=== PATIENT | female | born 1945 | race Caucasian/White ===

== ENCOUNTER 2017-05-04 06:39 | Day surgery (SDC) | payer MEDICARE, SELFPAY ==
[2017-05-04] VITALS (8 sets, daily range): BP systolic 104–154; BP diastolic 38–58; PULSE 59–64; RESP 16; TEMP 36.8–36.9; O2SAT 93–98; BMI 33.6
--- NOTE | 2017-05-04 | IMM_PTH ---
PATIENT: CORETTA HODGES LOC: EN U#:[id number] AGE/SX: 72/F ROOM: RE05/04/[address]: Dr. Cj Stephens MD : 1945 BED: DIS: 05/04/2017 SPEC #: [id number] RECD: 05/07/17 11:40 STATUS: RON DANIEL #: [id number] ILIANA: 05/04/17 00:[address]: Cj Stephens DEPT: IMMUNOHISTOCHEMISTRY RECD BY: Elma Escobedo ENTERED: 05/07/17 11:41 SP TYPE: IMMUNO OTHR DR: Dr. Rikki Stephens III, MD Tissues: A - Stomach, NOS Procedures: H Pylori (initial) PHYSICIAN & INSTITUTION [place] [id number] SPECIMEN INFORMATION: Tissue Source: A ? Antral biopsy Clinical Info: GERD, history of food obstruction Specimen Number: [id number] CPT code: 85703 METHODOLOGY: Deparaffinized sections of prefer/formalin-fixed tissue or PAP/DQ stained slides are incubated with monoclonal/polyclonal antibodies/oligonucleotide probes. Localization is made via biotin free immunoperoxidase method. Appropriate controls are performed and reacted as expected. Results on target cell population are indicated in the following table: RESULTS: ANTIBODY / CLONE RESULT Block A H Pylori (polyclonal) negative These tests were developed and their performance characteristics determined by [facility]. They may not have been cleared or approved by the U.S. Food and Drug Administration. The FDA has determined that such clearance or approval is not necessary. INTERPRETATION: A. Antral biopsy: Negative for Helicobacter pylori organisms. AM:ruben 05/08/17
--- NOTE | 2017-05-04 07:35 | HP.PCM_ITS ---
Problem List (1) History of colon cancer Status: Acute (2) GERD (gastroesophageal reflux disease) Status: Acute History of Present Illness Date of Admission: 05/04/17 The patient is a 72 year old F patient presented my office. She has a personal history of colon cancer. She also has problems with increased gastroesophageal reflux disease with intermittent problems with meat foreign body food obstruction. February 23, 2017 she had a colonoscopy identifying a proximal transverse colon lesion. She underwent a resection. She presents now for surgical follow-up. She has been having increasing difficulties with swallowing with solid food meat causing intermittent obstruction. Past Medical History Past Medical History (Chronic Problems): Chronic Problems (Last Updated 03/29/17 @ 14:30 by Tri Phelps) DM2 (diabetes mellitus, type 2) (Chronic) S/P colectomy (Chronic) HTN (hypertension) (Chronic) Hyperlipidemia (Chronic) Allergies citalopram hydrobromide [From Celexa] Allergy (Verified 03/29/17 14:33) Unknown gabapentin [From Neurontin] Allergy (Verified 03/29/17 14:33) Unknown hydrocodone bitartrate [From Vicodin] Allergy (Verified 03/29/17 14:33) Unknown lisinopril Allergy (Verified 03/29/17 14:33) Unknown Home Medications: Ambulatory Orders Medication Instructions Recorded Amlodipine [Norvasc] 10 mg PO DAILY 04/19/14 Losartan Potassium [Cozaar] 100 mg PO DAILY 04/19/14 Pravastatin [Pravachol] 40 mg PO DAILY 04/19/14 Cinnamon Bark [Cinnamon] 500 mg PO BID 05/26/16 Ferrous Sulfate [Iron] 325 mg PO DAILY 05/26/16 Fluoxetine [Prozac] 20 mg PO DAILY 05/26/16 Insulin NPH Human Isophane 18 units SQ DAILY 05/26/16 [Humulin N Vial] Insulin NPH Human Isophane 20 units SQ QHS 05/26/16 [Humulin N] Lorazepam [Ativan] 0.5 - 1 mg PO BID PRN PRN 05/26/16 Pramipexole Di-HCl [Mirapex] 0.5 mg PO QHS 05/26/16 Pregabalin [Lyrica] 100 mg PO DAILY 05/26/16 Capecitabine [Xeloda] 1,000 mg PO BID 06/23/17 Docusate Sodium [Colace] 100 mg PO BID 09/15/16 Famotidine [Pepcid] 20 mg PO BID 09/15/16 Insulin Lispro [Humalog] 9 unit SQ TIDCM 09/15/16 Nystatin Powder [Mycostatin Powder] 1 applic TOPICAL 4X/DAY 09/15/16 Ondansetron HCl [Zofran] 4 mg PO Q6H PRN PRN 09/15/16 Prochlorperazine Maleate 10 mg PO Q8H PRN PRN 09/15/16 [Compazine] furosemide 20 mg tablet 20 mg PO ONCE 03/29/17 metoprolol succinate ER 100 mg 100 mg PO ONCE tab 03/29/17 tablet,extended release 24 hr topiramate 25 mg tablet 25 mg PO QDAY 03/29/17 Surgical History: total knee arthroplasty, - - Laparoscopic right colectomy February 2017 Smoking Status: Never smoker - *Family History Maternal History Items: Heart Disease - Heart failure in her mother Review of Systems Constitutional: Denies: Weight Change Eyes: Denies: Blurred vision, Vision Change HEENT: Denies: Ear Pain, Eye Pain Cardiovascular: Denies: Chest Pain, Claudication Respiratory: Denies: Cough, Shortness of Breath Gastrointestinal: Denies: Hematemesis, Hematochezia Genitourinary: Denies: Dysuria, Hematuria Musculoskeletal: Denies: Leg Pain Skin: Denies: Jaundice Neurological: Denies: Confusion Psychiatric: Denies: Depression Endocrine: Denies: Change in Body Habitus Hematologic/ Lymphatic: Denies: Easy Bleeding VTE Information - Inpt Only VTE Present on Admission: No Patient Problems: Active and Suspected Problems (Last Updated 03/29/17 @ 14:30 by Tri Phelps ) History of colon cancer (Acute) GERD with stricture (Acute) GERD (gastroesophageal reflux disease) (Acute) - Physical Exam General: Alert, Oriented x3 HEENT: PERRLA, EOMI Oral: Moist Mucosa Neck: Supple, No JVD Lungs: Clear to auscultation Cardiovascular: Regular rate Abdomen: Bowel Sounds Present Extremities: No clubbing Skin: No rashes Musculoskeletal: No Tenderness to Palpation of Joints or Extremities Lymphatic: No Cervical, Supraclavicular, or Inguinal Adenopathy Neurological: Cranial nerves II-XII grossly intact Vital Signs Temp Pulse Resp BP Pulse Ox 98.3 F 59 L 16 154/57 H 98 05/04/17 07:15 05/04/17 07:15 05/04/17 07:15 05/04/17 07:15 05/04/17 07:15 Oxygen Delivery Method Room Air Weight: 190 lb Body Mass Index (BMI) 33.6 Finger Stick Blood Glucose 231 Assessment/Plan Active and Suspected Problems (Last Updated 03/29/17 @ 14:30 by Tri Phelps ) History of colon cancer (Acute) GERD with stricture (Acute) GERD (gastroesophageal reflux disease) (Acute) Plan to proceed with a esophagogastroduodenoscopy with possible biopsy. If esophageal stricturing is identified in consideration for esophageal dilatation will be pursued. Plan for colonoscopy with possible biopsy or polypectomy is indicated. The patient has had a previous history of colon cancer and careful inspection will be performed. The patient is aware of technique, benefits, risks, alternatives. We will proceed as noted. Cj Stephens M.D., F.A.C.S.
[2017-05-04 07:36] LABS: Bedside Glucose 158 mg/dL (70-110)
--- NOTE | 2017-05-04 08:23 | GASB_PTH ---
PATIENT: CORETTA HODGES LOC: EN U#:[id number] AGE/SX: 72/F ROOM: RE05/04/[address]: Dr. Cj Stephens MD : 1945 BED: DIS: 05/04/2017 SPEC #: [id number] RECD: 05/04/17 11:11 STATUS: RON DANIEL #: [id number] ILIANA: 05/04/17 08:[address]: Cj Stephens DEPT: SURGICAL PATHOLOGY RECD BY: Rajiv Faulkner ENTERED: 05/04/17 12:14 SP TYPE: Gastric Bx OTHR DR: Dr. Rikki Stephens III, MD Tissues: A - Gastric mucous membrane B - Gastric mucous membrane Procedures: Surgery Specimen Level IV HEADER OPERATION: EGD with biopsy PRE-OP DIAGNOSIS: GERD and history of food obstruction TISSUE SUBMITTED: A ? Antral biopsy, B ? GE junction biopsy MICROSCOPIC DIAGNOSIS A. Gastric antrum, biopsy: Gastritis. B. GE junction, biopsy: Mild chronic inflammation. No evidence of intestinal metaplasia. Fragments of squamous mucosa with no significant pathologic change. AM:ruben 05/07/17 COMMENT A. The results of immunohistochemistry for Helicobacter pylori will be reported separately ([id number]). MICROSCOPIC DESCRIPTION Slides are reviewed. Sections show small collections and groups of plasma cells in the mucosa. Active inflammation is not present. These findings are consistent with mild chronic gastritis. GROSS DESCRIPTION A - Received in fixative is one container labeled with the patient's name and designated antral biopsy. The specimen consists of one irregular fragment of light diamond soft tissue that measures 0.5 x 0.3 x 0.1 cm. The specimen is totally submitted in one cassette. B - Received in fixative is one container labeled with the patient's name and designated GE junction biopsy. The specimen consists of multiple irregular fragments of light diamond soft tissue that in aggregate measure 1 x 0.3 x 0.1 cm. The specimen is totally submitted in one cassette. / AM:ruben 05/04/17 TC:3 CPT: 89354 x2
--- NOTE | 2017-05-04 08:50 | PCM.OPRPT ---
Problem List (1) History of colon cancer Status: Acute (2) GERD (gastroesophageal reflux disease) Status: Acute Report of Operation Date of Procedure: 05/04/17 Pre-Operative Diagnosis: Gastroesophageal reflux disease with intermittent food bolus obstruction. No history of colon cancer 1 year status post resection Post-Operative Diagnosis: Hiatal hernia with distal esophagitis and obstructing Schatzki ring. Mild antral gastritis. Widely patent ileocolonic anastomosis. No evidence for acute colonic pathology Surgery/Procedure Performed:: Gastroduodenoscopy with antral and GE junction biopsies with 20 mm Schatzki ring distal esophagus hydrostatic dilatation. Colonoscopy Description of Surgical Findings:: Timeout and informed consent was obtained. 72-year-old female was taken to the endoscopy suite. Her oropharynx anesthetized with Cetacaine. She was placed in a left lateral decubitus position. Throughout both the upper and lower scope she received total 100 mg of Demerol and 2 mg of Versed is intravenous sedation. Videogastroscope was inserted in the soft line at advanced without difficulty. The proximal and midesophagus not remarkable. The EG junction was at about 35 cm. A small hiatal hernia noted. Findings consistent with esophagitis with a obstructing Schatzki ring noted. Scope was advanced to the stomach where mild antral erythema was noted. Scope was advanced in the pylorus the first and second portion of the duodenum were inspected this was not remarkable. The scope was withdrawn back into the stomach retroflexed the EG junction and cardia inspected. The hiatal hernia noted. The greater and lesser curvatures were not remarkable. Antral biopsy was obtained. Excess fluid and air was aspirated free. The scope was withdrawn to the distal esophagus. At the friable Schatzki ring 2 different biopsies were obtained. Because of the patient's symptomatology I elected to do a hydrostatic localization. A 18 1920 mm hydrostatic balloon was inserted. This was insufflated to 3 gia and then slowly and gradually up to a total of 6 gia. The EG junction and ring was gently dilated. Inspection subsequently demonstrated improvement. After mucosa was intact. The patient tolerated it well. Excess fluid nurse aspirated free the scope was withdrawn without additional abnormality. The patient was kept in left lateral decubitus position. Digital rectal exam performed. Normal anal tone. Flexible colonoscope inserted the rectum advanced through a somewhat tortuous left colon. Transabdominal pressure was used to get the scope to go through the transverse colon. The ileocolonic anastomosis was nicely achieved. Bowel prep was quite good. The scope was carefully withdrawn through the transverse colon descending colon sigmoid colon. No abnormalities were noted. The scope was retroflexed within the rectum mild noted. No active bleeding. Excess fluid and air was aspirated free the procedure was completed with the patient tolerating it well. Impression Hiatal hernia with findings consistent with esophagitis and obstructing Schatzki ring. Mild antral gastritis. Distal esophageal dilatation successfully performed. Patent ileocolonic anastomosis. No evidence for recurrent colon cancer. Previous colonoscopy was 1 year ago. Next colonoscopy recommended in 3 years. The patient currently is on famotidine. We will await biopsies and consider possibly treatment with proton pump inhibitor. Cc: Dr. Rikki Stephens, III Occasions were given at 0815. Scope was inserted at 0821. The upper endoscopy completed at 0832. The colonoscopy was initiated at 0836. The ileocolonic anastomosis was reached at 0839.13. The procedure was completed at 0843.3. Cj Stephens M.D., F.A.C.S. Type of Anesthesia:: IV Sedation
== END 2017-05-04 10:15 | disposition home or self-care (01) ==
LOC: EN 06:40 → AC 06:43
PROVIDERS: Family Provider Family Medicine; PCP Family Medicine; Visit Provider Surgery
PROC: 0DJD8ZZ Inspection of Lower Intestinal Tract, Via Natural or Artificial Opening Endoscopic (ICD-10-PCS; CPT 45378; principal; 2017-05-04 07:55)
DX: K22.2 Esophageal obstruction (principal); K44.0 Diaphragmatic hernia with obstruction, without gangrene; K29.70 Gastritis, unspecified, without bleeding; K21.9 Gastro-esophageal reflux disease without esophagitis; K63.89 Other specified diseases of intestine; Z85.038 Personal history of other malignant neoplasm of large intestine; E11.9 Type 2 diabetes mellitus without complications; Z90.49 Acquired absence of other specified parts of digestive tract; I10 Essential (primary) hypertension; E78.5 Hyperlipidemia, unspecified; Z79.4 Long term (current) use of insulin; Z79.899 Other long term (current) drug therapy
CPT/HCPCS: 43239; 43249; 45378; 82962; 88305; 88342; J7120

== ENCOUNTER 2017-08-21 19:17 | Emergency (ER) | payer MEDICARE, SELFPAY ==
[2017-08-21 19:19] VITALS: BP 156/75; PULSE 88; RESP 18; TEMP 36.9; O2SAT 95; BMI 36.1
--- NOTE | 2017-08-21 19:52 | CT_ITS ---
STUDY: CT BRAIN WITHOUT CONTRAST REASON FOR EXAM: Female, 72 years old. Headache RADIATION DOSAGE (If Supplied By Facility): CTDIvol = ( 44.99 ) mGy, DLP = ( 796.11 ) mGycm TECHNIQUE: Transaxial CT imaging of the brain was performed without administration of intravenous contrast material. Individualized dose optimization techniques were used for this CT. COMPARISON: 09/15/2016. FINDINGS: Normal soft tissue structures. Normal calvarium. There is mild cerebral atrophy with widening of the extra-axial spaces and ventricular dilatation. There are areas of decreased attenuation within the white matter tracts of the supratentorial brain, consistent with microvascular disease changes. Stable area of encephalomalacia left frontal lobe. Normal basal ganglia and thalami. Normal brainstem. Normal cerebellum. There is no intracranial hemorrhage. There are no findings of an acute ischemic infarction. Normal visualized paranasal sinuses. CT/Brain/Head without Contrast IMPRESSION: Chronic involutional changes of the brain. 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 No acute intracranial process. Electronically Signed: Adan Car DO at 20:59 EDT , Service support ,
[2017-08-21 20:04] LABS: Absolute Lymphocyte Count 2.71 X10^3/ul (0.83-4.51); Absolute Neutrophil Count 3.9 X10^3/uL (2.0-7.7); Basophil# 0.03 X10^3/uL; Basophil% 0.4 % (0-1); Eosinophil# 0.29 X10^3/uL; Eosinophils% 3.9 % (0-5); Hematocrit 38.9 % (37-47); Hemoglobin 13.1 g/dl (12.0-15.0); Lymphocyte # 2.71 X10^3/ul (4.0); Lymphocyte % 36.2 % (19-41); Mean Corp Hgb Conc 33.7 g/gl (32-36); Mean Corpuscular Hgb 29.4 pg (27.0-32.0); Mean Corpuscular Volume 87.2 fL (81-99); Monocyte# 0.58 X10^3/uL; Monocyte% 7.8 % (0-10); Neutrophil # 3.87 X10^3/uL (2.7-7.7); Neutrophil % 51.7 % (47-70); Platelet Count 187 K/mm3 (150-450); RBC Distribution Width CV 13.4 % (11.6-14.6); RBC Distribution Width SD 42.7 fl (35.1-43.9); Red Blood Count 4.46 M/mm3 (4.2-5.4); White Blood Count 7.5 K/mm3 (4.4-11.0)
[2017-08-21 20:07] LABS: POSITIVE COUNT NO; POSITIVE DIFFERENTIAL NO; POSITIVE MORPHOLOGY NO
[2017-08-21 20:18] LABS: Anion Gap 9 (5-15); BUN 22 mg/dL (7-18); Calcium,Total 8.7 mg/dL (8.5-10.1); Chloride 109 mmol/L (98-107); EST Glomerular Filtration Rate 58 mL/min (>60); Est Glom Filt Rate - Afr Amer 70 mL/min (>60); Estimated Creatinine Clearance 42.07 ml/min; Glucose 273 mg/dL (74-106); Potassium 3.9 mmol/L (3.5-5.1); Sodium Level 141 mmol/L (136-145)
[2017-08-21] MEDS: Ondansetron 4 MG/2 ML Vial IV (20:24)
[2017-08-21] MEDS: Morphine 4 MG/ML Syringe IV (20:26)
--- NOTE | 2017-08-21 21:42 | ED.VISSUMM ---
- ER Visit Summary Date of Service: 08/21/17 Chief Complaint: Headache History of Present Illness: The patient is a [address] Rikki Stephens III. She reports that she has headache left side of her head began approximately 1 week ago. States this is an intermittent pain last approximately an hour at a time. She describes it as a dull, throbbing. It is an 8 out of 10 at worst and 5 out of 10 currently. Ports it is relieved by Tylenol. She denies any recent injury to her head. No fever, chills, numbness, weakness, or other complaints. Physical Examination: Vitals: Stable. Afebrile. Neck: Supple with no meningismus. Neuro: Cranial nerves II through XII are intact, 5 out of 5 strength throughout except left leg where she has 4+ out of 5 strength and decreased sensation to light touch. Patient reports that this is normal for her. Normal sensation otherwise. General: A&O x 3. NAD. Cardiovascular exam: Regular rate and rhythm, no murmur, rub or gallop. Respiratory exam: Clear to auscultation bilaterally. No wheezes or stridor. Abdominal exam: Soft, nontender, nondistended, normal bowel sounds. No peritoneal signs. Extremity: No clubbing, cyanosis, or edema. Test Results: CBC is normal. Chem-7 is remarkable for a chloride of 109, BUN 22, BUN/creatinine ratio 22, and glucose 273. CT brain shows chronic changes with a stable old left infarct. No acute disease. Emergency Department Course and Treatment: Patient was treated with morphine and Zofran IV. She is resting comfortably and feels much improved. Treatment Plan: Patient will be discharged instructions to follow-up Dr. Rikki Stephens III in 1-2 days if not improving. Return to the emergency department for any worsening symptoms. Disposition: To home in improved and stable condition. Impression: 1. Cephalgia. 2. Dehydration. This note was generated with [employer] dictation software. It may contain incorrect words, spelling, and punctuation that were not noted in review of the chart prior to signing ED Disposition - Plan for ED Patient: Disposition: Home or Assisted Living Chief Complaint: Headache Instructions: ED Cephalgia Unspecified Referrals: Rikki Stephens III, MD [Primary Care Provider] - 1-2 Days if not improving
[2017-08-21 22:12] VITALS: BP 140/60; PULSE 78
== END 2017-08-21 22:12 | disposition home or self-care (01) ==
PROVIDERS: Emergency Provider Emergency Medicine; Family Provider Family Medicine; PCP Family Medicine
DX: R51 Headache (principal); E86.0 Dehydration; E11.9 Type 2 diabetes mellitus without complications; I10 Essential (primary) hypertension; E78.00 Pure hypercholesterolemia, unspecified; Z86.73 Personal history of transient ischemic attack (TIA), and cerebral infarction without residual deficits; Z79.4 Long term (current) use of insulin; Z79.899 Other long term (current) drug therapy
CPT/HCPCS: 70450; 80048; 85025; 96361; 96374; 96375; 99285; J7030; J7040; A4216; J2405

== ENCOUNTER 2017-09-13 12:46 | Emergency (ER) | payer MEDICARE, SELFPAY ==
[2017-09-13 12:47] VITALS: BP 139/76; PULSE 71; RESP 18; TEMP 36.6; O2SAT 99; BMI 37.2
--- NOTE | 2017-09-13 13:21 | CT_ITS ---
STUDY: CT BRAIN WITHOUT CONTRAST REASON FOR EXAM: Female, 72 years old. Hypertension RADIATION DOSAGE (If Supplied By Facility): CTDIvol = ( 44.99 ) mGy, DLP = ( 745.49 ) mGycm TECHNIQUE: Transaxial CT imaging of the brain was performed without administration of intravenous contrast material. Individualized dose optimization techniques were used for this CT. COMPARISON: 08/21/2017 FINDINGS: Normal soft tissue structures. Normal calvarium. There is mild cerebral atrophy with widening of the extra-axial spaces and ventricular dilatation. There are areas of decreased attenuation within the white matter tracts of the supratentorial brain, consistent with microvascular disease changes. Old left frontal lobe infarct noted. Normal basal ganglia and thalami. Normal brainstem. Normal cerebellum. There is no intracranial hemorrhage. There are no findings of an acute ischemic infarction. Normal visualized paranasal sinuses. CT/Brain/Head without Contrast IMPRESSION: Chronic involutional changes of the brain. No acute hemorrhage Stable appearance of an old left frontal lobe infarct Electronically Signed: Angus Chiu MD at 14:17 EDT , Service support ,
[2017-09-13] MEDS: Acetaminophen 325 MG Tablet 650 MG PO (13:45)
[2017-09-13 13:46] LABS: Erythrocyte Sedimentation Rate 6 mm/hr (0-30)
[2017-09-13 13:57] LABS: White Blood Count 6.7 K/mm3 (4.4-11.0)
[2017-09-13 13:58] LABS: Basophil% 0.6 % (0-1); Eosinophils% 3.7 % (0-5); Hemoglobin 13.5 g/dl (12.0-15.0); Lymphocyte % 29.7 % (19-41); Mean Corp Hgb Conc 33.8 g/gl (32-36); Mean Corpuscular Hgb 29.5 pg (27.0-32.0); Mean Corpuscular Volume 87.5 fL (81-99); Mean Platelet Vol. 9.9 fl (6.2-12.0); Monocyte% 6.7 % (0-10); Neutrophil # 3.98 X10^3/uL (2.7-7.7); Neutrophil % 59.2 % (47-70); POSITIVE COUNT NO; POSITIVE DIFFERENTIAL NO; POSITIVE MORPHOLOGY NO; Platelet Count 175 K/mm3 (150-450); RBC Distribution Width CV 13.5 % (11.6-14.6); RBC Distribution Width SD 42.5 fl (35.1-43.9); Red Blood Count 4.57 M/mm3 (4.2-5.4)
[2017-09-13 13:59] LABS: Anion Gap 6 (5-15); BUN 13 mg/dL (7-18); BUN/Creat Ratio 17.3 RATIO (10-20); Basophil# 0.04 X10^3/uL; Calcium,Total 8.7 mg/dL (8.5-10.1); Chloride 110 mmol/L (98-107); Creatinine, Serum 0.75 mg/dL (0.55-1.02); EST Glomerular Filtration Rate 81 mL/min (>60); Eosinophil# 0.25 X10^3/uL; Est Glom Filt Rate - Afr Amer 98 mL/min (>60); Estimated Creatinine Clearance 42.07 ml/min; Glucose 92 mg/dL (74-106); Monocyte# 0.45 X10^3/uL; Potassium 3.8 mmol/L (3.5-5.1); Sodium Level 144 mmol/L (136-145)
--- NOTE | 2017-09-13 14:40 | ED.VISSUMM ---
- ER Visit Summary Date of Service: 09/13/17 Chief Complaint: [Headache] History of Present Illness: The patient is a 72 F [presents with a headache that she has had intermittently for about a year and a half. Patient states that she has intermittent episodes of dull achy and throbbing left-sided headache with sharp stabbing episodes. Patient states the headache and last several hours at a time and then completely resolved. Patient takes topiramate for this which is prescribed by her primary care physician. Patient describes intermittent occasional photophobia. He denies any nausea or vomiting with this. Patient's visiting nurse came by today and noted that patient's blood pressure was elevated in the 170s over 80s and was instructed to come to the emergency department to get evaluated. Patient denies any falls or head injuries. Patient denies recent illness otherwise. Patient does have a history of prior stroke without any deficits from prior stroke. Patient with history of diabetes, hypertension, high cholesterol, anemia, frequent falls.] Physical Examination: [HEENT-PERRLA, EOMI. Cranial nerves II through XII grossly intact. TMs clear. Mucous membranes moist. No adenopathy. Patient has no tenderness over the left temporal artery. Cardiovascular-regular rate and rhythm without murmur or ectopy Lungs-clear to auscultation, chest wall stable without crepitus or subcu emphysema Abdomen-normoactive bowel sounds, soft, nontender, no rebound or rigidity, no peritoneal signs. Neuro tjsk-ubqzhk-savq and heel porras testing within normal limits, negative Romberg, negative pronator drift, fundi benign Extremities-intact ?4, normal range of motion, normal pulses, atraumatic] Test Results: [CBC with differential obtained showed a white count 6.7, hemoglobin 13.5, hematocrit 40, platelets 175. Sed rate was normal at 6. Chemistries were normal. CT scan of the brain showed old left frontal lobe infarct otherwise nothing acute.] Emergency Department Course and Treatment: [Was given a dose of Tylenol in the emergency department and currently her headache is resolved.] Treatment Plan: [Patient will be referred to Dr. Luis Orellana for further follow-up. Patient tells me she had an MRI about a year ago of her brain and has never been diagnosed with aneurysms. Discharged home in stable condition] Disposition: [] Impression: [Acute on chronic headache-resolved] This note was generated with Dragon dictation software. It may contain incorrect words, spelling, and punctuation that were not noted in review of the chart prior to signing ED Disposition - Plan for ED Patient: Chief Complaint: Other, Pain/Inj Referrals: Rikki Stephens III, MD [Primary Care Provider] -
--- NOTE | 2017-09-13 14:43 | ED.DEP ---
ED Disposition - Plan for ED Patient: Chief Complaint: Other, Pain/Inj Instructions: ED Cephalgia Unspecified Prescriptions: traMADol [Ultram] 50 mg PO Q4H PRN PRN #20 tab PRN Reason: Pain Referrals: Rikki Stephens III, MD [Primary Care Provider] - Luis Orellana MD [STAFF PHYSICIAN] - 3-5 Days
[2017-09-13 15:17] VITALS: BP 152/68; PULSE 72; RESP 16; O2SAT 98
== END 2017-09-13 15:18 | disposition home or self-care (01) ==
LOC: ED 13:23
PROVIDERS: Emergency Provider Emergency Medicine; Family Provider Family Medicine; PCP Family Medicine
DX: R51 Headache (principal); K21.9 Gastro-esophageal reflux disease without esophagitis; E11.9 Type 2 diabetes mellitus without complications; I10 Essential (primary) hypertension; E78.00 Pure hypercholesterolemia, unspecified; Z91.81 History of falling; Z86.73 Personal history of transient ischemic attack (TIA), and cerebral infarction without residual deficits; Z85.038 Personal history of other malignant neoplasm of large intestine; Z79.4 Long term (current) use of insulin; Z79.82 Long term (current) use of aspirin; Z79.899 Other long term (current) drug therapy
CPT/HCPCS: 70450; 80048; 85025; 85652; 99283; A4216

== ENCOUNTER 2018-03-18 08:57 | Emergency (ER) | payer MEDICARE, SELFPAY ==
[2018-03-18 08:57] VITALS: BMI 33.6
[2018-03-18 08:58] VITALS: BP 111/85; PULSE 77; RESP 20; TEMP 36.6; O2SAT 98; BMI 33.6
--- NOTE | 2018-03-18 09:57 | ED.VISSUMM ---
- ER Visit Summary Date of Service: 03/18/18 Chief Complaint: Vomiting History of Present Illness: The patient is a 73 F who states that Sunday afternoon she was sitting down she suddenly developed dry heaves. She has had nausea vomiting since. Though her last emesis was yesterday morning. She states she has not been able to eat or drink due to the severe nausea. She has a history of colon cancer has had a partial colectomy. Also notes history of diabetes. She has not been taking her diabetes medications because she has not been eating. She notes a subjective fever. She notes chronic rhinorrhea but no change in that. Physical Examination: Afebrile vital signs are stable Gen: Well-nourished well-developed Head: Normocephalic atraumatic Eyes: Perrl EOMI ENT: TMs clear no rhinorrhea since lips are dry and her tongue appears dry Neck: Supple no lymphadenopathy no JVD nontender CVS: Regular rate rhythm no murmurs normal S1-S2 Respiratory: No distress clear to auscultation bilaterally chest nontender Abdomen: Soft nontender nondistended normal bowel sounds no masses Back: Nontender Extremity: Nontender no edema Skin: Normal color no rash Neuro: alert orientated ?3 CN II-XII intact normal strength sensation reflexes gait cerebellar Psych: Normal affect normal mood Test Results: BC CMP and lipase were normal. Emergency Department Course and Treatment: Patient received IV fluids and Zofran. She feels improved on repeat examination. Patient will be discharged home with a prescription for Zofran instructions for oral rehydration return if worsening or concerns Impression: 1. Acute gastritis 2. Dehydration This note was generated with [employer] dictation software. It may contain incorrect words, spelling, and punctuation that were not noted in review of the chart prior to signing ED Disposition - Plan for ED Patient: Disposition: Home or Assisted Living Chief Complaint: Nausea/Vomiting Instructions: ED Gastroenteritis Viral Prescriptions: Ondansetron [Zofran Odt] 4 mg PO Q6H PRN PRN #10 tab PRN Reason: Nausea Referrals: Rikki Stephens III, MD [Primary Care Provider] - 3-5 Days if not improving
[2018-03-18] MEDS: 0.9% Normal Saline 1,000 ML 1000 ML IV ×2 (10:01→11:55)
[2018-03-18] MEDS: Ondansetron 4 MG/2 ML Vial IV ×2 (10:01→13:15)
[2018-03-18 10:03] VITALS: BP 163/53; PULSE 73; RESP 16; O2SAT 98
[2018-03-18 10:07] LABS: Hematocrit 36.3 % (37-47); Hemoglobin 11.9 g/dl (12.0-15.0); Mean Corp Hgb Conc 32.8 g/gl (32-36); Mean Corpuscular Hgb 28.9 pg (27.0-32.0); Mean Corpuscular Volume 88.1 fL (81-99); Mean Platelet Vol. 9.8 fl (6.2-12.0); Platelet Count 188 K/mm3 (150-450); RBC Distribution Width CV 13.6 % (11.6-14.6); RBC Distribution Width SD 43.9 fl (35.1-43.9); Red Blood Count 4.12 M/mm3 (4.2-5.4); White Blood Count 7.3 K/mm3 (4.4-11.0)
[2018-03-18 10:08] LABS: Differential Indicated MANUAL DIFF; POSITIVE COUNT NO; POSITIVE DIFFERENTIAL NO; POSITIVE MORPHOLOGY YES
--- NOTE | 2018-03-18 10:17 | NURSING ---
CHEMISTRIES HEMOLIZED
[2018-03-18 11:32] LABS: AST(SGOT) 27 U/L (15-37); Alanine Aminotransfer ALT/SGPT 25 U/L (13-56); Albumin, Serum 3.5 g/dL (3.2-5.0); Alkaline Phosphatase 27 U/L (45-117); Anion Gap 10 (5-15); BUN 19 mg/dL (7-18); BUN/Creat Ratio 18.6 RATIO (10-20); Calcium,Total 8.6 mg/dL (8.5-10.1); Chloride 109 mmol/L (98-107); Creatinine, Serum 1.02 mg/dL (0.55-1.02); EST Glomerular Filtration Rate 56 mL/min (>60); Est Glom Filt Rate - Afr Amer 68 mL/min (>60); Estimated Creatinine Clearance 40.63 ml/min; Globulin 3.4 g/dL (2.2-4.2); Glucose 80 mg/dL (74-106); Lipase 39 U/L (73-393); Potassium 4.3 mmol/L (3.5-5.1); Protein, Total 6.9 g/dL (6.4-8.2); Sodium Level 144 mmol/L (136-145)
[2018-03-18 11:49] LABS: Basophil 1 % (0-1); Eosinophil 2 % (0-5); Lymphocyte 32 % (19-41); Monocyte 12 % (0-10); Neutrophil-Segmented 53 % (47-70); Platelet Estimate ADEQUATE (ADEQ); Red Cell Morphology NORM C+C NORMAL (NORM C&C); Total Cells Counted 100 (MANUAL DIFF)
[2018-03-18 11:50] LABS: Absolute Lymphocyte Count 2.34 X10^3/ul (0.83-4.51); Absolute Neutrophil Count 3.9 X10^3/uL (2.0-7.7); Lymphocyte # 2.34 X10^3/ul (4.0)
[2018-03-18 13:33] VITALS: BP 139/84; PULSE 86; RESP 18; O2SAT 97
== END 2018-03-18 13:36 | disposition home or self-care (01) ==
PROVIDERS: Emergency Provider Emergency Medicine; Family Provider Family Medicine; PCP Family Medicine
DX: K52.9 Noninfective gastroenteritis and colitis, unspecified (principal); E86.0 Dehydration; E11.9 Type 2 diabetes mellitus without complications; Z85.038 Personal history of other malignant neoplasm of large intestine; Z90.49 Acquired absence of other specified parts of digestive tract; Z86.73 Personal history of transient ischemic attack (TIA), and cerebral infarction without residual deficits
CPT/HCPCS: 36415; 80053; 83690; 85025; 96361; 96374; 96376; 99283; J7030; A4216; J2405

== ENCOUNTER 2018-03-21 14:47 | Emergency (ER) | payer MEDICARE, SELFPAY ==
[2018-03-21 14:48] VITALS: BP 160/63; PULSE 70; RESP 18; TEMP 36.9; O2SAT 100; BMI 32.8
--- NOTE | 2018-03-21 15:17 | EKG12_ITS ---
Test Reason : GENERAL ILLNESS Blood Pressure : / mmHG Vent. Rate : 068 BPM Atrial Rate : 068 BPM P-R Int : 156 ms QRS Dur : 080 ms QT Int : 408 ms P-R-T Axes : 026 -09 035 degrees QTc Int : 433 ms Normal sinus rhythm Normal ECG Confirmed by MYKE ERICKSON, ROSANNA ([id number]), brands editor ALFRED BAILEY ([id number]) on 03/25/2018 1:21:26 PM Referred By: WALDEMAR Confirmed By:ROSANNA STRINGER MD
[2018-03-21] MEDS: 0.9% Normal Saline 1,000 ML 1000 ML IV (15:49)
[2018-03-21 15:51] LABS: Absolute Lymphocyte Count 1.79 X10^3/ul (0.83-4.51); Absolute Neutrophil Count 4.2 X10^3/uL (2.0-7.7); Basophil# 0.03 X10^3/uL; Basophil% 0.4 % (0-1); Eosinophil# 0.17 X10^3/uL; Eosinophils% 2.5 % (0-5); Hematocrit 35.3 % (37-47); Hemoglobin 11.5 g/dl (12.0-15.0); Lymphocyte # 1.79 X10^3/ul (4.0); Lymphocyte % 26.5 % (19-41); Mean Corp Hgb Conc 32.6 g/gl (32-36); Mean Corpuscular Hgb 28.7 pg (27.0-32.0); Mean Platelet Vol. 9.6 fl (6.2-12.0); Monocyte# 0.55 X10^3/uL; Monocyte% 8.1 % (0-10); Neutrophil # 4.21 X10^3/uL (2.7-7.7); Neutrophil % 62.5 % (47-70); Platelet Count 193 K/mm3 (150-450); RBC Distribution Width CV 13.5 % (11.6-14.6); RBC Distribution Width SD 43.6 fl (35.1-43.9); Red Blood Count 4.01 M/mm3 (4.2-5.4); White Blood Count 6.8 K/mm3 (4.4-11.0)
[2018-03-21 15:53] LABS: POSITIVE COUNT NO; POSITIVE DIFFERENTIAL NO; POSITIVE MORPHOLOGY NO
[2018-03-21 15:58] VITALS: BP 118/58; BP 125/51; BP 127/47; PULSE 68; PULSE 74; PULSE 78
[2018-03-21 16:30] LABS: ALB/GLOB Ratio 1.2 RATIO (0.9-2.4); AST(SGOT) 20 U/L (15-37); Alanine Aminotransfer ALT/SGPT 22 U/L (13-56); Albumin, Serum 3.6 g/dL (3.2-5.0); Alkaline Phosphatase 26 U/L (45-117); BUN 18 mg/dL (7-18); BUN/Creat Ratio 14.6 RATIO (10-20); Calcium,Total 8.5 mg/dL (8.5-10.1); Creatinine, Serum 1.23 mg/dL (0.55-1.02); EST Glomerular Filtration Rate 46 mL/min (>60); Est Glom Filt Rate - Afr Amer 55 mL/min (>60); Globulin 3.1 g/dL (2.2-4.2); Glucose 101 mg/dL (74-106); Lipase 47 U/L (73-393); Potassium 4.1 mmol/L (3.5-5.1); Protein, Total 6.7 g/dL (6.4-8.2); Sodium Level 141 mmol/L (136-145)
[2018-03-21 16:31] LABS: Anion Gap 8 (5-15); Chloride 112 mmol/L (98-107)
[2018-03-21 16:48] VITALS: BP 153/80
[2018-03-21 17:10] LABS: Bacteria 0 SEEN /hpf (None Seen); Mucous, Urine 0 SEEN /hpf (<or=2+); Red Blood Cells-Urine 0 SEEN /hpf (0-5)
[2018-03-21 17:13] LABS: Color, Urine Yellow (Yellow); Glucose, Dipstick Normal (Normal); Ketone-Dipstick Negative (Negative); Leukocyte Esterase-Dipstick 100 /ul (Negative); Nitrite-Dipstick Negative (Negative); Occult Blood-Urine Negative /ul (Negative); Protein-Dipstick Negative (Negative); Urine Bilirubin Dipstick Negative (Negative); Urine Clarity Clear (Clear); Urine Urobilinogen Normal (Normal)
[2018-03-21 17:23] LABS: Transitional Epithelial - Ur 0-5 SEEN /hpf (0-5)
[2018-03-21 17:24] LABS: Fine Granular Cast- Urine 0-5 SEEN /lpf (0-5)
[2018-03-21 17:27] LABS: Hyaline Cast 10-25 SEEN /lpf (0-5); White Blood Cells 0-5 SEEN /hpf (0-5)
[2018-03-21 17:28] LABS: Squamous Epithelial Cells - UA 0-5 SEEN /hpf (5-10)
--- NOTE | 2018-03-21 17:38 | ED.VISSUMM ---
- ER Visit Summary Date of Service: 03/21/18 Chief Complaint: [Generalized weakness and concern for dehydration] History of Present Illness: The patient is a 73 F [presents to the emergency department complaint of feeling generally weak over the last 5 days. Patient was seen in the emergency department several days ago for similar complaint. Patient states that 5 days ago she started with vomiting and diarrhea which lasted about 3 days. Since that time she has had decreased p.o. intake and generally has no significant energy. Patient denies any fever. Denies chest pain. She denies shortness of breath. Patient was seen by visiting nurse today and advised to come back and get reevaluated. Patient states that at times she feels dizzy with standing. Past medical history significant for type 2 diabetes, hypertension, high cholesterol, anemia, colon cancer history, prior stroke. Past surgical history includes hysterectomy.] Physical Examination: [HEENT-PERRLA, EOMI. Cranial nerves II through XII grossly intact. TMs clear. Mucous membranes moist. No adenopathy. Cardiovascular-regular rate and rhythm without murmur or ectopy Lungs-clear to auscultation, chest wall stable without crepitus or subcu emphysema Abdomen-normoactive bowel sounds, soft, nontender, no rebound or rigidity, no peritoneal signs. Extremities-intact ?4, normal range of motion, normal pulses, atraumatic] Test Results: [EKG obtained arrival shows sinus rhythm with a ventricular rate of 68 bpm with no acute ST segment changes. CBC with differential 6.8, hemoglobin 11.5, hematocrit 35, platelets 193. Chemistries unremarkable. BUN was 18 and creatinine 1.23. LFTs were normal. Lipase was 47. Urinalysis was normal. Troponin is less than 0.015. Orthostatic vital signs were negative.] Emergency Department Course and Treatment: [She was given a liter normal same fluid bolus.] Treatment Plan: [At this point I recommended continued hydration at home.] Patient to follow-up with primary care physician within next 3-5 days. Disposition: [Discharged home in stable condition] Impression: [Generalized weakness [id number]] This note was generated with [employer] dictation software. It may contain incorrect words, spelling, and punctuation that were not noted in review of the chart prior to signing ED Disposition - Plan for ED Patient: Chief Complaint: General Illness Referrals: Rikki Stephens III, MD [Primary Care Provider] -
--- NOTE | 2018-03-21 17:41 | ED.DEP ---
ED Disposition - Plan for ED Patient: Chief Complaint: General Illness Instructions: ED Weakness UKO, ED Gastroenteritis Viral Referrals: Rikki Stephens III, MD [Primary Care Provider] - 3-5 Days
[2018-03-21 17:45] VITALS: BP 136/70; PULSE 81; RESP 16; O2SAT 99
[2018-03-21 18:02] VITALS: BP 108/67; PULSE 91; RESP 14; O2SAT 99
== END 2018-03-21 18:03 | disposition home or self-care (01) ==
PROVIDERS: Emergency Provider Emergency Medicine; Family Provider Family Medicine; PCP Family Medicine
DX: R53.1 Weakness (principal); A08.4 Viral intestinal infection, unspecified; Z86.73 Personal history of transient ischemic attack (TIA), and cerebral infarction without residual deficits
CPT/HCPCS: 80053; 81001; 83690; 84484; 85025; 93005; 96360; 96361; 99284; A4216

== ENCOUNTER 2018-04-03 10:12 | Emergency (ER) | payer MEDICARE, SELFPAY ==
[2018-04-03 10:13] VITALS: BP 121/64; PULSE 67; RESP 18; TEMP 36.1; O2SAT 98; BMI 32.2
--- NOTE | 2018-04-03 10:41 | ED.VISSUMM ---
- ER Visit Summary Date of Service: 04/03/18 Chief Complaint: Dehydration History of Present Illness: The patient is a 73 F who has had 2 ER visits and recent primary care and urgent care visits over the last several weeks. Patient initially had nausea, vomiting and diarrhea which she states is now resolved. She has had decreased oral intake and decreased urination. She denies fever. She has had a nonproductive cough. Denies any shortness of breath or abdominal pain. Today was seen at the [facility] [place]. They called center of the ER. They stated there is she seemed dehydrated and had positive orthostatic hypotension. Physical Examination: Vital signs are stable. Blood pressure is 121/64. Pulse ox 98 and her temperature is 96. She does not look septic or toxic. She is in no distress. HEENT exam pupils round reactive light. Normal speech. No facial droop. Mildly dry mucous membranes. No signs of trauma. Neck nontender no lymphadenopathy. Lungs clear to auscultation bilaterally. Dry cough. Heart regular rate and rhythm no murmur. Abdomen is soft and nontender. Normal bowel sounds no peritoneal signs. Patient is moving all 4 extremities. Neurovascular intact. Calves are nontender without edema or cords. 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 Dorsi plantar flexion intact. Back exam nontender. Skin unremarkable. Neurologically she is awake and alert with no focal motor deficits. Test Results: Chest x-ray shows no acute abnormalities. 2 views read by myself. No pneumonia. CBC shows a white count of 8. Hemoglobin 11.2 which is her baseline. Chemistries are unremarkable gap of 10. BUN is elevated 24 creatinine 1 consistent with mild dehydration. Emergency Department Course and Treatment: Patient treated with 2 L normal saline IV fluids. IV Zofran. P.o. challenge. Repeat exam patient is doing well after the first and second bags of IV fluids. She is comfortable and family is current with her being discharged home. She meets no criteria for admission. Treatment Plan: Zofran for nausea. Plenty of fluids and rest. Follow-up with her primary care physician Dr. Rikki Chandler. Disposition: Discharge Impression: Acute mild dehydration status post recent viral illness with decreased oral intake This note was generated with [employer] dictation software. It may contain incorrect words, spelling, and punctuation that were not noted in review of the chart prior to signing ED Disposition - Plan for ED Patient: Chief Complaint: Nausea/Vomiting Referrals: Rikki Stephens III, MD [Primary Care Provider] -
[2018-04-03] MEDS: 0.9% Normal Saline 1,000 ML 1000 ML IV ×2 (10:49→11:22)
[2018-04-03] MEDS: Ondansetron 4 MG/2 ML Vial IV (10:49)
--- NOTE | 2018-04-03 11:05 | RAD_ITS ---
STUDY: X-RAY CHEST REASON FOR EXAM: Female, 73 years old. Cough. TECHNIQUE: PA and lateral views of the chest. COMPARISON: Comparison is made with prior study dated May 26, 2016. FINDINGS: Stable elevation of the anterior aspect of the right hemidiaphragm. Scattered calcified granulomas. No acute abnormality is seen. The lungs are clear and expanded. There is no demonstrated pleural abnormality. Normal size heart. Normal mediastinum and marti. Normal visualized pulmonary arteries. Normal visualized aortic arch and descending thoracic aorta. There are degenerative changes of the visualized thoracic spine. Normal visualized ribs, clavicles, and shoulders. There is no demonstrated abnormality of the visualized soft tissue structures of the upper abdomen. RAD/Chest PA and Lateral IMPRESSION: No acute abnormality is seen. Electronically Signed: Mickey Funk MD at 11:26 EST Tel [phone], Service support ,
[2018-04-03 11:27] LABS: Hemoglobin 11.2 g/dl (12.0-15.0); Mean Corp Hgb Conc 32.9 g/gl (32-36); Mean Corpuscular Hgb 28.9 pg (27.0-32.0); Mean Corpuscular Volume 87.6 fL (81-99); Mean Platelet Vol. 10.2 fl (6.2-12.0); Platelet Count 176 K/mm3 (150-450); RBC Distribution Width CV 13.2 % (11.6-14.6); RBC Distribution Width SD 42.5 fl (35.1-43.9); Red Blood Count 3.88 M/mm3 (4.2-5.4)
[2018-04-03 11:31] LABS: Anion Gap 10 (5-15); BUN 24 mg/dL (7-18); BUN/Creat Ratio 22.2 RATIO (10-20); Calcium,Total 8.3 mg/dL (8.5-10.1); Chloride 107 mmol/L (98-107); Creatinine, Serum 1.08 mg/dL (0.55-1.02); Differential Indicated MANUAL DIFF; EST Glomerular Filtration Rate 53 mL/min (>60); Est Glom Filt Rate - Afr Amer 64 mL/min (>60); Estimated Creatinine Clearance 38.38 ml/min; Glucose 86 mg/dL (74-106); POSITIVE COUNT NO; POSITIVE DIFFERENTIAL NO; POSITIVE MORPHOLOGY YES; Potassium 3.9 mmol/L (3.5-5.1); Sodium Level 142 mmol/L (136-145)
[2018-04-03 11:50] LABS: Eosinophil 3 % (0-5); Lymphocyte 23 % (19-41); Monocyte 5 % (0-10); Neutrophil-Segmented 69 % (47-70); Total Cells Counted 100 (MANUAL DIFF)
[2018-04-03 11:51] LABS: Absolute Neutrophil Count 5.5 X10^3/uL (2.0-7.7); Platelet Estimate ADEQUATE (ADEQ); Red Cell Morphology NORM C+C NORMAL (NORM C&C)
--- NOTE | 2018-04-03 12:43 | ED.DEP ---
ED Disposition - Plan for ED Patient: Disposition: Home or Assisted Living Chief Complaint: Nausea/Vomiting Instructions: ED Dehydration Prescriptions: Ondansetron [Zofran Odt] 4 mg PO Q8H PRN PRN #10 tab PRN Reason: Nausea Referrals: Rikki Stephens III, MD [Primary Care Provider] - 3-5 Days if not improving Additional Instructions: Zofran as needed for nausea. Plenty of fluids and rest. Follow-up with your doctor in the next several days if not improving.
[2018-04-03 13:45] VITALS: BP 127/45; PULSE 71; RESP 14; O2SAT 95
== END 2018-04-03 13:47 | disposition home or self-care (01) ==
PROVIDERS: Emergency Provider Emergency Medicine; Family Provider Family Medicine; PCP Family Medicine
DX: E86.0 Dehydration (principal); I10 Essential (primary) hypertension; E11.9 Type 2 diabetes mellitus without complications; Z86.73 Personal history of transient ischemic attack (TIA), and cerebral infarction without residual deficits; Z85.038 Personal history of other malignant neoplasm of large intestine; Z79.82 Long term (current) use of aspirin; Z79.4 Long term (current) use of insulin; Z79.899 Other long term (current) drug therapy
CPT/HCPCS: 71046; 80048; 85025; 96361; 96374; 99283; J7030; A4216; J2405

== ENCOUNTER 2018-09-07 16:35 | Emergency (ER) | payer MEDICARE, SELFPAY ==
[2018-09-07 16:37] VITALS: BP 127/83; PULSE 85; RESP 16; TEMP 36.1; O2SAT 99; BMI 31.8
[2018-09-07] MEDS: Fluorescein 1 MG STRIP 1 STRIP LEFT EYE (17:40)
[2018-09-07] MEDS: Tetracaine 0.5% Ophthalmic Bottle 1 DRP LEFT EYE (17:40)
--- NOTE | 2018-09-07 17:44 | ED.VISSUMM ---
- ER Visit Summary Date of Service: 09/07/18 Chief Complaint: Left eye pain History of Present Illness: The patient is a 73 F presents to the emergency department with left eye pain. The patient thought she was putting eyedrops in her left eye but it was actually a tube of superglue. Her eyelashes, and eyelid are not stuck together which she is having foreign body sensation and discomfort in her left eye. She is having no visual change. She is having a little bit of drainage and swelling. She has no other complaints at this time. She does wear glasses for visual correction. Her tetanus is up-to-date. Physical Examination: Patient has mild erythema of the left upper and lower eyelid but no swelling. Patient has diffuse injection left conjunctivitis. No foreign bodies are seen. Extraocular movement shows normal range of motion with no pain palsy or nystagmus. PERRLA and normal accommodation are noted. Patient has an evidence of a corneal abrasion at 8:00 and over her central area of vision but there is no ulcer, no Ernie sign or foreign body. Test Results: Tetracaine instilled left eye. Pain was improved. Floor seen instilled. Slit-lamp performed. Patient has a large corneal abrasion over central area of her vision and approximately at 8:00. No foreign bodies are seen. No Ernie sign or ulcer. Emergency Department Course and Treatment: After slit-lamp exam the patient will be given a prescription for erythromycin ophthalmic and will follow-up with her marketing proposal coordinator in the next 2 to 3 days. Treatment Plan: Erythromycin ophthalmic, follow-up ophthalmology Disposition: Discharged home Impression: Corneal abrasion, left eye This note was generated with [employer] dictation software. It may contain incorrect words, spelling, and punctuation that were not noted in review of the chart prior to signing ED Disposition - Plan for ED Patient: Disposition: Home or Assisted Living Diagnosis: Corneal abrasion, left Instructions: ED Eye Injury Corneal Abrasion Prescriptions: Erythromycin Ophthalmic 1 applic LEFT EYE TID #1 tube Referrals: Rikki Stephens III, MD [Primary Care Provider] -
--- NOTE | 2018-09-07 17:48 | ED.DCSUM_ITS ---
- ER Visit Summary Date of Service: 09/07/18 Chief Complaint: Left eye pain History of Present Illness: The patient is a 73 F presents to the emergency department with left eye pain. The patient thought she was putting eyedrops in her left eye but it was actually a tube of superglue. Her eyelashes, and eyelid are not stuck together which she is having foreign body sensation and discomfort in her left eye. She is having no visual change. She is having a little bit of drainage and swelling. She has no other complaints at this time. She does wear glasses for visual correction. Her tetanus is up-to-date. Physical Examination: Patient has mild erythema of the left upper and lower eyelid but no swelling. Patient has diffuse injection left conjunctivitis. No foreign bodies are seen. Extraocular movement shows normal range of motion with no pain palsy or nystagmus. PERRLA and normal accommodation are noted. Patient has an evidence of a corneal abrasion at 8:00 and over her central area of vision but there is no ulcer, no Ernie sign or foreign body. Test Results: Tetracaine instilled left eye. Pain was improved. Floor seen instilled. Slit-lamp performed. Patient has a large corneal abrasion over central area of her vision and approximately at 8:00. No foreign bodies are seen. No Ernie sign or ulcer. Emergency Department Course and Treatment: After slit-lamp exam the patient will be given a prescription for erythromycin ophthalmic and will follow-up with her beaming machine operator in the next 2 to 3 days. Treatment Plan: Erythromycin ophthalmic, follow-up ophthalmology Disposition: Discharged home Impression: Corneal abrasion, left eye This note was generated with [employer] dictation software. It may contain incorrect words, spelling, and punctuation that were not noted in review of the chart prior to signing ED Disposition - Plan for ED Patient: Disposition: Home or Assisted Living Diagnosis: Corneal abrasion, left Instructions: ED Eye Injury Corneal Abrasion Prescriptions: Erythromycin Ophthalmic 1 applic LEFT EYE TID #1 tube Referrals: Rikki Stephens III, MD [Primary Care Provider] -
== END 2018-09-07 17:55 | disposition home or self-care (01) ==
PROVIDERS: Emergency Provider Physician Assistant Medical; Family Provider Family Medicine; PCP Family Medicine
DX: S05.02XA Injury of conjunctiva and corneal abrasion without foreign body, left eye, initial encounter (principal); E11.9 Type 2 diabetes mellitus without complications; I10 Essential (primary) hypertension; E78.00 Pure hypercholesterolemia, unspecified; Z79.4 Long term (current) use of insulin; Z79.82 Long term (current) use of aspirin; Z79.899 Other long term (current) drug therapy; X58.XXXA Exposure to other specified factors, initial encounter; Y93.89 Activity, other specified; Y92.009 Unspecified place in unspecified non-institutional (private) residence as the place of occurrence of the external cause; Y99.8 Other external cause status
CPT/HCPCS: 99283

== ENCOUNTER 2019-01-06 14:49 | Emergency (ER) | payer MEDICARE, SELFPAY ==
[2019-01-06 14:51] VITALS: BP 154/60; PULSE 78; PULSE 84; RESP 17; TEMP 36.3; O2SAT 100; BMI 32.8
--- NOTE | 2019-01-06 15:04 | RAD_ITS ---
STUDY: X-RAY - RIGHT SHOULDER REASON FOR EXAM: Female, 73 years old. Pain following a fall. TECHNIQUE: 4 view(s) of the shoulder. COMPARISON: None. FINDINGS: There is moderate degenerative arthrosis of the glenohumeral articulation. There is degenerative arthrosis of the acromioclavicular joint without inferior osseous spur formation. Normal acromion. Normal humeral head and visualized proximal humerus. The soft tissue structures are unremarkable. Normal visualized pulmonary apex. RAD/Shoulder min 2 Views IMPRESSION: Degenerative changes of the right glenohumeral joint as well as the right acromioclavicular joint. Electronically Signed: Mickey Funk, at 16:06 EDT , Service support ,
--- NOTE | 2019-01-06 15:05 | RAD_ITS ---
STUDY: X-RAY - UNILATERAL RIBS ( RIGHT ) WITH CHEST REASON FOR EXAM: Female, 73 years old. Pain following a fall. TECHNIQUE - RIBS: 4 view(s) of the ribs. TECHNIQUE - CHEST: Single frontal view of the chest. COMPARISON: Comparison is made with prior chest radiograph dated April 02, 2018. FINDINGS - RIBS: Normal visualized ribs without a demonstrated fracture. FINDINGS - CHEST: Mild degree of increased markings at the lung bases suggestive of developing atelectasis. Decrease inspiratory effort. There is no demonstrated pleural abnormality. Normal size heart. Normal mediastinum and marti. Normal visualized pulmonary arteries. Normal visualized aortic arch and descending thoracic aorta. There are diffuse degenerative changes of the visualized thoracic spine. Normal visualized ribs, clavicles, and shoulders. There is no demonstrated abnormality of the visualized soft tissue structures of the upper abdomen. RAD/Ribs Uni Min 3V w/PA Chest IMPRESSION: RIBS: Normal x-ray examination of the ribs. CHEST: Decreased respiratory effort with mild increased markings at the bases suggestive of atelectasis. Electronically Signed: Mickey Funk, at 16:06 EDT , Service support ,
--- NOTE | 2019-01-06 15:05 | CT_ITS ---
STUDY: CT BRAIN WITHOUT CONTRAST REASON FOR EXAM: Female, 73 years old. History of fall. RADIATION DOSAGE (If Supplied By Facility): CTDIvol = ( 44.99 ) mGy, DLP = ( 731.43 ) mGycm TECHNIQUE: Transaxial CT imaging of the brain was performed without administration of intravenous contrast material. Individualized dose optimization techniques were used for this CT. COMPARISON: Comparison is made with prior study dated September 13, 2017. FINDINGS: Normal soft tissue structures. Normal calvarium. There is mild cerebral atrophy with widening of the extra-axial spaces and ventricular dilatation. There are areas of decreased attenuation within the white matter tracts of the supratentorial brain, consistent with microvascular disease changes. Stable focal encephalomalacia in the left frontal lobe. Normal basal ganglia and thalami. Normal brainstem. Normal cerebellum. There is no intracranial hemorrhage. There are no findings of an acute ischemic infarction. Normal visualized paranasal sinuses. CT/Brain/Head without Contrast IMPRESSION: Chronic involutional changes of the brain. Stable appearance of the encephalomalacia in the left frontal lobe. Electronically Signed: Mickey Funk, at 15:53 EDT , Service support ,
--- NOTE | 2019-01-06 15:05 | CT_ITS ---
STUDY: CT CERVICAL SPINE WITHOUT CONTRAST REASON FOR EXAM: Female, 73 years old. History of fall. RADIATION DOSAGE (If Supplied By Facility): CTDIvol = ( 28.58 ) mGy, DLP = ( 586.98 ) mGycm TECHNIQUE: High resolution transaxial imaging was performed without contrast material. Sagittal and coronal images were reconstructed. Individualized dose optimization techniques were used for this CT. COMPARISON: Comparison is made with prior study dated September 15, 2016. FINDINGS: Normal craniovertebral junction. Normal anterior atlantoaxial articulation. Normal odontoid process. Normal cervical lordosis. Normal vertebral bodies and posterior osseous elements. C2-3: Facet joint osteoarthritis and hypertrophy on the right side. No significant stenosis is seen. C3-4: Mild degree of the left facet joint osteoarthritis and hypertrophy. No significant stenosis is seen. C4-5: Moderate degree of disc space narrowing. Anterior and posterior spondylosis. Uncovertebral arthrosis. Moderate degree of bilateral neural foraminal stenosis worse on the left side there C5-6: Moderate degree of disc space narrowing. Facet joint osteoarthritis. Uncovertebral arthrosis. Moderate degree of bilateral neural foraminal stenosis worse on the left side. C6-7: Disc space narrowing. No stenosis is seen. Atherosclerotic calcification of the carotid bifurcations. CT/Spine Cervical without Contras IMPRESSION: Multilevel degenerative changes, as described above. Electronically Signed: Mickey Funk, at 15:54 EDT , Service support ,
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
[2019-01-06 15:07] VITALS: O2SAT 99
--- NOTE | 2019-01-06 15:26 | RAD_ITS ---
STUDY: X-RAY - PELVIS AND RIGHT HIP REASON FOR EXAM: Female, 73 years old. Pain following a fall. TECHNIQUE: 3 views of the pelvis and hip. COMPARISON: None. FINDINGS: There is a non-specific bowel gas pattern. There are multiple calcified phleboliths. There are atherosclerotic vascular calcifications. Normal bilateral iliac wings, sacroiliac joints and visualized sacrum. Normal bilateral superior and inferior pubic rami. There are degenerative changes of the pubic symphysis with articular narrowing and sclerosis. Normal bilateral ischial tuberosities. Normal visualized femoral head. There is osteoarthritic spur formation of the acetabular rim. There is moderate articular joint space narrowing of the hip. RAD/HIP, UNI W/ Pelvis 2-3 Views IMPRESSION: Degenerative changes. No fracture or dislocation is seen. Electronically Signed: Mickey Funk, at 16:04 EDT , Service support ,
[2019-01-06 16:50] VITALS: BP 134/84; PULSE 85; RESP 16; O2SAT 99
[2019-01-06 17:14] VITALS: BP 134/84; PULSE 85; RESP 16; O2SAT 99
== END 2019-01-06 17:49 | disposition home or self-care (01) ==
PROVIDERS: Emergency Provider Emergency Medicine; Family Provider Family Medicine; PCP Family Medicine
DX: S16.1XXA Strain of muscle, fascia and tendon at neck level, initial encounter (principal); S40.011A Contusion of right shoulder, initial encounter; S70.01XA Contusion of right hip, initial encounter; S09.90XA Unspecified injury of head, initial encounter; S00.81XA Abrasion of other part of head, initial encounter; S50.311A Abrasion of right elbow, initial encounter; E66.9 Obesity, unspecified; I10 Essential (primary) hypertension; E78.00 Pure hypercholesterolemia, unspecified; F41.9 Anxiety disorder, unspecified; F29 Unspecified psychosis not due to a substance or known physiological condition; Z86.73 Personal history of transient ischemic attack (TIA), and cerebral infarction without residual deficits; Z85.038 Personal history of other malignant neoplasm of large intestine; Z79.82 Long term (current) use of aspirin; Z79.899 Other long term (current) drug therapy; W01.198A Fall on same level from slipping, tripping and stumbling with subsequent striking against other object, initial encounter; Y93.01 Activity, walking, marching and hiking; Y92.481 Parking lot as the place of occurrence of the external cause; Y99.8 Other external cause status
CPT/HCPCS: 70450; 71101; 72125; 73030; 73502; 99284

== ENCOUNTER 2019-03-26 09:04 | Emergency (ER) | payer MEDICARE, SELFPAY ==
[2019-03-26 09:05] VITALS: BP 155/96; PULSE 102; RESP 17; TEMP 37; O2SAT 99; BMI 32.8
--- NOTE | 2019-03-26 09:12 | RAD_ITS ---
STUDY: X-RAY CHEST REASON FOR EXAM: Female, 74 years old. Cough, dyspnea on exertion, pedal edema TECHNIQUE: PA and lateral views of the chest. COMPARISON: 04/03/2018. CT chest 12/28/2011. FINDINGS: There are superimposed monitor leads. Stable eventration right hemidiaphragm. Stable hyperinflation and calcified nodules in the right base. There is no demonstrated pleural abnormality. Normal size heart. Normal mediastinum and marti. Normal visualized pulmonary arteries. There is atherosclerotic calcification of the aortic arch with tortuosity. There are diffuse degenerative changes of the visualized thoracic spine. There is degenerative osteoarthritis of the bilateral shoulders. There is no demonstrated abnormality of the visualized soft tissue structures of the upper abdomen. RAD/Chest PA and Lateral IMPRESSION: Stable hyperinflation, calcified granulomata. No pulmonary edema, congestive heart failure or confluent pneumonia. Electronically Signed: Cara Hatch MD at 10:25 EST , Service support ,
--- NOTE | 2019-03-26 09:12 | EKG12_ITS ---
Test Reason : COUGH Blood Pressure : / mmHG Vent. Rate : 091 BPM Atrial Rate : 091 BPM P-R Int : 132 ms QRS Dur : 090 ms QT Int : 360 ms P-R-T Axes : 040 -16 069 degrees QTc Int : 442 ms Normal sinus rhythm Minimal voltage criteria for LVH, may be normal variant Borderline ECG Confirmed by MARINA ERICKSON, ALEKSANDAR ([id number]), commissioning editor JULIANNE LEON ([id number]) on 03/27/2019 10:32:21 AM Referred By: BERNIE Confirmed By:ALEKSANDAR GRAY MD
--- NOTE | 2019-03-26 09:13 | ED.DCSUM_ITS ---
History of Present Illness Chief Complaint: Cough Detail of Chief Complaint: I have been like this for 2 weeks Informant: Patient Onset: Weeks - Onset of illness 2 weeks ago. Patient reports nonproductive cough, change in voice, pain with coughing, dyspnea and dyspnea exertion. She was unaware that she had swelling of her feet and legs. She does report two- pillow orthopnea. Context: Sudden Onset Timing: Continuous Quality: Respiratory symptoms Current Severity: Mild Maximum Severity: Moderate Worsened by: Activity Relieved by: Nothing Associated Symptoms: Read HPI Narrative: Patient is an elderly woman who is not a good informant presents with illness that started 2 weeks ago. She has a nonproductive cough. She reports pain with breathing and coughing. She also reports congestion and change in voice. She denies exertional chest pain. She does report needing 2 pillows to sleep with at night. Uncertain whether this is for comfort or for dyspnea. She was unaware that she has swelling of her feet and ankles. She denies history of congestive heart failure. She does complain of bifrontal head pain. Denies double vision, blurred vision loss of vision or photophobia. She denies neck pain or neck stiffness. She denies ear pain, ringing or ears or decreased hearing. She does report mild congestion of her nose. She denies nausea, vomiting or diarrhea. She denies urologic symptoms. Prior similar symptoms: No Recent Illness/Hospitalization: No - Past Medical History (1) Adenocarcinoma of colon Status: Acute Comment: 04/2016 (2) Anxiety Status: Acute (3) Cerebral arteriosclerosis Status: Acute (4) Chronic calculous cholecystitis Status: Acute (5) Diverticulosis Status: Acute (6) Dysphagia Status: Acute (7) Hx of heart surgery Status: Acute Comment: heart cath 2002 (8) Intervertebral disc disorder with radiculopathy of lumbar region Status: Acute (9) Overactive bladder Status: Acute (10) S/P cholecystectomy Status: Acute Comment: 2015 (11) Status post corneal transplant Status: Acute (12) Status post total knee replacement, right Status: Acute Comment: 2006 (13) DM2 (diabetes mellitus, type 2) Status: Chronic (14) HTN (hypertension) Status: Chronic (15) Hyperlipidemia Status: Chronic (16) S/P colectomy Status: Chronic Past Medical History - Allergies and Home Meds Allergies/Adverse Reactions: Allergies citalopram hydrobromide [From [employer]] Allergy (Verified 03/26/19 09:05) Unknown gabapentin [From Neurontin] Allergy (Verified 03/26/19 09:05) Unknown hydrocodone bitartrate [From Vicodin] Allergy (Verified 03/26/19 09:05) Unknown lisinopril Allergy (Verified 03/26/19 09:05) Unknown oxycodone [From OxyContin] Adverse Reaction (Verified 03/26/19 09:05) Vomiting Primary Care Physician: Rikki Stephens III, MD [Primary Care Provider] - Prior records reviewed: Yes Surgical History: total knee arthroplasty, - - Laparoscopic right colectomy February 2017 Lives: Spouse/ Significant Other Smoking Status: Never smoker Alcohol: None Drugs: None - Family History Maternal Family History: Family History (Last Updated 03/29/17 @ 14:26 by Tri Phelps) Son Diabetes Family History: Reports: Heart Disease - Heart failure in her mother Review of Systems General: Reports: Fever, Malaise, Subjective. Denies: Chills, Sweats, Weight loss Eyes: Denies: Visual changes - bilaterally, Blurred Vision - bilaterally, Diplopia ENT: Reports: Rhinorrhea, Sore throat. Denies: Bilateral ear pain Cardiovascular: Reports: Chest pain. Denies: Palpitations, Heart racing Respiratory: Reports: Dyspnea, Cough, Dyspnea on exertion, Orthopnea. Denies: Sputum, Paroxysmal nocturnal dyspnea Gastrointestinal: Denies: Abdominal pain, Nausea, Vomiting, Diarrhea, Melena, Hematochezia Genitourinary: Denies: Dysuria, Hematuria, Frequency Musculoskeletal: Denies: Myalgias, Arthralgias, Neck pain, Back pain, Swelling, Extremity Pain, -, - Skin: Denies: Rash, Wounds Neurological: Reports: Headache, Weakness. Denies: Parasthesia, Numbness Endocrine: Denies: Polyuria, Polydipsia Hematologic: Denies: Easy bruising, Easy bleeding Allergy: Denies: Uticaria, Swelling of the mouth, Swelling of the tongue Physical Exam Vital Signs/Narrative: Vital Signs Temp Pulse Resp BP Pulse Ox 03/26/19 09:05 98.6 F 102 H 17 155/96 H 99 Inital Vital Signs reviewed: Yes General: Well nourished, Well developed, Obese, No Acute Distress Head: Normocephalic, Atraumatic Eyes: Perrl, EOMI. Negative for: Pale conjunctiva, Scleral icterus ENT: Moist mucous membranes, No rhinorrhea, TM's clear, Nasal congestion. Negative for: Sinus tenderness Neck: Supple, Nontender, No lymphadenopathy, No JVD Cardiovascular: Regular rhythm, No murmurs, Normal S1, Normal S2, Tachycardia Respiratory: No distress, CTA bilaterally, Chest nontender Abdomen: Soft, Nontender, Nondistended, Normal bowel sounds, No masses Back: Nontender, Normal Inspection Extremities: Nontender, Edema - 1+ pitting edema bilaterally. There is no asymmetry or discoloration of the lower extremities. There is no palpable cords, tenderness on the distribution deep venous system or distended like veins.. Negative for: No edema Skin: No rash, No Trauma, Pallor. Negative for: Cyanosis, Diaphoresis, Jaundice Neurological: Alert, Oriented x3, Cranial nerves II-XII grossly intact, Normal Strength, Normal Sensation, Normal Gait Psychological: Depressed Diagnostic/Tx/Re-eval Chest X-Ray - ED: 2 View, Normal, Heart, Lungs, Bony Structures, No Acute Disease, Chronic Changes, - - Increased interstitial markings right hilar region and granulomatous disease. This is unchanged from January 06, 2019. Patient's symptoms are consistent with a viral bronchitis laryngitis. Will treat symptomatically. 03/26/19 09:12 Chest PA and Lateral [RAD] Stat Laboratory Results 03/26/19 03/26/19 03/26/19 09:25 09:25 09:25 WBC 9.4 RBC 4.19 L Hgb 11.8 L Hct 36.5 L MCV 87.1 MCH 28.2 MCHC 32.3 RDW Std Deviation 41.2 RDW Coeff of Terry 13.2 Plt Count 198 MPV 9.8 Immature Gran % (Auto) 0.300 Neut % (Auto) 69.6 Lymph % (Auto) 18.6 L Steele % (Auto) 7.6 Eos % (Auto) 3.4 Baso % (Auto) 0.5 Absolute Neuts (auto) 6.5 Absolute Lymphs (auto) 1.75 Nucleated RBC % 0 Sodium 143 Potassium 3.6 Chloride 108 H Carbon Dioxide 27.0 Anion Gap 8 BUN 11 Creatinine 0.76 Estim Creat Clear Calc 40.83 Est GFR (MDRD) Af Amer 96 Est GFR (MDRD) Non-Af 79 BUN/Creatinine Ratio 14.5 Glucose 168 H Calcium 8.8 Troponin I < 0.015 B-Natriuretic Peptide 67.1 Troponin and BNP are unremarkable. Suspect patient's bilateral lymphedema secondary to decreased activity and is dependent lymphedema. Basic metabolic panels unremarkable. Blood sugar is elevated 168. There is evidence of mild anemia. White count is normal. Chest x-ray is unchanged from 01/06/2019. - EKG Initial EKG Interpretation: Sinus Rhythm - Minus rhythm with a ventricular rate of 91. ME interval is 132 ms. QRS duration 90 ms. QT duration 360 ms. Hamer is normal. The EKG is normal. - Medical Decision Making Since history is suggestive of upper respiratory infection. With her complaining of orthopnea and pedal edema will obtain chest x-ray to assess for pneumonia versus congestive heart failure. CBC was obtained to assess white c ount and H&H. There is a remote history of colon cancer. Symptoms are not consistent with PE or DVT. EKG and troponin were obtained to evaluate for cardiac ischemia since symptoms started approximately 2 weeks ago. ED Disposition - Plan for ED Patient: Disposition: Home or Assisted Living Diagnosis: Acute bronchitis, viral, Dependent lymphedema due to impaired mobility Instructions: BRONCHITIS, No Antibiotic (Adult), Lymphedema Referrals: Rikki Stephens III, MD [Primary Care Provider] - 1 Week if not improving Additional Instructions: May be ill for another 7 days. If there is a significant change return otherwise follow-up with your primary care provider Dr. Rikki Stephens.
[2019-03-26 09:18] VITALS: O2SAT 98
[2019-03-26 09:26] VITALS: PULSE 95; RESP 18; TEMP 37; O2SAT 97
[2019-03-26 09:33] LABS: Absolute Lymphocyte Count 1.75 X10^3/uL (0.83-4.51); Absolute Neutrophil Count 6.5 X10^3/uL (2.0-7.7); Basophil# 0.05 X10^3/uL; Basophil% 0.5 % (0-1); Eosinophil# 0.32 X10^3/uL; Eosinophils% 3.4 % (0-5); Hematocrit 36.5 % (37-47); Hemoglobin 11.8 g/dL (12.0-15.0); Lymphocyte # 1.75 X10^3/ul (4.0); Lymphocyte % 18.6 % (19-41); Mean Corp Hgb Conc 32.3 g/dL (32-36); Mean Corpuscular Hgb 28.2 pg (27.0-32.0); Mean Corpuscular Volume 87.1 fL (81-99); Mean Platelet Vol. 9.8 fl (6.2-12.0); Monocyte# 0.71 X10^3/uL; Monocyte% 7.6 % (0-10); NRBC Flagged by Analyzer 0 % (0-5); Neutrophil # 6.53 X10^3/uL (2.7-7.7); Neutrophil % 69.6 % (47-70); Platelet Count 198 K/mm3 (150-450); RBC Distribution Width CV 13.2 % (11.6-14.6); RBC Distribution Width SD 41.2 fl (35.1-43.9); Red Blood Count 4.19 M/mm3 (4.2-5.4); White Blood Count 9.4 K/mm3 (4.4-11.0)
[2019-03-26 09:50] LABS: Anion Gap 8 (5-15); BUN 11 mg/dL (7-18); BUN/Creat Ratio 14.5 RATIO (10-20); Calcium,Total 8.8 mg/dL (8.5-10.1); Chloride 108 mmol/L (98-107); Creatinine, Serum 0.76 mg/dL (0.55-1.02); EST Glomerular Filtration Rate 79 mL/min (>60); Est Glom Filt Rate - Afr Amer 96 mL/min (>60); Estimated Creatinine Clearance 40.83 ml/min; Glucose 168 mg/dL (74-106); Potassium 3.6 mmol/L (3.5-5.1); Sodium Level 143 mmol/L (136-145)
[2019-03-26 09:56] LABS: BNP,B-Type NATRIURETIC PEPTIDE 67.1 pg/mL (0-100)
== END 2019-03-26 10:18 | disposition home or self-care (01) ==
LOC: ED 10:07
PROVIDERS: Emergency Provider Emergency Medicine; Family Provider Family Medicine; PCP Family Medicine
DX: J20.9 Acute bronchitis, unspecified (principal); I89.0 Lymphedema, not elsewhere classified; R26.9 Unspecified abnormalities of gait and mobility; M79.89 Other specified soft tissue disorders; R06.01 Orthopnea; R51 Headache; M51.16 Intervertebral disc disorders with radiculopathy, lumbar region; N32.81 Overactive bladder; E11.9 Type 2 diabetes mellitus without complications; I10 Essential (primary) hypertension; E78.5 Hyperlipidemia, unspecified; Z88.8 Allergy status to other drugs, medicaments and biological substances; Z88.5 Allergy status to narcotic agent; F41.9 Anxiety disorder, unspecified; E66.9 Obesity, unspecified; Z79.82 Long term (current) use of aspirin; Z79.4 Long term (current) use of insulin; Z79.899 Other long term (current) drug therapy; Z85.038 Personal history of other malignant neoplasm of large intestine; Z96.651 Presence of right artificial knee joint; Z94.7 Corneal transplant status; Z90.49 Acquired absence of other specified parts of digestive tract
CPT/HCPCS: 71046; 80048; 83880; 84484; 85025; 93005; 99284

== ENCOUNTER 2019-03-31 16:45 | Observation (INO) | payer MEDICARE, OTHER, SELFPAY ==
[2019-03-31] VITALS (8 sets, daily range): BP systolic 115–176; BP diastolic 54–72; PULSE 71–86; RESP 16–18; TEMP 36.5–37.2; O2SAT 97–99; BMI 30.5; BMI 30.6
--- NOTE | 2019-03-31 17:37 | EKG12_ITS ---
Test Reason : WEAKNESS Blood Pressure : / mmHG Vent. Rate : 075 BPM Atrial Rate : 075 BPM P-R Int : 142 ms QRS Dur : 086 ms QT Int : 404 ms P-R-T Axes : 050 -14 037 degrees QTc Int : 451 ms Normal sinus rhythm Minimal voltage criteria for LVH, may be normal variant Borderline ECG Confirmed by MYKE ERICKSON, ROSANNA ([id number]), publishing editor ALFRED BAILEY ([id number] on 04/02/2019 10:58:21 AM Referred By: Confirmed By:ROSANNA STRINGER MD
--- NOTE | 2019-03-31 17:40 | ED.DCSUM_ITS ---
History of Present Illness Chief Complaint: Weakness Informant: Patient Onset: Weeks - 3 Context: Gradual Onset Timing: Continuous Narrative: Patient is a 74-year-old female presented with generalized weakness and malaise. She states she was seen 5 days ago for similar complaints and diagnosed with a viral illness and bronchitis. She notes that she has been feeling sick for the past 3 weeks. Because of the longevity of her symptoms she decided come to the emergency room. Patient states that she has no energy and feels weak all over. She continues to have a cough and states it keeps her up at night because of the persistence of it. She denies any fever but does report chills. She notes 2 days ago she had 2 episodes of dry heaves because she was coughing so persistently. She denies any abnormal bowel movements including diarrhea, melena or bright red blood per rectum. She denies any upper respiratory symptoms such as sore throat, ear pain or nasal congestion. She notes she has had some dysuria and itching with urination. She denies any hematuria. She is not been tested for the flu. She states she also feels lightheaded and a little dizzy. She has chest pain with coughing in the center of her chest. Patient states she feels very dehydrated. She denies any other complaints at this time. Past Medical History - Allergies and Home Meds Allergies/Adverse Reactions: Allergies citalopram hydrobromide [From Celexa] Allergy (Verified 03/31/19 16:46) Unknown gabapentin [From Neurontin] Allergy (Verified 03/31/19 16:46) Unknown hydrocodone bitartrate [From Vicodin] Allergy (Verified 03/31/19 16:46) Unknown lisinopril Allergy (Verified 03/31/19 16:46) Unknown oxycodone [From OxyContin] Adverse Reaction (Verified 03/31/19 16:46) Vomiting Past Medical History: - - History of colon cancer, GERD, coronary artery disease, anxiety, diabetes mellitus, hypertension, hyperlipidemia Surgical History: total knee arthroplasty, - - Laparoscopic right colectomy February 2017 Lives: Spouse/ Significant Other Smoking Status: Never smoker - Family History Maternal Family History: Family History (Last Updated 03/29/17 @ 14:26 by Tri Phelps) Son Diabetes Family History: Reports: Heart Disease - Heart failure in her mother Review of Systems General: Reports: Chills, Malaise. Denies: Fever, Sweats Eyes: Denies: Visual changes - bilaterally, Diplopia ENT: Denies: Rhinorrhea, Sore throat Cardiovascular: Reports: Chest pain - With coughing. Denies: Palpitations Respiratory: Reports: Cough. Denies: Dyspnea, Dyspnea on exertion Gastrointestinal: Reports: Nausea. Denies: Abdominal pain, Vomiting, Diarrhea, Melena, Hematochezia Genitourinary: Reports: Dysuria. Denies: Hematuria, Frequency Musculoskeletal: Denies: Back pain, Extremity Pain Skin: Denies: Rash, Wounds Neurological: Reports: Weakness - Generalized. Denies: Headache, Numbness Physical Exam Vital Signs/Narrative: Vital Signs Temp Pulse Resp BP Pulse Ox 03/31/19 16:48 97.9 F 82 17 115/54 L 97 03/31/19 16:46 97.9 F 82 17 115/54 L 97 Inital Vital Signs reviewed: Yes General: Well nourished, Well developed, No Acute Distress Head: Normocephalic, Atraumatic Eyes: Perrl, EOMI ENT: Moist mucous membranes, No rhinorrhea Neck: Supple, Nontender, No JVD Cardiovascular: Regular rate, Regular rhythm, No murmurs Respiratory: No distress, CTA bilaterally, Chest nontender. Negative for: Rales, Rhonchi, Wheezing Abdomen: Soft, Nontender, Nondistended, Normal bowel sounds Back: Nontender, Normal Inspection. Negative for: CVA tenderness Extremities: Nontender, No edema Skin: Normal color, No rash Neurological: Alert, Oriented x3, Cranial nerves II-XII grossly intact, Normal Strength, Normal Sensation Psychological: Normal affect, Normal Mood Diagnostic/Tx/Re-eval Chest X-Ray - ED: 1 View, Read by ED Physician, Read by Radiologist, No Acute Disease Clinical Impression(s) from Imaging Studies Chest X-Ray 03/31/19 18:22 IMPRESSION: Old granulomatous disease in right lower lobe. No acute disease Electronically Signed: Cecil Alvarenga MD at 18:55 EST , Service support , Laboratory Data 03/31/19 03/31/19 03/31/19 18:12 18:12 18:49 WBC 7.0 RBC 4.12 L Hgb 11.4 L Hct 35.5 L MCV 86.2 MCH 27.7 MCHC 32.1 RDW Std Deviation 41.1 RDW Coeff of Terry 13.1 Plt Count 229 MPV 10.3 Immature Gran % (Auto) 0.100 Neut % (Auto) 60.9 Lymph % (Auto) 27.5 Citrus % (Auto) 8.8 Eos % (Auto) 2.1 Baso % (Auto) 0.6 Absolute Neuts (auto) 4.3 Absolute Lymphs (auto) 1.93 Nucleated RBC % 0 Sodium 138 Potassium 3.2 L Chloride 105 Carbon Dioxide 27.0 Anion Gap 6 BUN 15 Creatinine 1.01 Estim Creat Clear Calc 40.42 Est GFR (MDRD) Af Amer 69 Est GFR (MDRD) Non-Af 57 L BUN/Creatinine Ratio 14.9 Glucose 76 Calcium 8.5 Troponin I < 0.015 Urine Color Zainab Urine Clarity Clear Urine pH 5.0 Ur Specific [place] 1.025 Urine Protein 30 H Urine Glucose (UA) Normal Urine Ketones 5 H Urine Occult Blood Negative Urine Nitrite Negative Urine Bilirubin 1 H Urine Urobilinogen Normal Ur Leukocyte Esterase 100 H Urine RBC 0 SEEN Urine WBC 5-10 SEEN Ur Squamous Epith Cells 0-5 SEEN Urine Bacteria 0 SEEN Hyaline Casts 25-50 SEEN Urine Mucus 0 SEEN - Rhythm Strip Rhythm Strip: Sinus Rhythm Rate: 75 Ectopy: None - EKG Initial EKG Interpretation: Sinus Rhythm, - - Normal sinus rhythm at a rate of 75 Normal intervals Left axis deviation Normal ST segments - Medical Decision Making Patient is evaluated for cough, generalized malaise and lightheadedness. She ap pears nontoxic in no acute distress. Her vital signs are normal. She is given IV fluids in the emergency room. Work-up was largely negative. Her potassium was mildly low and she is given oral potassium replacement in the emergency room. I did check orthostatic vital signs which were positive for blood pressure. Patient had a 20 point drop in her systolic blood pressure from sitting to standing. She was symptomatic during this time. Patient patient does have multiple casts in her urine as well as 5 ketones. Likely she is dehydrated. Patient is offered admission for observation and IV fluids. She states she feels comfortable with that plan and does not feel safe going home right now. This seems reasonable. Discussed with Dr. Saleem, on-call who is agreeable with this. Patient stable for the general medical floor at time of disposition. ED Disposition - Plan for ED Patient: Disposition: Acute Care [facility] Diagnosis: Dizziness, Dehydration, Hypokalemia
[2019-03-31] MEDS: 0.9% Normal Saline 1,000 ML 1000 ML IV (18:11)
--- NOTE | 2019-03-31 18:22 | RAD_ITS ---
STUDY: X-RAY CHEST REASON FOR EXAM: Female, 74 years old. COUGH, WEAKNESS, FATIGUE, LIGHTHEADED x 3 WEEKS TECHNIQUE: PA and lateral COMPARISON: March 26, 2019 FINDINGS: The lungs are clear and expanded. There is tiny calcified granuloma in the right lower lobe. There is no demonstrated pleural abnormality. Normal size heart. Normal mediastinum and marti. Normal visualized pulmonary arteries. Normal visualized aortic arch and descending thoracic aorta. Dorsal spine demonstrates degenerative changes.. Normal visualized ribs, clavicles, and shoulders. There is no demonstrated abnormality of the visualized soft tissue structures of the upper abdomen. RAD/Chest PA and Lateral IMPRESSION: Old granulomatous disease in right lower lobe. No acute disease Electronically Signed: Cecil Alvarenga MD at 18:55 EST , Service support ,
[2019-03-31 18:40] LABS: Anion Gap 6 (5-15); BUN 15 mg/dL (7-18); BUN/Creat Ratio 14.9 RATIO (10-20); Calcium,Total 8.5 mg/dL (8.5-10.1); Chloride 105 mmol/L (98-107); Creatinine, Serum 1.01 mg/dL (0.55-1.02); EST Glomerular Filtration Rate 57 mL/min (>60); Est Glom Filt Rate - Afr Amer 69 mL/min (>60); Estimated Creatinine Clearance 40.42 ml/min; Glucose 76 mg/dL (74-106); Potassium 3.2 mmol/L (3.5-5.1); Sodium Level 138 mmol/L (136-145)
[2019-03-31 18:43] LABS: Absolute Lymphocyte Count 1.93 X10^3/uL (0.83-4.51); Absolute Neutrophil Count 4.3 X10^3/uL (2.0-7.7); Basophil# 0.04 X10^3/uL; Basophil% 0.6 % (0-1); Eosinophil# 0.15 X10^3/uL; Eosinophils% 2.1 % (0-5); Hematocrit 35.5 % (37-47); Hemoglobin 11.4 g/dL (12.0-15.0); Lymphocyte # 1.93 X10^3/ul (4.0); Lymphocyte % 27.5 % (19-41); Mean Corp Hgb Conc 32.1 g/dL (32-36); Mean Corpuscular Hgb 27.7 pg (27.0-32.0); Mean Corpuscular Volume 86.2 fL (81-99); Mean Platelet Vol. 10.3 fl (6.2-12.0); Monocyte# 0.62 X10^3/uL; Monocyte% 8.8 % (0-10); NRBC Flagged by Analyzer 0 % (0-5); Neutrophil # 4.28 X10^3/uL (2.7-7.7); Neutrophil % 60.9 % (47-70); Platelet Count 229 K/mm3 (150-450); RBC Distribution Width CV 13.1 % (11.6-14.6); RBC Distribution Width SD 41.1 fl (35.1-43.9); Red Blood Count 4.12 M/mm3 (4.2-5.4)
[2019-03-31 18:54] LABS: Bacteria 0 SEEN /hpf (None Seen); Mucous, Urine 0 SEEN /hpf (<or=2+); Red Blood Cells-Urine 0 SEEN /hpf (0-5)
[2019-03-31 18:57] LABS: Color, Urine Amber (Yellow); Glucose, Dipstick Normal (Normal); Ketone-Dipstick 5 mg/dl (Negative); Leukocyte Esterase-Dipstick 100 /ul (Negative); Nitrite-Dipstick Negative (Negative); Occult Blood-Urine Negative /ul (Negative); Protein-Dipstick 30 mg/dl (Negative); Specific Gravity, Urine 1.025 (1.002-1.030); Urine Clarity Clear (Clear); Urine Urobilinogen Normal (Normal)
[2019-03-31 19:00] LABS: Urine Bilirubin Dipstick 1 mg/dL (Negative)
[2019-03-31 19:09] LABS: Squamous Epithelial Cells - UA 0-5 SEEN /hpf (5-10); White Blood Cells 5-10 SEEN /hpf (0-5)
[2019-03-31 19:11] LABS: Hyaline Cast 25-50 SEEN /lpf (0-5)
--- NOTE | 2019-03-31 22:09 | HP.PCM_ITS ---
Problem List (1) History of colon cancer Status: Chronic (2) GERD (gastroesophageal reflux disease) Status: Chronic (3) Status post total knee replacement, right Status: Chronic Comment: 2006 (4) Hx of heart surgery Status: Chronic Comment: heart cath 2002 (5) S/P hysterectomy Status: Chronic Comment: 1979 (6) Status post corneal transplant Status: Chronic (7) S/P cholecystectomy Status: Chronic Comment: 2015 (8) History of CVA (cerebrovascular accident) Status: Chronic (9) Risk for falls Status: Acute (10) Dizziness Status: Acute History of Present Illness Date of Admission: 03/31/19 Chief Complaint: dizziness, lightheaded The patient is a 74 year old male patient presents to the emergency room with dizziness and lightheadedness. The patient states approximately 3 weeks ago she started feeling unwell and that her state of lightheadedness and dizziness has progressed today to the point where she needed to be evaluated. She denies chest pain shortness of breath fevers or chills no nausea vomiting diarrhea. Laboratory findings are W BC count of 7, hemoglobin 11.4 hematocrit 35.9, platelets 229, sodium 138, potassium 3.2, chloride 105, bicarb 27, BUN 15, creatinine 1.01, blood sugar 76, troponin less than 0.15, chest x-ray negative for acute disease, orthostatic positive, UA negative for bacteria positive for ketones. Patient will be admitted for observation to medical surgical floor for IV hydration therapy and reassessed in the morning Past Medical History Past Medical History (Chronic Problems): Chronic Problems (Last Updated 03/29/17 @ 14:30 by Tri Phelps) History of colon cancer (Chronic) GERD (gastroesophageal reflux disease) (Chronic) Status post total knee replacement, right (Chronic) 2006 Hx of heart surgery (Chronic) heart cath 2002 S/P hysterectomy (Chronic) 1979 Status post corneal transplant (Chronic) S/P cholecystectomy (Chronic) 2015 History of CVA (cerebrovascular accident) (Chronic) DM2 (diabetes mellitus, type 2) (Chronic) S/P colectomy (Chronic) HTN (hypertension) (Chronic) Hyperlipidemia (Chronic) Medical History: Medical History (Last Updated 03/29/17 @ 14:30 by Tri Phelps) Cerebral arteriosclerosis (Acute) I67.2 History of CVA (cerebrovascular accident) (Acute) Z86.73 Risk for falls (Acute) Z91.81 Cancer of ascending colon metastatic to intra-abdominal lymph node (Acute) C18.2, C77.2 04/2016 Adenocarcinoma of colon (Acute) C18.9 04/2016 Anemia (Acute) D64.9 Dysphagia (Acute) R13.10 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 Diverticulosis (Acute) K57.90 Venous insufficiency, peripheral (Acute) I87.2 Overactive bladder (Acute) N32.81 Anxiety (Acute) F41.9 DM2 (diabetes mellitus, type 2) (Chronic) E11.9 HTN (hypertension) (Chronic) I10 Hyperlipidemia (Chronic) E78.5 Allergies citalopram hydrobromide [From Celexa] Allergy (Verified 03/31/19 16:46) Unknown gabapentin [From Neurontin] Allergy (Verified 03/31/19 16:46) Unknown hydrocodone bitartrate [From Vicodin] Allergy (Verified 03/31/19 16:46) Unknown lisinopril Allergy (Verified 03/31/19 16:46) Unknown oxycodone [From OxyContin] Adverse Reaction (Verified 03/31/19 16:46) Vomiting Home Medications: Ambulatory Orders Medication Instructions Recorded Pravastatin [Pravachol] 80 mg PO DAILY 04/19/14 Pregabalin [Lyrica] 100 mg PO DAILY 05/26/16 metoprolol succinate 100 mg 100 mg PO DAILY tab 03/29/17 tablet,extended release 24 hr Insulin Glargine [Lantus SoloStar 28 units SQ QHS 08/21/17 Pen] metFORMIN (XR) [Glucophage Xr] 1,000 mg PO BID 04/03/18 Duloxetine HCl 60 mg PO DAILY 01/06/19 Exenatide Microspheres [Bydureon 2 mg SQ TU 01/06/19 Pen] Pramipexole Di-HCl [Mirapex] 0.5 mg PO QHS 01/06/19 Amlodipine Besylate 5 mg PO DAILY 03/31/19 Aspirin [Aspirin EC] 81 mg PO DAILY 03/31/19 Esomeprazole Magnesium 40 mg PO DAILY 03/31/19 Losartan Potassium 50 mg PO DAILY 03/31/19 Surgical History: Surgical History (Last Updated 03/29/17 @ 14:30 by Tri Phelps) Status post total knee replacement, right (Acute) Z96.651 2007 Hx of heart surgery (Acute) Z98.890 heart cath 2003 S/P hysterectomy (Acute) Z90.710 1980 Status post corneal transplant (Acute) Z94.7 S/P cholecystectomy (Acute) Z90.49 2016 S/P colectomy (Chronic) Z90.49 Surgical History: total knee arthroplasty, - - Laparoscopic right colectomy February 2017 Lives: Spouse/ Significant Other Smoking Status: Never smoker - *Family History Maternal Family History: Family History (Last Updated 03/29/17 @ 14:26 by Tri Phelps) Son Diabetes History Items: Heart Disease - Heart failure in her mother Review of Systems Constitutional: Reports: Weakness, Fatigue. Denies: Chills, Fever, Weight Change HEENT: Denies: Head Aches, Sinus Congestion, Sinus Drainage Cardiovascular: Denies: Chest Pain, Palpitations Respiratory: Denies: Cough, Shortness of breath at rest, Sputum production Gastrointestinal: Denies: Abdominal Pain, Nausea, Vomiting Genitourinary: Denies: Dysuria Musculoskeletal: Denies: Joint Pain, Joint Tenderness Skin: Denies: Rash, Wounds Neurological: Denies: Numbness, Tingling, Focal weakness Psychiatric: Denies: Anxiety, Depression, Homicidal Ideations, Suicidal Ideations Hematologic/ Lymphatic: Denies: Easy Bruising, Easy Bleeding VTE Information - Inpt Only VTE Present on Admission: No VTE Mechan Device Prophylaxis: None VTE Pharm Prophylaxis ordered?: Yes Patient Problems: Active and Suspected Problems (Last Updated 03/29/17 @ 14:30 by Tri Phelps) Dizziness (Acute) - Physical Exam Vitals/I&O's: Vital Signs Temp Pulse Resp BP Pulse Ox 98.9 F 77 16 156/61 H 98 03/31/19 18:46 03/31/19 22:00 03/31/19 22:00 03/31/19 22:00 03/31/19 22:00 Oxygen Delivery Method Room Air Weight: 172 lb 9.951 oz Body Mass Index (BMI) 30.5 Finger Stick Blood Glucose 231 Intake and Output for Last 24 Hours 03/29/19 03/30/19 03/31/19 23:59 23:59 23:59 Intake Total 1000 / 1000 Balance 1000 / 999 General: Alert, Oriented x3, Cooperative HEENT: Atraumatic, PERRLA, EOMI, Normocephalic Neck: Supple Lungs: Clear to auscultation, Normal air movement Cardiovascular: Regular rate, Normal S1, Normal S2, No murmurs Abdomen: Bowel Sounds Present, Soft, Non Tender Extremities: No edema, Capillary Refill Less than 3 Seconds Skin: No rashes Musculoskeletal: No Tenderness to Palpation of Joints or Extremities Neurological: Neuro grossly intact Psych/Mental Status: Normal Affect, Appropriate Microbiology Past 72 Hours 03/31/19 18:25 Mucosa - Nose Influenza Types A,B Direct FA (JOSTIN) - Final Laboratory Results 03/31/19 18:12: WBC 7.0, RBC 4.12 L, Hgb 11.4 L, Hct 35.5 L, MCV 86.2, MCH 27.7, MCHC 32.1, RDW Std Deviation 41.1, RDW Coeff of Terry 13.1, Plt Count 229, MPV 10.3, Immature Gran % (Auto) 0.100, Neut % (Auto) 60.9, Lymph % (Auto) 27.5, [place] % (Auto) 8.8, Eos % (Auto) 2.1, Baso % (Auto) 0.6, Absolute Neuts (auto) 4.3, Absolute Lymphs (auto) 1.93, Nucleated RBC % 0 03/31/19 18:12: Sodium 138, Potassium 3.2 L, Chloride 105, Carbon Dioxide 27.0, Anion Gap 6, BUN 15, Creatinine 1.01, Estim Creat Clear Calc 40.42, Est GFR (MDRD) Af Amer 69, Est GFR (MDRD) Non-Af 57 L, BUN/Creatinine Ratio 14.9, Glucose 76, Calcium 8.5, Troponin I < 0.015 03/31/19 18:49: Urine Color Zainab, Urine Clarity Clear, Urine pH 5.0, Ur Specific [place] 1.025, Urine Protein 30 H, Urine Glucose (UA) Normal, Urine Ketones 5 H, Urine Occult Blood Negative, Urine Nitrite Negative, Urine Bilirubin 1 H, Urine Urobilinogen Normal, Ur Leukocyte Esterase 100 H, Urine RBC 0 SEEN, Urine WBC 5-10 SEEN, Ur Squamous Epith Cells 0-5 SEEN, Urine Bacteria 0 SEEN, Hyaline Casts 25-50 SEEN, Urine Mucus 0 SEEN Assessment/Plan All Active Problems (Last Updated 03/29/17 @ 14:30 by Tri Phelps) GERD with stricture (Acute) Dizziness (Acute) Cerebral arteriosclerosis (Acute) Risk for falls (Acute) Cancer of ascending colon metastatic to intra-abdominal lymph node (Acute) Adenocarcinoma of colon (Acute) Anemia (Acute) Dysphagia (Acute) Intervertebral disc disorder with radiculopathy of lumbar region (Acute) Chronic calculous cholecystitis (Acute) Diverticulosis (Acute) Venous insufficiency, peripheral (Acute) Overactive bladder (Acute) Anxiety (Acute) Chronic Problems (Last Updated 03/29/17 @ 14:30 by Tri Phelps) History of colon cancer (Chronic) GERD (gastroesophageal reflux disease) (Chronic) Status post total knee replacement, right (Chronic) 2006 Hx of heart surgery (Chronic) heart cath 2003 S/P hysterectomy (Chronic) 1979 Status post corneal transplant (Chronic) S/P cholecystectomy (Chronic) 2015 History of CVA (cerebrovascular accident) (Chronic) DM2 (diabetes mellitus, type 2) (Chronic) S/P colectomy (Chronic) HTN (hypertension) (Chronic) Hyperlipidemia (Chronic) Plan 1. Dizziness with lightheadedness/orthostatic changes?admit patient to medical surgical floor IV hydration with normal saline with 20meq KCL at 125 cc/h repeat BMP in the morning, if steady on her feet may discharge home in the morning 2. Diabetes continue home medication 3. Hypertension?holding medications overnight 4. GERD?continue PPI 5. Hyperlipidemia?continue statin 6. Prophylaxis?SCDs Code Visit OBSV E&M: 87515 Initial observation care L2
[2019-03-31 23:06] LABS: Bedside Glucose 82 mg/dL (70-110)
[2019-03-31] MEDS: Pravastatin 80 MG Tablet PO (23:13)
[2019-03-31] MEDS: 0.9% Saline Lock 10 ML Syringe IV (23:39)
[2019-03-31] MEDS: Pramipexole Di-HCl 0.5 MG Tablet PO (23:40)
[2019-04-01] MEDS: Pregabalin 50 MG Capsule 100 MG PO ×2 (00:16→21:02)
[2019-04-01 04:46] VITALS: BP 139/57; PULSE 80; RESP 16; TEMP 37; O2SAT 97
[2019-04-01 06:32] LABS: Anion Gap 3 (5-15); BUN 11 mg/dL (7-18); BUN/Creat Ratio 20.3 RATIO (10-20); Calcium,Total 7.8 mg/dL (8.5-10.1); Chloride 113 mmol/L (98-107); Creatinine, Serum 0.54 mg/dL (0.55-1.02); EST Glomerular Filtration Rate 117 mL/min (>60); Est Glom Filt Rate - Afr Amer 142 mL/min (>60); Estimated Creatinine Clearance 40.83 ml/min; Glucose 86 mg/dL (74-106); Potassium 3.7 mmol/L (3.5-5.1); Sodium Level 141 mmol/L (136-145)
[2019-04-01 06:50] LABS: Bedside Glucose 77 mg/dL (70-110)
[2019-04-01 08:15] VITALS: BP 151/62; PULSE 76; RESP 18; TEMP 36.6; O2SAT 98
[2019-04-01] MEDS: Metoprolol(XL)Succ 100 MG Tablet PO (08:15)
[2019-04-01] MEDS: Pantoprazole Sodium 40 MG Tablet PO (08:15)
[2019-04-01] MEDS: metFORMIN (XR) 500 MG Tablet 1000 MG PO ×2 (08:15→17:28)
[2019-04-01] MEDS: DULoxetine Hcl 60 MG Capsule PO (08:15)
[2019-04-01] MEDS: Aspirin E.C. 81 MG Tablet PO (08:15)
[2019-04-01] MEDS: Glucerna Shake 120 ML LIQUID PO (08:18)
--- NOTE | 2019-04-01 12:14 | PCM.PN.HOSP ---
Patient Problems: Active and Suspected Problems (Last Updated 03/29/17 @ 14:30 by Tri Phelps) Dizziness (Acute) Dehydration (Acute) Hypokalemia (Acute) Objective: Patient seen and examined. She was admitted with complaint of dizziness and lightheadedness and found to be orthostatic positive. She was also found to be mildly hypokalemic with a potassium of 3.2. She is being managed for dehydration due to orthostatic hypotension. She has been resuscitated with IV fluids. Patient seen and examined. She still complained of feeling weak and tired. Dizziness had improved. Review of stems otherwise negative. She does not feel ready to go home today. Labs and vitals reviewed. Vitals/I&O's: Vital Signs Temp Pulse Resp BP Pulse Ox 97.8 F 76 18 151/62 H 98 04/01/19 08:15 04/01/19 08:15 04/01/19 08:15 04/01/19 08:15 04/01/19 08:15 Oxygen Delivery Method Room Air Weight: 172 lb 9.951 oz Body Mass Index (BMI) 30.5 Finger Stick Blood Glucose 231 Intake and Output for Last 24 Hours 03/30/19 03/31/19 04/01/19 23:59 23:59 23:59 Intake Total 1000 / 1200 1466.67 / 1466.67 Output Total 500 / 500 Balance 1000 / 1200 966.67 / 966.67 General: Alert, Oriented x3, Cooperative, No apparent distress, Lethargic HEENT: Atraumatic, PERRLA, EOMI, Normocephalic Oral: Moist Mucosa Neck: Supple, No JVD, Negative Carotid Bruits Lungs: Clear to auscultation, Normal air movement, No rhonchi, No wheeze Cardiovascular: Regular rate, Regular Rhythm, Normal S1, Normal S2, No murmurs Abdomen: Bowel Sounds Present, Soft, Non Tender, Non-Distended, No Hepato-splenomegaly Extremities: No clubbing, No cyanosis, No edema, Capillary Refill Less than 3 Seconds Skin: No rashes, No breakdown Musculoskeletal: No Tenderness to Palpation of Joints or Extremities Lymphatic: No Cervical, Supraclavicular, or Inguinal Adenopathy Neurological: Cranial nerves II-XII grossly intact, Neuro grossly intact, Motor Exam 5/5 strength throughout Psych/Mental Status: Normal Affect, Appropriate, Alert and oriented to time, place, person, mood and affect Microbiology Past 72 Hours 03/31/19 18:25 Mucosa - Nose Influenza Types A,B Direct FA (JOSTIN) - Final Laboratory Results 03/31/19 18:12: WBC 7.0, RBC 4.12 L, Hgb 11.4 L, Hct 35.5 L, MCV 86.2, MCH 27.7, MCHC 32.1, RDW Std Deviation 41.1, RDW Coeff of Terry 13.1, Plt Count 229, MPV 10.3, Immature Gran % (Auto) 0.100, Neut % (Auto) 60.9, Lymph % (Auto) 27.5, [place] % (Auto) 8.8, Eos % (Auto) 2.1, Baso % (Auto) 0.6, Absolute Neuts (auto) 4.3, Absolute Lymphs (auto) 1.93, Nucleated RBC % 0 03/31/19 18:12: Sodium 138, Potassium 3.2 L, Chloride 105, Carbon Dioxide 27.0, Anion Gap 6, BUN 15, Creatinine 1.01, Estim Creat Clear Calc 40.42, Est GFR (MDRD) Af Amer 69, Est GFR (MDRD) Non-Af 57 L, BUN/Creatinine Ratio 14.9, Glucose 76, Calcium 8.5, Troponin I < 0.015 03/31/19 18:49: Urine Color Zainab, Urine Clarity Clear, Urine pH 5.0, Ur Specific [place] 1.025, Urine Protein 30 H, Urine Glucose (UA) Normal, Urine Ketones 5 H, Urine Occult Blood Negative, Urine Nitrite Negative, Urine Bilirubin 1 H, Urine Urobilinogen Normal, Ur Leukocyte Esterase 100 H, Urine RBC 0 SEEN, Urine WBC 5-10 SEEN, Ur Squamous Epith Cells 0-5 SEEN, Urine Bacteria 0 SEEN, Hyaline Casts 25-50 SEEN, Urine Mucus 0 SEEN 03/31/19 23:01: POC Glucose 82 04/01/19 05:42: Sodium 141, Potassium 3.7, Chloride 113 H, Carbon Dioxide 25.0, Anion Gap 3 L, BUN 11, Creatinine 0.54 L, Estim Creat Clear Calc 40.83, Est GFR (MDRD) Af Amer 142, Est GFR (MDRD) Non-Af 117, BUN/Creatinine Ratio 20.3 H, Glucose 86, Calcium 7.8 L 04/01/19 06:46: POC Glucose 77 Diagnostic Data Chest X-Ray 03/31/19 18:22 IMPRESSION: Old granulomatous disease in right lower lobe. No acute disease Electronically Signed: Cecil Alvarenga MD at 18:55 EST , Service support , Current Medications Aspirin (Ecotrin) 81 mg PO DAILY [facility] Last Admin: 04/01/19 08:15 Dose: 81 mg Documented by: Duloxetine HCl (Cymbalta) 60 mg PO DAILY [facility] Last Admin: 04/01/19 08:15 Dose: 60 mg Documented by: Glucagon () 1 mg IM .X1 PRN PRN Reason: Hypoglycemia Potassium Chloride/Sodium Chloride () 1,000 mls @ 125 mls/hr IV .Q8H [facility] Last Admin: 04/01/19 07:23 Dose: 125 mls/hr Documented by: Dextrose (Dextrose 10%-Water) 250 mls @ 999 mls/hr IV .Q16M PRN; Protocol PRN Reason: HYPOGLYCEMIA Insulin Glargine (Lantus (Bkc)) 28 units SC QHS [facility] Metformin HCl (Glucophage Xr) 1,000 mg PO BIDCM [facility] Last Admin: 04/01/19 08:15 Dose: 1,000 mg Documented by: Metoprolol Succinate (Toprol Xl (Beta Raza)) 100 mg PO DAILY [facility] Last Admin: 04/01/19 08:15 Dose: 100 mg Documented by: Nutritional Formula (Lactose Free) (Glucerna Shake) 120 ml PO 4X/DAY [facility] Last Admin: 04/01/19 08:18 Dose: 120 ml Documented by: Pantoprazole Sodium (Protonix) 40 mg PO DAILY [facility] Last Admin: 04/01/19 08:15 Dose: 40 mg Documented by: Pramipexole Dihydrochloride (Mirapex) 0.5 mg PO QHS [facility] Last Admin: 03/31/19 23:40 Dose: 0.5 mg Documented by: Pravastatin Sodium (Pravachol) 80 mg PO QHS [facility] Last Admin: 03/31/19 23:13 Dose: 80 mg Documented by: Pregabalin (Lyrica) 100 mg PO QHS LINDA Sodium Chloride () 10 - 40 ml IV UD PRN PRN Reason: SALINE FLUSH Last Admin: 03/31/19 23:39 Dose: 10 ml Documented by: STROKE Vital Signs/Narrative: Vital Signs Temp Pulse Resp BP Pulse Ox 04/01/19 08:15 97.8 F 76 18 151/62 H 98 Medical Necessity - Tobacco Use Smoking Status: Never smoker Assessment/Plan All Active Problems (Last Updated 03/29/17 @ 14:30 by Tri Phelps) GERD with stricture (Acute) Dizziness (Acute) Dehydration (Acute) Hypokalemia (Acute) Cerebral arteriosclerosis (Acute) Risk for falls (Acute) Cancer of ascending colon metastatic to intra-abdominal lymph node (Acute) Adenocarcinoma of colon (Acute) Anemia (Acute) Dysphagia (Acute) Intervertebral disc disorder with radiculopathy of lumbar region (Acute) Chronic calculous cholecystitis (Acute) Diverticulosis (Acute) Venous insufficiency, peripheral (Acute) Overactive bladder (Acute) Anxiety (Acute) 1. Orthostatic hypotension dizziness and lightheadedness is better, though she still feels weak continue gentle hydration with IVF NS fall precautions PT/OT on board 2. Type 2 diabetes mellitus On Lantus 28 units nightly and metformin thousand milligram twice daily. Insulin sliding scale. Accu-Cheks AC at bedtime. 3. GERD: On pantoprazole. 4. Hyperlipidemia: On statin. 5. Hypertension: BP meds on hold on account of orthostatic hypotension. 6.Depression: On Cymbalta VT prophylaxis: SCDs. Code Visit OBSV E&M: [id number] Subsequent observation care L2
[2019-04-01 12:21] LABS: Bedside Glucose 75 mg/dL (70-110)
--- NOTE | 2019-04-01 13:47 | CASEMGMT ---
Social Work Note SW received call from Michael at [facility] who states she is pt's CM for waiver program. Rossy Fermin [employer] ATTENDANT, [employer]TER
--- NOTE | 2019-04-01 14:12 | CASEMGMT ---
Case Management Progress Note: This procedure writer presented to patient bedside, introduced self and role. Explained and reviewed ESTEVEZ form with patient in regards to current treatment during this hospitalization. Informed Outpatient billing is determined by her insurance policy and continual review is conducted to determine any changes in condition that may warrant Inpatient status. Denies any questions or concerns regarding Estevez form. Patient stated understanding and signed ESTEVEZ form which was placed in her hard chart and provided a copy. Katt Galvez RNCM
[2019-04-01 15:30] VITALS: BP 154/75; PULSE 81; RESP 16; TEMP 36.7; O2SAT 99
[2019-04-01 16:46] LABS: Bedside Glucose 137 mg/dL (70-110)
[2019-04-01 20:38] VITALS: BP 156/64; PULSE 85; RESP 16; TEMP 36.8; O2SAT 96
[2019-04-01] MEDS: Pravastatin 80 MG Tablet PO (20:54)
[2019-04-01] MEDS: Pramipexole Di-HCl 0.5 MG Tablet PO (21:02)
[2019-04-01 21:15] LABS: Bedside Glucose 169 mg/dL (70-110)
[2019-04-01] MEDS: MELATONIN 3 MG TABLET PO (23:10)
[2019-04-02 03:00] VITALS: BP 151/63; PULSE 76; RESP 16; TEMP 36.5; O2SAT 97
[2019-04-02 06:45] LABS: Bedside Glucose 110 mg/dL (70-110)
[2019-04-02 08:47] VITALS: BP 153/67; PULSE 72; RESP 18; TEMP 36.7; O2SAT 97
[2019-04-02 08:49] VITALS: PULSE 72
[2019-04-02] MEDS: metFORMIN (XR) 500 MG Tablet 1000 MG PO (08:49)
[2019-04-02] MEDS: Metoprolol(XL)Succ 100 MG Tablet PO (08:49)
[2019-04-02] MEDS: DULoxetine Hcl 60 MG Capsule PO (08:50)
[2019-04-02] MEDS: Aspirin E.C. 81 MG Tablet PO (08:50)
[2019-04-02] MEDS: Pantoprazole Sodium 40 MG Tablet PO (08:50)
--- NOTE | 2019-04-02 11:06 | DCINST_ITS ---
- Discharge Diagnoses Current Active Problems: Current Active and Chronic Problems (Last Updated 03/29/17 @ 14:30 by Tri Phelps) Dizziness (Acute) Dehydration (Acute) Hypokalemia (Acute) You will use the following diet at home:: Cardiac Your food should be the consistency of: Regular Your liquids should be the consistency of: Regular/Thin Discharge Activity: Return to Normal Activity Weight Bearing Status: Weight bearing as tolerated Call your doctor if you observe: Shortness of breath, Dizziness, Fainting spells Instructions: Low Blood Pressure (Hypotension), Understanding Dizziness, Balance Problems, and Fainting Additional Instructions: keep well hydrated at home. Allergies/Adverse Reactions: Allergies citalopram hydrobromide [From Celexa] Allergy (Verified 03/31/19 16:46) Unknown gabapentin [From Neurontin] Allergy (Verified 03/31/19 16:46) Unknown hydrocodone bitartrate [From Vicodin] Allergy (Verified 03/31/19 16:46) Unknown lisinopril Allergy (Verified 03/31/19 16:46) Unknown oxycodone [From OxyContin] Adverse Reaction (Verified 03/31/19 16:46) Vomiting Medications to take at Discharge Pravastatin [Pravachol] 80 mg PO DAILY 04/19/14 Pregabalin [Lyrica] 100 mg PO DAILY 05/26/16 metoprolol succinate 100 mg tablet,extended release 24 hr 100 mg PO DAILY tab 03/29/17 Insulin Glargine [Lantus SoloStar Pen] 28 units SQ QHS 08/21/17 metFORMIN (XR) [Glucophage Xr] 1,000 mg PO BID 04/03/18 Duloxetine HCl 60 mg PO DAILY 01/06/19 Exenatide Microspheres [Bydureon Pen] 2 mg SQ TU 01/06/19 Pramipexole Di-HCl [Mirapex] 0.5 mg PO QHS 01/06/19 Amlodipine Besylate 5 mg PO DAILY 03/31/19 Aspirin [Aspirin EC] 81 mg PO DAILY 03/31/19 Esomeprazole Magnesium 40 mg PO DAILY 03/31/19 Losartan Potassium 50 mg PO DAILY 03/31/19 Primary Care Physician: Rikki Stephens III, MD [Primary Care Provider] - Please follow up with your Primary Care Physician in: one week Test Results: Test results from this visit will be discussed in further detail at your follow- up appointment, if applicable. Proposed Discharge Date: 04/02/19
--- NOTE | 2019-04-02 11:08 | DS.PCM_ITS ---
Discharge Date and Diagnosis Date of Admission: 03/31/19 Date of Discharge: 04/02/19 - Primary Discharge Diagnosis Active and Suspected Problems (Last Updated 03/29/17 @ 14:30 by Tri Phelps) Dizziness (Acute) Dehydration (Acute) Hypokalemia (Acute) orthostatic hypotension - Secondary Discharge Diagnosis Chronic Problems (Last Updated 03/29/17 @ 14:30 by Tri Phelps) History of colon cancer (Chronic) GERD (gastroesophageal reflux disease) (Chronic) Status post total knee replacement, right (Chronic) 2006 Hx of heart surgery (Chronic) heart cath 2003 S/P hysterectomy (Chronic) 1979 Status post corneal transplant (Chronic) S/P cholecystectomy (Chronic) 2015 History of CVA (cerebrovascular accident) (Chronic) DM2 (diabetes mellitus, type 2) (Chronic) S/P colectomy (Chronic) HTN (hypertension) (Chronic) Hyperlipidemia (Chronic) Hospital Course and Treatment Imaging Results: Diagnostic Data Chest X-Ray 03/31/19 18:22 IMPRESSION: Old granulomatous disease in right lower lobe. No acute disease Electronically Signed: Cecil Alvarenga MD at 18:55 EST , Service support , Operations: colectomy - Laparoscopic extended right hemicolectomy Procedures: None Summary of Care Provided: The patient is a 74 year old F with an extensive past medical history as listed. She was admitted through the ED on 03/31/1909/13/2019 with a complaint of dizziness and lightheadedness. Symptoms started about 3 weeks prior to admission and gradually worsened. She denied any nausea vomiting or diarrhea. Labs were essentially unremarkable and on admission orthostatics were positive. She was admitted to be managed for orthostatic hypotension. Patient was hydrated with IV fluids and felt well. She had mild hypokalemia during the admission which resolved with replacement. Patient gradually improved. She was discharged home on 04/02/2019 and counseled to remain well-hydrated. She is to follow-up with her primary care doctor within 1 week. Patient seen and examined prior to discharge. She felt much better relative to since she was admitted. Review of systems otherwise negative. Labs and vitals reviewed. Home medication reviewed and reconciled. o/e: Vital Signs Height 5 ft 3 in Weight: 172 lb 9.951 oz Weight in Pounds 172.6 lbs Pulse Ox 97 Temperature 98.1 F Pulse Rate [Standing] 84 Pulse Rate [Sitting] 86 Pulse Rate [Lying] 83 Pulse Rate 72 Respiratory Rate 18 Blood Pressure [Standing] 140/54 Blood Pressure [Sitting] 165/72 Blood Pressure [Lying] 176/70 Blood Pressure 153/67 Blood Pressure Position Semi-Fowlers [] General: Alert, Oriented x3, Cooperative, No apparent distress HEENT: Atraumatic, PERRLA, EOMI, Normocephalic Oral: Moist Mucosa Neck: Supple, No JVD, Negative Carotid Bruits Lungs: Clear to auscultation, Normal air movement, No rhonchi, No wheeze Cardiovascular: Regular rate, Regular Rhythm, Normal S1, Normal S2, No murmurs Abdomen: Bowel Sounds Present, Soft, Non Tender, Non-Distended, No Hepato- splenomegaly Extremities: No clubbing, No cyanosis, No edema, Capillary Refill Less than 3 Seconds Skin: No rashes, No breakdown Musculoskeletal: No Tenderness to Palpation of Joints or Extremities Lymphatic: No Cervical, Supraclavicular, or Inguinal Adenopathy Neurological: Cranial nerves II-XII grossly intact, Neuro grossly intact, Motor Exam 5/5 strength throughout Psych/Mental Status: Normal Affect, Appropriate, Alert and oriented to time, place, person, mood and affect Plan is as above. - Physical Exam Vitals/I&O's: Vital Signs Temp Pulse Resp BP Pulse Ox 98.1 F 72 18 153/67 H 97 04/02/19 08:47 04/02/19 08:49 04/02/19 08:47 04/02/19 08:47 04/02/19 08:47 Oxygen Delivery Method Room Air Weight: 172 lb 9.951 oz Body Mass Index (BMI) 30.5 Finger Stick Blood Glucose 231 Intake and Output for Last 24 Hours 03/31/19 04/01/19 04/02/19 23:59 23:59 23:59 Intake Total 1000 / 1200 3927.09 / 4327.09 1500 / 1500 Output Total 1200 / 2950 1999 / 1999 Balance 1000 / 1200 2727.09 / 1377.09 -500 / -500 Microbiology Past 72 Hours 04/01/19 15:55 Stool C. difficile DNA Amplification - Final 03/31/19 18:25 Mucosa - Nose Influenza Types A,B Direct FA (JOSTIN) - Final Laboratory Results 04/01/19 11:31: POC Glucose 75 04/01/19 16:16: POC Glucose 137 H 04/01/19 20:52: POC Glucose 169 H 04/02/19 06:36: POC Glucose 110 Current Medications Aspirin (Ecotrin) 81 mg PO DAILY [facility] Last Admin: 04/02/19 08:50 Dose: 81 mg Documented by: Duloxetine HCl (Cymbalta) 60 mg PO DAILY [facility] Last Admin: 04/02/19 08:50 Dose: 60 mg Documented by: Glucagon () 1 mg IM .X1 PRN PRN Reason: Hypoglycemia Potassium Chloride/Sodium Chloride () 1,000 mls @ 125 mls/hr IV .Q8H [facility] Last Admin: 04/02/19 07:26 Dose: 125 mls/hr Documented by: Dextrose (Dextrose 10%-Water) 250 mls @ 999 mls/hr IV .Q16M PRN; Protocol PRN Reason: HYPOGLYCEMIA Insulin Glargine (Lantus (Bkc)) 28 units SC QHS [facility] Last Admin: 04/01/19 20:53 Dose: 28 u Documented by: Melatonin (Melatonin) 3 mg PO QHS PRN PRN Reason: INSOMNIA Last Admin: 04/01/19 23:10 Dose: 3 mg Documented by: Metformin HCl (Glucophage Xr) 1,000 mg PO BIDCM [facility] Last Admin: 04/02/19 08:49 Dose: 1,000 mg Documented by: Metoprolol Succinate (Toprol Xl (Beta Raza)) 100 mg PO DAILY [facility] Last Admin: 04/02/19 08:49 Dose: 100 mg Documented by: Nutritional Formula (Lactose Free) (Glucerna Shake) 120 ml PO 4X/DAY [facility] Last Admin: 04/02/19 08:48 Dose: Not Given Documented by: Pantoprazole Sodium (Protonix) 40 mg PO DAILY [facility] Last Admin: 04/02/19 08:50 Dose: 40 mg Documented by: Pramipexole Dihydrochloride (Mirapex) 0.5 mg PO QHS [facility] Last Admin: 04/01/19 21:02 Dose: 0.5 mg Documented by: Pravastatin Sodium (Pravachol) 80 mg PO QHS [facility] Last Admin: 01/07/20 20:54 Dose: 80 mg Documented by: Pregabalin (Lyrica) 100 mg PO QHS [facility] Last Admin: 04/01/19 21:02 Dose: 100 mg Documented by: Sodium Chloride () 10 - 40 ml IV UD PRN PRN Reason: SALINE FLUSH Last Admin: 03/31/19 23:39 Dose: 10 ml Documented by: Discharge Diet: Low fat/ Low Cholesterol Discharge Activity: Return to Normal Activity Weight Bearing Status: Weight bearing as tolerated Call your doctor if you observe: Shortness of breath, Dizziness, Fainting spells Home Medications: Medications to take at Discharge Pravastatin [Pravachol] 80 mg PO DAILY 04/19/14 Pregabalin [Lyrica] 100 mg PO DAILY 05/26/16 metoprolol succinate 100 mg tablet,extended release 24 hr 100 mg PO DAILY tab 03/29/17 Insulin Glargine [Lantus SoloStar Pen] 28 units SQ QHS 08/21/17 metFORMIN (XR) [Glucophage Xr] 1,000 mg PO BID 04/03/18 Duloxetine HCl 60 mg PO DAILY 01/06/19 Exenatide Microspheres [Bydureon Pen] 2 mg SQ TU 01/06/19 Pramipexole Di-HCl [Mirapex] 0.5 mg PO QHS 01/06/19 Amlodipine Besylate 5 mg PO DAILY 03/31/19 Aspirin [Aspirin EC] 81 mg PO DAILY 03/31/19 Esomeprazole Magnesium 40 mg PO DAILY 03/31/19 Losartan Potassium 50 mg PO DAILY 03/31/19 Primary Care Physician: Rikki Stephens III, MD [Primary Care Provider] - Please follow up with your Primary Care Physician in: one week Patient Instructions: Understanding Dizziness, Balance Problems, and Fainting, Low Blood Pressure (Hypotension) Disposition: Home Minutes spent on discharge:: 35 Patient Condition:: Stable Medical Necessity - Tobacco Use Smoking Status: Never smoker Meaningful Use Info Meaningful Use Diagnoses (Choose all that apply): None applicable Code Visit OBSV E&M: 53204 Observation care discharge
[2019-04-02 12:11] LABS: Bedside Glucose 168 mg/dL (70-110)
--- NOTE | 2019-04-02 12:22 | CASEMGMT ---
Social Work Note Pt is discharging home today. ULYSSES placed a call to pt's DIMITRIOS Rodriguez and left her a message that pt will be discharged home today. ULYSSES faxed discharge paperwork to Michael. 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
== END 2019-04-02 12:48 | disposition home or self-care (01) ==
LOC: ED 17:48 → MS3 22:40
PROVIDERS: Admitting Provider Family Medicine; Emergency Provider Emergency Medicine; Family Provider Family Medicine; PCP Family Medicine; Visit Provider Student in an Organized Health Care Education/Training Program
DX: I95.1 Orthostatic hypotension (principal); E86.0 Dehydration; E87.6 Hypokalemia; E78.5 Hyperlipidemia, unspecified; I10 Essential (primary) hypertension; E11.9 Type 2 diabetes mellitus without complications; F41.9 Anxiety disorder, unspecified; K21.9 Gastro-esophageal reflux disease without esophagitis; N32.81 Overactive bladder; I87.2 Venous insufficiency (chronic) (peripheral); F32.9 Major depressive disorder, single episode, unspecified; I25.10 Atherosclerotic heart disease of native coronary artery without angina pectoris; Z85.038 Personal history of other malignant neoplasm of large intestine; Z94.7 Corneal transplant status; Z86.73 Personal history of transient ischemic attack (TIA), and cerebral infarction without residual deficits; Z79.899 Other long term (current) drug therapy; Z79.4 Long term (current) use of insulin; Z79.82 Long term (current) use of aspirin
CPT/HCPCS: 36415; 71046; 80048; 81001; 82962; 84484; 85025; 87493; 87804; 93005; 96360; 96361; 97161; 97802; 99218; 99285; J7030; A4216; G0378

== ENCOUNTER 2019-08-13 19:20 | Emergency (ER) | payer MEDICARE, MEDICAID, SELFPAY ==
[2019-03-31 22:49] VITALS: BMI 30.5
[2019-08-13 19:21] VITALS: BP 154/66; PULSE 83; RESP 18; TEMP 36.8; O2SAT 97; BMI 26.6
[2019-08-13 19:31] LABS: Bedside Glucose 67 mg/dL (70-110)
--- NOTE | 2019-08-13 20:43 | EKG12_ITS ---
Test Reason : HYPOGLYCEMIA Blood Pressure : / mmHG Vent. Rate : 074 BPM Atrial Rate : 074 BPM P-R Int : 148 ms QRS Dur : 092 ms QT Int : 416 ms P-R-T Axes : 043 -14 069 degrees QTc Int : 461 ms Normal sinus rhythm Septal infarct , age undetermined Abnormal ECG Confirmed by MARINA ERICKSON, ALEKSANDAR ([id number]), commercial production editor ALFRED BAILEY ([id number]) on 08/19/2019 2:55:48 PM Referred By: DARWIN Confirmed By:ALEKSANDAR GRAY MD
[2019-08-13 21:12] LABS: Anion Gap 6 (5-15); BUN 12 mg/dL (7-18); BUN/Creat Ratio 17.2 RATIO (10-20); Calcium,Total 9.5 mg/dL (8.5-10.1); Chloride 103 mmol/L (98-107); EST Glomerular Filtration Rate 87 mL/min (>60); Est Glom Filt Rate - Afr Amer 105 mL/min (>60); Estimated Creatinine Clearance 42.62 ml/min; Glucose 104 mg/dL (74-106); Potassium 3.8 mmol/L (3.5-5.1); Sodium Level 138 mmol/L (136-145)
[2019-08-13 21:14] LABS: Absolute Lymphocyte Count 2.08 X10^3/uL (0.83-4.51); Absolute Neutrophil Count 4.2 X10^3/uL (2.0-7.7); Basophil# 0.05 X10^3/uL; Basophil% 0.7 % (0-1); Eosinophil# 0.21 X10^3/uL; Hematocrit 36.3 % (37-47); Hemoglobin 11.9 g/dL (12.0-15.0); Lymphocyte # 2.08 X10^3/ul (4.0); Lymphocyte % 29.5 % (19-41); Mean Corp Hgb Conc 32.8 g/dL (32-36); Mean Corpuscular Hgb 28.4 pg (27.0-32.0); Mean Corpuscular Volume 86.6 fL (81-99); Mean Platelet Vol. 10.7 fl (6.2-12.0); Monocyte# 0.49 X10^3/uL; Monocyte% 6.9 % (0-10); NRBC Flagged by Analyzer 0 % (0-5); Neutrophil # 4.21 X10^3/uL (2.7-7.7); Neutrophil % 59.6 % (47-70); Platelet Count 222 K/mm3 (150-450); RBC Distribution Width CV 13.7 % (11.6-14.6); RBC Distribution Width SD 42.3 fl (35.1-43.9); Red Blood Count 4.19 M/mm3 (4.2-5.4); White Blood Count 7.1 K/mm3 (4.4-11.0)
[2019-08-13] MEDS: Ondansetron 4 MG/2 ML Vial IV (21:24)
[2019-08-13 21:28] VITALS: BP 162/59; PULSE 76; RESP 18; O2SAT 100
[2019-08-13 21:35] LABS: Bedside Glucose 91 mg/dL (70-110)
--- NOTE | 2019-08-13 21:41 | RAD_ITS ---
HISTORY: LOW BLOOD SUGAR EXAM: XR Chest 2 Views: COMPARISON: March 31, 2019. The oldest comparison chest x-ray is from May 26, 2016 FINDINGS: # of images incl. paperwork: 2 Calcific plaque within the aortic arch persists. Right midlung calcified granuloma between the anterior right third and fourth ribs was present on the May 26, 2016 study. Absence of changes consistent with benignity Lungs are clear. Heart is not enlarged. No acute osseous pathology perceived. Pulmonary vascularity is distinct. No effusions. RAD/Chest PA and Lateral IMPRESSION: No acute cardiopulmonary disease perceived. at 2239 Reported and signed by: Damian Moise MD Electronically Signed: Damian Moise MD at 22:38 EDT Tel , Service support ,
[2019-08-13 22:04] LABS: Bacteria 0 SEEN /hpf (None Seen); Mucous, Urine 0 SEEN /hpf (<or=2+); Red Blood Cells-Urine 0 SEEN /hpf (0-5); Squamous Epithelial Cells - UA 0 SEEN /hpf (5-10); White Blood Cells 0 SEEN /hpf (0-5)
[2019-08-13 22:11] LABS: Color, Urine Straw (Yellow); Glucose, Dipstick Normal (Normal); Ketone-Dipstick Negative (Negative); Leukocyte Esterase-Dipstick Negative /ul (Negative); Nitrite-Dipstick Negative (Negative); Occult Blood-Urine 10 /ul (Negative); Protein-Dipstick Negative (Negative); Urine Bilirubin Dipstick Negative (Negative); Urine Clarity Clear (Clear); Urine Urobilinogen Normal (Normal)
--- NOTE | 2019-08-13 22:27 | ED.DCSUM_ITS ---
History of Present Illness Chief Complaint: Hypoglycemia Informant: Patient Onset: Today Narrative: Presents for evaluation of low glucose, states in the 60s throughout the day, she is on metformin 500 mg twice a day, she takes Lantus 20 units at night, also on weekly injections with injection yesterday. Denies any lightheaded symptoms currently nauseated no vomiting. No urinary symptoms. States mild cough. No dyspnea. No fevers. Status post lemonade. Prior similar symptoms: Yes Past Medical History - Allergies and Home Meds Allergies/Adverse Reactions: Allergies citalopram hydrobromide [From Celexa] Allergy (Verified 08/13/19 19:25) Unknown gabapentin [From Neurontin] Allergy (Verified 08/13/19 19:25) Unknown hydrocodone bitartrate [From Vicodin] Allergy (Verified 08/13/19 19:25) Unknown lisinopril Allergy (Verified 08/13/19 19:25) Unknown oxycodone [From OxyContin] Adverse Reaction (Verified 08/13/19 19:25) Vomiting Primary Care Physician: Rikki Stephens III, MD [Primary Care Provider] - Past Medical History: - - GERD, colon cancer, type 2 diabetes, hypertension, hyperlipidemia Surgical History: total knee arthroplasty, - - Laparoscopic right colectomy February 2017 Smoking Status: Never smoker - Family History Maternal Family History: Family History (Last Updated 03/29/17 @ 14:26 by Tri Phelps) Son Diabetes Family History: Reports: Heart Disease - Heart failure in her mother Review of Systems General: Denies: Chills, Fever, Sweats Eyes: Denies: Visual changes - bilaterally, Diplopia ENT: Denies: Rhinorrhea, Sore throat Cardiovascular: Denies: Chest pain, Palpitations Respiratory: Denies: Dyspnea, Cough, Dyspnea on exertion Gastrointestinal: Reports: Nausea. Denies: Abdominal pain, Vomiting, Diarrhea, Melena, Hematochezia Genitourinary: Denies: Dysuria, Hematuria, Frequency Musculoskeletal: Denies: Back pain, Extremity Pain Skin: Denies: Rash, Wounds Neurological: Denies: Headache, Weakness, Numbness Physical Exam Vital Signs/Narrative: Vital Signs Temp Pulse Resp BP Pulse Ox 08/13/19 21:28 76 18 162/59 H 100 08/13/19 19:21 98.3 F 83 18 154/66 H 97 Inital Vital Signs reviewed: Yes General: Well nourished, Well developed, No Acute Distress Head: Normocephalic, Atraumatic Eyes: Perrl, EOMI ENT: Moist mucous membranes, No rhinorrhea Neck: Supple, Nontender Cardiovascular: Regular rate, Regular rhythm, No murmurs Respiratory: No distress, CTA bilaterally, Chest nontender Abdomen: Soft, Nontender, Nondistended, Normal bowel sounds Back: Nontender, Normal Inspection Extremities: Nontender, No edema Skin: Normal color, No rash Neurological: Alert, Oriented x3, Cranial nerves II-XII grossly intact, Normal Strength, Normal Sensation Psychological: Normal affect, Normal Mood Diagnostic/Tx/Re-eval Chest X-Ray - ED: 2 View, Read by ED Physician, No Acute Disease Abnormal Lab Results 08/13/19 08/13/19 08/13/19 19:28 19:50 19:50 WBC 7.1 RBC 4.19 L Hgb 11.9 L Hct 36.3 L MCV 86.6 MCH 28.4 MCHC 32.8 RDW Std Deviation 42.3 RDW Coeff of Terry 13.7 Plt Count 222 MPV 10.7 Immature Gran % (Auto) 0.300 Neut % (Auto) 59.6 Lymph % (Auto) 29.5 Charles % (Auto) 6.9 Eos % (Auto) 3.0 Baso % (Auto) 0.7 Absolute Neuts (auto) 4.2 Absolute Lymphs (auto) 2.08 Nucleated RBC % 0 Sodium 138 Potassium 3.8 Chloride 103 Carbon Dioxide 29.0 Anion Gap 6 BUN 12 Creatinine 0.70 Estim Creat Clear Calc 42.62 Est GFR (MDRD) Af Amer 105 Est GFR (MDRD) Non-Af 87 BUN/Creatinine Ratio 17.2 Glucose 104 Calcium 9.5 Urine Color Urine Clarity Urine pH Ur Specific [place] Urine Protein Urine Glucose (UA) Urine Ketones Urine Occult Blood Urine Nitrite Urine Bilirubin Urine Urobilinogen Ur Leukocyte Esterase Urine RBC Urine WBC Ur Squamous Epith Cells Urine Bacteria Urine Mucus POC Glucose 67 L 08/13/19 08/13/19 21:23 21:56 WBC RBC Hgb Hct MCV MCH MCHC RDW Std Deviation RDW Coeff of Teryr Plt Count MPV Immature Gran % (Auto) Neut % (Auto) Lymph % (Auto) Charles % (Auto) Eos % (Auto) Baso % (Auto) Absolute Neuts (auto) Absolute Lymphs (auto) Nucleated RBC % Sodium Potassium Chloride Carbon Dioxide Anion Gap BUN Creatinine Estim Creat Clear Calc Est GFR (MDRD) Af Amer Est GFR (MDRD) Non-Af BUN/Creatinine Ratio Glucose Calcium Urine Color Straw Urine Clarity Clear Urine pH 7.0 Ur Specific [place] 1.010 Urine Protein Negative Urine Glucose (UA) Normal Urine Ketones Negative Urine Occult Blood 10 H Urine Nitrite Negative Urine Bilirubin Negative Urine Urobilinogen Normal Ur Leukocyte Esterase Negative Urine RBC 0 SEEN Urine WBC 0 SEEN Ur Squamous Epith Cells 0 SEEN Urine Bacteria 0 SEEN Urine Mucus 0 SEEN POC Glucose 91 - EKG Initial EKG Interpretation: Sinus Rhythm - Sinus rate of 74, no ST or T wave changes. - Medical Decision Making Vital signs stable, glucose checks was 67 she was given a Sprite by nursing. With her age work-up initiated EKG was normal labs were normal with creatinine and hemoglobin. Recheck glucose was 97. Urine was negative. She is tolerating p.o. intake. With her decreased appetite, discussed holding her Lantus this evening, prescription for Zofran for home use as needed. Follow-up as an outpatient. Signs and symptom discussed return. All questions were answered. ED Disposition - Plan for ED Patient: Disposition: Home or Assisted Living Diagnosis: Hypoglycemic event due to diabetes Instructions: ED Hypoglycemia Oral Diabetic Medicine Prescriptions: Ondansetron [Zofran Odt] 4 mg PO Q8H PRN PRN #10 tab PRN Reason: Nausea Transmission Status: Pending to [address] Referrals: Rikki Stephens III, MD [Primary Care Provider] - 3-5 Days if not improving
[2019-08-13 22:41] VITALS: PULSE 79; RESP 16; O2SAT 100
== END 2019-08-13 22:45 | disposition home or self-care (01) ==
PROVIDERS: Emergency Provider Emergency Medicine; PCP Family Medicine
DX: E11.649 Type 2 diabetes mellitus with hypoglycemia without coma (principal); Z79.4 Long term (current) use of insulin; Z79.899 Other long term (current) drug therapy; Z79.82 Long term (current) use of aspirin; K21.9 Gastro-esophageal reflux disease without esophagitis; I10 Essential (primary) hypertension; E78.5 Hyperlipidemia, unspecified; Z85.038 Personal history of other malignant neoplasm of large intestine
CPT/HCPCS: 71046; 80048; 81001; 82962; 85025; 93005; 96361; 96374; 99282; J7040; A4216; J2405

== ENCOUNTER 2019-09-04 19:23 | Inpatient (IN) | payer MEDICARE, OTHER, SELFPAY ==
[2019-09-04 19:23] VITALS: BP 155/49; PULSE 85; RESP 20; TEMP 37.7; O2SAT 95; BMI 29.3
--- NOTE | 2019-09-04 20:16 | CT_ITS ---
STUDY: CTA CHEST REASON FOR EXAM: Female, 74 years old. L SHOULDER PAIN ACROSS CHEST INTO ABD. DYSPNEA -- HX:HTN,GERD,DIABETES,COLON CANCER -- SURGERY:CHOLECYSTECTOMY,HYSTERECTOMY,COLECTOMY RADIATION DOSAGE (If Supplied By Facility): CTDIvol = ( 24.88 ) mGy, DLP = ( 716.00 ) mGycm TECHNIQUE: The examination was performed with the intravenous administration of IV 100mL Isovue-370. Post-processing of the angiographic images was performed, with multiplanar reformation and 3D reconstruction. Individualized dose optimization techniques were used for this CT. COMPARISON: Prior chest CT exam of December 28, 2011 FINDINGS: Normal enhancement of the main pulmonary artery and right and left pulmonary arteries. Normal enhancement of the bilateral peripheral pulmonary arteries. There is no demonstrated pulmonary embolism. Mild plaque and elongation of the thoracic aorta without aneurysm or dissection. Normal heart and pericardium. Normal mediastinum. Small calcified lymph lymph nodes right hilum and calcified granuloma of the right lung. Negative for new consolidation, focal atelectasis or pleural effusion. There is a component of very low level groundglass change or inhomogeneous perfusion similar to the prior exam and likely chronic in nature. Negative for pleural effusion. Normal chest wall structures. There are degenerative changes of thoracic spine with demineralized osseous structures. Moderately large hiatal hernia. CT/CTA Chest W/WO Contrast IMPRESSION: Mild plaque and elongation of the thoracic aorta without aneurysm. Negative for pulmonary embolus. Normal heart size without pericardial effusion. Moderately large hiatal hernia. Negative for new consolidation, focal atelectasis or pleural effusion. Stable chronic lung changes. Stigmata of old granulomatous disease. Negative for acute bone findings. Electronically Signed: Katrin Domínguez MD at 23:32 EDT , Service support ,
--- NOTE | 2019-09-04 20:17 | CT_ITS ---
STUDY: CTA OF THE ABDOMINAL AORTA AND BILATERAL LOWER EXTREMITIES REASON FOR EXAM: Female, 74 years old. L SHOULDER PAIN ACROSS CHEST INTO ABD. DYSPNEA -- HX:HTN,DIABETES,GERD,COLON CANCER -- SURGERY:CHOLECYSTECTOMY,HYSTERECTOMY,COLECTOMY RADIATION DOSAGE (If Supplied By Facility): CTDIvol = ( 24.88 ) mGy, DLP = ( 716.00 ) mGycm TECHNIQUE: Axial CT angiography multi-detector data acquisition was obtained from the diaphragm to the aortic bifurcation. following intravenous administration of ISOVUE 370 100ML. Axial images and MIP images were reconstructed from the axial data set. Post-processing of the angiographic images was performed, with multiplanar reformation and 3D reconstruction. Individualized dose optimization techniques were used for this CT. TECHNICAL QUALITY: Good COMPARISON: None. Descriptors of Narrowing: None (0%) Mild (< 50%) Moderate (50-70%) Severe (70-90%) Subtotal/Total Occlusion (90-100%) Non-Evaluable (technically non-diagnostic FINDINGS: Abdominal aorta: Mild to moderate plaque of the abdominal aorta without aneurysm or dissection. Celiac and superior mesenteric arteries: No substantial narrowing. Inferior mesenteric artery: Patent Right renal artery(arteries): 2 right renal arteries without narrowing. Left renal artery(arteries): 1 left renal artery with mild narrowing. Right common iliac artery: No demonstrated narrowing. Left common iliac artery: No demonstrated narrowing. Normal liver. Calcified granuloma of the spleen. Absent gallbladder. Compensatory mild dilatation of the common bile duct without visualized filling defect. Atrophy of the pancreas. Normal adrenal glands. Negative for hydronephrosis. Unremarkable ileocolic anastomosis. Diverticulosis is noted to be present in the left colon. There is a large diverticulum at the splenic flexure with evidence of mild surrounding fat stranding suggesting diverticulosis. Moderately large hiatal hernia. CT/CTA Abdomen W/WO Contrast IMPRESSION: Mild to moderate plaque of the abdominal aorta without aneurysm or dissection. No substantial narrowing of the major abdominal branch vessels. Status post cholecystectomy with moderate compensatory dilatation of the common bile duct without visualized filling defect. Atrophy of the pancreas. Calcified granuloma of the spleen. Normal liver. Diverticulosis present with a prominent diverticulum in the splenic flexure with surrounding fat stranding suggesting diverticulitis that is somewhat unusual in this location. Negative for bowel perforation or obstruction. Unremarkable ileocolic anastomosis. Duodenal diverticulum. Moderately large hilar hernia. No acute renal findings. Negative for hydronephrosis. Electronically Signed: Katrin Domínguez MD at 23:19 EDT , Service support ,
--- NOTE | 2019-09-04 20:18 | ED.DCSUM_ITS ---
History of Present Illness Chief Complaint: Abd Pain Informant: Patient, Postpartum Rn Onset: Weeks - 1.5 Context: Sudden Onset Timing: Intermittent, Lasts - unk Quality: pain Location: left neck, LUQ Current Severity: Severe Maximum Severity: Severe Worsened by: breathing Relieved by: nothing but goes away on its own Associated Symptoms: nausea, chills Narrative: Patient is in a lot of discomfort and is fairly poor historian even with answering direct questions. She has had intermittent pain in her left neck and left upper quadrant for over a week. She denies any injury. She denies any near-syncope or syncope. Pain does not go into her back. It does not go into her legs. She denies pain elsewhere in her chest, but just points to her left upper quadrant and inframammary area on the left only. It hurts to breathe but she denies any dyspnea. She has had periods without discomfort in the last week and a half. No swelling/edema. No vomiting or diarrhea. Not triggered with eating. - Past Medical History (1) Adenocarcinoma of colon Status: Chronic Comment: 04/2016 (2) Anemia Status: Chronic (3) Anxiety Status: Chronic (4) Cerebral arteriosclerosis Status: Chronic (5) Diverticulosis Status: Chronic (6) GERD with stricture Status: Chronic (7) Overactive bladder Status: Chronic (8) Venous insufficiency, peripheral Status: Chronic (9) DM2 (diabetes mellitus, type 2) Status: Chronic (10) GERD (gastroesophageal reflux disease) Status: Chronic (11) HTN (hypertension) Status: Chronic (12) History of CVA (cerebrovascular accident) Status: Chronic (13) Hyperlipidemia Status: Chronic Past Medical History - Allergies and Home Meds Allergies/Adverse Reactions: Allergies citalopram hydrobromide [From Celexa] Allergy (Verified 09/04/19 19:27) Unknown gabapentin [From Neurontin] Allergy (Verified 09/04/19 19:27) Unknown hydrocodone bitartrate [From Vicodin] Allergy (Verified 09/04/19 19:27) Unknown lisinopril Allergy (Verified 09/04/19 19:27) Unknown oxycodone [From OxyContin] Adverse Reaction (Verified 09/04/19 19:27) Vomiting Primary Care Physician: Rikki Stephens III, MD [Primary Care Provider] - Surgical History: total knee arthroplasty, - - Laparoscopic right colectomy February 2017 Lives: Spouse/ Significant Other Smoking Status: Never smoker - Family History Maternal Family History: Family History (Last Updated 03/29/17 @ 14:26 by Tri Phelps) Son Diabetes Family History: Reports: Heart Disease - Heart failure in her mother Review of Systems General: Reports: Chills, Malaise. Denies: Sweats Eyes: Denies: Visual changes - bilaterally, Diplopia ENT: Denies: Rhinorrhea, Sore throat Cardiovascular: Reports: Chest pain. Denies: Palpitations Respiratory: Denies: Dyspnea, Cough, Sputum, Dyspnea on exertion Gastrointestinal: Reports: Abdominal pain, Nausea. Denies: Vomiting, Diarrhea, Melena, Hematochezia Genitourinary: Denies: Dysuria, Hematuria, Frequency Musculoskeletal: Reports: Neck pain. Denies: Back pain, Swelling, Extremity Pain Skin: Denies: Rash, Wounds Neurological: Denies: Headache, Weakness, Numbness Physical Exam Vital Signs/Narrative: Vital Signs Temp Pulse Resp BP Pulse Ox 09/04/19 19:23 99.9 F H 85 20 H 155/49 H 95 Inital Vital Signs reviewed: Yes General: Well nourished, Well developed, Acute Distress - Painful Head: Normocephalic, Atraumatic Eyes: Perrl, EOMI ENT: Moist mucous membranes, No rhinorrhea Neck: Supple, - - Tender in left sternocleidomastoid and submandibular area just caudal to the left ear. It this area is normal-appearing. No carotid bruits. No mastoid tenderness. Cardiovascular: Regular rate, Regular rhythm, No murmurs, Irregular - occasional. Negative for: Tachycardia Respiratory: No distress, CTA bilaterally, Chest nontender Abdomen: Soft, Nondistended, Normal bowel sounds, Tender - LUQ > epigast, Guarding. Negative for: Rebound tenderness, Pulsatile mass - not palpated Back: Nontender, Normal Inspection. Negative for: CVA tenderness Extremities: Nontender, No edema. Negative for: Calf Tenderness Skin: Normal color, No rash, No Trauma Neurological: Alert, Oriented x3, Cranial nerves II-XII grossly intact, Normal Strength, Normal Sensation Psychological: Normal Mood, - - anxious Diagnostic/Tx/Re-eval Impressions Chest CTA 09/04/19 20:16 IMPRESSION: Mild plaque and elongation of the thoracic aorta without aneurysm. Negative for pulmonary embolus. Normal heart size without pericardial effusion. Moderately large hiatal hernia. Negative for new consolidation, focal atelectasis or pleural effusion. Stable chronic lung changes. Stigmata of old granulomatous disease. Negative for acute bone findings. Electronically Signed: Katrin Domínguez MD at 23:32 EDT , Service support , Abdomen CTA 09/04/19 20:17 IMPRESSION: Mild to moderate plaque of the abdominal aorta without aneurysm or dissection. No substantial narrowing of the major abdominal branch vessels. Status post cholecystectomy with moderate compensatory dilatation of the common bile duct without visualized filling defect. Atrophy of the pancreas. Calcified granuloma of the spleen. Normal liver. Diverticulosis present with a prominent diverticulum in the splenic flexure with surrounding fat stranding suggesting diverticulitis that is somewhat unusual in this location. Negative for bowel perforation or obstruction. Unremarkable ileocolic anastomosis. Duodenal diverticulum. Moderately large hilar hernia. No acute renal findings. Negative for hydronephrosis. Electronically Signed: Katrin Domínguez MD at 23:19 EDT , Service support , 09/04/19 20:16 CTA Chest W/WO Contrast [CT] Stat 09/04/19 20:17 CTA Abdomen W/WO Contrast [CT] Stat Laboratory Results 09/04/19 09/04/19 09/04/19 20:34 20:34 21:08 WBC 9.6 RBC 3.99 L Hgb 11.3 L Hct 34.6 L MCV 86.7 MCH 28.3 MCHC 32.7 RDW Std Deviation 43.5 RDW Coeff of Terry 13.9 Plt Count 202 MPV 10.5 Immature Gran % (Auto) 0.200 Neut % (Auto) 66.4 Lymph % (Auto) 23.1 [place] % (Auto) 8.6 Eos % (Auto) 1.4 Baso % (Auto) 0.3 Absolute Neuts (auto) 6.4 Absolute Lymphs (auto) 2.22 Nucleated RBC % 0 Sodium 140 Potassium 3.4 L Chloride 104 Carbon Dioxide 31.0 Anion Gap 5 BUN 14 Creatinine 0.97 Estim Creat Clear Calc 42.09 Est GFR (MDRD) Af Amer 72 Est GFR (MDRD) Non-Af 59 L BUN/Creatinine Ratio 14.4 Glucose 245 H Calcium 9.3 Total Bilirubin 0.60 AST 12 L ALT 18 Alkaline Phosphatase 28 L Troponin I < 0.015 Total Protein 6.6 Albumin 3.3 Globulin 3.3 Albumin/Globulin Ratio 1.0 Lipase 52 L Urine Color Yellow Urine Clarity Sl. Cloudy Urine pH 5.0 Ur Specific [place] 1.015 Urine Protein 15 H Urine Glucose (UA) 1000 H Urine Ketones Negative Urine Occult Blood 25 H Urine Nitrite Negative Urine Bilirubin Negative Urine Urobilinogen Normal Ur Leukocyte Esterase Negative Urine RBC 0-5 SEEN Urine WBC 0 SEEN Ur Squamous Epith Cells 0-5 SEEN Urine Bacteria 0 SEEN Hyaline Casts 0-5 SEEN Urine Mucus 0 SEEN - Rhythm Strip Rhythm Strip: Sinus Rhythm Rate: 85 Ectopy: None - EKG Initial EKG Interpretation: Sinus Rhythm, No Acute Injury Pattern, - - leftward axis. anterior Q's. Prior: Unchanged - Medical Decision Making Patient was initially given morphine, CT angiography of the chest and abdomen/pelvis was performed to rule out aortic catastrophes. It showed plaque but was essentially negative for that, but it did show diverticulitis in the sigmoid area, this correlates with where she is having pain and significant tenderness in the left upper quadrant. Also in the differential was splenic capsular hematoma/pathology, however she is not presenting with classic care sign. Furthermore, the pain in her neck, which is of unknown significance here, is reproducible when she turns her head to the left and with palpation in the affected area. Grossly, this part of the exam is benign. Her pain was still significant after the initial doses of analgesics. Cipro and Flagyl were ordered IV, and given the amount of pain she was in and the fact that now she is a little lethargic from the morphine but feeling better, plan is for admission and continued medical treatment. ED Disposition - Plan for ED Patient: Disposition: Acute Care [facility] Diagnosis: Diverticulitis of colon Referrals: Rikki Stephens III, MD [Primary Care Provider] -
[2019-09-04 20:52] LABS: Absolute Lymphocyte Count 2.22 X10^3/uL (0.83-4.51); Absolute Neutrophil Count 6.4 X10^3/uL (2.0-7.7); Basophil# 0.03 X10^3/uL; Basophil% 0.3 % (0-1); Eosinophil# 0.13 X10^3/uL; Eosinophils% 1.4 % (0-5); Hematocrit 34.6 % (37-47); Hemoglobin 11.3 g/dL (12.0-15.0); Lymphocyte # 2.22 X10^3/ul (4.0); Lymphocyte % 23.1 % (19-41); Mean Corp Hgb Conc 32.7 g/dL (32-36); Mean Corpuscular Hgb 28.3 pg (27.0-32.0); Mean Corpuscular Volume 86.7 fL (81-99); Mean Platelet Vol. 10.5 fl (6.2-12.0); Monocyte# 0.82 X10^3/uL; Monocyte% 8.6 % (0-10); NRBC Flagged by Analyzer 0 % (0-5); Neutrophil # 6.37 X10^3/uL (2.7-7.7); Neutrophil % 66.4 % (47-70); Platelet Count 202 K/mm3 (150-450); RBC Distribution Width CV 13.9 % (11.6-14.6); RBC Distribution Width SD 43.5 fl (35.1-43.9); Red Blood Count 3.99 M/mm3 (4.2-5.4); White Blood Count 9.6 K/mm3 (4.4-11.0)
[2019-09-04] MEDS: Morphine 4 MG/ML Syringe IV ×2 (20:55→23:38)
[2019-09-04] MEDS: Ondansetron 4 MG/2 ML Vial IV (20:55)
[2019-09-04] MEDS: 0.9% Normal Saline 1,000 ML 1000 ML IV (20:55)
[2019-09-04 21:08] LABS: AST(SGOT) 12 U/L (15-37); Alanine Aminotransfer ALT/SGPT 18 U/L (13-56); Albumin, Serum 3.3 g/dL (3.2-5.0); Alkaline Phosphatase 28 U/L (45-117); Anion Gap 5 (5-15); BUN 14 mg/dL (7-18); BUN/Creat Ratio 14.4 RATIO (10-20); Calcium,Total 9.3 mg/dL (8.5-10.1); Chloride 104 mmol/L (98-107); Creatinine, Serum 0.97 mg/dL (0.55-1.02); EST Glomerular Filtration Rate 59 mL/min (>60); Est Glom Filt Rate - Afr Amer 72 mL/min (>60); Estimated Creatinine Clearance 42.09 ml/min; Globulin 3.3 g/dL (2.2-4.2); Glucose 245 mg/dL (74-106); Lipase 52 U/L (73-393); Potassium 3.4 mmol/L (3.5-5.1); Protein, Total 6.6 g/dL (6.4-8.2); Sodium Level 140 mmol/L (136-145)
[2019-09-04 21:15] LABS: Bacteria 0 SEEN /hpf (None Seen); Mucous, Urine 0 SEEN /hpf (<or=2+); White Blood Cells 0 SEEN /hpf (0-5)
[2019-09-04 21:21] LABS: Color, Urine Yellow (Yellow); Glucose, Dipstick 1000 mg/dl (Normal); Ketone-Dipstick Negative (Negative); Leukocyte Esterase-Dipstick Negative /ul (Negative); Nitrite-Dipstick Negative (Negative); Occult Blood-Urine 25 /ul (Negative); Protein-Dipstick 15 mg/dl (Negative); Specific Gravity, Urine 1.015 (1.002-1.030); Urine Bilirubin Dipstick Negative (Negative); Urine Clarity Sl. Cloudy (Clear); Urine Urobilinogen Normal (Normal)
[2019-09-04 21:29] LABS: Hyaline Cast 0-5 SEEN /lpf (0-5); Squamous Epithelial Cells - UA 0-5 SEEN /hpf (5-10)
[2019-09-04 21:30] LABS: Red Blood Cells-Urine 0-5 SEEN /hpf (0-5)
[2019-09-04 21:44] VITALS: BP 150/53; PULSE 86; RESP 20; O2SAT 94
[2019-09-04 22:51] VITALS: BP 138/50
[2019-09-04 23:39] VITALS: BP 145/55; PULSE 88; RESP 16; O2SAT 96
[2019-09-05] VITALS (9 sets, daily range): BP systolic 119–151; BP diastolic 41–104; PULSE 65–82; RESP 16–20; TEMP 36.3–37; O2SAT 93–98; BMI 28.3; BMI 28.4
--- NOTE | 2019-09-05 00:58 | HP.PCM_ITS ---
Problem List (1) History of colon cancer Status: Chronic (2) GERD with stricture Status: Chronic (3) GERD (gastroesophageal reflux disease) Status: Chronic (4) Dehydration Status: Inactive (5) Hypokalemia Status: Inactive (6) Diverticulitis of colon Status: Acute (7) Status post total knee replacement, right Status: Chronic Comment: 2006 (8) Hx of heart surgery Status: Chronic Comment: heart cath 2002 (9) S/P hysterectomy Status: Chronic Comment: 1979 (10) Status post corneal transplant Status: Chronic (11) S/P cholecystectomy Status: Chronic Comment: 2015 (12) Cerebral arteriosclerosis Status: Chronic (13) History of CVA (cerebrovascular accident) Status: Chronic (14) Risk for falls Status: Chronic (15) Cancer of ascending colon metastatic to intra-abdominal lymph node Status: Chronic Comment: 04/2016 (16) Adenocarcinoma of colon Status: Chronic Comment: 04/2016 (17) Anemia Status: Chronic (18) 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 (19) Chronic calculous cholecystitis Status: Chronic (20) Diverticulosis Status: Chronic (21) Venous insufficiency, peripheral Status: Chronic (22) Overactive bladder Status: Chronic (23) Anxiety Status: Chronic (24) DM2 (diabetes mellitus, type 2) Status: Chronic (25) S/P colectomy Status: Chronic (26) HTN (hypertension) Status: Chronic (27) Hyperlipidemia Status: Chronic History of Present Illness Date of Admission: 09/05/19 Chief Complaint: Abdominal pain The patient is a 74 year old F with a significant history of colon cancer status post colectomy and chemotherapy; and diabetes mellitus who presents to the emergency department with abdominal pain. Her abdominal pain is predominantly located at her left upper quadrant. Her pain actually started from her left neck and goes down in a straight line fashion to her left chest onto her left abdomen and radiates to her right abdomen. The pain started about a week ago. The pain is episodic. On the day of presentation because the pain worsened she came to emergency department. She described her pain as sharp. Her neck pain worsens with neck position and her abdominal pain worsens with movements. Associated with her symptoms is nausea without vomiting. Past Medical History Past Medical History (Chronic Problems): Chronic Problems (Last Reviewed 09/05/19 @ 03:[address] Ottoniel Carias MD) History of colon cancer (Chronic) GERD with stricture (Chronic) GERD (gastroesophageal reflux disease) (Chronic) Status post total knee replacement, right (Chronic) 2006 Hx of heart surgery (Chronic) heart cath 2002 S/P hysterectomy (Chronic) 1979 Status post corneal transplant (Chronic) S/P cholecystectomy (Chronic) 2015 Cerebral arteriosclerosis (Chronic) History of CVA (cerebrovascular accident) (Chronic) Risk for falls (Chronic) Cancer of ascending colon metastatic to intra-abdominal lymph node (Chronic) 04/2016 Adenocarcinoma of colon (Chronic) 04/2016 Anemia (Chronic) 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) Diverticulosis (Chronic) Venous insufficiency, peripheral (Chronic) Overactive bladder (Chronic) Anxiety (Chronic) DM2 (diabetes mellitus, type 2) (Chronic) S/P colectomy (Chronic) HTN (hypertension) (Chronic) Hyperlipidemia (Chronic) Medical History: Medical History (Last Reviewed 09/05/19 @ 03:[address] Ottoniel Carias MD) Cerebral arteriosclerosis (Chronic) I67.2 History of CVA (cerebrovascular accident) (Chronic) Z86.73 Risk for falls (Chronic) Z91.81 Cancer of ascending colon metastatic to intra-abdominal lymph node (Chronic) C18.2, C77.2 04/2016 Adenocarcinoma of colon (Chronic) C18.9 04/2016 Anemia (Chronic) D64.9 Dysphagia (Inactive) R13.10 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) M51.16 Chronic calculous cholecystitis (Chronic) K80.10 Diverticulosis (Chronic) K57.90 Venous insufficiency, peripheral (Chronic) I87.2 Overactive bladder (Chronic) N32.81 Anxiety (Chronic) F41.9 DM2 (diabetes mellitus, type 2) (Chronic) E11.9 HTN (hypertension) (Chronic) I10 Hyperlipidemia (Chronic) E78.5 Allergies citalopram hydrobromide [From Celexa] Allergy (Verified 09/04/19 19:27) Unknown gabapentin [From Neurontin] Allergy (Verified 09/04/19 19:27) Unknown hydrocodone bitartrate [From Vicodin] Allergy (Verified 09/04/19 19:27) Unknown lisinopril Allergy (Verified 06/11/20 19:27) Unknown oxycodone [From OxyContin] Adverse Reaction (Verified 09/04/19 19:27) Vomiting Home Medications: Ambulatory Orders Medication Instructions Recorded Pravastatin [Pravachol] 80 mg PO DAILY 04/19/14 Pregabalin [Lyrica] 100 mg PO DAILY 05/26/16 metoprolol succinate 100 mg 100 mg PO DAILY tab 03/29/17 tablet,extended release 24 hr Insulin Glargine [Lantus SoloStar 15 units SQ QHS 08/21/17 Pen] metFORMIN (XR) [Glucophage Xr] 500 mg PO BID 04/03/18 Duloxetine HCl 60 mg PO DAILY 01/06/19 Pramipexole Di-HCl [Mirapex] 0.5 mg PO QHS 01/06/19 Amlodipine Besylate 5 mg PO DAILY 03/31/19 Aspirin [Aspirin EC] 81 mg PO DAILY 03/31/19 Esomeprazole Magnesium 40 mg PO DAILY 03/31/19 Losartan Potassium 50 mg PO DAILY 03/31/19 Ondansetron [Zofran Odt] 4 mg PO Q8H PRN PRN #10 tab 08/13/19 Surgical History: Surgical History (Last Reviewed 09/05/19 @ 03:[address] Ottoniel Carias MD) Status post total knee replacement, right (Chronic) Z96.651 2007 Hx of heart surgery (Chronic) Z98.890 heart cath 2003 S/P hysterectomy (Chronic) Z90.710 1980 Status post corneal transplant (Chronic) Z94.7 S/P cholecystectomy (Chronic) Z90.49 2016 S/P colectomy (Chronic) Z90.49 Surgical History: total knee arthroplasty, - - Laparoscopic right colectomy February 2017 Lives: Spouse/ Significant Other Smoking Status: Never smoker - *Family History Maternal Family History: Family History (Last Reviewed 09/05/19 @ 03:[address] Ottoniel Carias MD) Son Diabetes History Items: Heart Disease - Heart failure in her mother Review of Systems Constitutional: Denies: Chills, Fever, Weight Change HEENT: Denies: Head Aches, Sinus Congestion, Sinus Drainage Cardiovascular: Reports: Chest Pain. Denies: Palpitations Respiratory: Denies: Cough, Shortness of breath at rest, Sputum production Gastrointestinal: Reports: Abdominal Pain, Nausea. Denies: Vomiting Genitourinary: Denies: Dysuria Musculoskeletal: Denies: Joint Pain, Joint Tenderness Skin: Denies: Rash, Wounds Neurological: Denies: Numbness, Tingling, Focal weakness Psychiatric: Denies: Anxiety, Depression, Homicidal Ideations, Suicidal Ideati ons Hematologic/ Lymphatic: Denies: Easy Bruising, Easy Bleeding VTE Information - Inpt Only VTE Present on Admission: No VTE Mechan Device Prophylaxis: None VTE Pharm Prophylaxis ordered?: Yes Patient Problems: Active and Suspected Problems (Last Reviewed 09/05/19 @ 03:[address] Ottoniel Carias MD) Diverticulitis of colon (Acute) - Physical Exam Vitals/I&O's: Vital Signs Temp Pulse Resp BP Pulse Ox 99.9 F H 88 16 145/55 H 96 09/04/19 19:23 09/04/19 23:39 09/04/19 23:39 09/04/19 23:39 09/04/19 23:39 Oxygen Delivery Method Room Air Weight: 75.2 kg Body Mass Index (BMI) 29.3 Finger Stick Blood Glucose 91 Intake and Output for Last 24 Hours 09/03/19 09/04/19 09/05/19 23:59 23:59 23:59 Intake Total 1000 / 1000 Balance 1000 / 1000 General: Alert, Oriented x3, Cooperative HEENT: Atraumatic, PERRLA, EOMI, Normocephalic Neck: Supple, Trachea Midline Lungs: Clear to auscultation, Normal air movement, No rhonchi Cardiovascular: Regular rate, Normal S1, Normal S2 Abdomen: Bowel Sounds Present, Soft, Tender Extremities: No edema, Capillary Refill Less than 3 Seconds Skin: No rashes, No breakdown Musculoskeletal: No Tenderness to Palpation of Joints or Extremities Neurological: Cranial nerves II-XII grossly intact Psych/Mental Status: Normal Affect, Appropriate Laboratory Results 09/04/19 20:34: WBC 9.6, RBC 3.99 L, Hgb 11.3 L, Hct 34.6 L, MCV 86.7, MCH 28.3, MCHC 32.7, RDW Std Deviation 43.5, RDW Coeff of [place] 13.9, Plt Count 202, MPV 10.5, Immature Gran % (Auto) 0.200, Neut % (Auto) 66.4, Lymph % (Auto) 23.1, [place] % (Auto) 8.6, Eos % (Auto) 1.4, Baso % (Auto) 0.3, Absolute Neuts (auto) 6.4, Absolute Lymphs (auto) 2.22, Nucleated RBC % 0 09/04/19 20:34: Sodium 140, Potassium 3.4 L, Chloride 104, Carbon Dioxide 31.0, Anion Gap 5, BUN 14, Creatinine 0.97, Estim Creat Clear Calc 42.09, Est GFR (MDRD) Af Amer 72, Est GFR (MDRD) Non-Af 59 L, BUN/Creatinine Ratio 14.4, Glucose 245 H, Calcium 9.3, Total Bilirubin 0.60, AST 12 L, ALT 18, Alkaline Phosphatase 28 L, Troponin I < 0.015, Total Protein 6.6, Albumin 3.3, Globulin 3.3, Albumin/Globulin Ratio 1.0, Lipase 52 L 09/04/19 21:08: Urine Color Yellow, Urine Clarity Sl. Cloudy, Urine pH 5.0, Ur Specific [place] 1.015, Urine Protein 15 H, Urine Glucose (UA) 1000 H, Urine Ketones Negative, Urine Occult Blood 25 H, Urine Nitrite Negative, Urine Bilirubin Negative, Urine Urobilinogen Normal, Ur Leukocyte Esterase Negative, Urine RBC 0-5 SEEN, Urine WBC 0 SEEN, Ur Squamous Epith Cells 0-5 SEEN, Urine Bacteria 0 SEEN, Hyaline Casts 0-5 SEEN, Urine Mucus 0 SEEN Current Medications Ciprofloxacin (Cipro) 400 mg in 200 mls @ 200 mls/hr IV X1 ONE Stop: 09/05/19 01:32 Metronidazole (Flagyl) 500 mg in 100 mls @ 100 mls/hr IV X1 ONE Stop: 09/05/19 01:32 Assessment/Plan All Active Problems (Last Reviewed 09/05/19 @ 03:[address] Ottoniel Carias MD) Diverticulitis of colon (Acute) The patient is a 74 year old F with a significant history of colon cancer status post colectomy and chemotherapy; and diabetes mellitus who presents emergency department with abdominal pain and found to have radiographic dense evidence of diverticulosis with acute diverticulitis. Acute diverticulitis Patient with fever of 99.[address] of abdomen and pelvis is remarkable for acute diverticulitis. Received morphine sulfate, ciprofloxacin IV and Flagyl IV at emergency department. On exams patient was noted to be scratching her left dorsal hand and left distal forearm. Morphine IV PRN ordered. Ciprofloxacin IV ordered. Metronidazole IV ordered. Benadryl as needed for itching. Antiemetics with Zofran PRN ordered. Clear liquid diets. With patient history of colon cancer and placed on of care and reasonable to consider colonoscopy after 2 weeks time if her acute diverticulitis resolve and if consistent with her goals of care. Of note patient is a DNR CCA with no intubation. She reports early stage of dementia. Actual abdomen and pelvis CTA imaging independently reviewed confirms colonic diverticulitis splenic flexure. Chest CT did not show any acute aortic disease. Left neck pain. Unclear whether it is from diaphragmatic irritation from her diverticulitis at the splenic flexure. Morphine as above. PT to work with patient. Hypokalemia Potassium presentation was 3.4. Replace. Trend BMP. Neuropathy Pregabalin continued Diabetes mellitus Patient with hyperglycemia on presentation Hold metformin in the hospital setting. Accu-Chek QACHS with correction scale insulin. Home basal insulin continued. Hypertension On presentation her blood pressure was not within goal. Amlodipine and losartan continued. Trend blood pressure and adjust blood pressure medications. DVT prophylaxis Subcutaneous Lovenox. Inpatient E&M: 46473 Init Hosp L3
[2019-09-05] MEDS: Ciprofloxacin 400 MG/200 ML BAG 200 MG IV ×3 (01:16→23:32)
[2019-09-05] MEDS: metroNIDAZOLE 500 MG/100 ML BAG 100 MG IV ×3 (02:32→21:59)
[2019-09-05 04:06] LABS: Bedside Glucose 136 mg/dL (70-110)
[2019-09-05 06:50] LABS: Absolute Lymphocyte Count 1.87 X10^3/uL (0.83-4.51); Absolute Neutrophil Count 5.6 X10^3/uL (2.0-7.7); Basophil# 0.04 X10^3/uL; Basophil% 0.5 % (0-1); Eosinophil# 0.18 X10^3/uL; Eosinophils% 2.2 % (0-5); Hematocrit 33.4 % (37-47); Hemoglobin 10.8 g/dL (12.0-15.0); Lymphocyte # 1.87 X10^3/ul (4.0); Lymphocyte % 22.3 % (19-41); Mean Corp Hgb Conc 32.3 g/dL (32-36); Mean Corpuscular Hgb 28.6 pg (27.0-32.0); Mean Corpuscular Volume 88.6 fL (81-99); Mean Platelet Vol. 10.3 fl (6.2-12.0); Monocyte% 8.4 % (0-10); NRBC Flagged by Analyzer 0 % (0-5); Neutrophil # 5.55 X10^3/uL (2.7-7.7); Neutrophil % 66.2 % (47-70); Platelet Count 172 K/mm3 (150-450); RBC Distribution Width CV 13.9 % (11.6-14.6); RBC Distribution Width SD 44.9 fl (35.1-43.9); Red Blood Count 3.77 M/mm3 (4.2-5.4); White Blood Count 8.4 K/mm3 (4.4-11.0)
[2019-09-05] MEDS: Morphine 2 MG/ML Syringe 1 MG IV ×3 (06:53→21:59)
[2019-09-05 07:04] LABS: Anion Gap 7 (5-15); BUN 11 mg/dL (7-18); BUN/Creat Ratio 17.4 RATIO (10-20); Calcium,Total 8.6 mg/dL (8.5-10.1); Chloride 105 mmol/L (98-107); Creatinine, Serum 0.63 mg/dL (0.55-1.02); EST Glomerular Filtration Rate 98 mL/min (>60); Est Glom Filt Rate - Afr Amer 118 mL/min (>60); Estimated Creatinine Clearance 40.83 ml/min; Glucose 148 mg/dL (74-106); Potassium 4.2 mmol/L (3.5-5.1); Sodium Level 139 mmol/L (136-145)
[2019-09-05 07:16] LABS: Bedside Glucose 149 mg/dL (70-110)
[2019-09-05] MEDS: Aspirin E.C. 81 MG Tablet PO (08:46)
[2019-09-05] MEDS: 0.9% Normal Saline 1,000 ML 75 ML IV (10:23)
[2019-09-05] MEDS: amLODIPine 5 MG Tablet PO (10:24)
[2019-09-05] MEDS: Losartan Potassium 50 MG Tablet PO (10:24)
[2019-09-05] MEDS: Pantoprazole Sodium 40 MG Tablet PO (10:24)
[2019-09-05] MEDS: DULoxetine Hcl 60 MG Capsule PO (10:24)
[2019-09-05] MEDS: Metoprolol(XL)Succ 100 MG Tablet PO (10:24)
[2019-09-05] MEDS: Glucerna Shake 120 ML LIQUID PO ×4 (10:27→23:32)
--- NOTE | 2019-09-05 10:59 | PN_ITS ---
Patient Problems: Active and Suspected Problems (Last Reviewed 09/05/19 @ 03:[address] Ottoniel Carias MD) Diverticulitis of colon (Acute) Subjective: Patient seen and examined. She was admitted with a complaint of abdominal pain, and is being managed for acute diverticulitis. Patient was very tearful this morning due to some personal circumstances involving her family which is placing a lot of stress on her. She still complains of abdominal pain mainly in the suprapubic and periumbilical area. She denies any fever or chills, nausea vomiting or diarrhea. She had tolerated clear liquid diet very well. Vitals have remained stable. Vitals have remained stable. Hemoglobin is 10.8. Vitals/I&O's: Vital Signs Temp Pulse Resp BP Pulse Ox 97.3 F L 82 18 151/70 H 97 09/05/19 09:40 09/05/19 10:24 09/05/19 09:40 09/05/19 09:40 09/05/19 09:40 Oxygen Delivery Method Room Air Weight: 160 lb 0.889 oz Body Mass Index (BMI) 28.3 Finger Stick Blood Glucose 91 Intake and Output for Last 24 Hours 09/03/19 09/04/19 09/05/19 23:59 23:59 23:59 Intake Total 1000 / 1000 600 / 600 Balance 1000 / 1000 600 / 600 General: Alert, Oriented x3, Cooperative, - - tearful HEENT: Atraumatic, PERRLA, EOMI, Normocephalic Oral: Dry Mucosa Neck: Supple, No JVD, Negative Carotid Bruits Lungs: Clear to auscultation, Normal air movement, No rhonchi, No wheeze, No rales Cardiovascular: Regular rate, Regular Rhythm, Normal S1, Normal S2, No murmurs Abdomen: Bowel Sounds Present, Soft, - - mild to moderate generalised tenderness, no guarding or rebound tenderness. Extremities: No clubbing, No cyanosis, No edema, Capillary Refill Less than 3 Seconds Skin: No rashes, No breakdown Musculoskeletal: No Tenderness to Palpation of Joints or Extremities Lymphatic: No Cervical, Supraclavicular, or Inguinal Adenopathy Neurological: Cranial nerves II-XII grossly intact, Neuro grossly intact, Motor Exam 5/5 strength throughout Psych/Mental Status: Anxious, Alert and oriented to time, place, person, mood and affect Laboratory Results 09/04/19 20:34: WBC 9.6, RBC 3.99 L, Hgb 11.3 L, Hct 34.6 L, MCV 86.7, MCH 28.3, MCHC 32.7, RDW Std Deviation 43.5, RDW Coeff of Terry 13.9, Plt Count 202, MPV 10.5, Immature Gran % (Auto) 0.200, Neut % (Auto) 66.4, Lymph % (Auto) 23.1, Ellsworth % (Auto) 8.6, Eos % (Auto) 1.4, Baso % (Auto) 0.3, Absolute Neuts (auto) 6.4, Absolute Lymphs (auto) 2.22, Nucleated RBC % 0 09/04/19 20:34: Sodium 140, Potassium 3.4 L, Chloride 104, Carbon Dioxide 31.0, Anion Gap 5, BUN 14, Creatinine 0.97, Estim Creat Clear Calc 42.09, Est GFR (MDRD) Af Amer 72, Est GFR (MDRD) Non-Af 59 L, BUN/Creatinine Ratio 14.4, Glucose 245 H, Calcium 9.3, Total Bilirubin 0.60, AST 12 L, ALT 18, Alkaline Phosphatase 28 L, Troponin I < 0.015, Total Protein 6.6, Albumin 3.3, Globulin 3.3, Albumin/Globulin Ratio 1.0, Lipase 52 L 09/04/19 21:08: Urine Color Yellow, Urine Clarity Sl. Cloudy, Urine pH 5.0, Ur Specific [place] 1.015, Urine Protein 15 H, Urine Glucose (UA) 1000 H, Urine Ketones Negative, Urine Occult Blood 25 H, Urine Nitrite Negative, Urine Bilirubin Negative, Urine Urobilinogen Normal, Ur Leukocyte Esterase Negative, Urine RBC 0-5 SEEN, Urine WBC 0 SEEN, Ur Squamous Epith Cells 0-5 SEEN, Urine Bacteria 0 SEEN, Hyaline Casts 0-5 SEEN, Urine Mucus 0 SEEN 09/05/19 04:01: POC Glucose 136 H 09/05/19 06:38: WBC 8.4, RBC 3.77 L, Hgb 10.8 L, Hct 33.4 L, MCV 88.6, MCH 28.6, MCHC 32.3, RDW Std Deviation 44.9 H, RDW Coeff of Terry 13.9, Plt Count 172, MPV 10.3, Immature Gran % (Auto) 0.400, Neut % (Auto) 66.2, Lymph % (Auto) 22.3, Ellsworth % (Auto) 8.4, Eos % (Auto) 2.2, Baso % (Auto) 0.5, Absolute Neuts (auto) 5.6, Absolute Lymphs (auto) 1.87, Nucleated RBC % 0 09/05/19 06:38: Sodium 139, Potassium 4.2, Chloride 105, Carbon Dioxide 27.0, Anion Gap 7, BUN 11, Creatinine 0.63, Estim Creat Clear Calc 40.83, Est GFR (MDRD) Af Amer 118, Est GFR (MDRD) Non-Af 98, BUN/Creatinine Ratio 17.4, Glucose 148 H, Calcium 8.6 09/05/19 06:58: POC Glucose 149 H Diagnostic Data Chest CTA 09/04/19 20:16 IMPRESSION: Mild plaque and elongation of the thoracic aorta without aneurysm. Negative for pulmonary embolus. Normal heart size without pericardial effusion. Moderately large hiatal hernia. Negative for new consolidation, focal atelectasis or pleural effusion. Stable chronic lung changes. Stigmata of old granulomatous disease. Negative for acute bone findings. Electronically Signed: Katrin Domínguez MD at 23:32 EDT , Service support , Abdomen CTA 09/04/19 20:17 IMPRESSION: Mild to moderate plaque of the abdominal aorta without aneurysm or dissection. No substantial narrowing of the major abdominal branch vessels. Status post cholecystectomy with moderate compensatory dilatation of the common bile duct without visualized filling defect. Atrophy of the pancreas. Calcified granuloma of the spleen. Normal liver. Diverticulosis present with a prominent diverticulum in the splenic flexure with surrounding fat stranding suggesting diverticulitis that is somewhat unusual in this location. Negative for bowel perforation or obstruction. Unremarkable ileocolic anastomosis. Duodenal diverticulum. Moderately large hilar hernia. No acute renal findings. Negative for hydronephrosis. Electronically Signed: Katrin Domínguez MD at 23:19 EDT , Service support , Current Medications Acetaminophen (Tylenol) 650 mg PO Q6H PRN PRN PRN Reason: Pain Score 1-10/Temp > 100.7 F Amlodipine Besylate (Norvasc) 5 mg PO DAILY [facility] Last Admin: 09/05/19 10:24 Dose: 5 mg Documented by: Aspirin (Ecotrin) 81 mg PO DAILYCM [facility] Last Admin: 09/05/19 08:46 Dose: 81 mg Documented by: Dextrose (D50w Syringe) 0 gm IV X1 PRN; Protocol PRN Reason: Hypoglycemia Diphenhydramine HCl (Benadryl) 25 mg PO Q8H PRN PRN PRN Reason: ITCHING Duloxetine HCl (Cymbalta) 60 mg PO DAILY [facility] Last Admin: 09/05/19 10:24 Dose: 60 mg Documented by: Enoxaparin Sodium (Lovenox) 40 mg SC DAILY [facility] Glucagon () 1 mg IM .X1 PRN PRN Reason: Hypoglycemia Ciprofloxacin (Cipro) 400 mg in 200 mls @ 200 mls/hr IV Q12 [facility] Last Admin: 09/05/19 10:28 Dose: 200 mls/hr Documented by: Metronidazole (Flagyl) 500 mg in 100 mls @ 100 mls/hr IV Q8 [facility] Sodium Chloride () 1,000 mls @ 75 mls/hr IV .[id number] [facility] Last Admin: 09/05/19 10:23 Dose: 75 mls/hr Documented by: Insulin Glargine (Lantus (Bkc)) 15 units SC QHS [facility] Insulin Human Lispro (Humalog Kwikpen (Bkc)) 0 unit SC ACHS [facility]; Protocol Last Admin: 09/05/19 06:59 Dose: Not Given Documented by: Losartan Potassium (Cozaar) 50 mg PO DAILY [facility] Last Admin: 09/05/19 10:24 Dose: 50 mg Documented by: Metoprolol Succinate (Toprol Xl (Beta Raza)) 100 mg PO DAILY [facility] Last Admin: 09/05/19 10:24 Dose: 100 mg Documented by: Morphine Sulfate () 1 mg IV Q4H PRN PRN PRN Reason: Pain Score 6-10/10 Last Admin: 09/05/19 06:53 Dose: 1 mg Documented by: Nutritional Formula (Lactose Free) (Glucerna Shake) 120 ml PO 4X/DAY [facility] Last Admin: 09/05/19 10:27 Dose: 120 ml Documented by: Ondansetron HCl (Zofran) 4 mg IV Q8H PRN PRN PRN Reason: NAUSEA/VOMITING Pantoprazole Sodium (Protonix) 40 mg PO DAILY [facility] Last Admin: 09/05/19 10:24 Dose: 40 mg Documented by: Pramipexole Dihydrochloride (Mirapex) 0.5 mg PO QHS [facility] Pravastatin Sodium (Pravachol) 80 mg PO DAILY@2200 [facility] Pregabalin (Lyrica) 100 mg PO DAILY [facility] Sodium Chloride () 10 - 40 ml IV UD PRN PRN Reason: SALINE FLUSH STROKE Vital Signs/Narrative: Vital Signs Temp Pulse Resp BP Pulse Ox 09/05/19 10:24 82 09/05/19 09:40 97.3 F L 82 18 151/70 H 97 09/05/19 09:00 70 Medical Necessity - Tobacco Use Smoking Status: Never smoker Assessment/Plan All Active Problems (Last Reviewed 09/05/19 @ 03:[address] Ottoniel Carias MD) Diverticulitis of colon (Acute) 1. Acute diverticulitis * still has abdominal pain; was able to tolerate a clear liquid diet * CT of the abdomen adn pelvis remarkable for acute diverticulitis and unremarkable ileocolic anastomosis with diverticulosis in the left colon and large diverticulum of the splenic flexure with Multivite's stranding suggesting diverticulosis as well as moderately large hiatal hernia. * on IV ciprofloxacin and flagyl * has a history of colon cancer s/p colectomy. * continue IV antibiotics for now and keep on clear liquids since she is still having abdominal pain * 2. Hypokalemia: resolved 3. 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 ISS. * Accuchecks ACHS . * On lantus 15IU qhs 4. Hypertension * On amlodipine and losartan. IV hydralazine PRN. BP fairly controlled. * 5. Dementia: says she has been told she has early onset Alzheimer's dementia. Stable. Will monitor DVT prophylaxis: Lovenox Code status: DNRCCA no intubation Inpatient E&M: 47459 [facility] L[facility]
[2019-09-05] MEDS: Pregabalin 50 MG Capsule 100 MG PO (11:10)
[2019-09-05] MEDS: Enoxaparin 40 MG/0.4 ML Syringe SC (11:10)
[2019-09-05 11:50] LABS: Bedside Glucose 184 mg/dL (70-110)
[2019-09-05] MEDS: Insulin Lispro 100 UNIT/ML INSULN.PEN SC ×3 (11:54→23:35)
--- NOTE | 2019-09-05 13:40 | CASEMGMT ---
RN [employer] SERVICE AIDE CM to room to meet with patient for initial transition planning/care coordination assessment. BROOKS PLUNKETT introduced self and role at [facility]. Pt voices understanding and consents to assessment at this time. Pt resting in bed in no distress at this time. Pt is A/O at this time and answers all questions appropriately. Care providers, pharmacy, and demographics verified/updated at this time. PCP: Dr Ricardo Stephens Specialists: Pt states she sees a Dr Dodge (does not remember her last name) @ [facility] for DM Preferred Pharmacy: [facility] [place] Insurance: [employer] [facility] Prescription Benefit: Yes Living Will/HPOA: Has both LW and Healthcare POA, who is her step-dtr, Lorena. Copy of POA on file @ [facility], but LW is not. Lorena made aware LW is not on file. She states she will try to bring in. LNOK: , Charles. Carrillo, step-dtr, POA. Living Arrangements: Lives with her in one-story home. Pt is independent w/ADL's. She states does most of the dishes and laundry. They get 14 meals every 2 weeks through [employer]. Transportation: . DME: States has the following DME: shower chair, comfort ht commode, lift recliner, rails/grab bars, hand held showe, rollator, medical alert button, stair lift entry into home. Pt states no need for further DME at this time. HHC/SNF: No history of either per pt. Pt wishes to return home and states has no concerns with going home at time of discharge. Pt states that she has early dementia and has difficulty remembering some things, such as taking her medications @ home. She states she gets her medications [facility] throug the mail. Discussed CCN with pt and explained the program. Pt states she would like BROOKS PLUNKETT to call Lorena/her POA, to discuss this with her. BROOKS PLUNKETT called Lorena at this time while in room with pt and discussed CCN with her. Lorena is interested in CCN for pt and would like referral made. Lorena also provided contact information for CCN and Rac card left in room with pt. Call placed to Bg @ [facility] and referral made. CM to follow for and further discharge planning/needs. Pt and Lorena both voice no further concerns/needs at this time. Advised them to ask for CM if any further questions/concerns/needs arise. Voices understanding. PLAN: Home. CCN referral made. Albian FRANKLINN RN CM
[2019-09-05 16:31] LABS: Bedside Glucose 157 mg/dL (70-110)
[2019-09-05] MEDS: Acetaminophen 325 MG Tablet 650 MG PO (21:27)
[2019-09-05] MEDS: Ondansetron 4 MG/2 ML Vial IV (21:59)
[2019-09-05] MEDS: 0.9% Saline Lock 10 ML Syringe IV ×2 (21:59→23:35)
[2019-09-05] MEDS: Haloperidol 1 MG Tablet PO (23:26)
[2019-09-05] MEDS: Pravastatin 80 MG Tablet PO (23:28)
[2019-09-05] MEDS: Pramipexole Di-HCl 0.5 MG Tablet PO (23:28)
[2019-09-06 00:01] LABS: Bedside Glucose 158 mg/dL (70-110)
[2019-09-06 03:32] VITALS: BP 121/53; PULSE 67; RESP 16; TEMP 36.8; O2SAT 92
[2019-09-06] MEDS: metroNIDAZOLE 500 MG/100 ML BAG 100 MG IV ×2 (05:25→14:04)
[2019-09-06] MEDS: 0.9% Normal Saline 1,000 ML 75 ML IV ×2 (05:31→20:59)
[2019-09-06 07:00] LABS: Bedside Glucose 120 mg/dL (70-110)
[2019-09-06 08:05] VITALS: BP 157/67; PULSE 70; RESP 18; TEMP 36.7; O2SAT 94
[2019-09-06] MEDS: Pantoprazole Sodium 40 MG Tablet PO (08:11)
[2019-09-06] MEDS: Aspirin E.C. 81 MG Tablet PO (08:11)
[2019-09-06] MEDS: Losartan Potassium 50 MG Tablet PO (08:12)
[2019-09-06] MEDS: amLODIPine 5 MG Tablet PO (08:12)
[2019-09-06 08:52] LABS: Absolute Lymphocyte Count 1.47 X10^3/uL (0.83-4.51); Absolute Neutrophil Count 4.7 X10^3/uL (2.0-7.7); Basophil# 0.04 X10^3/uL; Basophil% 0.6 % (0-1); Eosinophil# 0.24 X10^3/uL; Eosinophils% 3.4 % (0-5); Hematocrit 34.8 % (37-47); Hemoglobin 11.4 g/dL (12.0-15.0); Lymphocyte # 1.47 X10^3/ul (4.0); Mean Corp Hgb Conc 32.8 g/dL (32-36); Mean Corpuscular Hgb 28.7 pg (27.0-32.0); Mean Corpuscular Volume 87.7 fL (81-99); Mean Platelet Vol. 10.1 fl (6.2-12.0); Monocyte% 7.2 % (0-10); NRBC Flagged by Analyzer 0 % (0-5); Neutrophil # 4.72 X10^3/uL (2.7-7.7); Neutrophil % 67.5 % (47-70); Platelet Count 170 K/mm3 (150-450); RBC Distribution Width CV 13.7 % (11.6-14.6); RBC Distribution Width SD 43.4 fl (35.1-43.9); Red Blood Count 3.97 M/mm3 (4.2-5.4)
[2019-09-06 09:06] LABS: Anion Gap 7 (5-15); BUN 6 mg/dL (7-18); BUN/Creat Ratio 10.8 RATIO (10-20); Calcium,Total 8.6 mg/dL (8.5-10.1); Chloride 108 mmol/L (98-107); Creatinine, Serum 0.55 mg/dL (0.55-1.02); EST Glomerular Filtration Rate 114 mL/min (>60); Est Glom Filt Rate - Afr Amer 138 mL/min (>60); Estimated Creatinine Clearance 40.83 ml/min; Glucose 157 mg/dL (74-106); Potassium 3.8 mmol/L (3.5-5.1); Sodium Level 140 mmol/L (136-145)
--- NOTE | 2019-09-06 10:07 | PN_ITS ---
Patient Problems: Active and Suspected Problems (Last Reviewed 09/05/19 @ 03:[address] Ottoniel Carias MD) Diverticulitis of colon (Acute) Subjective: Patient seen and examined. She complained of feeling confused and so she thought her dementia was getting worse. Still complains of abdominal pain. She states when she was asked earlier about where she was in her birthdate, she mixed it up and she was getting worried about this. She still worrying about her son and other family issues and this is making her tearful. Review of systems otherwise negative. She was able to tolerate a liquid diet yesterday. She has remained hemodynamically stable CBC and BMP reviewed. Vitals/I&O's: Vital Signs Temp Pulse Resp BP Pulse Ox 98.1 F 70 18 157/67 H 94 09/06/19 08:05 09/06/19 08:05 09/06/19 08:05 09/06/19 08:05 09/06/19 08:05 Oxygen Delivery Method Room Air Weight: 160 lb 0.889 oz Body Mass Index (BMI) 28.3 Finger Stick Blood Glucose 91 Intake and Output for Last 24 Hours 09/04/19 09/05/19 09/06/19 23:59 23:59 23:59 Intake Total 1000 / 1000 3343.75 / 4143.75 1106.25 / 1106.25 Balance 1000 / 1000 3343.75 / 4143.75 1106.25 / 1106.25 General: Alert, mildly confused, Cooperative, - -anxious HEENT: Atraumatic, PERRLA, EOMI, Normocephalic Oral: Dry Mucosa Neck: Supple, No JVD, Negative Carotid Bruits Lungs: Clear to auscultation, Normal air movement, No rhonchi, No wheeze, No rales Cardiovascular: Regular rate, Regular Rhythm, Normal S1, Normal S2, No murmurs Abdomen: Bowel Sounds Present, Soft, - - mild generalised tenderness, no guarding or rebound tenderness. Extremities: No clubbing, No cyanosis, No edema, Capillary Refill Less than 3 Seconds Skin: No rashes, No breakdown Musculoskeletal: No Tenderness to Palpation of Joints or Extremities Lymphatic: No Cervical, Supraclavicular, or Inguinal Adenopathy Neurological: Cranial nerves II-XII grossly intact, Neuro grossly intact, Motor Exam 5/5 strength throughout Psych/Mental Status: Anxious, Alert and oriented to time, place, person, mood and affect Laboratory Results 09/05/19 11:48: POC Glucose 184 H 09/05/19 16:27: POC Glucose 157 H 09/05/19 23:33: POC Glucose 158 H 09/06/19 06:47: POC Glucose 120 H 09/06/19 08:45: WBC 7.0, RBC 3.97 L, Hgb 11.4 L, Hct 34.8 L, MCV 87.7, MCH 28.7, MCHC 32.8, RDW Std Deviation 43.4, RDW Coeff of Terry 13.7, Plt Count 170, MPV 10.1, Immature Gran % (Auto) 0.300, Neut % (Auto) 67.5, Lymph % (Auto) 21.0, Webb % (Auto) 7.2, Eos % (Auto) 3.4, Baso % (Auto) 0.6, Absolute Neuts (auto) 4.7, Absolute Lymphs (auto) 1.47, Nucleated RBC % 0 09/06/19 08:45: Sodium 140, Potassium 3.8, Chloride 108 H, Carbon Dioxide 25.0, Anion Gap 7, BUN 6 L, Creatinine 0.55, Estim Creat Clear Calc 40.83, Est GFR (MDRD) Af Amer 138, Est GFR (MDRD) Non-Af 114, BUN/Creatinine Ratio 10.8, Glucose 157 H, Calcium 8.6 Diagnostic Data Chest CTA 09/04/19 20:16 IMPRESSION: Mild plaque and elongation of the thoracic aorta without aneurysm. Negative for pulmonary embolus. Normal heart size without pericardial effusion. Moderately large hiatal hernia. Negative for new consolidation, focal atelectasis or pleural effusion. Stable chronic lung changes. Stigmata of old granulomatous disease. Negative for acute bone findings. Electronically Signed: Katrin Domínguez MD at 23:32 EDT , Service support , Abdomen CTA 09/04/19 20:17 IMPRESSION: Mild to moderate plaque of the abdominal aorta without aneurysm or dissection. No substantial narrowing of the major abdominal branch vessels. Status post cholecystectomy with moderate compensatory dilatation of the common bile duct without visualized filling defect. Atrophy of the pancreas. Calcified granuloma of the spleen. Normal liver. Diverticulosis present with a prominent diverticulum in the splenic flexure with surrounding fat stranding suggesting diverticulitis that is somewhat unusual in this location. Negative for bowel perforation or obstruction. Unremarkable ileocolic anastomosis. Duodenal diverticulum. Moderately large hilar hernia. No acute renal findings. Negative for hydronephrosis. Electronically Signed: Katrin Domínguez MD at 23:19 EDT , Service support , Current Medications Acetaminophen (Tylenol) 650 mg PO Q6H PRN PRN PRN Reason: Pain Score 1-10/Temp > 100.7 F Last Admin: 09/05/19 21:27 Dose: 650 mg Documented by: Amlodipine Besylate (Norvasc) 5 mg PO DAILY [facility] Last Admin: 09/06/19 08:12 Dose: 5 mg Documented by: Aspirin (Ecotrin) 81 mg PO DAILYCM [facility] Last Admin: 09/06/19 08:11 Dose: 81 mg Documented by: Dextrose (D50w Syringe) 0 gm IV X1 PRN; Protocol PRN Reason: Hypoglycemia Diphenhydramine HCl (Benadryl) 25 mg PO Q8H PRN PRN PRN Reason: ITCHING Duloxetine HCl (Cymbalta) 60 mg PO DAILY [facility] Last Admin: 09/05/19 10:24 Dose: 60 mg Documented by: Enoxaparin Sodium (Lovenox) 40 mg SC DAILY [facility] Last Admin: 09/05/19 11:10 Dose: 40 mg Documented by: Glucagon () 1 mg IM .X1 PRN PRN Reason: Hypoglycemia Ciprofloxacin (Cipro) 400 mg in 200 mls @ 200 mls/hr IV Q12 [facility] Last Infusion: 09/06/19 01:24 Dose: Infused Documented by: Metronidazole (Flagyl) 500 mg in 100 mls @ 100 mls/hr IV Q8 [facility] Last Infusion: 09/06/19 06:50 Dose: Infused Documented by: Sodium Chloride () 1,000 mls @ 75 mls/hr IV .[id number] [facility] Last Admin: 09/06/19 05:31 Dose: 75 mls/hr Documented by: Insulin Glargine (Lantus ([facility])) 15 units SC QHS [facility] Last Admin: 09/05/19 23:36 Dose: 15 u Documented by: Insulin Human Lispro (Humalog Kwikpen ([facility])) 0 unit SC [facility]; Protocol Last Admin: 09/06/19 06:48 Dose: Not Given Documented by: Losartan Potassium (Cozaar) 50 mg PO DAILY [facility] Last Admin: 09/06/19 08:12 Dose: 50 mg Documented by: Metoprolol Succinate (Toprol Xl (Beta Raza)) 100 mg PO DAILY [facility] Last Admin: 09/05/19 10:24 Dose: 100 mg Documented by: Morphine Sulfate () 1 mg IV Q4H PRN PRN PRN Reason: Pain Score 6-10/10 Last Admin: 09/05/19 21:59 Dose: 1 mg Documented by: Nutritional Formula (Lactose Free) (Glucerna Shake) 120 ml PO 4X/DAY [facility] Last Admin: 09/05/19 23:32 Dose: 120 ml Documented by: Ondansetron HCl (Zofran) 4 mg IV Q8H PRN PRN PRN Reason: NAUSEA/VOMITING Last Admin: 09/05/19 21:59 Dose: 4 mg Documented by: Pantoprazole Sodium (Protonix) 40 mg PO DAILY [facility] Last Admin: 09/06/19 08:11 Dose: 40 mg Documented by: Pramipexole Dihydrochloride (Mirapex) 0.5 mg PO QHS [facility] Last Admin: 09/05/19 23:28 Dose: 0.5 mg Documented by: Pravastatin Sodium (Pravachol) 80 mg PO DAILY@2200 [facility] Last Admin: 09/05/19 23:28 Dose: 80 mg Documented by: Pregabalin (Lyrica) 100 mg PO DAILY [facility] Last Admin: 09/05/19 11:10 Dose: 100 mg Documented by: Sodium Chloride () 10 - 40 ml IV UD PRN PRN Reason: SALINE FLUSH Last Admin: 09/05/19 23:35 Dose: 10 ml Documented by: STROKE Vital Signs/Narrative: Vital Signs Temp Pulse Resp BP Pulse Ox 09/06/19 08:05 98.1 F 70 18 157/67 H 94 Medical Necessity - Tobacco Use Smoking Status: Never smoker Assessment/Plan All Active Problems (Last Reviewed 09/05/19 @ 03:[address] Ottoniel Carias MD) Diverticulitis of colon (Acute) 1. Acute diverticulitis * still has mild abdominal pain; no guarding or rebound tenderness * CT of the abdomen adn pelvis remarkable for acute diverticulitis and unremarkable ileocolic anastomosis with diverticulosis in the left colon and large diverticulum of the splenic flexure with multiple fat stranding suggesting diverticulosis as well as moderately large hiatal hernia. * on IV ciprofloxacin and flagyl * tolerate clear liquid diet, so will advance diet as tolerated. * to follow up with general surgery after discharge for colonoscopy as needed * 2. Hypokalemia: resolved 3. 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 ISS. * Accuchecks ACHS . * On lantus 15IU qhs 4. Hypertension * On amlodipine and losartan. IV hydralazine PRN. BP fairly controlled. * 5. Alzheimer's Dementia: patient concerned her dementia is progresively worsening. Will monitor DVT prophylaxis: Lovenox Code status: DNRCCA no intubation Inpatient E&M: 46188 Subs Hosp L2
--- NOTE | 2019-09-06 10:20 | CASEMGMT ---
BROOKS PLUNKETT Face to Face with patient for initial transition planning/care coordination assessment. BROOKS PLUNKETT introduced self and role at [facility]. Patient lying in bed, alert and oriented. Patient willing to participate in assessment and is able to answer all questions appropriately. Care providers, pharmacy, and demographics verified. Patient wishes to discharge home, states daughter is working with PCP to setup home care. Patient states she has no further needs or concerns at this time. CM to follow for discharge planning needs that may arise. PCP: Kat Specialists: [facility] [place] [facility] [place] [facility] Prescription Benefit: yes Living Will/HPOA: yes, daughter Lorena [place] LNOK: , daughter Living Arrangements: Patient lives with in 1 story home with lift to enter the home. Patient states she is independent at home. Transportation: , daughter DME/HHC: Patient has shower chair, raised toilet seat, glucometer, and walker at home. Patient denies previous HHC. BROOKS PLUNKETT inquired if patient would like CM to assist with home care, patient states she prefers daughter to set it up. Disposition Plan: Patient to discharge home with family support and follow-up plans in place. Rossy PISANO, RN, CM
[2019-09-06] MEDS: Glucerna Shake 120 ML LIQUID PO (10:48)
[2019-09-06] MEDS: Ciprofloxacin 400 MG/200 ML BAG 200 MG IV ×2 (10:49→22:01)
[2019-09-06] MEDS: Acetaminophen 325 MG Tablet 650 MG PO (10:49)
[2019-09-06] MEDS: Pregabalin 50 MG Capsule 100 MG PO (10:50)
[2019-09-06] MEDS: Enoxaparin 40 MG/0.4 ML Syringe SC (10:52)
[2019-09-06 10:53] VITALS: BP 157/67; PULSE 70
[2019-09-06] MEDS: DULoxetine Hcl 60 MG Capsule PO (10:53)
[2019-09-06] MEDS: Metoprolol(XL)Succ 100 MG Tablet PO (10:53)
--- NOTE | 2019-09-06 11:22 | NURSING ---
Addendum entered by Anuradha Roberson 09/06/19 12:25: talked with step daughter not daughter in law Original Note: pt talked with her daughter in law-
[2019-09-06 11:50] LABS: Bedside Glucose 191 mg/dL (70-110)
[2019-09-06] MEDS: Insulin Lispro 100 UNIT/ML INSULN.PEN SC ×3 (12:16→21:04)
[2019-09-06 13:54] VITALS: BP 138/49; PULSE 67; RESP 16; TEMP 36.8; O2SAT 97
[2019-09-06 20:08] VITALS: BP 165/69; PULSE 74; RESP 16; TEMP 36.5; O2SAT 94
[2019-09-06] MEDS: metroNIDAZOLE 500 MG/100 ML BAG 1000 MG IV (20:59)
[2019-09-06] MEDS: Pravastatin 80 MG Tablet PO (21:00)
[2019-09-06] MEDS: Pramipexole Di-HCl 0.5 MG Tablet PO (21:00)
[2019-09-06 21:16] LABS: Bedside Glucose 219 mg/dL (70-110)
[2019-09-07 00:11] LABS: Bedside Glucose 173 mg/dL (70-110)
[2019-09-07 04:20] VITALS: BP 167/65; PULSE 72; RESP 16; TEMP 36.6; O2SAT 98
[2019-09-07] MEDS: Acetaminophen 325 MG Tablet 650 MG PO (04:31)
--- NOTE | 2019-09-07 04:33 | EKG12_ITS ---
Test Reason : Blood Pressure : / mmHG Vent. Rate : 085 BPM Atrial Rate : 085 BPM P-R Int : 134 ms QRS Dur : 094 ms QT Int : 388 ms P-R-T Axes : 003 -22 054 degrees QTc Int : 461 ms Normal sinus rhythm Minimal voltage criteria for LVH, may be normal variant Borderline ECG Confirmed by OSVALDO ERICKSON, MICHELE ([id number]), rewrite editor YEUHDA CRAIG ([id number]) on 09/08/2019 2:06:51 PM Referred By: ROBYN Confirmed By:SHYLA RILEY MD
--- NOTE | 2019-09-07 04:46 | EKG12_ITS ---
Test Reason : CP Blood Pressure : / mmHG Vent. Rate : 071 BPM Atrial Rate : 071 BPM P-R Int : 146 ms QRS Dur : 086 ms QT Int : 408 ms P-R-T Axes : 054 -04 028 degrees QTc Int : 443 ms Normal sinus rhythm Normal ECG Confirmed by MYKE ERICKSON, ROSANNA ([id number]), science editor ALFRED BAILEY ([id number]) on 09/11/2019 10:35:26 AM Referred By: VERA Confirmed By:ROSANNA STRINGER MD
[2019-09-07] MEDS: Morphine 2 MG/ML Syringe 1 MG IV (05:04)
[2019-09-07 05:12] LABS: Absolute Neutrophil Count 3.9 X10^3/uL (2.0-7.7); Basophil# 0.04 X10^3/uL; Basophil% 0.6 % (0-1); Eosinophil# 0.27 X10^3/uL; Eosinophils% 4.2 % (0-5); Hematocrit 33.6 % (37-47); Hemoglobin 10.9 g/dL (12.0-15.0); Lymphocyte % 26.4 % (19-41); Mean Corp Hgb Conc 32.4 g/dL (32-36); Mean Corpuscular Hgb 28.5 pg (27.0-32.0); Mean Platelet Vol. 10.3 fl (6.2-12.0); Monocyte# 0.53 X10^3/uL; Monocyte% 8.2 % (0-10); NRBC Flagged by Analyzer 0 % (0-5); Neutrophil # 3.88 X10^3/uL (2.7-7.7); Neutrophil % 60.3 % (47-70); Platelet Count 165 K/mm3 (150-450); RBC Distribution Width CV 13.4 % (11.6-14.6); Red Blood Count 3.82 M/mm3 (4.2-5.4); White Blood Count 6.4 K/mm3 (4.4-11.0)
[2019-09-07 05:31] LABS: Anion Gap 7 (5-15); BUN 6 mg/dL (7-18); BUN/Creat Ratio 12.6 RATIO (10-20); Calcium,Total 8.5 mg/dL (8.5-10.1); Chloride 109 mmol/L (98-107); Creatinine, Serum 0.48 mg/dL (0.55-1.02); EST Glomerular Filtration Rate 135 mL/min (>60); Est Glom Filt Rate - Afr Amer 164 mL/min (>60); Estimated Creatinine Clearance 40.83 ml/min; Glucose 171 mg/dL (74-106); Potassium 3.2 mmol/L (3.5-5.1); Sodium Level 141 mmol/L (136-145)
[2019-09-07] MEDS: metroNIDAZOLE 500 MG/100 ML BAG 100 MG IV (06:26)
[2019-09-07] MEDS: Insulin Lispro 100 UNIT/ML INSULN.PEN SC ×2 (06:30→11:08)
[2019-09-07 06:41] LABS: Bedside Glucose 153 mg/dL (70-110)
[2019-09-07] MEDS: DULoxetine Hcl 60 MG Capsule PO (07:29)
[2019-09-07] MEDS: Aspirin E.C. 81 MG Tablet PO (07:29)
[2019-09-07 07:30] VITALS: PULSE 70
[2019-09-07] MEDS: Pantoprazole Sodium 40 MG Tablet PO (07:30)
[2019-09-07] MEDS: Metoprolol(XL)Succ 100 MG Tablet PO (07:30)
[2019-09-07] MEDS: amLODIPine 5 MG Tablet PO (07:30)
[2019-09-07] MEDS: Losartan Potassium 50 MG Tablet PO (07:31)
[2019-09-07] MEDS: Glucerna Shake 120 ML LIQUID PO (07:36)
[2019-09-07] MEDS: Pregabalin 50 MG Capsule 100 MG PO (07:36)
[2019-09-07 07:41] VITALS: BP 167/65; PULSE 70; RESP 16; TEMP 36.6; O2SAT 96
[2019-09-07] MEDS: Enoxaparin 40 MG/0.4 ML Syringe SC (09:56)
[2019-09-07] MEDS: Ciprofloxacin 400 MG/200 ML BAG 200 MG IV (09:56)
--- NOTE | 2019-09-07 10:24 | DCINST_ITS ---
- Discharge Diagnoses Current Active Problems: Current Active and Chronic Problems (Last Reviewed 09/05/19 @ 03:[address] Ottoniel Carias MD) Diverticulitis of colon (Acute) You will use the following diet at home:: Calorie/Carbohydrate Controlled (specify 1200, 1400, etc) - 1800 calories Your food should be the consistency of: Regular Your liquids should be the consistency of: Regular/Thin Discharge Activity: Return to Normal Activity Weight Bearing Status: Weight bearing as tolerated Call your doctor if you observe: Fever of 101 or Higher, Inability to have a bowel movement, Uncontrolled pain Instructions: Understanding Diverticulosis and Diverticulitis, Diverticulitis Allergies/Adverse Reactions: Allergies citalopram hydrobromide [From Celexa] Allergy (Verified 09/05/19 02:50) Upset Stomach gabapentin [From Neurontin] Allergy (Verified 09/05/19 02:50) Unknown pt thinks she just felt funny hydrocodone bitartrate [From Vicodin] Allergy (Verified 09/05/19 02:50) drove her crazy lisinopril Allergy (Verified 09/04/19 19:27) Unknown oxycodone [From OxyContin] Adverse Reaction (Verified 09/04/19 19:27) Vomiting Medications to take at Discharge Pravastatin [Pravachol] 80 mg PO DAILY 04/19/14 Pregabalin [Lyrica] 100 mg PO DAILY 05/26/16 metoprolol succinate 100 mg tablet,extended release 24 hr 100 mg PO DAILY tab 03/29/17 Insulin Glargine [Lantus SoloStar Pen] 15 units SQ QHS 08/21/17 metFORMIN (XR) [Glucophage Xr] 500 mg PO BID 04/03/18 Duloxetine HCl 60 mg PO DAILY 01/06/19 Pramipexole Di-HCl [Mirapex] 0.5 mg PO QHS 01/06/19 Amlodipine Besylate 5 mg PO DAILY 03/31/19 Aspirin [Aspirin EC] 81 mg PO DAILY 03/31/19 Esomeprazole Magnesium 40 mg PO DAILY 03/31/19 Losartan Potassium 50 mg PO DAILY 03/31/19 Ondansetron [Zofran Odt] 4 mg PO Q8H PRN PRN #10 tab 08/13/19 Ciprofloxacin [Cipro] 500 mg PO BID #10 tab 09/07/19 Metronidazole 500 mg PO TID #15 tab 09/07/19 The following prescriptions were given: Ciprofloxacin [Cipro] 500 mg PO BID #10 tab Transmission Status: Pending to [facility] #30 Metronidazole 500 mg PO TID #15 tab Transmission Status: Pending to [facility] #[facility] Primary Care Physician: Rikki Stephens III, MD [Primary Care Provider] - Please follow up with your Primary Care Physician in: 1-2 weeks Test Results: Test results from this visit will be discussed in further detail at your follow- up appointment, if applicable. Please Follow Up With: Cj Stephens MD When: 1-2 weeks Proposed Discharge Date: 09/07/19
--- NOTE | 2019-09-07 10:36 | PCM.DC.SUM ---
Discharge Date and Diagnosis - Problem List Patient Problems: Active and Suspected Problems (Last Reviewed 09/05/19 @ 03:[address] Ottoniel Carias MD) Diverticulitis of colon (Acute) Date of Admission: 09/05/19 Date of Discharge: 09/07/19 - Primary Discharge Diagnosis Acute Problems: Active Problems (Last Reviewed 09/05/19 @ 03:[address] Ottoniel Carias MD) Diverticulitis of colon (Acute) - Secondary Discharge Diagnosis Chronic Problems: Chronic Problems (Last Reviewed 09/05/19 @ 03:[address] Ottoniel Carias MD) History of colon cancer (Chronic) GERD with stricture (Chronic) GERD (gastroesophageal reflux disease) (Chronic) Status post total knee replacement, right (Chronic) 2006 Hx of heart surgery (Chronic) heart cath 2002 S/P hysterectomy (Chronic) 1979 Status post corneal transplant (Chronic) S/P cholecystectomy (Chronic) 2015 Cerebral arteriosclerosis (Chronic) History of CVA (cerebrovascular accident) (Chronic) Risk for falls (Chronic) Cancer of ascending colon metastatic to intra-abdominal lymph node (Chronic) 04/2016 Adenocarcinoma of colon (Chronic) 04/2016 Anemia (Chronic) 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 Negative for pulmonary embolus. Normal heart size without pericardial effusion. Moderately large hiatal hernia. Negative for new consolidation, focal atelectasis or pleural effusion. Stable chronic lung changes. Stigmata of old granulomatous disease. Negative for acute bone findings. Electronically Signed: Katrin Domínguez MD at 23:32 EDT , Service support , Abdomen CTA 09/04/19 20:17 IMPRESSION: Mild to moderate plaque of the abdominal aorta without aneurysm or dissection. No substantial narrowing of the major abdominal branch vessels. Status post cholecystectomy with moderate compensatory dilatation of the common bile duct without visualized filling defect. Atrophy of the pancreas. Calcified granuloma of the spleen. Normal liver. Diverticulosis present with a prominent diverticulum in the splenic flexure with surrounding fat stranding suggesting diverticulitis that is somewhat unusual in this location. Negative for bowel perforation or obstruction. Unremarkable ileocolic anastomosis. Duodenal diverticulum. Moderately large hilar hernia. No acute renal findings. Negative for hydronephrosis. Electronically Signed: Katrin Domínguez MD at 23:19 EDT , Service support , Operations: colectomy - Laparoscopic extended right hemicolectomy Procedures: None Summary of Care Provided: The patient is a 74 y/o female with a PMH of colon cancer s/p colectomy, and chemotherapy, as well as diabetes mellitus. She was admitted through the ED on 09/05/2019 with a complaint of abdominal pain., which was mainly in the right upper quadrant, and radiates to her right abdomen. Pain had been going on for 1 week prior to admission, with associated nausea but no vomiting. CT abdomen showed mild to moderate plaque of the abdominal aorta without aneurysm or dissection and diverticulosis with diverticulum in the splenic flexure with surrounding fat stranding no bowel obstruction or perforation, and unremarkable ileocolic anastomosis, with moderately large hilar hernia. She was admitted and managed for acute diverticulitis. She was kept NPO and started on IV metronidazole and flagyl. She was also hydrated with IV fluids. Pain gradually improved and subsequently resolved. She did not have any leukocytosis during admission. Diet was advanced as tolerated and patient was able to tolerate a regular diet. She remained stable and was discharged on 09/07/2019 with a prescription for p.o. Flagyl and p.o. ciprofloxacin for 5 days. She is to follow-up with her primary care doctor within 1 to 2 weeks. She is to follow up with general surgery as well for follow-up colonoscopy as needed. Of note, her day of discharge potassium was 3.2 and this was successfully replaced per protocol. Patient seen and examined prior to discharge. She had no complaints and felt well. Review of symptoms otherwise negative. Labs and vitals reviewed. Home medication reviewed and reconciled. O/e: Vital Signs Temp Pulse Resp BP Pulse Ox 98 F 71 16 147/61 H 99 09/07/19 11:11 09/07/19 11:11 09/07/19 11:11 09/07/19 11:11 09/07/19 11:11 General: Alert, oriented, Cooperative, HEENT: Atraumatic, PERRLA, EOMI, Normocephalic Oral: Dry Mucosa Neck: Supple, No JVD, Negative Carotid Bruits Lungs: Clear to auscultation, Normal air movement, No rhonchi, No wheeze, No rales Cardiovascular: Regular rate, Regular Rhythm, Normal S1, Normal S2, No murmurs Abdomen: Bowel Sounds Present, Soft, - - no tenderness, no guarding or rebound tenderness. Extremities: No clubbing, No cyanosis, No edema, Capillary Refill Less than 3 Seconds Skin: No rashes, No breakdown Musculoskeletal: No Tenderness to Palpation of Joints or Extremities Lymphatic: No Cervical, Supraclavicular, or Inguinal Adenopathy Neurological: Cranial nerves II-XII grossly intact, Neuro grossly intact, Motor Exam 5/5 strength throughout Psych/Mental Status: Anxious, Alert and oriented to time, place, person, mood and affect Plan is for discharge home today. To follow up with PCP in 1 week, and will need follow up BMP to check potassium level. Patient Problems: Active and Suspected Problems (Last Reviewed 09/05/19 @ 03:[address] Ottoniel Carias MD) Diverticulitis of colon (Acute) - Physical Exam Vitals/I&O's: Vital Signs Temp Pulse Resp BP Pulse Ox 97.8 F 70 16 167/65 H 96 09/07/19 07:41 09/07/19 07:41 09/07/19 07:41 09/07/19 07:41 09/07/19 07:41 Oxygen Delivery Method Room Air Weight: 160 lb 0.889 oz Body Mass Index (BMI) 28.3 Finger Stick Blood Glucose 91 Intake and Output for Last 24 Hours 09/05/19 09/06/19 09/07/19 23:59 23:59 23:59 Intake Total 3343.75 / 4143.75 3406.25 / 3406.25 932.5 / 932.5 Output Total 300 / 300 1600 / 1600 Balance 3343.75 / 4143.75 3106.25 / 3106.25 -667.5 / -667.5 Laboratory Results 09/06/19 11:15: POC Glucose 191 H 09/06/19 16:51: POC Glucose 173 H 09/06/19 21:03: POC Glucose 219 H 09/07/19 05:05: WBC 6.4, RBC 3.82 L, Hgb 10.9 L, Hct 33.6 L, MCV 88.0, MCH 28.5, MCHC 32.4, RDW Std Deviation 43.0, RDW Coeff of Terry 13.4, Plt Count 165, MPV 10.3, Immature Gran % (Auto) 0.300, Neut % (Auto) 60.3, Lymph % (Auto) 26.4, [place] % (Auto) 8.2, Eos % (Auto) 4.2, Baso % (Auto) 0.6, Absolute Neuts (auto) 3.9, Absolute Lymphs (auto) 1.70, Nucleated RBC % 0 09/07/19 05:05: Sodium 141, Potassium 3.2 L, Chloride 109 H, Carbon Dioxide 25.0, Anion Gap 7, BUN 6 L, Creatinine 0.48 L, Estim Creat Clear Calc 40.83, Est GFR (MDRD) Af Amer 164, Est GFR (MDRD) Non-Af 135, BUN/Creatinine Ratio 12.6, Glucose 171 H, Calcium 8.5 09/07/19 05:05: Troponin I < 0.015 09/07/19 06:29: POC Glucose 153 H Current Medications Acetaminophen (Tylenol) 650 mg PO Q6H PRN PRN PRN Reason: Pain Score 1-10/Temp > 100.7 F Last Admin: 09/07/19 04:31 Dose: 650 mg Documented by: Amlodipine Besylate (Norvasc) 5 mg PO DAILY COUNTS INCLUDE 234 BEDS AT [facility] Last Admin: 09/07/19 07:30 Dose: 5 mg Documented by: [facility]) [facility] Last Admin: 09/07/19 07:29 Dose: 81 mg Documented by: Dextrose (D50w Syringe) 0 gm IV X1 PRN; Protocol PRN Reason: Hypoglycemia Diphenhydramine HCl (Benadryl) 25 mg PO Q8H PRN PRN PRN Reason: ITCHING Duloxetine HCl (Cymbalta) 60 mg PO DAILY COUNTS INCLUDE 234 BEDS AT THE [facility] Last Admin: 09/07/19 07:29 Dose: 60 mg Documented by: Enoxaparin Sodium (Lovenox) 40 mg SC DAILY COUNTS INCLUDE 234 BEDS AT THE [facility] Last Admin: 09/07/19 09:56 Dose: 40 mg Documented by: Glucagon () 1 mg IM .X1 PRN PRN Reason: Hypoglycemia Ciprofloxacin (Cipro) 400 mg in 200 mls @ 200 mls/hr IV Q12 COUNTS INCLUDE 234 BEDS AT THE [facility] Last Admin: 09/07/19 09:56 Dose: 200 mls/hr Documented by: Metronidazole (Flagyl) 500 mg in 100 mls @ 100 mls/hr IV Q8 COUNTS INCLUDE 234 BEDS AT THE [facility] Last Infusion: 09/07/19 07:27 Dose: Infused Documented by: Sodium Chloride () 1,000 mls @ 75 mls/hr IV .[id number] COUNTS INCLUDE 234 BEDS AT THE [facility] Last Infusion: 09/07/19 10:07 Dose: 0 mls/hr Documented by: Insulin Glargine (Lantus ([facility])) 15 units SC QHS COUNTS INCLUDE 234 BEDS AT THE [facility] Last Admin: 09/06/19 21:04 Dose: 15 u Documented by: Insulin Human Lispro (Humalog Kwikpen ([facility])) 0 unit SC ACHS COUNTS INCLUDE 234 BEDS AT THE [facility]; Protocol Last Admin: 09/07/19 06:30 Dose: 1 u Documented by: Losartan Potassium (Cozaar) 50 mg PO DAILY COUNTS INCLUDE 234 BEDS AT THE [facility] Last Admin: 09/07/19 07:31 Dose: 50 mg Documented by: Metoprolol Succinate (Toprol Xl ([facility])) 100 mg PO DAILY COUNTS INCLUDE 234 BEDS AT THE [facility] Last Admin: 09/07/19 07:30 Dose: 100 mg Documented by: Morphine Sulfate () 1 mg IV Q4H PRN PRN PRN Reason: Pain Score 6-10/10 Last Admin: 09/05/19 21:59 Dose: 1 mg Documented by: Nutritional Formula (Lactose Free) (Glucerna Shake) 120 ml PO 4X/DAY COUNTS INCLUDE 234 BEDS AT THE [facility] Last Admin: 09/07/19 07:36 Dose: 120 ml Documented by: Ondansetron HCl (Zofran) 4 mg IV Q8H PRN PRN PRN Reason: NAUSEA/VOMITING Last Admin: 09/05/19 21:59 Dose: 4 mg Documented by: Pantoprazole Sodium (Protonix) 40 mg PO DAILY COUNTS INCLUDE 234 BEDS AT THE [facility] Last Admin: 09/07/19 07:30 Dose: 40 mg Documented by: Pramipexole Dihydrochloride (Mirapex) 0.5 mg PO QHS COUNTS INCLUDE 234 BEDS AT THE [facility] Last Admin: 09/06/19 21:00 Dose: 0.5 mg Documented by: Pravastatin Sodium (Pravachol) 80 mg PO DAILY@2200 COUNTS INCLUDE 234 BEDS AT THE [facility] Last Admin: 09/06/19 21:00 Dose: 80 mg Documented by: Pregabalin (Lyrica) 100 mg PO DAILY COUNTS INCLUDE 234 BEDS AT THE [facility] Last Admin: 09/07/19 07:36 Dose: 100 mg Documented by: Sodium Chloride () 10 - 40 ml IV UD PRN PRN Reason: SALINE FLUSH Last Admin: 09/05/19 23:35 Dose: 10 ml Documented by: Discharge Diet: Low fat/ Low Cholesterol Discharge Activity: Return to Normal Activity Weight Bearing Status: Weight bearing as tolerated Call your doctor if you observe: Fever of 101 or Higher, Inability to have a bowel movement, Uncontrolled pain Home Medications: Medications to take at Discharge Pravastatin [Pravachol] 80 mg PO DAILY 04/19/14 Pregabalin [Lyrica] 100 mg PO DAILY 05/26/16 metoprolol succinate 100 mg tablet,extended release 24 hr 100 mg PO DAILY tab 03/29/17 Insulin Glargine [Lantus SoloStar Pen] 15 units SQ QHS 08/21/17 metFORMIN (XR) [Glucophage Xr] 500 mg PO BID 04/03/18 Duloxetine HCl 60 mg PO DAILY 01/06/19 Pramipexole Di-HCl [Mirapex] 0.5 mg PO QHS 01/06/19 Amlodipine Besylate 5 mg PO DAILY 03/31/19 Aspirin [Aspirin EC] 81 mg PO DAILY 03/31/19 Esomeprazole Magnesium 40 mg PO DAILY 03/31/19 Losartan Potassium 50 mg PO DAILY 03/31/19 Ondansetron [Zofran Odt] 4 mg PO Q8H PRN PRN #10 tab 08/13/19 Ciprofloxacin [Cipro] 500 mg PO BID #10 tab 09/07/19 Metronidazole 500 mg PO TID #15 tab 09/07/19 Following Prescrptions Were Given to Patient: Ciprofloxacin [Cipro] 500 mg PO BID #10 tab Transmission Status: Received by [facility] #30 Metronidazole 500 mg PO TID #15 tab Transmission Status: Received by [facility] #30 Primary Care Physician: Rikki Stephens III, MD [Primary Care Provider] - Please follow up with your Primary Care Physician in: 1-2 weeks Please Follow Up With: Cj Stephens MD When: 1-2 weeks Patient Instructions: Understanding Diverticulosis and Diverticulitis, Diverticulitis Disposition: Home Minutes spent on discharge:: 35 Patient Condition:: Stable Medical Necessity - Tobacco Use Smoking Status: Never smoker Meaningful Use Info Meaningful Use Diagnoses (Choose all that apply): None applicable Inpatient E&M: [id number] [facility]
[2019-09-07 11:11] VITALS: BP 147/61; PULSE 71; RESP 16; TEMP 36.6; O2SAT 99
[2019-09-07 11:16] LABS: Bedside Glucose 207 mg/dL (70-110)
--- NOTE | 2019-09-07 11:47 | NURSING ---
called with discharge inst.
--- NOTE | 2019-09-08 16:02 | CASEMGMT ---
BROOKS CM Discharge Follow-up Phone Call: KELVIN: Jenn Strata: 3 Call Date: 09/08/19 Discharge Date: 09/07/19 Time of Call: 1602 Duration: 1 min Admitting Diagnosis: acute diverticulitis BROOKS PLUNKETT attempted to completed follow-up phone call after recent hospitalization. No answer, voice message left with return contact information.
== END 2019-09-07 12:20 | disposition home or self-care (01) | DRG 392 ==
LOC: ED 09-05 00:54 → MS3 09-05 01:58
PROVIDERS: Admitting Provider Hospitalist; Emergency Provider Emergency Medicine; PCP Family Medicine; Visit Provider Student in an Organized Health Care Education/Training Program
DX: K57.32 Diverticulitis of large intestine without perforation or abscess without bleeding (principal); M54.2 Cervicalgia; E87.6 Hypokalemia; E11.65 Type 2 diabetes mellitus with hyperglycemia; E11.40 Type 2 diabetes mellitus with diabetic neuropathy, unspecified; G30.0 Alzheimer's disease with early onset; F02.80 Dementia in other diseases classified elsewhere, unspecified severity, without behavioral disturbance, psychotic disturbance, mood disturbance, and anxiety; I10 Essential (primary) hypertension; E78.5 Hyperlipidemia, unspecified; K21.9 Gastro-esophageal reflux disease without esophagitis; F41.9 Anxiety disorder, unspecified; Z66 Do not resuscitate; Z79.82 Long term (current) use of aspirin; Z79.4 Long term (current) use of insulin; Z79.899 Other long term (current) drug therapy; Z94.7 Corneal transplant status; Z91.81 History of falling; Z85.038 Personal history of other malignant neoplasm of large intestine; Z92.21 Personal history of antineoplastic chemotherapy; Z86.73 Personal history of transient ischemic attack (TIA), and cerebral infarction without residual deficits; Z90.49 Acquired absence of other specified parts of digestive tract; Z96.651 Presence of right artificial knee joint
CPT/HCPCS: 36415; 71275; 74175; 80048; 80053; 81001; 82962; 83690; 84484; 85025; 93005; 97162; 97802; 99285; J7030; Q9967; A4216; J0744; J2405

== ENCOUNTER → 2019-09-18 10:23 | Outpatient (CLI) | payer MEDICARE, SELFPAY ==
[2019-09-18 09:23] VITALS: BMI 28.3
--- NOTE | 2019-09-18 10:27 | CT_ITS ---
STUDY: CT ABDOMEN AND PELVIS WITH CONTRAST REASON FOR EXAM: Female, 74 years old. LOW ABD PAIN. RECENT DIVERTICULITIS. Hx of colon cancer with resection-on chemo pills. HTN and diabetes controlled. RADIATION DOSAGE (If Supplied By Facility): CTDIvol = ( 14.16 ) mGy, DLP = ( 687.74 ) mGycm TECHNIQUE: Transaxial images were obtained from the dome of the diaphragm to the symphysis pubis without oral contrast. IV 100ML ISOVUE 300 was administered. Sagittal and coronal images were reconstructed. Individualized dose optimization techniques were used for this CT. COMPARISON: 09/04/2019 FINDINGS: The visualized lung bases are unremarkable. The visualized portions of the heart are within normal limits. Normal liver. There are surgical clips in the gallbladder fossa consistent with a prior cholecystectomy. There are multiple benign calcified granulomata of the spleen. There is a 1 cm splenic cyst. Normal pancreas. Normal bilateral adrenal glands. Normal right kidney. Normal left kidney. Normal visualized stomach. There is a paralytic ileus of the small intestine with mild gaseous distention. There are a few scattered colonic diverticula but no CT evidence of acute diverticulitis. There is non-visualization of the appendix. There is diffuse atherosclerotic calcification of the abdominal aorta, without a demonstrated aneurysm. Normal inferior vena cava. Normal retroperitoneum. Normal urinary bladder. There is absence of the uterus consistent with a prior hysterectomy. Normal abdominal wall. There are diffuse degenerative changes of the visualized lumbar spine, and pelvis. CT/Abdomen/Pelvis WITH Contrast IMPRESSION: No suspicious solid organ abnormality, 1 cm splenic cyst, no specific follow-up is needed. Colonic diverticulosis without CT evidence of acute diverticulitis Small bowel ileus No free intraperitoneal fluid, air, or suspicious adenopathy Degenerative bony changes Electronically Signed: Angus Chiu MD at 14:08 EDT , Service support ,
[2019-09-18 10:53] LABS: Absolute Lymphocyte Count 2.16 X10^3/uL (0.83-4.51); Absolute Neutrophil Count 6.6 X10^3/uL (2.0-7.7); Basophil# 0.06 X10^3/uL; Basophil% 0.6 % (0-1); Eosinophil# 0.28 X10^3/uL; Eosinophils% 2.9 % (0-5); Hematocrit 35.4 % (37-47); Hemoglobin 11.9 g/dL (12.0-15.0); Lymphocyte # 2.16 X10^3/ul (4.0); Mean Corp Hgb Conc 33.6 g/dL (32-36); Mean Corpuscular Volume 86.3 fL (81-99); Monocyte# 0.66 X10^3/uL; Monocyte% 6.7 % (0-10); NRBC Flagged by Analyzer 0 % (0-5); Neutrophil # 6.61 X10^3/uL (2.7-7.7); Neutrophil % 67.5 % (47-70); Platelet Count 295 K/mm3 (150-450); RBC Distribution Width SD 43.3 fl (35.1-43.9); White Blood Count 9.8 K/mm3 (4.4-11.0)
[2019-09-18 11:29] LABS: ALB/GLOB Ratio 1.1 RATIO (0.9-2.4); AST(SGOT) 22 U/L (15-37); Alanine Aminotransfer ALT/SGPT 26 U/L (13-56); Albumin, Serum 3.5 g/dL (3.2-5.0); Alkaline Phosphatase 24 U/L (45-117); Anion Gap 9 (5-15); BUN 14 mg/dL (7-18); BUN/Creat Ratio 16.1 RATIO (10-20); Calcium,Total 8.8 mg/dL (8.5-10.1); Chloride 104 mmol/L (98-107); Creatinine, Serum 0.87 mg/dL (0.55-1.02); EST Glomerular Filtration Rate 67 mL/min (>60); Est Glom Filt Rate - Afr Amer 82 mL/min (>60); Globulin 3.3 g/dL (2.2-4.2); Glucose 159 mg/dL (74-106); Potassium 2.5 mmol/L (3.5-5.1); Protein, Total 6.8 g/dL (6.4-8.2); Sodium Level 141 mmol/L (136-145)
[2019-09-19 06:10] LABS: Carcinoembryonic Antigen 4.7 ng/mL (0.0-4.7)
== END ==
PROVIDERS: PCP Family Medicine; Visit Provider Surgery
DX: R10.9 Unspecified abdominal pain (principal); R11.2 Nausea with vomiting, unspecified; R19.7 Diarrhea, unspecified; R63.4 Abnormal weight loss; Z85.038 Personal history of other malignant neoplasm of large intestine
CPT/HCPCS: 36415; 74177; 80053; 82274; 82378; 83630; 85025; 87493; 87506; Q9967

== ENCOUNTER 2019-09-25 09:20 | Day surgery (SDC) | payer MEDICARE, MEDICAID, SELFPAY ==
[2019-09-18 09:23] VITALS: BMI 28.3
[2019-09-22 10:07] LABS: Potassium 4.3 mmol/L (3.5-5.1)
[2019-09-25 09:44] VITALS: BP 150/58; PULSE 84; RESP 14; TEMP 36.3; O2SAT 95; BMI 26.6
[2019-09-25] MEDS: Lactated Ringers 1,000 ML 75 ML IV (10:09)
[2019-09-25 10:16] LABS: Bedside Glucose 124 mg/dL (70-110)
--- NOTE | 2019-09-25 10:28 | PCM.HP.BLA ---
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 Is patient in pain?: Yes (lower abdomen) Pain scale (1-10): 2 Allergies citalopram hydrobromide [From Celexa] Allergy (Verified 09/18/19 09:23) Upset Stomach gabapentin [From Neurontin] Allergy (Verified 09/18/19 09:23) Unknown hydrocodone bitartrate [From Vicodin] Allergy (Verified 09/18/19 09:23) drove her crazy lisinopril Allergy (Verified 09/18/19 09:23) Unknown oxycodone [From OxyContin] Adverse Reaction (Verified 09/18/19 09:23) Vomiting Medications Pravastatin [Pravachol] 80 mg PO DAILY 04/19/14 [History Confirmed 09/18/19] Pregabalin [Lyrica] 100 mg PO DAILY 05/26/16 [History Confirmed 09/18/19] metoprolol succinate 100 mg tablet,extended release 24 hr 100 mg PO DAILY tab 03/29/17 [History Confirmed 09/18/19] Insulin Glargine [Lantus SoloStar Pen] 15 units SQ QHS 08/21/17 [History Confirmed 09/18/19] metFORMIN (XR) [Glucophage Xr] 500 mg PO BID 04/03/18 [History Confirmed 09/18/19] Duloxetine HCl 60 mg PO DAILY 01/06/19 [History Confirmed 09/18/19] Pramipexole Di-HCl [Mirapex] 0.5 mg PO QHS 01/06/19 [History Confirmed 09/18/19] Amlodipine Besylate 5 mg PO DAILY 03/31/19 [History Confirmed 09/18/19] Aspirin [Aspirin EC] 81 mg PO DAILY 03/31/19 [History Confirmed 09/18/19] Esomeprazole Magnesium 40 mg PO DAILY 03/31/19 [History Confirmed 09/18/19] Losartan Potassium 50 mg PO DAILY 03/31/19 [History Confirmed 09/18/19] Ondansetron [Zofran Odt] 4 mg PO Q8H PRN PRN #10 tab 05/20/20 [Rx Confirmed 09/18/19] potassium chloride 20 mEq tablet,extended release 20 meq PO BID #72 tab 09/18/19 [Rx Confirmed 09/18/19] tizanidine 4 mg capsule 4 mg PO Q8H PRN 09/18/19 [History Confirmed 09/18/19] PFSH Medical History (Updated 09/18/19 @ 13:[address] 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) Adenocarcinoma of colon (Chronic) Anemia (Chronic) Dysphagia (Inactive) 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) Diverticulosis (Chronic) Venous insufficiency, peripheral (Chronic) Overactive bladder (Chronic) Anxiety (Chronic) DM2 (diabetes mellitus, type 2) (Chronic) HTN (hypertension) (Chronic) Hyperlipidemia (Chronic) Surgical History (Updated 09/18/19 @ 09:22 by Tri Phelps) History of esophagogastroduodenoscopy (EGD) (Acute) Hx of colonoscopy (Acute) Status post total knee replacement, right (Chronic) Hx of heart surgery (Chronic) S/P hysterectomy (Chronic) Status post corneal transplant (Chronic) S/P cholecystectomy (Chronic) S/P colectomy (Chronic) Family History (Updated 09/18/19 @ 09:23 by Tri Phelps) Son Diabetes Cancer of kidney Lung cancer Bone cancer Social History (Updated 09/18/19 @ 13:[address] Cj Stephens MD) Smoking Status: Never smoker second hand exposure: No alcohol intake: never substance use type: does not use caffeine: Yes what type of physical activity do you participate in: none frequency: does not exercise seatbelt use: always HPI HPI HPI: CORETTA HODGES, is a 74 F who presents to the office today for surgical consultation regarding abdominal pain and left shoulder pain. The patient is referred by Echo Mcclellan CNP and a written copy of my surgical consult recommendations will return to her. This is actually quite a complex 74-year-old female. She developed severe generalized abdominal pain and left shoulder pain. She was hospitalized at the [facility] September 04 through September 07, 2019. She claims that ever since then she continues to have chills. The severe abdominal and shoulder and hip pain have improved but have not resolved. She complains of diffuse abdominal soreness. She states that she has not been eating well now for months. She states that over the past 3 months she has had a 30 pound weight loss. She will occasionally have diarrhea. She will occasionally have nausea and vomiting which is continued at home. When the patient was hospitalized for some reason she got a chest CTA. Showed mild plaque and elongation thoracic aorta no aneurysm. No pulmonary embolus. Moderately large hiatal hernia. No atelectasis. Chronic lung changes. She also had a CTA of the abdomen. No vessel branches identified. There is evidence of previous cholecystectomy evidence of previous right colon surgery. There was diverticulosis present with a prominent diverticulum in the splenic flexure and some surrounding fat stranding suggesting diverticulitis but somewhat unusual in this location. So the CAT scan was interpreted very nonspecifically and certainly not definitively for diverticulitis. The patient however was treated with such she was discharged on ciprofloxacin and metronidazole. She has been home she states for 2 weeks she states that she still is on well. She denies bright red blood per rectum or melena. It is of note as noted below that I have assisted her with a laparoscopic right colectomy for adenocarcinoma of the colon with 1 of 18 lymph nodes positive. That was performed February 2017. Her most recent endoscopic evaluation was February 24, 2019. She was referred to Dr. Polo Castañeda. Colonoscopy was said to be unremarkable. There was no discussion in that note of any postoperative changes. On February 24, 2019 the patient had an upper endoscopy. Esophagus was normal. A large hiatal hernia noted. Stomach and duodenum both normal. The patient states that she is not being followed currently by anyone for her colon cancer. She states that she is not been told the etiology to her 30 pound weight loss. Her previous history that I assisted with is summarized as follows. February 23, 2017 she had a colonoscopy identifying a proximal transverse colon lesion. Final pathology on laparoscopic resection demonstrates a 4 x 2.5 x 0.5 cm invasive adenocarcinoma. Well to moderately differentiated. Margins were clear. 1 of 18 lymph nodes were involved. pT3 p1a Mx Patient is followed by Dr. Rodas from hematology oncology. Her definitive surgery was May 29, 2016. As recently as March 16, 2017 a CEA level was 2.2. Abdomen CTA 09/04/2019 [facility] Imaging Services [address] [place] [address] CTA Abdomen W/WO Contrast MR#: [id number] Name: CORETTA HODGES #:[id number] : [id number] From: Katrin Domínguez MD PCP:Dr. Rikki Stephens III, MD Status:REG ER Study:CTA Abdomen W/WO Contrast Date of Exam:09/04/19 Exam#[id number] Ordering Dr: Bryan Renae MD STUDY: CTA OF THE ABDOMINAL AORTA AND BILATERAL LOWER EXTREMITIES REASON FOR EXAM: Female, 74 years old. L SHOULDER PAIN ACROSS CHEST INTO ABD. DYSPNEA -- HX:HTN,DIABETES,GERD,COLON CANCER -- SURGERY:CHOLECYSTECTOMY,HYSTERECTOMY,COLECTOMY RADIATION DOSAGE (If Supplied By Facility): CTDIvol = ( 24.88 ) mGy, DLP = ( 716.00 ) mGycm TECHNIQUE: Axial CT angiography multi-detector data acquisition was obtained from the diaphragm to the aortic bifurcation. following intravenous administration of ISOVUE 370 100ML. Axial images and MIP images were reconstructed from the axial data set. Post-processing of the angiographic images was performed, with multiplanar reformation and 3D reconstruction. Individualized dose optimization techniques were used for this CT. TECHNICAL QUALITY: Good COMPARISON: None. Descriptors of Narrowing: None (0%) Mild (< 50%) Moderate (50-70%) Severe (70-90%) Subtotal/Total Occlusion (90-100%) Non-Evaluable (technically non-diagnostic FINDINGS: Abdominal aorta: Mild to moderate plaque of the abdominal aorta without aneurysm or dissection. Celiac and superior mesenteric arteries: No substantial narrowing. Inferior mesenteric artery: Patent Right renal artery(arteries): 2 right renal arteries without narrowing. Left renal artery(arteries): 1 left renal artery with mild narrowing. Right common iliac artery: No demonstrated narrowing. Left common iliac artery: No demonstrated narrowing. Normal liver. Calcified granuloma of the spleen. Absent gallbladder. Compensatory mild dilatation of the common bile duct without visualized filling defect. Atrophy of the pancreas. Normal adrenal glands. Negative for hydronephrosis. Unremarkable ileocolic anastomosis. Diverticulosis is noted to be present in the left colon. There is a large diverticulum at the splenic flexure with evidence of mild surrounding fat stranding suggesting diverticulosis. Moderately large hiatal hernia. CT/CTA Abdomen W/WO Contrast IMPRESSION: Mild to moderate plaque of the abdominal aorta without aneurysm or dissection. No substantial narrowing of the major abdominal branch vessels. Status post cholecystectomy with moderate compensatory dilatation of the common bile duct without visualized filling defect. Atrophy of the pancreas. Calcified granuloma of the spleen. Normal liver. Diverticulosis present with a prominent diverticulum in the splenic flexure with surrounding fat stranding suggesting diverticulitis that is somewhat unusual in this location. Negative for bowel perforation or obstruction. Unremarkable ileocolic anastomosis. Duodenal diverticulum. Moderately large hilar hernia. No acute renal findings. Negative for hydronephrosis. Electronically Signed: Katrin Domínguez MD at 23:19 EDT , Service support , [facility] Medical Records Department [address] [place] [id number] Operative Report 05/04/17 0850 MR#: [id number] Name:CORETTA HODGES #:[id number] : [id number]: Cj Stephens MD PCP:Rikki Stephens III, MD Status:[facility] Location: [place] [address] Problem List (1) History of colon cancer Status: Acute (2) GERD (gastroesophageal reflux disease) Status: Acute Report of Operation Date of Procedure: 05/04/17 Pre-Operative Diagnosis: Gastroesophageal reflux disease with intermittent food bolus obstruction. No history of colon cancer 1 year status post resection Post-Operative Diagnosis: Hiatal hernia with distal esophagitis and obstructing Schatzki ring. Mild antral gastritis. Widely patent ileocolonic anastomosis. No evidence for acute colonic pathology Surgery/Procedure Performed:: Gastroduodenoscopy with antral and GE junction biopsies with 20 mm Schatzki ring distal esophagus hydrostatic dilatation. Colonoscopy Description of Surgical Findings:: Timeout and informed consent was obtained. 72-year-old female was taken to the endoscopy suite. Her oropharynx anesthetized with Cetacaine. She was placed in a left lateral decubitus position. Throughout both the upper and lower scope she received total 100 mg of Demerol and 2 mg of Versed is intravenous sedation. Videogastroscope was inserted in the soft line at advanced without difficulty. The proximal and midesophagus not remarkable. The EG junction was at about 35 cm. A small hiatal hernia noted. Findings consistent with esophagitis with a obstructing Schatzki ring noted. Scope was advanced to the stomach where mild antral erythema was noted. Scope was advanced in the pylorus the first and second portion of the duodenum were inspected this was not remarkable. The scope was withdrawn back into the stomach retroflexed the EG junction and cardia inspected. The hiatal hernia noted. The greater and lesser curvatures were not remarkable. Antral biopsy was obtained. Excess fluid and air was aspirated free. The scope was withdrawn to the distal esophagus. At the friable Schatzki ring 2 different biopsies were obtained. Because of the patient's symptomatology I elected to do a hydrostatic localization. A 18 1920 mm hydrostatic balloon was inserted. This was insufflated to 3 gia and then slowly and gradually up to a total of 6 gia. The EG junction and ring was gently dilated. Inspection subsequently demonstrated improvement. After mucosa was intact. The patient tolerated it well. Excess fluid nurse aspirated free the scope was withdrawn without additional abnormality. The patient was kept in left lateral decubitus position. Digital rectal exam performed. Normal anal tone. Flexible colonoscope inserted the rectum advanced through a somewhat tortuous left colon. Transabdominal pressure was used to get the scope to go through the transverse colon. The ileocolonic anastomosis was nicely achieved. Bowel prep was quite good. The scope was carefully withdrawn through the transverse colon descending colon sigmoid colon. No abnormalities were noted. The scope was retroflexed within the rectum mild noted. No active bleeding. Excess fluid and air was aspirated free the procedure was completed with the patient tolerating it well. Impression Hiatal hernia with findings consistent with esophagitis and obstructing Schatzki ring. Mild antral gastritis. Distal esophageal dilatation successfully performed. Patent ileocolonic anastomosis. No evidence for recurrent colon cancer. Previous colonoscopy was 1 year ago. Next colonoscopy recommended in 3 years. The patient currently is on famotidine. We will await biopsies and consider possibly treatment with proton pump inhibitor. Cc: Dr. Rikki Stephens, III Occasions were given at 0815. Scope was inserted at 0821. The upper endoscopy completed at 0832. The colonoscopy was initiated at 0836. The ileocolonic anastomosis was reached at 0839.13. The procedure was completed at 0843.3. Cj Stephens M.D., F.A.C.S. Type of Anesthesia:: IV Sedation 05/04/17 0858<Electronically signed by Cj Stephens MD> Date Cj Stephens MD CC: Rikki Stephens III, MD; Cj Stephens MD ~ HPI HPI HPI: CORETTA HODGES, is a 74 F who presents to the office today for ROS General General: Yes colon cancer; no weight change, appetite, fatigue, breast cancer or weakness HEENT HEENT: Yes difficulty swallowing and eye surgery; no eye injury, swollen glands or hoarseness Endo Endocrine: Yes diabetes mellitus; no thyroid disease, thyroid cancer, Hair loss, heat intolerance or cold intolerance Skin Skin: No rash or changing moles Musc Musculoskeletal: Yes back problems and arthritis; no rheumatoid arthritis, gout or joint pain Cardio Cardiovascular: Yes high blood pressure; no murmur, pacemaker, heart disease, atrial fibrillation, heart attack, heart stent, palpitations, shortness of breat with exertion or chest pain Psych Psychiatric: Yes depression and anxiety; no hearing voices Resp Respiratory: Yes shortness of breath, Yes sleep apnea, Yes cough, No COPD, No asthma, No emphysema, No wheezing Gastro Gastrointestinal: Yes abdominal pain, Yes nausea or vomiting, Yes diarrhea, No constipation, No blood in stool, Yes acid reflux, Yes hemorrhoids, No ulcers, No gallbladder problem, Yes black,tarry stools Chuy Hematologic: Yes blood thinners, No blood disorders, No bleeding, No anemia, No blood clots Neuro Neurologic: No weakness Exam Const General: cooperative, frail appearing Nutritional Appearance: average body habitus Orientation: alert, awake Limitations: altered mental status Other: Evidence of weight loss. The patient becomes dizzy with movement. Eyes General: appearance normal, both eyes and all related structures Resp Effort & Inspection: normal respiratory effort Auscultation: clear to auscultation bilaterally Cardio Rate: regular rate Rhythm: regular rhythm Heart Sounds: no murmurs GI Palpation: soft Other: Somewhat scaphoid evidence of weight loss, minimal tenderness palpation left upper quadrant without mass or rebound or guarding. Diffuse mild generalized abdominal soreness but again no rebound or guarding. Normal bowel sounds. No evidence of hernial defect. Not pulsatile or expansile Musc Cervical Spine: normal cervical lordosis Neuro General: alert, awake Extrem General: no calf tenderness Psych Affect: normal affect Assessment & Plan Problems 1. Generalized abdominal pain R10.84 Plan Generalized abdominal soreness of undetermined etiology. Slightly more tender left upper quadrant. Patient's concerns about somewhat generalized abdominal pain perhaps slightly worse in the left lower quadrant. Intermittent episodes of severe left shoulder tip pain. She has a personal history of resected colon cancer. Although the CT scan did demonstrate a sizable diverticulum in the left upper quadrant the findings to suggest definitive diverticulitis are much more vague on review of the CT. This also does not explain the patient's generalized abdominal soreness throughout. I do not believe it well correlates with her left shoulder pain which has not had a diagnosis either. Apparently the shoulder pain can be so severe that the patient comes to tears. On top of all of this there is the patient's 330 pound weight loss over the past 3 months. I recommend repeat laboratory a CMP CBC with differential stool for Hemoccult as well as HOSPITAL STAFF PHARMACIST. I recommend Covid-19 testing. Would like to obtain a CEA level. The previous CT scan was specially done with CTA contrast and protocol. I recommend that we obtain a standard CT of the abdomen pelvis. Subsequent to that I then recommend proceeding with a combined esophagogastroduodenoscopy and colonoscopy with possible biopsy or polypectomy as indicated. She has had an opportunity to ask and have questions answered. She is aware that we are in the Covid-19 pandemic. She is aware that the [facility] is reporting a low local incidence. I appreciate the opportunity of assisting with her surgical care. Cc: Echo Mcclellan, DEMARCUS and Dr. Rikki Stephens, KELSIE Stephens M.D., F.A.C.S. Orders Orders: Colonoscopy Today R10.9, R11.2, R19.7, R63.4, Z85.038 EGD Today R10.9, R11.2, R19.7, R63.4 Comprehensive Metabolic Profil Today R10.9 Abdomen/Pelvis WITH Contrast Today R10.9, R11.2, R19.7, R63.4, Z85.038 CBC W/Diff, Automated Today R10.9, R11.2, R19.7, Z85.038 CDIFF (Molecular) Today R19.7, R63.4 ENTERIC PATHOGEN PANEL STOOL Today R10.9, R11.2, R19.7, R63.4 Stool Occult Blood iFOB Today R10.9, R11.2, R19.7 Stool Lactoferrin/WBC Today R10.9, R11.2, R19.7, R63.4 Carcinoembryonic Antigen Today R63.4, Z85.038 Potassium 09/19/19 E87.6 Medications New: potassium chloride ER 20 mEq PO BID 72 tabs 0RF Coding Level of Care Code 95746 Diagnoses Generalized abdominal pain R10.84 ??Abdominal location: generalized 09/18/19 1348 <Electronically signed by Cj Stephens MD> Date Cj Stephens MD Laboratory review and stool analysis review and CEA and CT scan all not revealing as a source of abdominal pain. Will proceed with planned upper and lower endoscopy and attempt to diagnose. CT scan suggest small bowel ileus. That is very nonspecific. [facility] Imaging Services [address] [address] Abdomen/Pelvis WITH Contrast MR#: [id number] Acct: [id number] Name: CORETTA HODGES Rep #: [id number] : 1945 F 74 From: Jose Chiu MD PCP: Dr. Rikki Stephens III, MD Status: REG CLI Study: Abdomen/Pelvis WITH Contrast Date of Exam: 09/18/19 Exam# [id number] Ordering Dr: Cj Stephens MD STUDY: CT ABDOMEN AND PELVIS WITH CONTRAST REASON FOR EXAM: Female, 74 years old. LOW ABD PAIN. RECENT DIVERTICULITIS. Hx of colon cancer with resection-on chemo pills. HTN and diabetes controlled. RADIATION DOSAGE (If Supplied By Facility): CTDIvol = ( 14.16 ) mGy, DLP = ( 687.74 ) mGycm TECHNIQUE: Transaxial images were obtained from the dome of the diaphragm to the symphysis pubis without oral contrast. IV 100ML ISOVUE 300 was administered. Sagittal and coronal images were reconstructed. Individualized dose optimization techniques were used for this CT. COMPARISON: 09/04/2019 FINDINGS: The visualized lung bases are unremarkable. The visualized portions of the heart are within normal limits. Normal liver. There are surgical clips in the gallbladder fossa consistent with a prior cholecystectomy. There are multiple benign calcified granulomata of the spleen. There is a 1 cm splenic cyst. Normal pancreas. Normal bilateral adrenal glands. Normal right kidney. Normal left kidney. Normal visualized stomach. There is a paralytic ileus of the small intestine with mild gaseous distention. There are a few scattered colonic diverticula but no CT evidence of acute diverticulitis. There is non-visualization of the appendix. There is diffuse atherosclerotic calcification of the abdominal aorta, without a demonstrated aneurysm. Normal inferior vena cava. Normal retroperitoneum. Normal urinary bladder. There is absence of the uterus consistent with a prior hysterectomy. Normal abdominal wall. There are diffuse degenerative changes of the visualized lumbar spine, and pelvis. CT/Abdomen/Pelvis WITH Contrast IMPRESSION: No suspicious solid organ abnormality, 1 cm splenic cyst, no specific follow-up is needed. Colonic diverticulosis without CT evidence of acute diverticulitis Small bowel ileus No free intraperitoneal fluid, air, or suspicious adenopathy Degenerative bony changes Electronically Signed: Angus Chiu MD at 14:08 EDT , Service support , Procedure Criteria Procedure Type: Elective COVID Risk Discussion: The surgeon/proceduralist and patient have discussed in detail the risk of exposure to and/or potential harm posed by the COVID-19 virus with having a surgery/procedure at this time versus the risk of delaying the surgery/procedure. It is not possible to know either the risk of delaying the surgery or procedure or chance of getting an infection with perfect accuracy, but a joint decision was made between the patient and the surgeon/proceduralist to proceed at this time with the scheduled surgery/procedure as indicated on the consent form.
--- NOTE | 2019-09-25 10:30 | EGD_PTH ---
PATIENT: CORETTA HODGES LOC: EN U#:[id number] AGE/SX: 74/F ROOM: RE09/25/[address]: Dr. Cj Stephens MD : 1945 BED: DIS: 09/25/2019 SPEC #: [id number] RECD: 09/25/19 13:18 STATUS: RNO DANIEL #: [id number] ILIANA: 09/25/19 10:[address]: Cj Stephens DEPT: SURGICAL PATHOLOGY RECD BY: Meghan Sepulveda ENTERED: 09/29/19 09:40 SP TYPE: EGD BIOPSY [facility] DR: Dr. Rikki Stephens III, MD Tissues: A - Gastric mucous membrane B - Esophagus, NOS C - COLON BIOPSY Procedures: Surgery Specimen Level IV HEADER OPERATION: Colonoscopy, EGD ([facility] [place]) PRE-OP DIAGNOSIS: Generalized abdomen pain TISSUE SUBMITTED: A - Antrum biopsy for histo and H. pylori, B - Distal esophagus biopsy, C - Random colonic biopsy MICROSCOPIC DIAGNOSIS A. Gastric antrum, biopsy: Chronic gastritis. See comment. B. Distal esophagus, biopsy: Fragments of benign squamous mucosa. No evidence of inflammation. C. Colon, random biopsy: No pathologic change. AM:ruben 09/30/19 COMMENT A. The results of immunohistochemistry for Helicobacter pylori will be reported separately ([id number]). MICROSCOPIC DESCRIPTION Slides are reviewed. GROSS DESCRIPTION A - Received in fixative is one container labeled with the patient's name and designated antrum biopsy. The specimen consists of one irregular fragment of light diamond soft tissue that measures 0.2 x 0.2 x 0.1 cm. The specimen is totally submitted in one cassette. B - Received in fixative is one container labeled with the patient's name and designated distal esophagus biopsy. The specimen consists of one irregular fragment of light diamond soft tissue that measures 0.4 x 0.2 x 0.1 cm. The specimen is totally submitted in one cassette. C - Received in fixative is one container labeled with the patient's name and designated random colonic biopsy. The specimen consists of multiple irregular fragments of light diamond soft tissue that in aggregate measure 2 x 0.3 x 0.1 cm. The specimen is totally submitted in one cassette. / EMILIANO:ruben 09/29/19 TC:3 CPT: 33905 x3
--- NOTE | 2019-09-25 10:30 | IMM_PTH ---
PATIENT: CORETTA HODGES LOC: EN U#:[id number] AGE/SX: 74/F ROOM: RE09/25/[address]: Dr. Cj Stephens MD : 1945 BED: DIS: 09/25/2019 SPEC #: [id number] RECD: 09/29/19 11:57 STATUS: RON REQ #: [id number] ILIANA: 09/25/19 10:[address]: Cj Stephens DEPT: IMMUNOHISTOCHEMISTRY RECD BY: Elma Escobedo ENTERED: 09/29/19 11:57 SP TYPE: IMMUNO OTHR DR: Dr. Rikki Stephens III, MD Tissues: A - Stomach, NOS Procedures: H Pylori (initial) PHYSICIAN & INSTITUTION [place] [address] SPECIMEN INFORMATION: Tissue Source: A - Antrum biopsy Clinical Info: Abdomen pain Specimen Number: [id number] CPT code: 26441 METHODOLOGY: Deparaffinized sections of prefer/formalin-fixed tissue or PAP/DQ stained slides are incubated with monoclonal/polyclonal antibodies/oligonucleotide probes. Localization is made via biotin free immunoperoxidase method. Appropriate controls are performed and reacted as expected. Results on target cell population are indicated in the following table: RESULTS: ANTIBODY / CLONE RESULT Block A H Pylori (polyclonal) negative These tests were developed and their performance characteristics determined by [facility]. They may not have been cleared or approved by the U.S. Food and Drug Administration. The FDA has determined that such clearance or approval is not necessary. INTERPRETATION: A. Antrum, biopsy: Negative for Helicobacter pylori organisms. AM:ruben 09/30/19
[2019-09-25 11:16] VITALS: BP 116/51; BP 150/58; PULSE 84; RESP 16; TEMP 36.6; O2SAT 98
--- NOTE | 2019-09-25 11:16 | OP.CCLET_ITS ---
09/25/2019 Rikki Stephens [address] [place] [address] Re : Upper GI endoscopy procedure for Antonieta Avalos Dear Dr. Stephens This procedure was performed on September. My impressions and recommendations are as follows: Impressions : - Medium-sized hiatal hernia. - Z-line variable, 36 cm from the incisors. Biopsied. - Erythematous mucosa in the antrum. Biopsied. - Normal examined duodenum. Recommendations : - Discharge patient to home. - Resume previous diet. - Continue present medications. - Telephone my office for pathology results in 1 week. No findings to correlate with severe abdominal pain or weight loss Pt will be instruction to take nexium routinely (daily) rather than prn My findings are described in the full procedure note, which is enclosed. If I can be of further assistance, please feel free to contact me at Doctor phone number(s): Work: . Sincerely, Cj Stephens MD 09/25/2019 11:15:53 AM This report has been signed electronically.
--- NOTE | 2019-09-25 11:16 | OP.EGD_ITS ---
Patient Name: Antonieta Avalos Procedure Date: 09/25/2019 10:39 AM Date of : 1945 Age: 74 Procedure: Upper GI endoscopy Indications: Generalized abdominal pain Providers: Cj Stephens MD Referring MD: Cj Stephens MD Medicines: See the Anesthesia note for documentation of the administered medications Complications: No immediate complications. Procedure: Pre-Anesthesia Assessment: - Prior to the procedure, a History and Physical was performed, and patient medications and allergies were reviewed. The patient's tolerance of previous anesthesia was also reviewed. The risks and benefits of the procedure and the sedation options and risks were discussed with the patient. All questions were answered, and informed consent was obtained. Prior Anticoagulants: The patient has taken no previous anticoagulant or antiplatelet agents. ASA Grade Assessment: III - A patient with severe systemic disease. After reviewing the risks and benefits, the patient was deemed in satisfactory condition to undergo the procedure. After obtaining informed consent, the endoscope was passed under direct vision. Throughout the procedure, the patient's blood pressure, pulse, and oxygen saturations were monitored continuously. The gastroscope was introduced through the mouth, and advanced to the second part of duodenum. The upper GI endoscopy was accomplished without difficulty. The patient tolerated the procedure well. Scope In: 10:50:27 AM Scope Out: 10:54:25 AM Total Procedure Duration Time 0 hours 3 minutes 58 seconds Findings: A medium-sized hiatal hernia was present. The Z-line was variable and was found 36 cm from the incisors. Biopsies were taken with a cold forceps for histology. Diffuse mildly erythematous mucosa without bleeding was found in the gastric antrum. Biopsies were taken with a cold forceps for histology. The examined duodenum was normal. Impression: - Medium-sized hiatal hernia. - Z-line variable, 36 cm from the incisors. Biopsied. - Erythematous mucosa in the antrum. Biopsied. - Normal examined duodenum. Recommendation: - Discharge patient to home. - Resume previous diet. - Continue present medications. - Telephone my office for pathology results in 1 week. No findings to correlate with severe abdominal pain or weight loss Pt will be instruction to take nexium routinely (daily) rather than prn Procedure Code(s): --- Professional --- 88533, Esophagogastroduodenoscopy, flexible, transoral; with biopsy, single or multiple Diagnosis Code(s): --- Professional --- K44.9, Diaphragmatic hernia without obstruction or gangrene K22.8, Other specified diseases of esophagus K31.89, Other diseases of stomach and duodenum R10.84, Generalized abdominal pain CPT copyright 2017 [employer]. All rights reserved. The codes documented in this report are preliminary and upon director [place] sales review may be revised to meet current compliance requirements. Cj Stephens MD 09/25/2019 11:15:53 AM This report has been signed electronically. Number of Addenda: 0 Note Initiated On: 09/25/2019 10:39 AM
[2019-09-25 11:20] VITALS: BP 124/54; BP 150/58; PULSE 83; RESP 16; O2SAT 99
--- NOTE | 2019-09-25 11:20 | OP.COLON_ITS ---
Patient Name: Antonieta Avalos Procedure Date: 09/25/2019 10:55 AM Date of : 1945 Age: 74 Procedure: Colonoscopy Indications: Generalized abdominal pain Providers: Cj Stephens MD Referring MD: Cj Stephens MD Medicines: See the Anesthesia note for documentation of the administered medications Patient Profile: Last Colonoscopy: June 2018. Complications: No immediate complications. Procedure: Pre-Anesthesia Assessment: - Prior to the procedure, a History and Physical was performed, and patient medications and allergies were reviewed. The patient's tolerance of previous anesthesia was also reviewed. The risks and benefits of the procedure and the sedation options and risks were discussed with the patient. All questions were answered, and informed consent was obtained. Prior Anticoagulants: The patient has taken no previous anticoagulant or antiplatelet agents. ASA Grade Assessment: III - A patient with severe systemic disease. After reviewing the risks and benefits, the patient was deemed in satisfactory condition to undergo the procedure. After I obtained informed consent, the scope was passed under direct vision. Throughout the procedure, the patient's blood pressure, pulse, and oxygen saturations were monitored continuously. The pediatric colonoscope was introduced through the anus and advanced to the ileocolonic anastomosis. The colonoscopy was performed without difficulty. The patient tolerated the procedure well. The quality of the bowel preparation was good. Ileocolonic anastomosis were photographed. Scope In: 10:57:07 AM Scope Withdrawal Time 0 hours 6 minutes 21 seconds Scope Out: 11:08:56 AM Total Procedure Duration Time 0 hours 11 minutes 49 seconds Findings: Hemorrhoids were found on perianal exam. The digital rectal exam findings include anal stricture. There was evidence of a prior functional end-to-end ileo-colonic anastomosis in the proximal transverse colon. This was patent and was characterized by healthy appearing mucosa. Biopsies for histology were taken with a cold forceps from the entire colon for evaluation of microscopic colitis. Scattered diverticula were found in the sigmoid colon. Impression: - Hemorrhoids found on perianal exam. - Anal stricture found on digital rectal exam. - Patent functional end-to-end ileo-colonic anastomosis, characterized by healthy appearing mucosa. Biopsied. - Diverticulosis in the sigmoid colon. Recommendation: - Discharge patient to home. - Resume previous diet. - Continue present medications. - Telephone my office for pathology results in 1 week. Findings do not correlate with abdominal pain or weight loss. Random biopsies pending. - Repeat colonoscopy is not recommended due to current age (66 years or older) for screening purposes. Procedure Code(s): --- Professional --- 43941, Colonoscopy, flexible; with biopsy, single or multiple Diagnosis Code(s): --- Professional --- K64.9, Unspecified hemorrhoids K62.4, Stenosis of anus and rectum Z98.0, Intestinal bypass and anastomosis status R10.84, Generalized abdominal pain K57.30, Diverticulosis of large intestine without perforation or abscess without bleeding CPT copyright 2017 [employer]. All rights reserved. The codes documented in this report are preliminary and upon food service order clerk review may be revised to meet current compliance requirements. Cj Stephens MD 09/25/2019 11:20:05 AM This report has been signed electronically. Number of Addenda: 0 Note Initiated On: 09/25/2019 10:55 AM
--- NOTE | 2019-09-25 11:20 | OP.CCLET_ITS ---
09/25/2019 Rikki Stephens [address] [place] [address] Re : Colonoscopy procedure for Antonieta Avalos Dear Dr. Stephens This procedure was performed on September. My impressions and recommendations are as follows: Impressions : - Hemorrhoids found on perianal exam. - Anal stricture found on digital rectal exam. - Patent functional end-to-end ileo-colonic anastomosis, characterized by healthy appearing mucosa. Biopsied. - Diverticulosis in the sigmoid colon. Recommendations : - Discharge patient to home. - Resume previous diet. - Continue present medications. - Telephone my office for pathology results in 1 week. Findings do not correlate with abdominal pain or weight loss. Random biopsies pending. - Repeat colonoscopy is not recommended due to current age (66 years or older) for screening purposes. My findings are described in the full procedure note, which is enclosed. If I can be of further assistance, please feel free to contact me at Doctor phone number(s): Work: . Sincerely, Cj Stephens MD 09/25/2019 11:20:05 AM This report has been signed electronically.
[2019-09-25 11:25] VITALS: BP 146/60; BP 150/58; PULSE 88; RESP 16; O2SAT 100
[2019-09-25 11:45] VITALS: BP 150/58; BP 168/83; PULSE 83; RESP 16; TEMP 36.3; O2SAT 98
== END 2019-09-25 12:27 | disposition home health service (06) ==
LOC: EN 09:21 → AC 09:22
PROVIDERS: Anesthesiology; PCP Family Medicine; Referring Provider Surgery; Visit Provider Surgery
PROC: 0DJD8ZZ Inspection of Lower Intestinal Tract, Via Natural or Artificial Opening Endoscopic (ICD-10-PCS; CPT 45378; principal; 2019-09-25 10:25)
DX: K31.89 Other diseases of stomach and duodenum (principal); K44.9 Diaphragmatic hernia without obstruction or gangrene; K29.50 Unspecified chronic gastritis without bleeding; Z11.59 Encounter for screening for other viral diseases; K22.8 Other specified diseases of esophagus; E11.9 Type 2 diabetes mellitus without complications; E78.5 Hyperlipidemia, unspecified; I10 Essential (primary) hypertension; N32.81 Overactive bladder; M25.512 Pain in left shoulder; R63.4 Abnormal weight loss; K64.9 Unspecified hemorrhoids; K62.4 Stenosis of anus and rectum; K57.50 Diverticulosis of both small and large intestine without perforation or abscess without bleeding; Z98.0 Intestinal bypass and anastomosis status; Z79.899 Other long term (current) drug therapy; Z79.4 Long term (current) use of insulin; Z79.82 Long term (current) use of aspirin; K21.9 Gastro-esophageal reflux disease without esophagitis; Z85.038 Personal history of other malignant neoplasm of large intestine; Z85.89 Personal history of malignant neoplasm of other organs and systems; Z86.73 Personal history of transient ischemic attack (TIA), and cerebral infarction without residual deficits
CPT/HCPCS: 43239; 45380; 36415; 82962; 84132; 87635; 88305; 88342; G2023; J7120; U0003

== ENCOUNTER 2019-12-13 15:25 | Emergency (ER) | payer MEDICARE, MEDICAID, SELFPAY ==
[2019-12-13 15:25] VITALS: BP 212/71; PULSE 75; RESP 18; TEMP 36.6; O2SAT 94; BMI 30.9
--- NOTE | 2019-12-13 15:45 | ED.VIS.GEN ---
History of Present Illness Chief Complaint: Fall Informant: Patient Narrative: Patient is a 74-year-old female who presents to the emergency department for left arm injury after a fall today. She states she was walking outside when she lost her balance. She tried to catch herself but landed on her left shoulder. She denies striking her head or losing consciousness. She denies any other injury besides the shoulder. No headache or neck pain. No back pain. No injury to other extremities. She denies any chest pain, shortness of breath or palpitations. No abdominal pain or nausea/vomiting. She does not believe that she is on any anticoagulation medications. Range of motion is limited in the left upper extremity due to pain. Majority the pain is just distal to the shoulder. The arm has been in a sling by EMS. She denies any loss of sensation in the extremity. Past Medical History - Allergies and Home Meds Allergies/Adverse Reactions: Allergies citalopram hydrobromide [From Celexa] Allergy (Verified 09/25/19 09:43) Upset Stomach gabapentin [From Neurontin] Allergy (Verified 09/25/19 09:43) Unknown pt thinks she just felt funny hydrocodone bitartrate [From Vicodin] Allergy (Verified 09/25/19 09:43) drove her crazy lisinopril Allergy (Verified 09/25/19 09:43) Unknown oxycodone [From OxyContin] Adverse Reaction (Verified 09/25/19 09:43) Vomiting Primary Care Physician: Isabel Valdovinos DO [STAFF PHYSICIAN] - 2 Days Rikki Stephens III, MD [Primary Care Provider] - Prior records reviewed: Yes Past Medical History: - - Diabetes, CVA, hypertension, hyperlipidemia Surgical History: total knee arthroplasty, - - Laparoscopic right colectomy February 2017 Smoking Status: Never smoker - Family History Maternal Family History: Family History (Last Updated 09/18/19 @ 09:23 by Tri Phelps) Son Diabetes Cancer of kidney Lung cancer Bone cancer Family History: Reports: Heart Disease - Heart failure in her mother Review of Systems All systems negative except as indicated General: Denies: Chills, Fever, Sweats Eyes: Denies: Visual changes - bilaterally, Diplopia ENT: Denies: Rhinorrhea Cardiovascular: Denies: Chest pain, Palpitations Respiratory: Denies: Dyspnea, Cough, Dyspnea on exertion Gastrointestinal: Denies: Abdominal pain, Nausea, Vomiting, Diarrhea Musculoskeletal: Reports: Extremity Pain. Denies: Neck pain, Back pain Skin: Denies: Rash, Wounds Neurological: Denies: Headache, Weakness, Numbness Hematologic: Denies: Easy bruising, Easy bleeding Physical Exam Vital Signs/Narrative: Vital Signs Temp Pulse Resp BP Pulse Ox 12/13/19 15:25 97.8 F 75 18 212/71 H 94 Inital Vital Signs reviewed: Yes General: Well nourished, Well developed, No Acute Distress Head: Normocephalic, Atraumatic Eyes: Perrl, EOMI ENT: Moist mucous membranes, No rhinorrhea Neck: Supple, Nontender Cardiovascular: Regular rate, Regular rhythm, No murmurs Respiratory: No distress, CTA bilaterally, Chest nontender Abdomen: Soft, Nontender, Nondistended Back: Nontender, Normal Inspection Extremities: No edema, - - Patient has pain just distal to left shoulder. She has 2+ radial pulse. Good green ware caster strength. No loss of sensation. Arm is in a sling and limited range of motion due to pain. Skin: Normal color, No rash Neurological: Alert, Oriented x3, Cranial nerves II-XII grossly intact, Normal Strength, Normal Sensation Psychological: Normal affect, Normal Mood Diagnostic/Tx/Re-eval - Medical Decision Making Patient presents to the emergency department for left shoulder injury after a fall. Upon arrival to the emergency department she is hypertensive but otherwise normal vital signs. Will treat symptomatically with morphine. Will obtain x-rays of the left upper extremity. She denies any head injury. X-ray unfortunately did show a proximal right humerus fracture. She is neurovascularly intact. She did get good pain relief with the IM morphine injection. She has some intolerances of Lovelady and oxycodone listed. She states that this was many years ago and she is willing to trial this as an outpatient. We did place her in a sling and give her orthopedic surgery follow-up. Warning signs and symptoms which to return to the ED are reviewed with her. She understands and is agreeable this plan. Patient discharged home in stable condition. ED Disposition - Plan for ED Patient: Disposition: Home or Assisted Living Diagnosis: Proximal humerus fracture Instructions: ED Fracture Upper Extremity Prescriptions: Hydrocodone/Acetaminophen [Lovelady 5-325 Tablet] 1 ea PO Q8H PRN PRN 4 Days #12 tab PRN Reason: Pain Score 6-10/10 Transmission Status: Received by [id number] Referrals: Rikki Stephens III, MD [Primary Care Provider] - Isabel Valdovinos DO [STAFF PHYSICIAN] - 2 Days
[2019-12-13] MEDS: Morphine 4 MG/ML Syringe IM (15:48)
--- NOTE | 2019-12-13 16:02 | RAD_ITS ---
STUDY: X-RAY - LEFT SHOULDER REASON FOR EXAM: Female, 74 years old. Fall, pain in proximal humerus. TECHNIQUE: 2 view(s) of the shoulder. COMPARISON: None. FINDINGS: There is mild degenerative arthrosis of the glenohumeral articulation. Normal acromioclavicular joint. Normal acromion. Comminuted fracture of the humeral neck is not well visualized due to positioning. There appears to be involvement of the greater tuberosity. The soft tissue structures are unremarkable. Normal visualized pulmonary apex. RAD/Shoulder min 2 Views IMPRESSION: Left humeral neck fracture. Electronically Signed: Dawson Hassan MD (Brooks) at 16:35 EDT , Service support ,
--- NOTE | 2019-12-13 16:02 | RAD_ITS ---
STUDY: X-RAY - LEFT HUMERUS REASON FOR EXAM: Female, 74 years old. FALL, PAIN TECHNIQUE: 2 view(s) of the humerus. COMPARISON: None. FINDINGS: Comminuted left humeral neck fracture with extension into the greater tuberosity. No additional humeral fracture. There is no demonstrated soft tissue abnormality. RAD/Humerus min 2 Views IMPRESSION: Left humeral neck fracture. Electronically Signed: Dawson Hassan MD ([place]) at 16:36 EDT , Service support ,
[2019-12-13 17:25] VITALS: BP 212/47; RESP 18
== END 2019-12-13 17:26 | disposition home or self-care (01) ==
PROVIDERS: Emergency Provider Emergency Medicine; PCP Family Medicine
DX: S42.202A Unspecified fracture of upper end of left humerus, initial encounter for closed fracture (principal); E11.9 Type 2 diabetes mellitus without complications; E78.5 Hyperlipidemia, unspecified; W19.XXXA Unspecified fall, initial encounter; Z86.73 Personal history of transient ischemic attack (TIA), and cerebral infarction without residual deficits; Z79.4 Long term (current) use of insulin; Z79.84 Long term (current) use of oral hypoglycemic drugs
CPT/HCPCS: 73030; 73060; 96372; 99285

== ENCOUNTER 2019-12-19 12:44 | Observation (INO) | payer MEDICARE, OTHER, MEDICAID, SELFPAY ==
[2019-12-17 14:12] VITALS: BMI 30.9
[2019-12-19] VITALS (10 sets, daily range): BP systolic 125–205; BP diastolic 45–84; PULSE 53–66; RESP 12–18; TEMP 36.2–36.7; O2SAT 99–100; BMI 29.2; BMI 29.7; BMI 29.8
--- NOTE | 2019-12-19 12:55 | EKG12_ITS ---
Test Reason : CP Blood Pressure : / mmHG Vent. Rate : 062 BPM Atrial Rate : 062 BPM P-R Int : 134 ms QRS Dur : 088 ms QT Int : 444 ms P-R-T Axes : 048 -15 010 degrees QTc Int : 450 ms Normal sinus rhythm Minimal voltage criteria for LVH, may be normal variant Borderline ECG Confirmed by MARINA ERICKSON, ALEKSANDAR ([id number]), editor at large YEHUDA CRAIG ([id number]) on 12/24/2019 8:43:39 AM Referred By: CAITLYN Confirmed By:ALEKSANDAR GRAY MD
--- NOTE | 2019-12-19 13:03 | ED.VIS.GEN ---
History of Present Illness Chief Complaint: Chest Pain Informant: Patient Narrative: Patient is a 74-year-old female who presents to the emergency department for chest pain which has been present intermittently over the past week. She describes as an aching sensation that is substernal.. She does not know aggravating or relieving factors. Denies ever having this before in the past. No history of heart attacks or DVT/PE. No associated shortness of breath with this. Does have a mild pain in her left shoulder although she did recently fracture her proximal humerus and believes that that is related to her injury. She denies any significant cough, cold, congestion. No fevers or chills. She has occasionally been diaphoretic. Denies nausea/vomiting. She denies any leg swelling or calf pain. No abdominal pain. She states it has been many years since her last stress test. She denies a smoking history. Past Medical History - Allergies and Home Meds Allergies/Adverse Reactions: Allergies citalopram hydrobromide [From Celexa] Allergy (Verified 12/19/19 12:45) Upset Stomach gabapentin [From Neurontin] Allergy (Verified 12/19/19 12:45) Unknown pt thinks she just felt funny hydrocodone bitartrate [From Vicodin] Allergy (Verified 12/19/19 12:45) drove her crazy lisinopril Allergy (Verified 12/19/19 12:45) Unknown oxycodone [From OxyContin] Adverse Reaction (Verified 12/19/19 12:45) Vomiting Prior records reviewed: Yes Past Medical History: - - CAD, diabetes, hypertension, hyperlipidemia Surgical History: total knee arthroplasty, - - Laparoscopic right colectomy February 2017 Smoking Status: Never smoker - Family History Maternal Family History: Family History (Last Updated 09/18/19 @ 09:23 by Tri Phelps) Son Diabetes Cancer of kidney Lung cancer Bone cancer Family History: Reports: Heart Disease - Heart failure in her mother Review of Systems All systems negative except as indicated General: Reports: Sweats. Denies: Chills, Fever Eyes: Denies: Visual changes - bilaterally, Diplopia ENT: Denies: Rhinorrhea, Sore throat Cardiovascular: Reports: Chest pain. Denies: Palpitations Respiratory: Denies: Dyspnea, Cough, Dyspnea on exertion Gastrointestinal: Denies: Abdominal pain, Nausea, Vomiting, Diarrhea Genitourinary: Denies: Dysuria, Hematuria, Frequency Musculoskeletal: Reports: Extremity Pain. Denies: Back pain Skin: Denies: Rash, Wounds Neurological: Denies: Headache, Weakness, Numbness Physical Exam Vital Signs/Narrative: Vital Signs Temp Pulse Resp BP Pulse Ox 12/19/19 12:45 97.2 F L 53 L 17 205/73 H 100 Inital Vital Signs reviewed: Yes General: Well nourished, Well developed, No Acute Distress Head: Normocephalic, Atraumatic Eyes: Perrl, EOMI ENT: Moist mucous membranes, No rhinorrhea Neck: Supple, Nontender Cardiovascular: Regular rate, Regular rhythm, No murmurs Respiratory: No distress, CTA bilaterally, Chest nontender Abdomen: Soft, Nontender, Nondistended, Normal bowel sounds Back: Nontender, Normal Inspection Extremities: Tenderness - Left upper extremity has swelling, bruising from previous proximal humerus fracture. She is neurovascular intact. Skin: Normal color, No rash Neurological: Alert, Oriented x3, Cranial nerves II-XII grossly intact, Normal Strength, Normal Sensation Psychological: Normal affect, Normal Mood Diagnostic/Tx/Re-eval - EKG Initial EKG Interpretation: - - Rate is 62 bpm normal sinus rhythm. Normal intervals. Left axis deviation. No significant ST elevations or depressions appreciated. No T wave abnormalities. - Medical Decision Making Patient presents to the emergency department for chest pain. Upon arrival to the ED she is hypertensive, mildly bradycardic but otherwise satting well on room air. She does not appear in any acute distress. Chest pain is not reproducible. EKG, chest x-ray basic lab work being obtained. She was given aspirin prior to arrival by EMS. Patient has a heart score of 5 given age, risk factors, nonspecific EKG changes. She otherwise has been stable throughout ED stay. She is currently asymptomatic and will hold off on giving nitro. She is agreeable to staying in the hospital this time given the elevated heart score. Low concern for PE given the fact her vitals are within normal limits no significant shortness of breath. Her left arm with the previous fracture is significantly swollen so we will obtain a Doppler to evaluate for DVT. ED Disposition - Plan for ED Patient: Disposition: [facility] Diagnosis: Chest pain
--- NOTE | 2019-12-19 13:35 | RAD_ITS ---
STUDY: X-RAY CHEST REASON FOR EXAM: Female, 74 years old. STERNAL CHEST PAIN X1 WEEK TECHNIQUE: Single AP portable view of the chest. COMPARISON: Comparison is made with prior study of 08/13/2019. FINDINGS: EKG electrodes are seen. The lungs are clear and expanded. There is no demonstrated pleural abnormality. There is borderline cardiomegaly. Normal mediastinum and marti. Normal visualized pulmonary arteries. Normal visualized aortic arch and descending thoracic aorta. There are degenerative changes of the visualized thoracic spine. Fracture of the proximal surgical neck of the left humerus with extension of the greater tuberosity. There is no demonstrated abnormality of the visualized soft tissue structures of the upper abdomen. RAD/Chest 1 View (Portable) IMPRESSION: Borderline cardiomegaly. The lungs are clear. Electronically Signed: Mickey Funk, at 14:20 EDT , Service support ,
[2019-12-19 13:45] LABS: Absolute Lymphocyte Count 1.64 X10^3/uL (0.83-4.51); Absolute Neutrophil Count 4.1 X10^3/uL (2.0-7.7); Basophil# 0.04 X10^3/uL; Basophil% 0.6 % (0-1); Eosinophil# 0.19 X10^3/uL; Hematocrit 31.6 % (37-47); Hemoglobin 9.9 g/dL (12.0-15.0); Lymphocyte # 1.64 X10^3/ul (4.0); Lymphocyte % 25.5 % (19-41); Mean Corp Hgb Conc 31.3 g/dL (32-36); Mean Corpuscular Hgb 27.5 pg (27.0-32.0); Mean Corpuscular Volume 87.8 fL (81-99); Mean Platelet Vol. 10.4 fl (6.2-12.0); Monocyte# 0.44 X10^3/uL; Monocyte% 6.8 % (0-10); NRBC Flagged by Analyzer 0 % (0-5); Neutrophil # 4.11 X10^3/uL (2.7-7.7); Neutrophil % 63.8 % (47-70); Platelet Count 206 K/mm3 (150-450); RBC Distribution Width CV 13.2 % (11.6-14.6); RBC Distribution Width SD 42.5 fl (35.1-43.9); White Blood Count 6.4 K/mm3 (4.4-11.0)
[2019-12-19 13:53] LABS: Anion Gap 5 (5-15); BUN 12 mg/dL (7-18); Calcium,Total 9.1 mg/dL (8.5-10.1); Chloride 108 mmol/L (98-107); Creatinine, Serum 0.57 mg/dL (0.55-1.02); EST Glomerular Filtration Rate 110 mL/min (>60); Est Glom Filt Rate - Afr Amer 133 mL/min (>60); Estimated Creatinine Clearance 40.83 ml/min; Glucose 97 mg/dL (74-106); Magnesium 1.4 mg/dL (1.6-2.6); Potassium 3.7 mmol/L (3.5-5.1); Sodium Level 141 mmol/L (136-145)
--- NOTE | 2019-12-19 14:47 | HP.PCM_ITS ---
History of Present Illness Date of Admission: 12/19/19 Chief Complaint: CHEST PAIN The patient is a 74 year old F with an extensive past medical history as outlined who was admitted through the ED on 12/19/2019 with a complaint of chest pain. Chest pain has been going on intermittently for about a week prior to admission and described the pain as achy and substernal. There were no aggravating or relieving factors before. She has not had any history of heart attack or history of DVT or PE. She denied any lightheadedness or dizziness, palpitations, nausea or vomiting. She does complain of severe LUE pain due to a left humeral fracture she sustained after a mechanical fall. She saw an orthopedic surgeon (Dr Mercer) and says conservative management was advocated, Review of systems otherwise negative. The ED, vitals were temperature of 97.2 Fahrenheit with blood pressure of 205/73, pulse rate of 53 and respiratory of 16. She was saturating at 99% on room air. Chemistry was significant for magnesium of 1.4 was otherwise unremarkable. Initial troponin was negative. CBC showed hemoglobin of 9.9 WBC of 6.4 as well as platelets of 206. Chest x- ray showed borderline cardiomegaly but no other acute cardiopulmonary process. EKG showed no acute ST changes. She has been admitted to be managed for chest pain rule out ACS. [] Past Medical History Past Medical History (Chronic Problems): Chronic Problems (Last Updated 09/18/19 @ 09:20 by Tri Phelps) History of colon cancer (Chronic) GERD with stricture (Chronic) GERD (gastroesophageal reflux disease) (Chronic) Status post total knee replacement, right (Chronic) 2006 Hx of heart surgery (Chronic) heart cath 2002 S/P hysterectomy (Chronic) 1979 Status post corneal transplant (Chronic) S/P cholecystectomy (Chronic) 2015 Cerebral arteriosclerosis (Chronic) History of CVA (cerebrovascular accident) (Chronic) Risk for falls (Chronic) Cancer of ascending colon metastatic to intra-abdominal lymph node (Chronic) 04/2016 Adenocarcinoma of colon (Chronic) 04/2016 Anemia (Chronic) 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) Diverticulosis (Chronic) Venous insufficiency, peripheral (Chronic) Overactive bladder (Chronic) Anxiety (Chronic) DM2 (diabetes mellitus, type 2) (Chronic) S/P colectomy (Chronic) 2018 HTN (hypertension) (Chronic) Hyperlipidemia (Chronic) Medical History: Medical History (Last Updated 09/18/19 @ 09:20 by Tri Phelps) Hemorrhoids (Acute) K64.9 Diarrhea (Acute) R19.7 Nausea & vomiting (Acute) R11.2 Abdominal pain (Acute) R10.9 Suspected sleep apnea (Acute) R29.818 History of colon cancer (Chronic) Z85.038 GERD with stricture (Chronic) K21.9, K22.2 GERD (gastroesophageal reflux disease) (Chronic) K21.9 Dizziness (Inactive) R42 Dehydration (Inactive) E86.0 Hypokalemia (Inactive) E87.6 Diverticulitis of colon (Acute) K57.32 Cerebral arteriosclerosis (Chronic) I67.2 History of CVA (cerebrovascular accident) (Chronic) Z86.73 Risk for falls (Chronic) Z91.81 Cancer of ascending colon metastatic to intra-abdominal lymph node (Chronic) C18.2, C77.2 04/2016 Adenocarcinoma of colon (Chronic) C18.9 04/2016 Anemia (Chronic) D64.9 Dysphagia (Inactive) R13.10 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) M51.16 Chronic calculous cholecystitis (Chronic) K80.10 Diverticulosis (Chronic) K57.90 Venous insufficiency, peripheral (Chronic) I87.2 Overactive bladder (Chronic) N32.81 Anxiety (Chronic) F41.9 DM2 (diabetes mellitus, type 2) (Chronic) E11.9 HTN (hypertension) (Chronic) I10 Hyperlipidemia (Chronic) E78.5 Allergies citalopram hydrobromide [From Celexa] Allergy (Verified 12/19/19 12:45) Upset Stomach gabapentin [From Neurontin] Allergy (Verified 12/19/19 12:45) Unknown pt thinks she just felt funny hydrocodone bitartrate [From Vicodin] Allergy (Verified 12/19/19 12:45) drove her crazy lisinopril Allergy (Verified 12/19/19 12:45) Unknown oxycodone [From OxyContin] Adverse Reaction (Verified 12/19/19 12:45) Vomiting Home Medications: Ambulatory Orders Medication Instructions Recorded Pravastatin [Pravachol] 80 mg PO DAILY 04/19/14 Pregabalin [Lyrica] 100 mg PO DAILY 05/26/16 metoprolol succinate 100 mg 100 mg PO DAILY tab 03/29/17 tablet,extended release 24 hr Insulin Glargine [Lantus SoloStar 17 units SQ QHS 08/21/17 Pen] metFORMIN (XR) [Glucophage Xr] 500 mg PO BID 04/03/18 Duloxetine HCl 60 mg PO DAILY 01/06/19 Pramipexole Di-HCl [Mirapex] 1 mg PO QHS 01/06/19 Amlodipine Besylate 5 mg PO DAILY 03/31/19 Aspirin [Aspirin EC] 81 mg PO DAILY 03/31/19 Esomeprazole Magnesium 40 mg PO DAILY PRN 03/31/19 Losartan Potassium 50 mg PO DAILY 03/31/19 Ondansetron [Zofran Odt] 4 mg PO Q8H PRN PRN #10 tab 08/13/19 tizanidine 4 mg capsule 4 mg PO Q8H PRN 09/18/19 acetaminophen 500 mg tablet 1,000 mg PO Q6H PRN #100 tab 12/17/19 tramadol 50 mg tablet 50 - 100 mg PO TID PRN #42 tab 12/17/19 Surgical History: Surgical History (Last Updated 09/18/19 @ 09:22 by Tri Phelps) History of esophagogastroduodenoscopy (EGD) (Acute) Z98.890 02/24/19 Hx of colonoscopy (Acute) Z98.890 02/24/19 Status post total knee replacement, right (Chronic) Z96.651 2006 Hx of heart surgery (Chronic) Z98.890 heart cath 2003 S/P hysterectomy (Chronic) Z90.710 1980 Status post corneal transplant (Chronic) Z94.7 S/P cholecystectomy (Chronic) Z90.49 2015 S/P colectomy (Chronic) Z90.49 2017 Surgical History: total knee arthroplasty, - - Laparoscopic right colectomy February 2017 Smoking Status: Never smoker - *Family History Maternal Family History: Family History (Last Updated 09/18/19 @ 09:23 by Tri Phelps) Son Diabetes Cancer of kidney Lung cancer Bone cancer History Items: Heart Disease - Heart failure in her mother Review of Systems Constitutional: Denies: Chills, Fever, Malaise, Weakness, Weight Change Eyes: Denies: Blurred vision HEENT: Denies: Head Aches, Sinus Congestion, Sinus Drainage Cardiovascular: Reports: Chest Pain, Chest Pressure, Chest Tightness. Denies: Heaviness, Light Headedness, Orthopnea, Palpitations, Syncope Respiratory: Denies: Cough, Shortness of Breath, Shortness of breath at rest, Shortness of breath upon exertion, Sputum production Gastrointestinal: Denies: Abdominal Pain, Nausea, Vomiting Genitourinary: Denies: Dysuria Musculoskeletal: Denies: Joint Pain, Joint Tenderness Skin: Denies: Rash, Wounds Neurological: Denies: Numbness, Tingling, Focal weakness Psychiatric: Denies: Anxiety, Depression, Homicidal Ideations, Suicidal Ideations Hematologic/ Lymphatic: Denies: Easy Bruising, Easy Bleeding VTE Information - Inpt Only VTE Present on Admission: No VTE Pharm Prophylaxis ordered?: Yes Patient Problems: Active and Suspected Problems (Last Updated 09/18/19 @ 09:20 by Tri Phelps) Chest pain (Acute) - Physical Exam Vitals/I&O's: Vital Signs Temp Pulse Resp BP Pulse Ox 97.2 F L 53 L 16 205/73 H 99 12/19/19 12:45 12/19/19 12:45 12/19/19 14:15 12/19/19 12:45 12/19/19 14:25 Oxygen Delivery Method Room Air Weight: 165 lb Body Mass Index (BMI) 29.2 Finger Stick Blood Glucose 91 General: Alert, Oriented x3, Cooperative, No apparent distress HEENT: Atraumatic, PERRLA, EOMI, Normocephalic Oral: Moist Mucosa Neck: Supple, No JVD, Negative Carotid Bruits Lungs: Clear to auscultation, Normal air movement, No rhonchi, No wheeze, No rales Cardiovascular: Regular rate, Regular Rhythm, Normal S1, Normal S2, No murmurs Abdomen: Bowel Sounds Present, Soft, Non Tender, Non-Distended, No Hepato- splenomegaly Extremities: No clubbing, No cyanosis, No edema, Capillary Refill Less than 3 Seconds Skin: No rashes, No breakdown Musculoskeletal: - - LUE tenderness and swelling, as well as bruising from humeral fracture Neurological: Cranial nerves II-XII grossly intact, Neuro grossly intact, Motor Exam 5/5 strength throughout Psych/Mental Status: Normal Affect, Appropriate, Alert and oriented to time, place, person, mood and affect Laboratory Results 12/19/19 13:24: WBC 6.4, RBC 3.60 L, Hgb 9.9 L, Hct 31.6 L, MCV 87.8, MCH 27.5, MCHC 31.3 L, RDW Std Deviation 42.5, RDW Coeff of Terry 13.2, Plt Count 206, MPV 10.4, Immature Gran % (Auto) 0.300, Neut % (Auto) 63.8, Lymph % (Auto) 25.5, [place] % (Auto) 6.8, Eos % (Auto) 3.0, Baso % (Auto) 0.6, Absolute Neuts (auto) 4.1, Absolute Lymphs (auto) 1.64, Nucleated RBC % 0 12/19/19 13:24: Sodium 141, Potassium 3.7, Chloride 108 H, Carbon Dioxide 28.0, Anion Gap 5, BUN 12, Creatinine 0.57, Estim Creat Clear Calc 40.83, Est GFR (MDRD) Af Amer 133, Est GFR (MDRD) Non-Af 110, BUN/Creatinine Ratio 21.0 H, Glucose 97, Calcium 9.1, Magnesium 1.4 L, Troponin I < 0.015 Diagnostic Data Chest X-Ray 12/19/19 13:35 IMPRESSION: Borderline cardiomegaly. The lungs are clear. Electronically Signed: Mickey Funk, at 14:20 EDT , Service support , Current Medications Magnesium Sulfate 2 gm/ Sodium (Chloride) 104 mls @ 52 mls/hr IV X1 ONE Stop: 12/19/19 16:11 Assessment/Plan All Active Problems (Last Updated 09/18/19 @ 09:20 by Tri Phelps) Chest pain (Acute) History of esophagogastroduodenoscopy (EGD) (Acute) Hx of colonoscopy (Acute) Hemorrhoids (Acute) Diarrhea (Acute) Nausea & vomiting (Acute) Abdominal pain (Acute) Suspected sleep apnea (Acute) Diverticulitis of colon (Acute) 74-year-old admitted with a complaint of chest pain. # Chest pain to r/o ACS * Admit to PCU with telemetry. Initial troponin negative. * Cycle troponins x3. * P.o. aspirin 81 mg daily. Sublingual nitroglycerin PRN. * For stress test tomorrow if troponins are negative. * #Recent humeral fracture: * PT OT consult. * saw orthopedic surgery, and conservative management was advocated. * Fall precautions. * on tramadol and morphine for pain control. * Duplex of LUE to ensure there is no blood clot * #Hypertensive urgency: * Blood pressure over 200 systolic. * Chest pain had resolved at time of review. * BP was down to 160s systolic at time of review. * resume her losartan, amlodipine and metoprolol. Iv hydralazine * #Hypomagnesemia: Magnesium is 1.4. Will replace and monitor. #Hyperlipidemia: On pravastatin #Type 2 diabetes mellitus: On Lantus 70 units nightly. Insulin sliding scale. Accuchecks AC at bedtime. #History of metastatic ascending colon cancer: Currently stable. #History of CVA: On aspirin and statin. #Anemia: This is chronic. Hemoglobin is 9.9. baseline is ~ 10-11. Will give oral iron supplements and monitor. DVT prophylaxis: Lovenox CODE STATUS:full code * Patient counseled extensively about different types of CODE STATUS including full code, DNR CCA and DNR CCA. * Patient elects to be full code. * Total slfr-pc-szxh time 16 minutes. OBSV E&M: 11918 Initial observation care L2 Procedures: 39183 Advncd Care Plan 30 Min
--- NOTE | 2019-12-19 15:04 | VDUE_ITS ---
Reason For Study: Pain Left Proximal Left jugular vein is spontaneous, widely patent, phasic, with no intraluminal echogenicity noted. Left subclavian vein is spontaneous, widely patent, phasic, with no intraluminal echogenicity noted. Left Arm Left axillary vein is spontaneous, patent, phasic, competent, compressible and demonstrates augmentation. Left brachial vein is compressible. Left cephalic vein is compressible. Left basilic vein is compressible. Left Lower Arm Left radial vein is compressible. Left ulnar vein is compressible. Patient Safety Prelim to Gladys. Technically difficult, pt unable to move shoulder. Interpretation Summary No evidence for acute deep venous thrombosis[left] upper extremity with patent and compressible cephalic and basilic veins. Technically difficult exam noted. Ordering Physician: Chidi Graham Referring Physician: KELSIE Stephens M.D. Performed By: Rossy Toledo RVT ?
--- NOTE | 2019-12-19 16:03 | EKG12_ITS ---
Test Reason : CP Blood Pressure : / mmHG Vent. Rate : 060 BPM Atrial Rate : 060 BPM P-R Int : 142 ms QRS Dur : 094 ms QT Int : 466 ms P-R-T Axes : 008 -16 003 degrees QTc Int : 466 ms Normal sinus rhythm Normal ECG When compared with ECG of 07-SEP-2019 04:46, No significant change was found Confirmed by MARINA ERICKSON, ALEKSANDAR ([id number]), editor greeting card YEHUDA CRAIG ([id number]) on 12/23/2019 12:55:44 PM Referred By: VERA Confirmed By:ALEKSANDAR GRAY MD
[2019-12-19 17:35] LABS: Bedside Glucose 62 mg/dL (70-110)
[2019-12-19 17:35] LABS: Bedside Glucose 90 mg/dL (70-110)
[2019-12-19] MEDS: Acetaminophen 500 MG Tablet 1000 MG PO (20:54)
[2019-12-19] MEDS: traMADol 50 MG Tablet PO (20:55)
[2019-12-19] MEDS: Pravastatin 40 MG Tablet 80 MG PO (21:01)
[2019-12-19] MEDS: Pramipexole Di-HCl 0.5 MG Tablet 1 MG PO (21:02)
[2019-12-19] MEDS: Donepezil HCl 5 MG Tablet PO (21:02)
[2019-12-19] MEDS: 0.9% Saline Lock 10 ML Syringe IV (21:03)
[2019-12-19] MEDS: Insulin Lispro 100 UNIT/ML INSULN.PEN SC (21:34)
[2019-12-19 23:16] LABS: Bedside Glucose 199 mg/dL (70-110)
[2019-12-20] MEDS: tiZANidine HCl 2 MG Tablet 4 MG PO (01:06)
[2019-12-20 02:47] VITALS: BP 146/42; PULSE 48; RESP 18; TEMP 36.6; O2SAT 98
[2019-12-20] MEDS: Acetaminophen 500 MG Tablet 1000 MG PO (02:55)
[2019-12-20 02:59] VITALS: PULSE 48; RESP 18; O2SAT 98
[2019-12-20 03:00] VITALS: PULSE 47
[2019-12-20] MEDS: traMADol 50 MG Tablet PO (05:05)
--- NOTE | 2019-12-20 05:55 | EKG12_ITS ---
Test Reason : AM EKG Blood Pressure : / mmHG Vent. Rate : 049 BPM Atrial Rate : 049 BPM P-R Int : 148 ms QRS Dur : 094 ms QT Int : 506 ms P-R-T Axes : 011 -13 009 degrees QTc Int : 457 ms Sinus bradycardia Otherwise normal ECG When compared with ECG of 19-DEC-2019 16:39, MANUAL COMPARISON REQUIRED, DATA IS UNCONFIRMED Confirmed by MARINA ERICKSON, ALEKSANDAR ([id number]), editorial cartoonist YEHUDA CRAIG ([id number]) on 12/23/2019 12:40:37 PM Referred By: DR GAMEZ Confirmed By:ALEKSANDAR GRAY MD
--- NOTE | 2019-12-20 05:55 | NM_ITS ---
CLINICAL: 74-year-old diabetic, hypercholesterolemic female with history of chest discomfort. REST-REGADENOSON 99m Tc SESTAMIBI MYOCARDIAL PERFUSION SPECT COMPARISON: None available FINDINGS: Following the intravenous administration of 12.0 mCi of 99m Tc sestamibi, the resting myocardial perfusion acquisitions demonstrate uniform radiopharmaceutical concentration throughout all left ventricular segments. Prominent subdiaphragmatic tracer distribution is defined. The patient was administered intravenous regadenoson (0.4 mgm). Following the intravenous administration of 36.0 mCi of 99m Tc sestamibi, the post regadenoson images reveal likewise normal perfusion throughout all left ventricular myocardial segments. Relatively unchanged subdiaphragmatic radiopharmaceutical distribution remains evident. The post stress resting left ventricular ejection fraction is calculated to be 68.0 % by gated SPECT technique. Wall motion and end systolic thickening are considered normal. NM/Nuclear Stress Test - Chemical IMPRESSION: 1. NORMAL REST-REGADENOSON STRESS 99m Tc SESTAMIBI MYOCARDIAL PERFUSION SPECT. A. No evidence of significant pharmacologically induced left ventricular ischemia. B. Preservation of resting left ventricular systolic function. (Alexandra et al, J Nucl Med 37: 105P, 1996). Electronically Signed: Rajiv Puga DO at 11:36 EDT Tel , Service support ,
[2019-12-20] MEDS: Aspirin E.C. 81 MG Tablet PO (06:36)
[2019-12-20] MEDS: Losartan Potassium 50 MG Tablet PO (06:37)
[2019-12-20 07:00] LABS: Bedside Glucose 87 mg/dL (70-110)
[2019-12-20 07:12] VITALS: PULSE 52
[2019-12-20 07:33] VITALS: BP 152/57; PULSE 53; RESP 16; TEMP 36.6; O2SAT 98
[2019-12-20 08:30] LABS: Magnesium 2.3 mg/dL (1.6-2.6)
[2019-12-20] MEDS: Morphine 2 MG/ML Syringe IV (09:35)
[2019-12-20] MEDS: 0.9% Saline Lock 10 ML Syringe IV (10:39)
[2019-12-20 10:45] VITALS: BP 159/140; PULSE 60; RESP 18; TEMP 36.6; O2SAT 99
--- NOTE | 2019-12-20 11:16 | DCINST_ITS ---
- Discharge Diagnoses Current Active Problems: Current Active and Chronic Problems (Last Updated 09/18/19 @ 09:20 by Tri Phelps) 1. Chest pain, suspected non-cardiac, suspected musculoskeletal secondary to #2 and continued usage of the extremity secondary to limitations with home care/assistance 2. Recently mechanical fall w/ L humeral fracture 3. Hypertensive urgency, resolved, suspected also component of pain with #2 4. Hypomagnesium, resolved 5. Dementia, Unclear type without behavioral disturbance 6. Diabetes mellitus type II with Peripheral neuropathy 7. Chronic anemia, iron deficiency 8. Hx CVA 9. Hyperlipidemia 10. Hx Metastatic Ascending Colon CA s/p resection, remission 11. GERD You will use the following diet at home:: Calorie/Carbohydrate Controlled (specify 1200, 1400, etc) - Recommend continuation 1800 ADA/cardiac diet. Your food should be the consistency of: Regular Your liquids should be the consistency of: Regular/Thin Discharge Activity: May not drive while taking narcotic pain medications., - - C ontinue parameters per your orthopedic surgeon. Please appropriately maintain your LUE in the sling and when laying or seated keep your hand/arm elevated above your heart to assist with the swelling. Please strictly following the use parameters per your Orthopedic surgeon. Weight Bearing Status: - - Nonweight bearing to the left upper extremity unclear appropriately cleared per your Orthopedic surgeon. Keep extremity elevated above heart level: Left Arm Call your doctor if you observe: Fever of 101 or Higher, Inability to urinate, Inability to have a bowel movement, Shortness of breath, Dizziness, Fainting spells, Chest pain, Uncontrolled pain Instructions: ED Chest Pain Noncardiac Ch, ED Chest Pain Wall Costochond Ch, ED Fracture Upper Extremity, ED Sling Additional Instructions: Case management and social work are attempting to arrange home help which may come from also friends, family, roman catholic. Any support network available to you should be utilized to assist in your healthy recovery at home and allow you the ability to appropriate heal your left upper extremity. If you continue to have difficulty at home please also DO NOT hesitate to work with your primary care physician to also create these opportunities. Allergies/Adverse Reactions: Allergies citalopram hydrobromide [From Celexa] Allergy (Verified 12/19/19 12:45) Upset Stomach gabapentin [From Neurontin] Allergy (Verified 12/19/19 12:45) Unknown pt thinks she just felt funny hydrocodone bitartrate [From Vicodin] Allergy (Verified 12/19/19 12:45) drove her crazy lisinopril Allergy (Verified 12/19/19 12:45) Unknown oxycodone [From OxyContin] Adverse Reaction (Verified 12/19/19 12:45) Vomiting Medications to take at Discharge Pravastatin [Pravachol] 80 mg PO DAILY 04/19/14 Pregabalin [Lyrica] 50 mg PO DAILY 05/26/16 metoprolol succinate 100 mg tablet,extended release 24 hr 100 mg PO DAILY tab 03/29/17 Insulin Glargine [Lantus SoloStar Pen] 30 units SQ QHS 08/21/17 metFORMIN (XR) [Glucophage Xr] 1,000 mg PO BID 04/03/18 Duloxetine HCl 60 mg PO DAILY 01/06/19 Pramipexole Di-HCl [Mirapex] 1 mg PO QHS 01/06/19 Amlodipine Besylate 5 mg PO DAILY 03/31/19 Aspirin [Aspirin EC] 81 mg PO DAILY 03/31/19 Esomeprazole Magnesium 40 mg PO DAILY PRN 03/31/19 Losartan Potassium 50 mg PO DAILY 03/31/19 Ondansetron [Zofran Odt] 4 mg PO Q8H PRN PRN #10 tab 08/13/19 tizanidine 4 mg capsule 4 mg PO Q8H PRN 09/18/19 acetaminophen 500 mg tablet 1,000 mg PO Q6H PRN #100 tab 12/17/19 tramadol 50 mg tablet 50 - 100 mg PO TID PRN #42 tab 12/17/19 Donepezil HCl [Aricept] 5 mg PO QHS 12/19/19 Hydrocodone Bitart/Apap 5-325 [[place] 5/325] 1 tab PO Q6H PRN PRN 12/19/19 Isosorbide Mononitrate [Isosorbide Mononitrate ER] 30 mg PO DAILY 12/19/19 Primary Care Physician: Rikki Stephens III, MD [Primary Care Provider] - Please follow up with your Primary Care Physician in: Follow-up with your primary care physician within 3-5 days to review admit. Test Results: Test results from this visit will be discussed in further detail at your follow- up appointment, if applicable. Please Follow Up With: Ottoniel Fried, DO When: Please follow-up as previously arranged or call sooner if concerns. Proposed Discharge Date: 12/20/19
--- NOTE | 2019-12-20 12:00 | CASEMGMT ---
SOCIAL WORK Informant: RN DIMITRIOS Reason for Consult: Resources Met with patient and patient's in room. Introduced role and reason for referral. Patient states daughter Lorena [place] is HPOA and assists with setting up resources for patient. states they have Meals on Wheels already in place and patient goes to [facility] Patient states case reviewer is Amalia. Patient reports case reviewer is having a hard time finding aides for patient to come out in the morning to assist patient with dressing before transportation picks patient up for [facility]. Provided patient with list for Private Duty services. Patient states daughter is currently not working and should be able to help until she finds another job. Patient denies any questions or concerns. Plan: Home with resources provided. Mick Her MSW, [employer]INE [employer] INSTALLER AND SERVICER
--- NOTE | 2019-12-20 12:00 | PCM.DC.SUM ---
Discharge Date and Diagnosis - Problem List Patient Problems: Active and Suspected Problems (Last Updated 09/18/19 @ 09:20 by Tri Phelps) Chest pain (Acute) Date of Admission: 12/19/19 Date of Discharge: 12/20/19 - Primary Discharge Diagnosis Acute Problems: Active Problems (Last Updated 09/18/19 @ 09:20 by Tri Phelps) 1. Chest pain, suspected non-cardiac, suspected musculoskeletal secondary to #2 and continued usage of the extremity secondary to limitations with home care/assistance 2. Recently mechanical fall w/ L humeral fracture 3. Hypertensive urgency, resolved, suspected also component of pain with #2 4. Hypomagnesium, resolved 5. Dementia, Unclear type without behavioral disturbance 6. Diabetes mellitus type II with Peripheral neuropathy 7. Chronic anemia, iron deficiency 8. Hx CVA 9. Hyperlipidemia 10. Hx Metastatic Ascending Colon CA s/p resection, remission 11. GERD - Secondary Discharge Diagnosis Chronic Problems: Chronic Problems (Last Updated 09/18/19 @ 09:20 by Tri Phelps) History of colon cancer (Chronic) GERD with stricture (Chronic) GERD (gastroesophageal reflux disease) (Chronic) Status post total knee replacement, right (Chronic) 2006 Hx of heart surgery (Chronic) heart cath 2003 S/P hysterectomy (Chronic) 1979 Status post corneal transplant (Chronic) S/P cholecystectomy (Chronic) 2015 Cerebral arteriosclerosis (Chronic) History of CVA (cerebrovascular accident) (Chronic) Risk for falls (Chronic) Cancer of ascending colon metastatic to intra-abdominal lymph node (Chronic) 04/2016 Adenocarcinoma of colon (Chronic) 04/2016 Anemia (Chronic) 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) Diverticulosis (Chronic) Venous insufficiency, peripheral (Chronic) Overactive bladder (Chronic) Anxiety (Chronic) DM2 (diabetes mellitus, type 2) (Chronic) S/P colectomy (Chronic) 2017 HTN (hypertension) (Chronic) Hyperlipidemia (Chronic) Hospital Course and Treatment Imaging Results: 12/20/19 05:55 Nuclear Stress Test - Chemical [NM] AM (NON MEDS) Operations: None Procedures: EKG, Stress test Summary of Care Provided: The patient is a 74 y/o F w/ PMHx: Recent mechanical fall w/ L humeral fracture, HTN, Dementia, Unclear type without behavioral disturbance, Diabetes mellitus type II with Peripheral neuropathy, Chronic anemia/iron deficiency, Hx CVA, Hyperlipidemia, Hx Metastatic Ascending Colon CA s/p resection in remission, GERD who presents to the [facility] ED on 12/19/19 with history of ongoing complaint of chest pain intermittently for approximately 1 week, achy and substernal as well as left-sided, worse with certain activities and patient does admit that she is inappropriately been using her left upper extremity secondary to difficulties at home with her also healthcare issues and inability to have help with recent left upper extremity fracture, supposed to be nonweightbearing and nonusage in a sling. In the ED work-up included EKG sinus rhythm without evidence of acute ischemia, CXR without acute process, unremarkable CBC except chronic appearing hemoglobin level 9.9, stable and unremarkable chemistry, cardiac enzyme set x 1 normal. Magnesium level 1.4 with supplementation given with repeat 2.3. The patient was admitted to the PCU, maintained on cardiac telemetry, serial cardiac enzymes were obtained as well as serial EKGs which remained unremarkable. Patient underwent AM cardiac stress testing which was noted to be negative for inducible ischemia. Patient was discharged to home in stable condition with recommendation for follow-up with primary care physician within 3-5 days. Discussed frankly with patient high suspicion of chest discomfort secondary to musculoskeletal etiology secondary to inappropriate usage of her left upper extremity. She did admit that she has been using her arm and hand without appropriate elevation as she also helps care for her . Discussed at length with her and case management/social work with attempts being made to help set up home help, meal help if able even if potentially through neighbors or her scientology. DAY OF DISCHARGE PROGRESS NOTE: Subjective: Patient without acute event overnight per self and nursing report. Patient currently denies any significant chest discomfort but when she does have it it is associate with some activity and do suspect musculoskeletal secondary to inappropriate usage of left upper extremity with current fracture supposed to be nonweightbearing, nonusage, sling only. Stress testing negative. Patient denies fever, chills, nausea, emesis, abdominal pain, chest pain or dyspnea. Patient agreeable to discharge to home and amenable to any help we are able to set up. Patient will be discharged with follow-up with primary care physician within 3-5 days. Objective: T 97.9, heart rate 60, BP 152/57, respiratory rate 16, 98% on room air. Physical Examination: General: awake, alert, oriented x 3 and cooperative, seated upright in the ECU bed, NAD initially, did become tearful when discussions about home situation and notes that she is very overloaded recently and needs help. Skin: normal color, turgor, no icterus, cyanosis. HEENT: AT/NC, EOMI, PERRLA, MMM. Lungs: CTA bilaterally, moderate effort, mild decrease BL bases, no rales, ronchi or wheezing; Heart: Regular rate and rhythm; no gallop, rub audible. Abdomen: soft, NTTP, ND, normal BS. Extremities: no cyanosis, clubbing, arm incorrectly and left upper extremity sling currently, hand downward, evident edema to the lower portion, admits to using this extremity frequently secondary to no help at home and need to help care for her who also has health issues. Neurological: patient awake, alert, oriented x 3; cognitive function appears intact upon questioning,; pupils equally reactive to light and accomodation; cranial nerves II-XII grossly normal, moving all 4 extremities but as expected reduced movement left upper extremity secondary to recent fracture, strength appropriately reduced and deferred aggressive testing in that extremity as a result, strength otherwise mildly globally decreased. Psychiatric: affect appears fatigued, anxious, no obvious depressive feelings but admits to being overloaded. Assessment and Plan: Please see hospital summary above. Patient Problems: Active and Suspected Problems (Last Updated 09/18/19 @ 09:20 by Tri Phelps) Chest pain (Acute) - Physical Exam Vitals/I&O's: Vital Signs Temp Pulse Resp BP Pulse Ox 97.9 F 60 18 159/140 H 99 12/20/19 10:45 12/20/19 10:45 12/20/19 10:45 12/20/19 10:45 12/20/19 10:45 Oxygen Delivery Method Room Air Weight: 168 lb Body Mass Index (BMI) 29.7 Finger Stick Blood Glucose 91 Intake and Output for Last 24 Hours 12/18/19 12/19/19 12/20/19 23:59 23:59 23:59 Intake Total 448 / 598 250 / 250 Balance 448 / 598 250 / 250 Laboratory Results 12/19/19 13:24: WBC 6.4, RBC 3.60 L, Hgb 9.9 L, Hct 31.6 L, MCV 87.8, MCH 27.5, MCHC 31.3 L, RDW Std Deviation 42.5, RDW Coeff of Terry 13.2, Plt Count 206, MPV 10.4, Immature Gran % (Auto) 0.300, Neut % (Auto) 63.8, Lymph % (Auto) 25.5, Borden % (Auto) 6.8, Eos % (Auto) 3.0, Baso % (Auto) 0.6, Absolute Neuts (auto) 4.1, Absolute Lymphs (auto) 1.64, Nucleated RBC % 0 12/19/19 13:24: Sodium 141, Potassium 3.7, Chloride 108 H, Carbon Dioxide 28.0, Anion Gap 5, BUN 12, Creatinine 0.57, Estim Creat Clear Calc 40.83, Est GFR (MDRD) Af Amer 133, Est GFR (MDRD) Non-Af 110, BUN/Creatinine Ratio 21.0 H, Glucose 97, Calcium 9.1, Magnesium 1.4 L, Troponin I < 0.015 12/19/19 16:17: Troponin I < 0.015 12/19/19 16:51: POC Glucose 62 L 12/19/19 17:14: POC Glucose 90 12/19/19 19:45: Troponin I < 0.015 12/19/19 19:45: Magnesium 2.3 12/19/19 21:13: POC Glucose 199 H 12/20/19 06:41: POC Glucose 87 Current Medications Acetaminophen (Tylenol) 1,000 mg PO Q6H PRN PRN Reason: pain -01/02 Last Admin: 12/20/19 02:55 Dose: 1,000 mg Documented by: Amlodipine Besylate (Norvasc) 5 mg PO DAILY [facility] Last Admin: 12/20/19 06:36 Dose: 81 mg Documented by: Donepezil HCl (Aricept) 5 mg PO QHS [facility] Last Admin: 12/19/19 21:02 Dose: 5 mg Documented by: Duloxetine HCl (Cymbalta) 60 mg PO DAILY [facility] Enoxaparin Sodium (Lovenox) 40 mg SC DAILY [facility] Insulin [facility]ine ([facility]us (Bkc)) [facility] Last Admin: 12/19/19 21:16 Dose: 30 u Documented by: Insulin Human Lispro (Humalog Kwikpen (Bkc)) 0 unit SC [facility]; Protocol Last Admin: 12/20/19 11:33 Dose: Not Given Documented by: Isosorbide Mononitrate (Imdur) 30 mg PO DAILY [facility] Losartan Potassium (Cozaar) 50 mg PO DAILY [facility] Last Admin: 12/20/19 06:37 Dose: 50 mg Documented by: Metoprolol Succinate (Toprol Xl (Beta Raza)) 100 mg PO DAILY [facility] Nitroglycerin (Nitrostat) 0.4 mg SUBLINGUAL Q5M PRN PRN Reason: CARDIAC/CHEST PAIN Nutritional Formula (Lactose Free) (Glucerna Shake) 120 ml PO TIDCM [facility] Last Admin: 12/20/19 10:51 Dose: Not Given Documented by: Ondansetron HCl (Zofran) 4 mg IV Q8H PRN PRN PRN Reason: NAUSEA/VOMITING Ondansetron HCl (Zofran Odt) 4 mg PO Q8H PRN PRN PRN Reason: NAUSEA Pantoprazole Sodium (Protonix) 40 mg PO DAILY PRN PRN Reason: INDIGESTION Pramipexole Dihydrochloride (Mirapex) 1 mg PO QHS [facility] Last Admin: 12/19/19 21:02 Dose: 1 mg Documented by: Pravastatin Sodium (Pravachol) 80 mg PO QHS [facility] Last Admin: 12/19/19 21:01 Dose: 80 mg Documented by: Pregabalin (Lyrica) 50 mg PO DAILY [facility] Sodium Chloride () 10 - 40 ml IV UD PRN PRN Reason: SALINE FLUSH Last Admin: 12/20/19 10:39 Dose: 10 ml Documented by: Tizanidine HCl (Zanaflex) 4 mg PO Q8H PRN PRN Reason: Pain 1-10/10 or Fever Last Admin: 12/20/19 01:06 Dose: 4 mg Documented by: Tramadol HCl (Ultram) 50 - 100 mg PO TID PRN PRN Reason: pain 1-10/10 Last Admin: 12/20/19 05:05 Dose: 100 mg Documented by: Discharge Activity: May not drive while taking narcotic pain medications., - - Continue parameters per your orthopedic surgeon. Please appropriately maintain your LUE in the sling and when laying or seated keep your hand/arm elevated above your heart to assist with the swelling. Please strictly following the use parameters per your Orthopedic surgeon. Weight Bearing Status: - - Nonweight bearing to the left upper extremity unclear appropriately cleared per your Orthopedic surgeon. Keep extremity elevated above heart level: Left Arm Call your doctor if you observe: Fever of 101 or Higher, Inability to urinate, Inability to have a bowel movement, Shortness of breath, Dizziness, Fainting spells, Chest pain, Uncontrolled pain Home Medications: Medications to take at Discharge Pravastatin [Pravachol] 80 mg PO DAILY 04/19/14 Pregabalin [Lyrica] 50 mg PO DAILY 05/26/16 metoprolol succinate 100 mg tablet,extended release 24 hr 100 mg PO DAILY tab 03/29/17 Insulin Glargine [Lantus SoloStar Pen] 30 units SQ QHS 08/21/17 metFORMIN (XR) [Glucophage Xr] 1,000 mg PO BID 04/03/18 Duloxetine HCl 60 mg PO DAILY 01/06/19 Pramipexole Di-HCl [Mirapex] 1 mg PO QHS 01/06/19 Amlodipine Besylate 5 mg PO DAILY 03/31/19 Aspirin [Aspirin EC] 81 mg PO DAILY 03/31/19 Esomeprazole Magnesium 40 mg PO DAILY PRN 03/31/19 Losartan Potassium 50 mg PO DAILY 03/31/19 Ondansetron [Zofran Odt] 4 mg PO Q8H PRN PRN #10 tab 08/13/19 tizanidine 4 mg capsule 4 mg PO Q8H PRN 09/18/19 acetaminophen 500 mg tablet 1,000 mg PO Q6H PRN #100 tab 12/17/19 tramadol 50 mg tablet 50 - 100 mg PO TID PRN #42 tab 12/17/19 Donepezil HCl [Aricept] 5 mg PO QHS 12/19/19 Hydrocodone Bitart/Apap 5-325 [Laughlin 5/325] 1 tab PO Q6H PRN PRN 12/19/19 Isosorbide Mononitrate [Isosorbide Mononitrate ER] 30 mg PO DAILY 12/19/19 Primary Care Physician: Rikki Stephens III, MD [Primary Care Provider] - Please follow up with your Primary Care Physician in: Follow-up with your primary care physician within 3-5 days to review admit. Please Follow Up With: Ottoniel Fried, When: Please follow-up as previously arranged or call sooner if concerns. Patient Instructions: ED Fracture Upper Extremity, ED Sling, ED Chest Pain Noncardiac Ch, ED Chest Pain Wall Costochond Ch Disposition: Home Minutes spent on discharge:: 35 Patient Condition:: Fair Medical Necessity - Tobacco Use Smoking Status: Never smoker Tobacco Use: Non-smoker Meaningful Use Info Meaningful Use Diagnoses (Choose all that apply): None applicable OBSV E&M: 76149 Observation care discharge
--- NOTE | 2019-12-20 12:27 | CASEMGMT ---
BROOKS PLUNKETT NOTE: PT/OT notes have been reviewed. BROOKS PLUNKETT to room to talk with pt re: discharge plan and she/ were made aware additional therapy is recommended. Discussed options of HHC and OP therapy. Pt states she goes to [place] 5 days a week and that she is not homebound and does not feel that she needs HHC. She declines wanting OP therapy as well. Pt states she goes to [facility] with her and sees an orthopedic doctor there. She declines wanted to work with PT or OT @ [facility]. Pt/ made aware, if she decides in the future that she would like OP therapy to discuss this with her PCP or orthopedic doctor. PT informed this RN DIMITRIOS that they felt pt would benefit from a platform walker. Pt made aware of this recommendation and advised her to talk with her orthopedic doctor about this as well. Pt states her daughter, Lorena, helps to take care of all of this stuff and I'll have her look into it. Pt states she already has a walker and feels she gets around well with this. She denies having any DME needs or concerns w/discharging home. Pt states SW has been in to talk with her as well. Albina PISANO RN CM
[2019-12-20 14:55] LABS: Bedside Glucose 110 mg/dL (70-110)
--- NOTE | 2019-12-22 08:24 | STRESSREP_ITS ---
Stress Test Report Pharmacologic myocardial perfusion stress test. 74-year-old lady with a history of chest pain. Stress protocol: Resting KG demonstrates sinus bradycardia with a rate of 59 bpm normal intervals are noted resting blood pressure is 182/80 mmHg. 0.4 mg of regadenoson was infused per usual protocol followed by rapid insulin saline flush injection continuous EKG monitoring was performed. The maximum heart rate attained was 74 bpm which was 50% of max impacted heart rate the maximum workload was 1 metabolic equivalent. At rest there were no ST or T wave changes noted to suggest abnormal flow reserve at peak infusion nonspecific ST-T wave changes were noted with no meet the criteria for ischemia. No clinical angina was noted. Myocardial perfusion protocol. 0.4 mg of regadenoson was infused per usual protocol. Technetium 99m sestamibi was injected at rest and at peak infusion. Stress and rest images were reconstructed and compared in the short axis vertical long horizontal long axis. Gated images were also obtained P Perfusion SPECT analysis: Stress nuclear images obtained and dictated by radiology department. See his s eparate report. Conclusion: Normal pharmacologic myocardial perfusion stress test. Preserved ejection fraction.
== END 2019-12-20 11:31 | disposition home or self-care (01) ==
LOC: ED 14:47 → PCU 15:39
PROVIDERS: Admitting Provider Student in an Organized Health Care Education/Training Program; Emergency Provider Emergency Medicine; PCP Family Medicine; Visit Provider Family Medicine
DX: R07.89 Other chest pain (principal); I10 Essential (primary) hypertension; E78.5 Hyperlipidemia, unspecified; I25.10 Atherosclerotic heart disease of native coronary artery without angina pectoris; E11.42 Type 2 diabetes mellitus with diabetic polyneuropathy; Z79.899 Other long term (current) drug therapy; Z79.4 Long term (current) use of insulin; S42.302D Unspecified fracture of shaft of humerus, left arm, subsequent encounter for fracture with routine healing; W18.30XD Fall on same level, unspecified, subsequent encounter; N32.81 Overactive bladder; F41.9 Anxiety disorder, unspecified; I87.2 Venous insufficiency (chronic) (peripheral); K21.9 Gastro-esophageal reflux disease without esophagitis; I16.0 Hypertensive urgency; Z85.038 Personal history of other malignant neoplasm of large intestine; Z86.73 Personal history of transient ischemic attack (TIA), and cerebral infarction without residual deficits; D50.9 Iron deficiency anemia, unspecified; F03.90 Unspecified dementia, unspecified severity, without behavioral disturbance, psychotic disturbance, mood disturbance, and anxiety
CPT/HCPCS: 36415; 71045; 78452; 80048; 82962; 83735; 84484; 85025; 93005; 93017; 93971; 96374; 97162; 97166; 99218; 99285; A9500; A4216; G0378; J2785

== ENCOUNTER 2020-03-13 09:51 | Emergency (ER) | payer MEDICARE, OTHER, SELFPAY ==
[2020-03-13 09:52] VITALS: BP 191/78; PULSE 70; RESP 15; TEMP 37.1; O2SAT 99; BMI 30.6
--- NOTE | 2020-03-13 10:09 | EKG12_ITS ---
Test Reason : ANXIETY Blood Pressure : / mmHG Vent. Rate : 067 BPM Atrial Rate : 067 BPM P-R Int : 130 ms QRS Dur : 094 ms QT Int : 422 ms P-R-T Axes : 046 -18 040 degrees QTc Int : 445 ms Normal sinus rhythm Voltage criteria for left ventricular hypertrophy Nonspecific ST abnormality Abnormal ECG Confirmed by MYKE ERICKSON, ROSANNA ([id number]), material expeditor YEHUDA CRAIG ([id number]) on 03/17/2020 11:02:43 AM Referred By: ALBARO Confirmed By:ROSANNA STRINGER MD
--- NOTE | 2020-03-13 10:10 | ED.VISSUMM ---
- ER Visit Summary Date of Service: 03/13/20 Chief Complaint: [Anxiety] History of Present Illness: The patient is a 75 F [presents to the emergency department from home via EMS with complaint of feeling anxious. Patient states that she woke up crying. Patient has history of some dementia and apparently is going to counseling with her due to the dementia. Patient denies any real physical complaints. She denies chest pain or abdominal pain or shortness of breath. She denies urinary symptoms other than frequency. She denies fever or recent exposures to anybody with coronavirus. She denies sore throat or cough. Patient does feel little shaky. She has had episodes of anxiety in the past. Patient just states that she does not know what is wrong. Denies feeling suicidal or homicidal. She denies hallucinations. Patient has history of prior stroke, hypertension, high cholesterol, GERD, anxiety, and colon cancer.] Physical Examination: [HEENT-PERRLA, EOMI. Cranial nerves II through XII grossly intact. TMs clear. Mucous membranes moist. No adenopathy. Cardiovascular-regular rate and rhythm without murmur or ectopy Lungs-clear to auscultation, chest wall stable without crepitus or subcu emphysema Abdomen-normoactive bowel sounds, soft, nontender, no rebound or rigidity, no peritoneal signs. Extremities-intact ?4, normal range of motion, normal pulses, atraumatic] Test Results: [EKG obtained arrival shows sinus rhythm with a ventricular rate of 67 bpm with some nonspecific ST changes noted. CBC with differential was normal. Chemistries unremarkable. Troponin was less than 0.015. Urinalysis was normal.] Emergency Department Course and Treatment: [IV line established on arrival. Patient placed on a manager administration. Patient was given Ativan 1 mg IV. Patient did feel improved after treatment and she is no longer shaking and feeling anxious. Did have social science instructor talk to the patient and her that he is comfortable taking her home and I have helped the comes into the home. Patient normally walks with a walker which she has at home.] Treatment Plan: [Patient to follow-up with primary care physician in 3 to 5 days.] Disposition: [Discharged home in stable condition] Impression: [Anxiety reaction Dementia] This note was generated with [employer] software. It may contain incorrect words, spelling, and punctuation that were not noted in review of the chart prior to signing ED Disposition - Plan for ED Patient: Referrals: Rikki Stephens III, MD [Primary Care Provider] -
[2020-03-13] MEDS: LORazepam 2 MG/ML Syringe 1 MG IV (10:25)
[2020-03-13 10:26] LABS: Absolute Lymphocyte Count 1.45 X10^3/uL (0.83-4.51); Absolute Neutrophil Count 3.2 X10^3/uL (2.0-7.7); Basophil# 0.04 X10^3/uL; Basophil% 0.8 % (0-1); Eosinophil# 0.21 X10^3/uL; Eosinophils% 3.9 % (0-5); Hematocrit 36.5 % (37-47); Hemoglobin 11.4 g/dL (12.0-15.0); Lymphocyte # 1.45 X10^3/ul (4.0); Lymphocyte % 27.2 % (19-41); Mean Corp Hgb Conc 31.2 g/dL (32-36); Mean Corpuscular Hgb 25.2 pg (27.0-32.0); Mean Corpuscular Volume 80.8 fL (81-99); Mean Platelet Vol. 10.1 fl (6.2-12.0); Monocyte# 0.47 X10^3/uL; Monocyte% 8.8 % (0-10); NRBC Flagged by Analyzer 0 % (0-5); Neutrophil # 3.15 X10^3/uL (2.7-7.7); Neutrophil % 59.1 % (47-70); Platelet Count 204 K/mm3 (150-450); RBC Distribution Width CV 13.8 % (11.6-14.6); RBC Distribution Width SD 39.9 fl (35.1-43.9); Red Blood Count 4.52 M/mm3 (4.2-5.4); White Blood Count 5.3 K/mm3 (4.4-11.0)
[2020-03-13] MEDS: 0.9% Normal Saline 1,000 ML 150 ML IV (10:26)
[2020-03-13 10:44] LABS: Anion Gap 5 (5-15); BUN 11 mg/dL (7-18); BUN/Creat Ratio 15.9 RATIO (10-20); Chloride 104 mmol/L (98-107); Creatinine, Serum 0.69 mg/dL (0.55-1.02); EST Glomerular Filtration Rate 88 mL/min (>60); Est Glom Filt Rate - Afr Amer 106 mL/min (>60); Estimated Creatinine Clearance 43.74 ml/min; Glucose 189 mg/dL (74-106); Potassium 3.5 mmol/L (3.5-5.1); Sodium Level 140 mmol/L (136-145)
[2020-03-13 11:19] LABS: Bacteria 0 SEEN /hpf (None Seen); Mucous, Urine 0 SEEN /hpf (<or=2+); Squamous Epithelial Cells - UA 0 SEEN /hpf (5-10); White Blood Cells 0 SEEN /hpf (0-5)
[2020-03-13 11:25] LABS: Color, Urine Yellow (Yellow); Glucose, Dipstick 100 mg/dl (Normal); Ketone-Dipstick Negative (Negative); Leukocyte Esterase-Dipstick Negative /ul (Negative); Nitrite-Dipstick Negative (Negative); Occult Blood-Urine 50 /ul (Negative); Protein-Dipstick 30 mg/dl (Negative); Urine Bilirubin Dipstick Negative (Negative); Urine Clarity Clear (Clear); Urine Urobilinogen Normal (Normal)
--- NOTE | 2020-03-13 11:30 | CM.ED ---
SOCIAL WORK Informant: Dr. Tripathi Reason for Consult: Discharge Planning Updated by Dr. Tripathi, patient presents with history of dementia and increased anxiety per . Met with patient and in room. Introduced role and reason for referral. states patient is from home and plan is to return. states good support from children. reports to have assistance from home health aides. denies any additional needs at this time. Plan: Home with Mick Her MSW, COVER REMOVER
[2020-03-13 11:31] LABS: Red Blood Cells-Urine 0-5 SEEN /hpf (0-5)
--- NOTE | 2020-03-13 11:40 | ED.DEP ---
ED Disposition - Plan for ED Patient: Instructions: ED Anxiety Reaction, ED Confusion Referrals: Rikki Stephens III, MD [Primary Care Provider] - 3-5 Days
[2020-03-13 12:48] VITALS: BP 186/52; PULSE 69; RESP 16; O2SAT 96
[2020-03-13 14:02] VITALS: BP 187/64; PULSE 68; RESP 17; O2SAT 96
--- NOTE | 2020-03-13 14:03 | ED.RN ---
Spoke to MELANIAShelton, step-daughter several times to update then to advise pt would be sleeping a bit before discharge due to med given. She verbalized understanding. Pt awakened and taken to truck, assisted inside with assist of two. Called POA to advise she may need assist too safely remove pt from car and allow her to sleep for the day. BRENDEN verbalized understanding and agreement.
== END 2020-03-13 14:06 | disposition home or self-care (01) ==
LOC: ED 11:25
PROVIDERS: Emergency Provider Emergency Medicine; PCP Family Medicine
DX: F41.9 Anxiety disorder, unspecified (principal); F03.90 Unspecified dementia, unspecified severity, without behavioral disturbance, psychotic disturbance, mood disturbance, and anxiety; I10 Essential (primary) hypertension; E78.00 Pure hypercholesterolemia, unspecified; K21.9 Gastro-esophageal reflux disease without esophagitis; Z85.038 Personal history of other malignant neoplasm of large intestine; Z86.73 Personal history of transient ischemic attack (TIA), and cerebral infarction without residual deficits
CPT/HCPCS: 80048; 81001; 84484; 85025; 93005; 96374; 99285; J7030; P9612; A4216

== ENCOUNTER 2020-05-16 11:27 | Emergency (ER) | payer MEDICARE, MEDICAID, SELFPAY ==
[2020-05-16 11:30] VITALS: BP 178/55; PULSE 73; RESP 15; TEMP 36.9; O2SAT 98; BMI 32.5
[2020-05-16 11:36] VITALS: BP 178/55; PULSE 70; RESP 18; TEMP 36.9; O2SAT 96
--- NOTE | 2020-05-16 11:47 | EKG12_ITS ---
Test Reason : Blood Pressure : / mmHG Vent. Rate : 066 BPM Atrial Rate : 066 BPM P-R Int : 130 ms QRS Dur : 094 ms QT Int : 416 ms P-R-T Axes : 050 -12 033 degrees QTc Int : 436 ms Normal sinus rhythm Minimal voltage criteria for LVH, may be normal variant Borderline ECG Confirmed by MARINA ERICKSON, ALEKSANDAR ([id number]), purchasing expeditor YEHUDA CRAIG ([id number]) on 05/18/2020 11:31:42 AM Referred By: MARY Confirmed By:ALEKSANDAR GRAY MD
[2020-05-16 12:01] LABS: Bacteria 0 SEEN /hpf (None Seen); Mucous, Urine 0 SEEN /hpf (<or=2+); Squamous Epithelial Cells - UA 0 SEEN /hpf (5-10); White Blood Cells 0 SEEN /hpf (0-5)
--- NOTE | 2020-05-16 12:07 | ED.VISSUMM ---
- ER Visit Summary Date of Service: 05/16/20 Chief Complaint: Elevated blood sugar History of Present Illness: The patient is a 75 F who presents with elevated blood sugar that began yesterday. Patient states that it gradually has gotten worse today. Patient checked her blood sugar this morning and it was 447. Patient states she drank a lot of water and her blood sugar went up to 471. EMS checked the patient's blood sugar and it was down to 340. Patient states she did have an episode of diarrhea yesterday. Patient also admits to a headache. Patient states she feels weak. Patient denies any fevers. Patient denies any chest pain or shortness of breath. Physical Examination: Vital signs are stable. Patient is afebrile. Patient is in no acute distress. Oral mucosa is pink and moist. Neck is supple. Trachea is midline. There is no JVD. Heart was regular rate and rhythm. Lungs are clear and equal bilaterally. Abdomen is soft. Bowel sounds are normal. There is mild lower abdominal tenderness. There is no rebound or guarding noted. Cranial nerves II through XII are intact. There are no focal motor or sensory deficits noted. Extremities are intact. There is no calf tenderness or edema. Test Results: EKG was obtained. On my interpretation, there is a normal sinus rhythm with a rate of 66. There are no acute ST or T wave changes. This was unchanged compared to previous EKG dated 03/13/2020. CBC is within normal limits. Comprehensive metabolic profile showed an elevated glucose of 370. Anion gap was normal. Serum acetone was negative. PT with INR and PTT were normal. Urinalysis was within normal limits. Troponin was normal. Initial lactate was elevated at 3.0. Portable 1 view chest x-ray was obtained. On my interpretation, lung bravo are clear. There is normal cardiac silhouette. Bony thorax is normal. There is no acute process noted. Radiologist also interpreted the x-ray and agrees. Emergency Department Course and Treatment: Patient was given IV fluids. Patient is feeling better on reevaluation. Lactate was repeated and was improved at 2.5. Patient was instructed to follow-up with her primary care physician in 3-5 days. Patient was instructed to monitor her sugars. Patient was instructed return if worse in any way. Patient understood and was agreeable with the plan. All questions were answered. Disposition: Discharge home Impression: 1. Hyperglycemia This note was generated with [employer] dictation software. It may contain incorrect words, spelling, and punctuation that were not noted in review of the chart prior to signing ED Disposition - Plan for ED Patient: Disposition: Home or Assisted Living Diagnosis: Hyperglycemia Instructions: ED Diabetic Hyperglycemia Referrals: Rikki Stephens III, MD [Primary Care Provider] - 3-5 Days
[2020-05-16 12:18] LABS: Absolute Lymphocyte Count 1.73 X10^3/uL (0.83-4.51); Absolute Neutrophil Count 5.3 X10^3/uL (2.0-7.7); Basophil# 0.04 X10^3/uL; Basophil% 0.5 % (0-1); Eosinophil# 0.31 X10^3/uL; Eosinophils% 3.9 % (0-5); Hematocrit 37.6 % (37-47); Hemoglobin 11.4 g/dL (12.0-15.0); Lymphocyte # 1.73 X10^3/ul (4.0); Lymphocyte % 21.8 % (19-41); Mean Corp Hgb Conc 30.3 g/dL (32-36); Mean Corpuscular Hgb 25.3 pg (27.0-32.0); Mean Corpuscular Volume 83.6 fL (81-99); Mean Platelet Vol. 10.5 fl (6.2-12.0); Monocyte# 0.56 X10^3/uL; Monocyte% 7.1 % (0-10); NRBC Flagged by Analyzer 0 % (0-5); Neutrophil # 5.27 X10^3/uL (2.7-7.7); Neutrophil % 66.3 % (47-70); Platelet Count 228 K/mm3 (150-450); RBC Distribution Width SD 45.1 fl (35.1-43.9); White Blood Count 7.9 K/mm3 (4.4-11.0)
[2020-05-16 12:19] LABS: Color, Urine Yellow (Yellow); Glucose, Dipstick 1000 mg/dl (Normal); Ketone-Dipstick Negative (Negative); Leukocyte Esterase-Dipstick Negative /ul (Negative); Nitrite-Dipstick Negative (Negative); Occult Blood-Urine 25 /ul (Negative); Protein-Dipstick Negative (Negative); Urine Bilirubin Dipstick Negative (Negative); Urine Clarity Clear (Clear); Urine Urobilinogen Normal (Normal); Urine pH 6.5 (5.0 - 8.0)
[2020-05-16 12:24] LABS: International Normalized Ratio 1.1; Partial Thromboplast Time 24.6 Seconds (24.1-36.2); Prothrombin Time (Protime)PT. 13.3 SECONDS (11.7-14.9)
[2020-05-16 12:27] LABS: ALB/GLOB Ratio 0.8 RATIO (0.9-2.4); AST(SGOT) 17 U/L (15-37); Alanine Aminotransfer ALT/SGPT 26 U/L (13-56); Albumin, Serum 3.3 g/dL (3.2-5.0); Alkaline Phosphatase 40 U/L (45-117); Anion Gap 9 (5-15); BUN 15 mg/dL (7-18); BUN/Creat Ratio 15.9 RATIO (10-20); Calcium,Total 9.2 mg/dL (8.5-10.1); Chloride 99 mmol/L (98-107); Creatinine, Serum 0.94 mg/dL (0.55-1.02); EST Glomerular Filtration Rate 61 mL/min (>60); Est Glom Filt Rate - Afr Amer 74 mL/min (>60); Estimated Creatinine Clearance 42.78 ml/min; Globulin 3.9 g/dL (2.2-4.2); Glucose 370 mg/dL (74-106); Potassium 3.6 mmol/L (3.5-5.1); Protein, Total 7.2 g/dL (6.4-8.2); Sodium Level 138 mmol/L (136-145)
[2020-05-16 12:28] LABS: Red Blood Cells-Urine 0-5 SEEN /hpf (0-5)
--- NOTE | 2020-05-16 12:33 | RAD_ITS ---
STUDY: X-RAY CHEST REASON FOR EXAM: Female, 75 years old. Fatigue, weakness, headache, diarrhea TECHNIQUE: Single AP portable view of the chest. COMPARISON: 12/19/2019 FINDINGS: Small granuloma in the right lower lung. Hypoventilatory changes. No focal infiltrate is seen. There is no demonstrated pleural abnormality. There is borderline cardiomegaly. Normal mediastinum and marti. Normal visualized pulmonary arteries. Normal visualized aortic arch and descending thoracic aorta. Stable osseous structures. There is no demonstrated abnormality of the visualized soft tissue structures of the upper abdomen. RAD/Chest 1 View (Portable) IMPRESSION: No active pulmonary disease. Electronically Signed: Phil Hernandez MD at 13:06 EST Tel , Service support ,
[2020-05-16] MEDS: 0.9% Normal Saline 1,000 ML 999 ML IV (12:49)
[2020-05-16 12:55] VITALS: BP 186/64; PULSE 79; RESP 17; TEMP 36.6; O2SAT 98
[2020-05-16 13:06] VITALS: BP 186/64; PULSE 72; RESP 17; TEMP 36.6; O2SAT 99
[2020-05-16 14:07] VITALS: BP 175/60; PULSE 80; RESP 18; TEMP 36.2; O2SAT 98
[2020-05-16 14:40] LABS: Lactic Acid 2.5 mmol/L (0.4-1.9)
[2020-05-16 15:16] VITALS: BP 145/56; PULSE 75; RESP 26; O2SAT 97
[2020-05-16 16:05] LABS: Reflex Lactate? Y
[2020-05-16 18:09] LABS: Reflex Lactate? Y
== END 2020-05-16 15:17 | disposition home or self-care (01) ==
PROVIDERS: Emergency Provider Emergency Medicine; PCP Family Medicine
DX: E11.65 Type 2 diabetes mellitus with hyperglycemia (principal); I10 Essential (primary) hypertension; E78.00 Pure hypercholesterolemia, unspecified; Z79.4 Long term (current) use of insulin; Z79.82 Long term (current) use of aspirin; Z79.899 Other long term (current) drug therapy
CPT/HCPCS: 36415; 71045; 80053; 81001; 82009; 83605; 84484; 85025; 85610; 85730; 93005; 99285; J7030; J7040; A4216

== ENCOUNTER 2020-05-17 14:07 | Emergency (ER) | payer MEDICARE, MEDICAID, SELFPAY ==
[2020-05-16 11:30] VITALS: BMI 32.5
[2020-05-17 14:10] VITALS: BP 159/86; PULSE 69; RESP 14; TEMP 36.8; O2SAT 99; BMI 33.2
[2020-05-17 14:30] LABS: Bedside Glucose 336 mg/dL (70-110)
--- NOTE | 2020-05-17 14:30 | EKG12_ITS ---
Test Reason : HYPERGLYCEMIA Blood Pressure : / mmHG Vent. Rate : 063 BPM Atrial Rate : 063 BPM P-R Int : 136 ms QRS Dur : 096 ms QT Int : 438 ms P-R-T Axes : 048 -18 020 degrees QTc Int : 448 ms Normal sinus rhythm Voltage criteria for left ventricular hypertrophy Abnormal ECG Confirmed by AMRINA ERICKSON, ALEKSANDAR ([id number]), graphics editor YEHUDA CRAIG ([id number]) on 05/19/2020 12:43:20 PM Referred By: BB Confirmed By:ALEKSANDAR GRAY MD
[2020-05-17] MEDS: Insulin Lispro 100 UNIT/ML INSULN.PEN 10 UNIT SC (14:41)
[2020-05-17] MEDS: 0.9% Normal Saline 1,000 ML 200 ML IV (14:44)
[2020-05-17 14:49] LABS: Absolute Lymphocyte Count 1.66 X10^3/uL (0.83-4.51); Absolute Neutrophil Count 3.8 X10^3/uL (2.0-7.7); Basophil# 0.04 X10^3/uL; Basophil% 0.6 % (0-1); Eosinophil# 0.31 X10^3/uL; Hematocrit 33.9 % (37-47); Hemoglobin 10.5 g/dL (12.0-15.0); Lymphocyte # 1.66 X10^3/ul (4.0); Lymphocyte % 26.6 % (19-41); Mean Corpuscular Hgb 25.2 pg (27.0-32.0); Mean Corpuscular Volume 81.5 fL (81-99); Mean Platelet Vol. 10.7 fl (6.2-12.0); Monocyte# 0.45 X10^3/uL; Monocyte% 7.2 % (0-10); NRBC Flagged by Analyzer 0 % (0-5); Neutrophil # 3.78 X10^3/uL (2.7-7.7); Neutrophil % 60.4 % (47-70); Platelet Count 195 K/mm3 (150-450); RBC Distribution Width CV 14.8 % (11.6-14.6); RBC Distribution Width SD 43.3 fl (35.1-43.9); Red Blood Count 4.16 M/mm3 (4.2-5.4); White Blood Count 6.3 K/mm3 (4.4-11.0)
--- NOTE | 2020-05-17 14:51 | ED.VIS.GEN ---
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 Denies eating increased sugar/carbs. Relieved by: Nothing in particular Associated Symptoms: Very weak. Polyuria, polydipsia. Narrative: Patient was seen here yesterday for hyperglycemia that was treated, she states today her blood sugar is at 508. 360s upon nursing checking it. She denies having any infections recently, just feeling very weak now as a result. She is compliant with her medications which include Metformin and Lantus at night. Denies any falls or injuries. No fevers or chills. She denies having had Covid, being around anyone that she knows of with it, or traveling out of the area recently. - Past Medical History (1) Suspected sleep apnea Status: Chronic (2) Anemia Status: Chronic (3) Anxiety Status: Chronic (4) Cancer of ascending colon metastatic to intra-abdominal lymph node Status: Chronic Comment: 04/2016 (5) Cerebral arteriosclerosis Status: Chronic (6) Chronic calculous cholecystitis Status: Chronic (7) DM2 (diabetes mellitus, type 2) Status: Chronic (8) Diverticulosis Status: Chronic (9) GERD (gastroesophageal reflux disease) Status: Chronic (10) HTN (hypertension) Status: Chronic (11) Hyperlipidemia Status: Chronic (12) 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 (13) Overactive bladder Status: Chronic (14) Venous insufficiency, peripheral Status: Chronic Past Medical History - Allergies and Home Meds Allergies/Adverse Reactions: Allergies citalopram hydrobromide [From Celexa] Allergy (Verified 05/17/20 14:14) Upset Stomach gabapentin [From Neurontin] Allergy (Verified 05/17/20 14:14) Unknown pt thinks she just felt funny hydrocodone bitartrate [From Vicodin] Allergy (Verified 05/17/20 14:14) drove her crazy lisinopril Allergy (Verified 05/17/20 14:14) Unknown tramadol Adverse Reaction (Severe, Verified 05/17/20 14:14) Extreme agitation, suicidal, distraught, fleeing oxycodone [From OxyContin] Adverse Reaction (Verified 05/17/20 14:14) Vomiting Primary Care Physician: Rikki Stephens III, MD [Primary Care Provider] - Surgical History: cholecystectomy, hysterectomy, total knee arthroplasty, - - Laparoscopic right colectomy February 2017 Smoking Status: Never smoker - Family History Maternal Family History: Family History (Last Updated 09/18/19 @ 09:23 by Tri Phelps) Son Diabetes Cancer of kidney Lung cancer Bone cancer Family History: Reports: Heart Disease - Heart failure in her mother Review of Systems General: Reports: Malaise. Denies: Chills, Fever, Sweats Eyes: Denies: Visual changes - bilaterally, Diplopia ENT: Denies: Bilateral ear pain, Rhinorrhea, Sore throat Cardiovascular: Denies: Chest pain, Palpitations Respiratory: Denies: Dyspnea, Cough, Dyspnea on exertion Gastrointestinal: Reports: Abdominal pain - Off-and-on, lower abdomen nonlateralizing, Diarrhea - Couple episodes, loose, Melena - Couple times. Denies: Nausea, Vomiting, Hematochezia Genitourinary: Denies: Dysuria, Hematuria, Frequency Musculoskeletal: Reports: Back pain - Low, chronic. Denies: Myalgias, Swelling, Extremity Pain Skin: Denies: Rash, Wounds Neurological: Reports: Headache - Off-and-on bifrontal, not there now. Denies: Weakness, Numbness Endocrine: Reports: Polyuria, Polydipsia. Denies: Heat intolerance, Cold intolerance Physical Exam Vital Signs/Narrative: Vital Signs Temp Pulse Resp BP Pulse Ox 05/17/20 14:10 98.2 F 69 14 159/86 H 99 Inital Vital Signs reviewed: Yes General: Well nourished, Well developed, No Acute Distress Head: Normocephalic, Atraumatic Eyes: Perrl, EOMI ENT: No rhinorrhea, Dry mucous membranes Neck: Supple, Nontender, No lymphadenopathy Cardiovascular: Regular rate, Regular rhythm, No murmurs. Negative for: Tachycardia Respiratory: No distress, CTA bilaterally, Chest nontender Abdomen: Soft, Nontender, Nondistended, Normal bowel sounds Back: Nontender, Normal Inspection. Negative for: CVA tenderness Extremities: Nontender, No edema. Negative for: Calf Tenderness Skin: Normal color, No rash, No Trauma Neurological: Alert, Oriented x3, Cranial nerves II-XII grossly intact, Normal Strength, Normal Sensation Psychological: Normal affect, Normal Mood Diagnostic/Tx/Re-eval Laboratory Results 05/17/20 05/17/20 05/17/20 14:18 14:25 14:25 WBC 6.3 RBC 4.16 L Hgb 10.5 L Hct 33.9 L MCV 81.5 MCH 25.2 L MCHC 31.0 L RDW Std Deviation 43.3 RDW Coeff of Terry 14.8 H Plt Count 195 MPV 10.7 Immature Gran % (Auto) 0.200 Neut % (Auto) 60.4 Lymph % (Auto) 26.6 [place] % (Auto) 7.2 Eos % (Auto) 5.0 Baso % (Auto) 0.6 Absolute Neuts (auto) 3.8 Absolute Lymphs (auto) 1.66 Nucleated RBC % 0 Sodium 138 Potassium 3.4 L Chloride 101 Carbon Dioxide 29.0 Anion Gap 8 BUN 13 Creatinine 0.97 Estim Creat Clear Calc 41.45 Est GFR (MDRD) Af Amer 72 Est GFR (MDRD) Non-Af 60 BUN/Creatinine Ratio 13.4 Glucose 347 H Calcium 8.8 Troponin I < 0.015 POC Glucose 336 H 05/17/20 05/17/20 15:54 16:52 WBC RBC Hgb Hct MCV MCH MCHC RDW Std Deviation RDW Coeff of Terry Plt Count MPV Immature Gran % (Auto) Neut % (Auto) Lymph % (Auto) [place] % (Auto) Eos % (Auto) Baso % (Auto) Absolute Neuts (auto) Absolute Lymphs (auto) Nucleated RBC % Sodium Potassium Chloride Carbon Dioxide Anion Gap BUN Creatinine Estim Creat Clear Calc Est GFR (MDRD) Af Amer Est GFR (MDRD) Non-Af BUN/Creatinine Ratio Glucose Calcium Troponin I POC Glucose 232 H 142 H - Rhythm Strip Rhythm Strip: Sinus Rhythm Rate: 63 Ectopy: None - EKG Initial EKG Interpretation: Sinus Rhythm, No Acute Injury Pattern - Medical Decision Making Patient is a little prerenal but otherwise her labs look good except for hyperglycemia. She was given 10 units of subcutaneous lispro insulin, her sugar gradually came down to 142 and she was given gentle IV isotonic saline at 200 cc/h. On reevaluation she feels better. Her potassium was a little low so she was given some oral potassium. I offered admission but she refuses and wants to go home. I had nursing get her up and she is able to walk around adequately and safely. She was advised to follow-up closely with her doctor. I did not repeat chest x-ray and urinalysis which were performed yesterday and were normal except for glycosuria. ED Disposition - Plan for ED Patient: Disposition: Home or Assisted Living Diagnosis: Mild dehydration, Hypokalemia, Hyperglycemia due to type 2 diabetes mellitus Instructions: ED Diabetic Hyperglycemia Referrals: Rikki Stephens III, MD [Primary Care Provider] - 2 Days (Call for appointment)
[2020-05-17 15:03] LABS: Anion Gap 8 (5-15); BUN 13 mg/dL (7-18); BUN/Creat Ratio 13.4 RATIO (10-20); Calcium,Total 8.8 mg/dL (8.5-10.1); Chloride 101 mmol/L (98-107); Creatinine, Serum 0.97 mg/dL (0.55-1.02); EST Glomerular Filtration Rate 60 mL/min (>60); Est Glom Filt Rate - Afr Amer 72 mL/min (>60); Estimated Creatinine Clearance 41.45 ml/min; Glucose 347 mg/dL (74-106); Potassium 3.4 mmol/L (3.5-5.1); Sodium Level 138 mmol/L (136-145)
[2020-05-17 16:01] LABS: Bedside Glucose 232 mg/dL (70-110)
[2020-05-17 16:07] VITALS: BP 169/55; PULSE 62; RESP 16; O2SAT 97
[2020-05-17] MEDS: Potassium Chloride Oral Tablet 20 MEQ 40 MEQ PO (16:12)
[2020-05-17 16:56] LABS: Bedside Glucose 142 mg/dL (70-110)
[2020-05-17 17:20] VITALS: BP 169/55; PULSE 63; RESP 15; O2SAT 95
== END 2020-05-17 17:21 | disposition home or self-care (01) ==
PROVIDERS: Emergency Provider Emergency Medicine; PCP Family Medicine
DX: E86.0 Dehydration (principal); E87.6 Hypokalemia; E11.65 Type 2 diabetes mellitus with hyperglycemia; I10 Essential (primary) hypertension; E78.5 Hyperlipidemia, unspecified; Z90.710 Acquired absence of both cervix and uterus; Z90.49 Acquired absence of other specified parts of digestive tract; Z85.038 Personal history of other malignant neoplasm of large intestine; Z79.4 Long term (current) use of insulin
CPT/HCPCS: 80048; 82962; 84484; 85025; 93005; 96360; 96361; 99285; J7030

== ENCOUNTER 2020-06-15 17:30 | Emergency (ER) | payer MEDICARE, MEDICAID, SELFPAY ==
[2020-06-15 17:31] VITALS: BP 150/81; PULSE 64; RESP 18; TEMP 36.1; O2SAT 97; BMI 32.6
--- NOTE | 2020-06-15 17:52 | US_ITS ---
STUDY: VENOUS DOPPLER ULTRASOUND - LEFT LOWER EXTREMITY REASON FOR EXAM: Female, 75 years old. BOTTOM OF LT FOOT PAIN AND SWELLING TECHNIQUE: Ultrasound evaluation of the deep vein system to include bryan-scale imaging and compression was performed. Bryan-scale imaging and Doppler sonographic evaluation, including duplex spectral analysis and qualitative color flow sonography, was performed. COMPARISON: None. FINDINGS: Common Femoral Vein: Normal compression, spontaneity and augmentation. Normal color Doppler. Common Femoral Vein/Greater Saphenous Junction: Normal compression, spontaneity and augmentation. Normal color Doppler. Femoral Proximal: Normal compression, spontaneity and augmentation. Normal color Doppler. Femoral Middle: Normal compression, spontaneity and augmentation. Normal color Doppler. Femoral Distal: Normal compression, spontaneity and augmentation. Normal color Doppler. Popliteal Vein: Normal compression, spontaneity and augmentation. Normal color Doppler. Posterior Tibial Vein: Normal compression, spontaneity and augmentation. Normal color Doppler. Peroneal Vein: Normal compression, spontaneity and augmentation. Normal color Doppler. The right common femoral vein was evaluated and is normal. US/Venous Duplex Imag/Limited/Uni IMPRESSION: Normal venous Doppler ultrasound of the lower extremity. Electronically Signed: Boo Shepard MD at 19:14 EDT , Service support ,
--- NOTE | 2020-06-15 17:53 | ED.DCSUM_ITS ---
- ER Visit Summary Date of Service: 06/15/20 Chief Complaint: Left leg swelling History of Present Illness: The patient is a 75 F presenting with left leg swelling. Patient states she noticed this today. She has pain to the bottom of her left foot and swelling of her left calf. She has had this in the past. She denies history of DVT or PE. Denies chest pain or shortness of breath. Denies fever. Denies other complaints. Physical Examination: Vitals are stable. Patient is afebrile. Alert no acute distress. HEENT exam is unremarkable. Neck is supple. Lungs are clear and equal bilaterally. Heart is regular rate and rhythm. Extremities mild left lower extremity swelling, normal distal pulses. No erythema or warmth. Mild tenderness plantar surface left foot Skin is warm and dry. No focal neurologic deficit. Remainder of exam is unremarkable. Emergency Department Course and Treatment: Left foot xray shows mild to moderate narrowing of the IP joints throughout the foot and the first MTP joint space. No visualized fracture. A small plantar calcaneal spur is present with moderate underlying edema which could be related to plantar fascia is or bursitis. Mild enthesopathy present at the Achilles tendon insertion site. Venous doppler LLE shows normal venous Doppler ultrasound of the lower extremity. Patient was given a postop shoe. Advised to follow-up with podiatry. Advised return to the ED for worsening complaints. Disposition: Discharge home Impression: Left lower extremity swelling, left foot pain This note was generated with [employer] dictation software. It may contain incorrect words, spelling, and punctuation that were not noted in review of the chart prior to signing ED Disposition - Plan for ED Patient: Instructions: ED Plantar Fasciitis Referrals: Rikki Stephens III, MD [Primary Care Provider] - Echo Del Rio DPM [STAFF PHYSICIAN] -
--- NOTE | 2020-06-15 17:56 | RAD_ITS ---
STUDY: X-RAY - LEFT FOOT CLINICAL: Female, 75 years old. NO KNOWN INJURY. SWELLING IN FOOT AND LOWER LEG. PAINFUL ON PLANTAR SURFACE OF FOOT/HEEL TECHNIQUE: 3 view(s) of the foot. COMPARISON: None. FINDINGS: Mild to moderate narrowing of the IP joints throughout the foot and the first MTP joint space. No visualized fracture. A small plantar calcaneal spur is present with moderate underlying edema which could be related to plantar fascia is or bursitis. Mild enthesopathy present at the Achilles tendon insertion site. Normal talus, calcaneus, and tarsal bones. Normal visualized subtalar, talonavicular, calcaneocuboid, tarsal and tarsometatarsal articulations. Normal metatarsi. RAD/Foot min 3 Views IMPRESSION: 1. Mild to moderate narrowing of the IP joints throughout the foot and the first MTP joint space. No visualized fracture. 2. A small plantar calcaneal spur is present with moderate underlying edema which could be related to plantar fascia is or bursitis. 3. Mild enthesopathy present at the Achilles tendon insertion site. Electronically Signed: Boo Shepard MD at 18:45 EDT , Service support ,
--- NOTE | 2020-06-15 19:36 | ED.DEP ---
ED Disposition - Plan for ED Patient: Instructions: ED Plantar Fasciitis Referrals: Rikki Stephens III, MD [Primary Care Provider] - Echo Del Rio DPM [STAFF PHYSICIAN] -
[2020-06-15 19:54] VITALS: BP 190/72; PULSE 70; RESP 16
== END 2020-06-15 19:56 | disposition home or self-care (01) ==
PROVIDERS: Emergency Provider Emergency Medicine; PCP Family Medicine
DX: M79.89 Other specified soft tissue disorders (principal); M79.672 Pain in left foot
CPT/HCPCS: 73630; 93971; 99282

== ENCOUNTER → 2020-09-06 18:01 | Outpatient (CLI) | payer MEDICARE, MEDICAID, SELFPAY ==
[2020-09-06 15:12] VITALS: BMI 35.4
[2020-09-06 18:02] LABS: Mucous, Urine 0 SEEN /hpf (<or=2+)
[2020-09-06 18:10] LABS: Color, Urine Yellow (Yellow); Glucose, Dipstick Normal (Normal); Ketone-Dipstick Negative (Negative); Leukocyte Esterase-Dipstick 25 /ul (Negative); Nitrite-Dipstick Negative (Negative); Occult Blood-Urine 10 /ul (Negative); Protein-Dipstick 30 mg/dl (Negative); Urine Bilirubin Dipstick Negative (Negative); Urine Clarity Sl. Cloudy (Clear); Urine Urobilinogen Normal (Normal)
[2020-09-06 18:16] LABS: Amorphous Sediment 1+ URATE; Bacteria RARE /hpf (None Seen); Red Blood Cells-Urine 0-5 SEEN /hpf (0-5); Squamous Epithelial Cells - UA 0-5 SEEN /hpf (5-10); White Blood Cells 0-5 SEEN /hpf (0-5)
== END ==
PROVIDERS: PCP Family Medicine; Visit Provider Physician Assistant
DX: R31.9 Hematuria, unspecified (principal); R53.83 Other fatigue
CPT/HCPCS: 81001; 87077; 87086; 87088

== ENCOUNTER 2020-09-07 12:07 | Emergency (ER) | payer MEDICARE, MEDICAID, SELFPAY ==
[2020-09-06 15:12] VITALS: BMI 35.4
[2020-09-07 12:08] VITALS: BP 112/70; PULSE 68; RESP 16; TEMP 36.7; O2SAT 97; BMI 33.6
[2020-09-07 12:59] LABS: Mucous, Urine 0 SEEN /hpf (<or=2+); Red Blood Cells-Urine 0 SEEN /hpf (0-5)
[2020-09-07 13:00] LABS: Glucose, Dipstick Normal (Normal); Ketone-Dipstick Negative (Negative); Leukocyte Esterase-Dipstick Negative /ul (Negative); Nitrite-Dipstick Positive (Negative); Occult Blood-Urine 25 /ul (Negative); Protein-Dipstick 30 mg/dl (Negative); Urine Clarity Sl. Cloudy (Clear); Urine Urobilinogen 8 mg/dl (Normal)
[2020-09-07 13:01] LABS: Color, Urine SEE COMMENT BELOW (Yellow); Urine Bilirubin Dipstick 6 mg/dL (Negative)
[2020-09-07 13:09] LABS: Squamous Epithelial Cells - UA 0-5 SEEN /hpf (5-10); White Blood Cells 0-5 SEEN /hpf (0-5)
[2020-09-07 13:10] LABS: Bacteria RARE /hpf (None Seen)
[2020-09-07 13:17] LABS: Absolute Lymphocyte Count 1.58 X10^3/uL (0.83-4.51); Absolute Neutrophil Count 5.2 X10^3/uL (2.0-7.7); Basophil# 0.04 X10^3/uL; Basophil% 0.5 % (0-1); Eosinophil# 0.37 X10^3/uL; Eosinophils% 4.7 % (0-5); Hematocrit 33.7 % (37-47); Hemoglobin 10.1 g/dL (12.0-15.0); Lymphocyte # 1.58 X10^3/ul (0.83-4.51); Lymphocyte % 20.1 % (19-41); Mean Platelet Vol. 10.3 fl (6.2-12.0); Monocyte# 0.65 X10^3/uL; Monocyte% 8.3 % (0-10); NRBC Flagged by Analyzer 0 % (0-5); Neutrophil # 5.18 X10^3/uL (2.7-7.7); Platelet Count 227 K/mm3 (150-450); RBC Distribution Width CV 15.1 % (11.6-14.6); Red Blood Count 4.21 M/mm3 (4.2-5.4); White Blood Count 7.9 K/mm3 (4.4-11.0)
[2020-09-07 13:32] LABS: ALB/GLOB Ratio 0.8 RATIO (0.9-2.4); AST(SGOT) 28 U/L (15-37); Alanine Aminotransfer ALT/SGPT 25 U/L (13-56); Albumin, Serum 3.1 g/dL (3.2-5.0); Alkaline Phosphatase 36 U/L (45-117); Anion Gap 8 (5-15); BUN 20 mg/dL (7-18); BUN/Creat Ratio 19.6 RATIO (10-20); Calcium,Total 8.7 mg/dL (8.5-10.1); Chloride 105 mmol/L (98-107); Creatinine, Serum 1.02 mg/dL (0.55-1.02); EST Glomerular Filtration Rate 56 mL/min (>60); Est Glom Filt Rate - Afr Amer 68 mL/min (>60); Estimated Creatinine Clearance 39.42 ml/min; Globulin 3.9 g/dL (2.2-4.2); Glucose 175 mg/dL (74-106); Sodium Level 141 mmol/L (136-145)
[2020-09-07 14:00] LABS: Lactic Acid 2.9 mmol/L (0.4-1.9)
--- NOTE | 2020-09-07 14:00 | ED.RN ---
LACTIC ACID 2.9. DR BENSON
[2020-09-07 14:08] VITALS: BP 158/58; PULSE 84; PULSE 86; RESP 18; TEMP 37; O2SAT 96
[2020-09-07 15:00] VITALS: BP 161/66; PULSE 69; RESP 16; TEMP 36.7; O2SAT 93
[2020-09-07] MEDS: Ceftriaxone 1 GM/50 ML BAG IV (15:03)
--- NOTE | 2020-09-07 15:51 | ED.RN ---
IV infiltrated after IV atb infusion. PT declines second IV attempt and opts to go home without IV fluid infusion.
[2020-09-07 15:53] VITALS: BP 158/68; PULSE 67; RESP 16; O2SAT 95
[2020-09-07 17:13] LABS: Reflex Lactate? Y
--- NOTE | 2020-09-07 17:51 | EDS_ITS ---
HPI History of Present Illness Chief Complaint: Complaint Informant: patient Onset/Context/Timing Onset: Weeks (2) Context: Gradual Onset Timing: Continuous Quality: Aching Location: Generalized Worsened by: Urination Relieved by: Nothing Narrative Narrative: Patient presents with possible urinary tract infection. Patient admits to some dysuria and frequency for the past 2 weeks. Patient denies any hematuria. Patient admits to some nausea and vomiting. Patient admits to some low back pain. Patient admits to subjective fevers. Patient states she has some generalized aching. Patient denies any chest pain or shortness of breath. Patient denies any cough. [facility] Medical History Abdominal pain Adenocarcinoma of colon Anemia Anxiety Cancer of ascending colon metastatic to intra-abdominal lymph node Cerebral arteriosclerosis Chronic calculous cholecystitis Dehydration Dementia Diarrhea Diverticulitis of colon Diverticulosis Dizziness DM2 (diabetes mellitus, type 2) Dysphagia GERD (gastroesophageal reflux disease) GERD with stricture Hematuria Hemorrhoids History of colon cancer History of CVA (cerebrovascular accident) HTN (hypertension) Hyperlipidemia Hypokalemia Intervertebral disc disorder with radiculopathy of lumbar region Nausea & vomiting Overactive bladder Risk for falls Suspected sleep apnea Venous insufficiency, peripheral Home Medications pravastatin 80 mg PO DAILY 04/19/14 [History Last Taken 12/18/19] metoprolol succinate 100 mg tablet,extended release 24 hr 100 mg PO DAILY tab 03/29/17 [History Last Taken 12/19/19] insulin glargine 30 units SQ QHS 08/21/17 [History Last Taken 12/18/19] metformin 1,000 mg PO BID 04/03/18 [History Last Taken 12/19/19] duloxetine 60 mg PO DAILY 01/06/19 [History Last Taken 12/19/19] pramipexole 1 mg PO QHS 01/06/19 [History Last Taken 03/30/19] amlodipine 5 mg PO DAILY 03/31/19 [History Last Taken 12/19/19] aspirin 81 mg PO DAILY 03/31/19 [History Last Taken 12/19/19] esomeprazole magnesium 40 mg PO DAILY PRN 03/31/19 [History Last Taken 12/19/19] losartan 50 mg PO DAILY 03/31/19 [History Last Taken 12/19/19] tizanidine 4 mg capsule 4 mg PO Q8H PRN 09/18/19 [History Last Taken Unknown] donepezil 5 mg PO QHS 12/19/19 [History Last Taken 12/18/19] isosorbide mononitrate 30 mg PO DAILY 12/19/19 [History Last Taken 12/19/19] pregabalin 50 mg capsule 50 mg PO DAILY 01/28/20 [History Last Taken Unknown] risperidone 0.25 mg PO BID 05/17/20 [History Last Taken Unknown] furosemide 20 mg tablet 20 mg PO tab 09/06/20 [History Last Taken Unknown] insulin lispro 100 unit/mL subcutaneous pen 12 unit SUBCUT ml 09/06/20 [History Last Taken Unknown] naproxen sodium 220 mg capsule 220 mg PO BID PRN 09/06/20 [History Last Taken Unknown] potassium chloride 20 mEq tablet,extended release(part/cryst) 20 meq PO tab 09/06/20 [History Last Taken Unknown] amoxicillin-pot clavulanate [Augmentin] 1 tab PO BID #10 tab 09/07/20 [Rx Last Taken Unknown] Allergy/AdvReac Type Severity Reaction Status Date / Time citalopram hydrobromide Allergy Upset Verified 09/07/20 12:12 [From Celexa] Stomach gabapentin [From Neurontin] Allergy Unknown Verified 09/07/20 12:12 hydrocodone bitartrate Allergy drove her Verified 09/07/20 12:12 [From Vicodin] crazy lisinopril Allergy Unknown Verified 09/07/20 12:12 tramadol AdvReac Severe Extreme Verified 09/07/20 12:12 agitation, suicidal, distraught, fleeing morphine AdvReac Other Verified 09/07/20 12:13 oxycodone [From OxyContin] AdvReac Vomiting Verified 09/07/20 12:12 Family History Son Diabetes Cancer of kidney Lung cancer Bone cancer Surgical History History of esophagogastroduodenoscopy (EGD) Hx of colonoscopy Hx of heart surgery S/P cholecystectomy S/P colectomy S/P hysterectomy Status post corneal transplant Status post total knee replacement, right Social History Smoking Status: Never smoker second hand exposure: No alcohol intake: never substance use type: does not use caffeine: Yes what type of physical activity do you participate in: none frequency: does not exercise seatbelt use: always ROS ROS ED Constitutional Constitutional ED: Reports fever(s) and subjective; Denies chills Eyes Eyes: Denies blurry vision or change in vision ENT ENT ED: Denies rhinorrhea or sore throat Cardiovascular Cardiovascular: Denies chest pain or palpitations Respiratory/Chest Respiratory/Chest: Denies cough or dyspnea Gastrointestinal Gastrointestinal: Reports nausea and vomiting Genitourinary Genitourinary ED: Reports dysuria and urinary frequency; Denies hematuria Musculoskeletal Musculoskeletal: Reports back pain; Denies neck pain Integumentary Denies abscess or rash Neurologic Neurologic: Denies headache(s) or weakness Allergic/Immunologic Allergic/Immunologic ED: Denies mouth swelling or urticaria EXAM Physical Exam Const Vital Signs: 09/07/20 12:08 09/07/20 14:08 09/07/20 15:00 Temperature 98.1 F 98.6 F 98.0 F Temperature Source Oral Oral Temporal Pulse Rate 68 84 69 Respiratory Rate 16 18 16 Blood Pressure 112/70 158/58 H 161/66 H Blood Pressure Mean 84 91 97 Pulse Ox 97 96 93 Oxygen Delivery Method Room Air Room Air Room Air 09/07/20 15:53 Temperature Temperature Source Pulse Rate 67 Respiratory Rate 16 Blood Pressure 158/68 H Blood Pressure Mean Pulse Ox 95 Oxygen Delivery Method Positive well nourished, well developed and obese General Appearance ED: well developed Nutritional Appearance: obese HEENT Reports moist mucous membranes Neck supple and no JVD Resp normal respiratory effort and clear to auscultation bilaterally Cardio regular rate, regular rhythm and no murmurs GI normal to inspection, nondistended, normoactive bowel sounds and non-tender Palpation: soft Extremity normal to inspection General Extremety ED: Negative for edema or tenderness General Extremity: Negative for edema Neuro oriented x3, CN's II-XII intact bilaterally and no sensory deficits noted Sensorium / Orientation: alert Motor Exam: strength 5/5 throughout Psych mental status grossly normal Skin no rashes or lesions noted MDM MDM MDM Narrative Medical decision making narrative: Patient was given IV fluids. CBC shows a mild anemia with hemoglobin of 10.1 and hematocrit 33.7. Comprehensive metabolic profile was essentially within normal limits. Lactic acid was slightly elevated at 2.9. This is most likely due to patient being on Metformin. I do not feel the patient is septic. Her vital signs are normal. Her white blood cell count is normal. The rest of her labs are within normal limits as well. Urinalysis shows positive nitrites but negative leukocyte esterase. There is rare bacteria. Urine culture was ordered. Patient was given a dose of Rocephin here. Patient was given a prescription for Augmentin. Patient is feeling better after IV fluids. Patient was instructed to follow-up with her primary care physician in 3 to 5 days. Patient understood and was agreeable with the plan. All questions were answered. Lab Data Attestation: I reviewed the patient's lab results. Labs: Laboratory Results - last 24 hr 09/07/20 09/07/20 09/07/20 12:20 13:06 13:06 WBC 7.9 RBC 4.21 Hgb 10.1 L Hct 33.7 L MCV 80.0 L MCH 24.0 L MCHC 30.0 L RDW Std Deviation 44.0 H RDW Coeff of Terry 15.1 H Plt Count 227 MPV 10.3 Immature Gran % (Auto) 0.400 Neut % (Auto) 66.0 Lymph % (Auto) 20.1 [place] % (Auto) 8.3 Eos % (Auto) 4.7 Baso % (Auto) 0.5 Absolute Neuts (auto) 5.2 Absolute Lymphs (auto) 1.58 Nucleated RBC % 0 Sodium 141 Potassium 4.0 Chloride 105 Carbon Dioxide 28.0 Anion Gap 8 BUN 20 H Creatinine 1.02 Estim Creat Clear Calc 39.42 Est GFR (MDRD) Af Amer 68 Est GFR (MDRD) Non-Af 56 L BUN/Creatinine Ratio 19.6 Glucose 175 H Lactic Acid Calcium 8.7 Total Bilirubin 0.40 AST 28 ALT 25 Alkaline Phosphatase 36 L Total Protein 7.0 Albumin 3.1 L Globulin 3.9 Albumin/Globulin Ratio 0.8 L Urine Color SEE COMMENT BELOW Urine Clarity Sl. Cloudy Urine pH 5.0 Ur Specific [place] 1.020 Urine Protein 30 H Urine Glucose (UA) Normal Urine Ketones Negative Urine Occult Blood 25 H Urine Nitrite Positive H Urine Bilirubin 6 H Urine Urobilinogen 8 H Ur Leukocyte Esterase Negative Urine RBC 0 SEEN Urine WBC 0-5 SEEN Ur Squamous Epith Cells 0-5 SEEN Urine Bacteria RARE Urine Mucus 0 SEEN 09/07/20 13:06 WBC RBC Hgb Hct MCV MCH MCHC RDW Std Deviation RDW Coeff of Terry Plt Count MPV Immature Gran % (Auto) Neut % (Auto) Lymph % (Auto) [place] % (Auto) Eos % (Auto) Baso % (Auto) Absolute Neuts (auto) Absolute Lymphs (auto) Nucleated RBC % Sodium Potassium Chloride Carbon Dioxide Anion Gap BUN Creatinine Estim Creat Clear Calc Est GFR (MDRD) Af Amer Est GFR (MDRD) Non-Af BUN/Creatinine Ratio Glucose Lactic Acid 2.9 H* Calcium Total Bilirubin AST ALT Alkaline Phosphatase Total Protein Albumin Globulin Albumin/Globulin Ratio Urine Color Urine Clarity Urine pH Ur Specific [place] Urine Protein Urine Glucose (UA) Urine Ketones Urine Occult Blood Urine Nitrite Urine Bilirubin Urine Urobilinogen Ur Leukocyte Esterase Urine RBC Urine WBC Ur Squamous Epith Cells Urine Bacteria Urine Mucus Discharge Plan Triage Chief Complaint: Complaint ED Provider: Matias Pretty Dx/Rx/DC Orders Clinical Impression: Urinary tract infection Instructions: ED Bladder Infection, Female (Adult) Prescriptions: New amoxicillin-pot clavulanate [Augmentin] 875-125 mg tablet 1 tab PO BID Qty: 10 RF: 0 No Action metoprolol succinate 100 mg tablet extended release 24 hr 100 mg PO DAILY RF: 0 tizanidine 4 mg capsule 4 mg PO Q8H PRN (Reason: Pain Or Fever) RF: 0 pregabalin 50 mg capsule 50 mg PO DAILY RF: 0 furosemide 20 mg tablet 20 mg PO RF: 0 insulin lispro 100 unit/mL insulin pen 12 unit subcut RF: 0 naproxen sodium [Aleve] 220 mg capsule 220 mg PO BID PRNRF: 0 potassium chloride 20 mEq tablet,ER particles/crystals 20 meq PO RF: 0 pravastatin 40 MG tablet 80 mg PO DAILY RF: 0 insulin glargine 100 UNITS/ML insulin pen 30 units SQ QHS RF: 0 metformin 500 MG tablet 1,000 mg PO BID RF: 0 pramipexole 0.5 MG tablet 1 mg PO QHS RF: 0 duloxetine 60 MG capsule,delayed release(DR/EC) 60 mg PO DAILY RF: 0 losartan 50 MG tablet 50 mg PO DAILY RF: 0 amlodipine 5 MG tablet 5 mg PO DAILY RF: 0 aspirin 81 MG tablet,delayed release (DR/EC) 81 mg PO DAILY RF: 0 esomeprazole magnesium 40 MG capsule,delayed release(DR/EC) 40 mg PO DAILY PRN (Reason: Indigestion) RF: 0 donepezil 5 MG tablet 5 mg PO QHS RF: 0 isosorbide mononitrate 30 mg tablet extended release 24 hr 30 mg PO DAILY RF: 0 risperidone 0.25 MG tablet 0.25 mg PO BID RF: 0 Primary Care Provider: Brayan Taylor Referrals: Brayan Taylor DO [Primary Care Provider] - 5-7 Days Disposition Disposition: Home, self care Discharge Date/Time: 09/07/20 16:00
== END 2020-09-07 16:00 | disposition home or self-care (01) ==
PROVIDERS: Emergency Provider Emergency Medicine; PCP Pediatrics
DX: N39.0 Urinary tract infection, site not specified (principal); E66.9 Obesity, unspecified; Z86.73 Personal history of transient ischemic attack (TIA), and cerebral infarction without residual deficits; Z85.038 Personal history of other malignant neoplasm of large intestine
CPT/HCPCS: 80053; 81001; 83605; 85025; 87040; 87077; 87086; 87088; 96365; 99283; J7030; A4216

== ENCOUNTER 2020-09-14 15:08 | Emergency (ER) | payer MEDICARE, MEDICAID, SELFPAY ==
[2020-09-14 15:09] VITALS: BP 159/57; PULSE 60; RESP 18; TEMP 36.1; O2SAT 100; BMI 33.0
[2020-09-14 15:11] VITALS: BP 159/57; PULSE 60; RESP 18; TEMP 36.1; O2SAT 100; O2SAT 97
--- NOTE | 2020-09-14 15:45 | CT_ITS ---
INDICATION: flank pain EXAMINATION: CT Abdomen And Pelvis W/O Contrast Injection TECHNIQUE: Helically acquired images were obtained of the abdomen and pelvis without the use of IV contrast. A radiation dose optimization technique was used for this scan. Oral contrast: None. COMPARISON: None FINDINGS: Evaluation of the solid organs and vascular structures is limited without intravenous contrast. Visualized lung bases: Unremarkable Liver: Unremarkable Gallbladder: Surgically absent. Spleen: Multiple splenic granulomas. Pancreas: Unremarkable Adrenal Glands: Unremarkable Kidneys: Unremarkable Vasculature: Unremarkable GI Tract: Hiatal hernia. Scattered colonic diverticula. Postsurgical changes from prior partial right hemicolectomy. Lymphadenopathy: None Peritoneum: No ascites. Bladder: Unremarkable Reproductive organs: Status post hysterectomy. Bones/Soft tissues: There are diffuse degenerative changes of the spine. CT/Abdomen/Pelvis without Cont IMPRESSION: No acute abnormalities in the abdomen or pelvis. Diverticulosis. Electronically Signed: Luiz Lopez MD at 16:54 EDT Tel , Service support ,
[2020-09-14 16:09] LABS: Absolute Lymphocyte Count 2.23 X10^3/uL (0.83-4.51); Absolute Neutrophil Count 4.1 X10^3/uL (2.0-7.7); Basophil# 0.05 X10^3/uL; Basophil% 0.7 % (0-1); Eosinophils% 4.1 % (0-5); Hematocrit 33.4 % (37-47); Hemoglobin 10.1 g/dL (12.0-15.0); Lymphocyte # 2.23 X10^3/ul (0.83-4.51); Lymphocyte % 30.3 % (19-41); Mean Corp Hgb Conc 30.2 g/dL (32-36); Mean Corpuscular Hgb 23.8 pg (27.0-32.0); Mean Corpuscular Volume 78.8 fL (81-99); Mean Platelet Vol. 9.9 fl (6.2-12.0); Monocyte# 0.66 X10^3/uL; NRBC Flagged by Analyzer 0 % (0-5); Neutrophil % 55.8 % (47-70); Platelet Count 225 K/mm3 (150-450); RBC Distribution Width CV 15.2 % (11.6-14.6); RBC Distribution Width SD 43.3 fl (35.1-43.9); Red Blood Count 4.24 M/mm3 (4.2-5.4); White Blood Count 7.4 K/mm3 (4.4-11.0)
[2020-09-14] MEDS: Ceftriaxone 1 GM/50 ML BAG IV (16:13)
[2020-09-14 16:19] LABS: Bacteria 0 SEEN /hpf (None Seen); Mucous, Urine 0 SEEN /hpf (<or=2+); Red Blood Cells-Urine 0 SEEN /hpf (0-5); Squamous Epithelial Cells - UA 0 SEEN /hpf (5-10); White Blood Cells 0 SEEN /hpf (0-5)
[2020-09-14 16:20] LABS: Color, Urine Yellow (Yellow); Glucose, Dipstick Normal (Normal); Ketone-Dipstick Negative (Negative); Leukocyte Esterase-Dipstick Negative /ul (Negative); Nitrite-Dipstick Negative (Negative); Occult Blood-Urine Negative /ul (Negative); Protein-Dipstick Negative (Negative); Specific Gravity, Urine 1.005 (1.002-1.030); Urine Bilirubin Dipstick Negative (Negative); Urine Clarity Clear (Clear); Urine Urobilinogen Normal (Normal); Urine pH 6.5 (5.0 - 8.0)
[2020-09-14 16:23] LABS: ALB/GLOB Ratio 0.9 RATIO (0.9-2.4); AST(SGOT) 15 U/L (15-37); Alanine Aminotransfer ALT/SGPT 23 U/L (13-56); Albumin, Serum 3.4 g/dL (3.2-5.0); Alkaline Phosphatase 33 U/L (45-117); Anion Gap 9 (5-15); BUN 17 mg/dL (7-18); BUN/Creat Ratio 18.2 RATIO (10-20); Calcium,Total 9.2 mg/dL (8.5-10.1); Chloride 101 mmol/L (98-107); Creatinine, Serum 0.94 mg/dL (0.55-1.02); EST Glomerular Filtration Rate 62 mL/min (>60); Est Glom Filt Rate - Afr Amer 75 mL/min (>60); Estimated Creatinine Clearance 42.78 ml/min; Globulin 3.7 g/dL (2.2-4.2); Glucose 127 mg/dL (74-106); Potassium 3.2 mmol/L (3.5-5.1); Protein, Total 7.1 g/dL (6.4-8.2); Sodium Level 139 mmol/L (136-145)
--- NOTE | 2020-09-14 17:00 | EX.ED.DYSGE1 ---
HPI History of Present Illness Chief Complaint: Complaint Onset/Context/Timing Onset: Weeks Context: Gradual Onset Timing: Continuous Quality: Aching Location: Lower back Worsened by: Nothing Relieved by: Nothing Narrative Narrative: Patient presents with back pain, urinary urgency, and urinary frequency that has been constant for the past few weeks. Patient was seen here last week and was treated for urinary tract infection. Patient states she still has urgency and frequency. Patient denies any dysuria or hematuria. Patient states she still has some pain in her lower back. Patient also admits to nausea but denies any vomiting. Patient states she does not feel any better. Patient states she is unable to follow-up with her primary care physician until November because her primary care physician has retired and she would be a new patient for her new primary care physician. [facility] Medical History Abdominal pain Adenocarcinoma of colon Anemia Anxiety Cancer of ascending colon metastatic to intra-abdominal lymph node Cerebral arteriosclerosis Chronic calculous cholecystitis Dehydration Dementia Diarrhea Diverticulitis of colon Diverticulosis Dizziness DM2 (diabetes mellitus, type 2) Dysphagia GERD (gastroesophageal reflux disease) GERD with stricture Hematuria Hemorrhoids History of colon cancer History of CVA (cerebrovascular accident) HTN (hypertension) Hyperlipidemia Hypokalemia Intervertebral disc disorder with radiculopathy of lumbar region Nausea & vomiting Overactive bladder Risk for falls Suspected sleep apnea Venous insufficiency, peripheral Home Medications pravastatin 80 mg PO DAILY 04/19/14 [History Last Taken 12/18/19] metoprolol succinate 100 mg tablet,extended release 24 hr 100 mg PO DAILY tab 03/29/17 [History Last Taken 12/19/19] insulin glargine 30 units SQ QHS 08/21/17 [History Last Taken 12/18/19] metformin 1,000 mg PO BID 04/03/18 [History Last Taken 12/19/19] duloxetine 60 mg PO DAILY 01/06/19 [History Last Taken 12/19/19] pramipexole 1 mg PO QHS 01/06/19 [History Last Taken 03/30/19] amlodipine 5 mg PO DAILY 03/31/19 [History Last Taken 12/19/19] aspirin 81 mg PO DAILY 03/31/19 [History Last Taken 12/19/19] esomeprazole magnesium 40 mg PO DAILY PRN 03/31/19 [History Last Taken 12/19/19] losartan 50 mg PO DAILY 03/31/19 [History Last Taken 12/19/19] tizanidine 4 mg capsule 4 mg PO Q8H PRN 09/18/19 [History Last Taken Unknown] donepezil 5 mg PO QHS 12/19/19 [History Last Taken 12/18/19] isosorbide mononitrate 30 mg PO DAILY 12/19/19 [History Last Taken 12/19/19] pregabalin 50 mg capsule 50 mg PO DAILY 01/28/20 [History Last Taken Unknown] risperidone 0.25 mg PO BID 05/17/20 [History Last Taken Unknown] furosemide 20 mg tablet 20 mg PO tab 09/06/20 [History Last Taken Unknown] insulin lispro 100 unit/mL subcutaneous pen 12 unit SUBCUT ml 09/06/20 [History Last Taken Unknown] naproxen sodium 220 mg capsule 220 mg PO BID PRN 09/06/20 [History Last Taken Unknown] potassium chloride 20 mEq tablet,extended release(part/cryst) 20 meq PO tab 09/06/20 [History Last Taken Unknown] amoxicillin-pot clavulanate [Augmentin] 1 tab PO BID #10 tab 09/07/20 [Rx Last Taken Unknown] Allergy/AdvReac Type Severity Reaction Status Date / Time citalopram hydrobromide Allergy Upset Verified 09/14/20 15:27 [From Celexa] Stomach gabapentin [From Neurontin] Allergy Unknown Verified 09/14/20 15:27 hydrocodone bitartrate Allergy drove her Verified 09/14/20 15:27 [From Vicodin] crazy lisinopril Allergy Unknown Verified 09/14/20 15:27 tramadol AdvReac Severe Extreme Verified 09/14/20 15:27 agitation, suicidal, distraught, fleeing morphine AdvReac Other Verified 09/14/20 15:27 oxycodone [From OxyContin] AdvReac Vomiting Verified 09/14/20 15:27 Family History Son Diabetes Cancer of kidney Lung cancer Bone cancer Surgical History History of esophagogastroduodenoscopy (EGD) Hx of colonoscopy Hx of heart surgery S/P cholecystectomy S/P colectomy S/P hysterectomy Status post corneal transplant Status post total knee replacement, right Social History Smoking Status: Never smoker second hand exposure: No alcohol intake: never substance use type: does not use caffeine: Yes what type of physical activity do you participate in: none frequency: does not exercise seatbelt use: always ROS ROS ED Constitutional Constitutional ED: Denies chills or fever(s) Eyes Eyes: Denies blurry vision or change in vision ENT ENT ED: Reports rhinorrhea; Denies sore throat Cardiovascular Cardiovascular: Denies chest pain or palpitations Respiratory/Chest Respiratory/Chest: Denies cough or dyspnea Gastrointestinal Gastrointestinal: Reports nausea; Denies vomiting Genitourinary Genitourinary ED: Reports urinary frequency; Denies dysuria or hematuria Musculoskeletal Musculoskeletal: Reports back pain; Denies neck pain Integumentary Denies abscess or rash Neurologic Neurologic: Denies headache(s) or weakness Allergic/Immunologic Allergic/Immunologic ED: Denies mouth swelling or urticaria EXAM Physical Exam Const Vital Signs: 09/14/20 15:09 09/14/20 15:11 Temperature 97.0 F L 97 F L Temperature Source Temporal Temporal Pulse Rate 60 60 Respiratory Rate 18 18 Blood Pressure 159/57 H 159/57 H Blood Pressure Mean 91 91 Pulse Ox 100 97 Oxygen Delivery Method Room Air Room Air Positive well nourished, well developed and obese General Appearance ED: well developed Nutritional Appearance: obese HEENT Reports moist mucous membranes Neck supple and no JVD Resp normal respiratory effort and clear to auscultation bilaterally Cardio regular rate, regular rhythm and no murmurs GI normal to inspection, nondistended, normoactive bowel sounds and non-tender Palpation: soft Back/Spine General Back: other There is some mild lower lumbar paraspinal tenderness. There is no bony crepitance or step-off. Extremity normal to inspection General Extremety ED: Negative for edema or tenderness General Extremity: Negative for edema Neuro oriented x3, CN's II-XII intact bilaterally and no sensory deficits noted Sensorium / Orientation: alert Motor Exam: strength 5/5 throughout Psych mental status grossly normal Skin no rashes or lesions noted MDM MDM MDM Narrative Medical decision making narrative: Prior records were reviewed. Patient's urine culture from 09/07/2020 grew out group B strep. Patient was given a dose of Rocephin here. CBC was obtained. There is a mild anemia with hemoglobin of 10.1 hematocrit 33.4. This is stable compared to previous results. Comprehensive metabolic profile showed a mild hypokalemia of 3.2. Patient was given a dose of oral potassium here. Urinalysis is normal. CT scan of the abdomen and pelvis was obtained. There is diverticulosis but no diverticulitis. There is no acute intra-abdominal process noted. This was interpreted by the radiologist and reviewed by myself. Patient was advised of her findings. Patient was instructed to take Tylenol or ibuprofen as needed for pain. Patient is allergic to hydrocodone, oxycodone, and tramadol. Patient was instructed to follow-up with her primary care physician in 3 to 5 days for further evaluation. Patient understood and was agreeable with the plan. All questions were answered. Lab Data Labs: Laboratory Results - last 24 hr 09/14/20 09/14/20 09/14/20 15:55 15:55 16:11 WBC 7.4 RBC 4.24 Hgb 10.1 L Hct 33.4 L MCV 78.8 L MCH 23.8 L MCHC 30.2 L RDW Std Deviation 43.3 RDW Coeff of Terry 15.2 H Plt Count 225 MPV 9.9 Immature Gran % (Auto) 0.100 Neut % (Auto) 55.8 Lymph % (Auto) 30.3 Rapides % (Auto) 9.0 Eos % (Auto) 4.1 Baso % (Auto) 0.7 Absolute Neuts (auto) 4.1 Absolute Lymphs (auto) 2.23 Nucleated RBC % 0 Sodium 139 Potassium 3.2 L Chloride 101 Carbon Dioxide 29.0 Anion Gap 9 BUN 17 Creatinine 0.94 Estim Creat Clear Calc 42.78 Est GFR (MDRD) Af Amer 75 Est GFR (MDRD) Non-Af 62 BUN/Creatinine Ratio 18.2 Glucose 127 H Calcium 9.2 Total Bilirubin 0.30 AST 15 ALT 23 Alkaline Phosphatase 33 L Total Protein 7.1 Albumin 3.4 Globulin 3.7 Albumin/Globulin Ratio 0.9 Urine Color Yellow Urine Clarity Clear Urine pH 6.5 Ur Specific Halsey 1.005 Urine Protein Negative Urine Glucose (UA) Normal Urine Ketones Negative Urine Occult Blood Negative Urine Nitrite Negative Urine Bilirubin Negative Urine Urobilinogen Normal Ur Leukocyte Esterase Negative Urine RBC 0 SEEN Urine WBC 0 SEEN Ur Squamous Epith Cells 0 SEEN Urine Bacteria 0 SEEN Urine Mucus 0 SEEN Radiography Diagnostic Testing: Radiology Impression Abdomen/Pelvis CT 09/14/20 15:45 IMPRESSION: No acute abnormalities in the abdomen or pelvis. Diverticulosis. Electronically Signed: Luiz Lopez MD at 16:54 EDT Tel , Service support , Discharge Plan Triage Chief Complaint: Complaint ED Provider: Matias Pretty Dx/Rx/DC Orders Clinical Impression: Low back pain Instructions: ED Back and Neck Pain, General Prescriptions: No Action metoprolol succinate 100 mg tablet extended release 24 hr 100 mg PO DAILY RF: 0 tizanidine 4 mg capsule 4 mg PO Q8H PRN (Reason: Pain Or Fever) RF: 0 pregabalin 50 mg capsule 50 mg PO DAILY RF: 0 furosemide 20 mg tablet 20 mg PO RF: 0 insulin lispro 100 unit/mL insulin pen 12 unit subcut RF: 0 naproxen sodium [Aleve] 220 mg capsule 220 mg PO BID PRNRF: 0 potassium chloride 20 mEq tablet,ER particles/crystals 20 meq PO RF: 0 pravastatin 40 MG tablet 80 mg PO DAILY RF: 0 insulin glargine 100 UNITS/ML insulin pen 30 units SQ QHS RF: 0 metformin 500 MG tablet 1,000 mg PO BID RF: 0 pramipexole 0.5 MG tablet 1 mg PO QHS RF: 0 duloxetine 60 MG capsule,delayed release(DR/EC) 60 mg PO DAILY RF: 0 losartan 50 MG tablet 50 mg PO DAILY RF: 0 amlodipine 5 MG tablet 5 mg PO DAILY RF: 0 aspirin 81 MG tablet,delayed release (DR/EC) 81 mg PO DAILY RF: 0 esomeprazole magnesium 40 MG capsule,delayed release(DR/EC) 40 mg PO DAILY PRN (Reason: Indigestion) RF: 0 donepezil 5 MG tablet 5 mg PO QHS RF: 0 isosorbide mononitrate 30 mg tablet extended release 24 hr 30 mg PO DAILY RF: 0 risperidone 0.25 MG tablet 0.25 mg PO BID RF: 0 amoxicillin-pot clavulanate [Augmentin] 875-125 mg tablet 1 tab PO BID Qty: 10 RF: 0 Primary Care Provider: Brayan Taylor Referrals: Brayan Taylor DO [Primary Care Provider] - Cecil Carey MD [NON-STAFF] - 3-5 Days Disposition Disposition: Home, Self Care
[2020-09-14 17:15] VITALS: BP 151/58; PULSE 65; RESP 16; O2SAT 99
[2020-09-14] MEDS: Potassium Chloride Oral Tablet 20 MEQ 40 MEQ PO (17:17)
== END 2020-09-14 17:27 | disposition home or self-care (01) ==
PROVIDERS: Emergency Provider Emergency Medicine; PCP Pediatrics
DX: M54.5 Low back pain (principal); E66.9 Obesity, unspecified; Z87.440 Personal history of urinary (tract) infections; Z86.73 Personal history of transient ischemic attack (TIA), and cerebral infarction without residual deficits; Z85.038 Personal history of other malignant neoplasm of large intestine
CPT/HCPCS: 74176; 80053; 81001; 85025; 96365; 99283; J7050; A4216

== ENCOUNTER 2020-10-29 15:29 | Emergency (ER) | payer MEDICARE, MEDICAID, SELFPAY ==
[2020-10-29 15:30] VITALS: BP 151/71; PULSE 65; RESP 16; TEMP 36.6; O2SAT 96; BMI 33.6
[2020-10-29 15:32] VITALS: BP 151/71; PULSE 65; RESP 16; TEMP 36.6; O2SAT 96
--- NOTE | 2020-10-29 15:53 | VDLE_ITS ---
Reason For Study: Swelling RIGHT LEFT CFV is compressible, spontaneous, phasic, GSV is normal. competent and demonstrates normal CFV is compressible, spontaneous, phasic, augmentation. competent, and demonstrates normal Procedure augmentation. This is a venous duplex using B-mode, color FV is compressible, spontaneous, phasic, flow and spectral Doppler. competent and demonstrates normal Exam performed portable in ED. augmentation. A preliminary report was called and/or faxed POP V is compressible, spontaneous, phasic, to Dr. Hooker. competent and demonstrates normal augmentation. T/P Trunk is compressible. LT PerV is compressible. Lt PTV at mid calf is dilated and non compressible consistent with acute DVT. VL/Venous Duplex US, Unilateral Interpretation Summary Acute deep venous thrombosis left mid calf posterior tibial vein. Patent, compressible left great saphenous vein Normal flow patterns right common femoral vein Ordering Physician: Xenia Hooker Referring Physician: Brayan Taylor Performed By: Celestina Álvarez RDCS, RVT
--- NOTE | 2020-10-29 15:54 | EDS_ITS ---
HPI History of Present Illness Chief Complaint: Edema Informant: patient Onset/Context/Timing Onset: Yesterday Context: Gradual Onset Current Severity: Mild Maximum Severity: Mild Narrative Narrative: Patient presents from urgent care secondary to left leg edema. She stated she noted some aching and left leg swelling yesterday. She went to urgent care and they were concerned for possible blood clot and sent her to the emergency room. Patient denies injury to her leg. No chest pain or shortness of breath. [facility] Medical History Abdominal pain Adenocarcinoma of colon Anemia Anxiety Cancer of ascending colon metastatic to intra-abdominal lymph node Cerebral arteriosclerosis Chronic calculous cholecystitis Dehydration Dementia Diarrhea Diverticulitis of colon Diverticulosis Dizziness DM2 (diabetes mellitus, type 2) Dysphagia GERD (gastroesophageal reflux disease) GERD with stricture Hematuria Hemorrhoids History of colon cancer History of CVA (cerebrovascular accident) HTN (hypertension) Hyperlipidemia Hypokalemia Intervertebral disc disorder with radiculopathy of lumbar region Nausea & vomiting Overactive bladder Risk for falls Suspected sleep apnea Venous insufficiency, peripheral Home Medications pravastatin 80 mg PO DAILY 04/19/14 [History Last Taken 12/18/19] metoprolol succinate 100 mg tablet,extended release 24 hr 100 mg PO DAILY tab 03/29/17 [History Last Taken 12/19/19] insulin glargine 30 units SQ QHS 08/21/17 [History Last Taken 12/18/19] metformin 1,000 mg PO BID 04/03/18 [History Last Taken 12/19/19] duloxetine 60 mg PO DAILY 01/06/19 [History Last Taken 12/19/19] pramipexole 1 mg PO QHS 01/06/19 [History Last Taken 03/30/19] amlodipine 5 mg PO DAILY 03/31/19 [History Last Taken 12/19/19] aspirin 81 mg PO DAILY 03/31/19 [History Last Taken 12/19/19] esomeprazole magnesium 40 mg PO DAILY PRN 03/31/19 [History Last Taken 12/19/19] losartan 50 mg PO DAILY 03/31/19 [History Last Taken 12/19/19] tizanidine 4 mg capsule 4 mg PO Q8H PRN 09/18/19 [History Last Taken Unknown] donepezil 5 mg PO QHS 12/19/19 [History Last Taken 12/18/19] isosorbide mononitrate 30 mg PO DAILY 12/19/19 [History Last Taken 12/19/19] pregabalin 50 mg capsule 50 mg PO DAILY 01/28/20 [History Last Taken Unknown] risperidone 0.25 mg PO BID 05/17/20 [History Last Taken Unknown] furosemide 20 mg tablet 20 mg PO tab 09/06/20 [History Last Taken Unknown] insulin lispro 100 unit/mL subcutaneous pen 12 unit SUBCUT ml 09/06/20 [History Last Taken Unknown] naproxen sodium 220 mg capsule 220 mg PO BID PRN 09/06/20 [History Last Taken Unknown] potassium chloride 20 mEq tablet,extended release(part/cryst) 20 meq PO tab 09/06/20 [History Last Taken Unknown] amoxicillin-pot clavulanate [Augmentin] 1 tab PO BID #10 tab 09/07/20 [Rx Last T aken Unknown] Allergy/AdvReac Type Severity Reaction Status Date / Time citalopram hydrobromide Allergy Upset Verified 10/29/20 15:33 [From Celexa] Stomach gabapentin [From Neurontin] Allergy Unknown Verified 10/29/20 15:33 hydrocodone bitartrate Allergy drove her Verified 10/29/20 15:33 [From Vicodin] crazy lisinopril Allergy Unknown Verified 10/29/20 15:33 tramadol AdvReac Severe Extreme Verified 10/29/20 15:33 agitation, suicidal, distraught, fleeing morphine AdvReac Other Verified 10/29/20 15:33 oxycodone [From OxyContin] AdvReac Vomiting Verified 10/29/20 15:33 Family History Son Diabetes Cancer of kidney Lung cancer Bone cancer Surgical History History of esophagogastroduodenoscopy (EGD) Hx of colonoscopy Hx of heart surgery S/P cholecystectomy S/P colectomy S/P hysterectomy Status post corneal transplant Status post total knee replacement, right Social History Smoking Status: Never smoker second hand exposure: No alcohol intake: never substance use type: does not use caffeine: Yes what type of physical activity do you participate in: none frequency: does not exercise seatbelt use: always ROS ROS ED Constitutional Constitutional ED: Denies chills or fever(s) Eyes Eyes: Denies change in vision ENT ENT ED: Denies sore throat Cardiovascular Cardiovascular: Denies chest pain Respiratory/Chest Respiratory/Chest: Denies cough or dyspnea Gastrointestinal Gastrointestinal: Denies abdominal pain, diarrhea, nausea or vomiting Genitourinary Genitourinary ED: Denies dysuria Musculoskeletal Musculoskeletal: Reports other Details: Left leg edema ; Denies back pain Integumentary Denies rash Neurologic Neurologic: Denies headache(s) or weakness Psychiatric Psychiatric: Denies anxiety or depression Allergic/Immunologic Allergic/Immunologic ED: Denies urticaria EXAM Physical Exam Const Vital Signs: 10/29/20 15:30 10/29/20 15:32 Temperature 97.9 F 97.9 F Temperature Source Temporal Temporal Pulse Rate 65 65 Respiratory Rate 16 16 Blood Pressure 151/71 H 151/71 H Blood Pressure Mean 97 97 Pulse Ox 96 96 Oxygen Delivery Method Room Air Positive well nourished and well developed General Appearance ED: well developed HEENT normocephalic and atraumatic Eyes PERRL Neck full ROM Chest Wall inspection of chest normal and palpation of chest normal Resp normal respiratory effort and clear to auscultation bilaterally Cardio regular rate and regular rhythm GI non-tender Palpation: soft Extremity Extremity Narrative: Mild edema to the left lower leg. Mild calf tenderness. No palpable cords. Strong distal pulses. Superficial abrasions over the porras with no sign of infection. Neuro oriented x3 Neuro Narrative: No focal neuro deficits. Sensorium / Orientation: alert MDM MDM MDM Narrative Medical decision making narrative: Venous ultrasound of the left lower extremity is obtained. Treatment and Re-Evaluation Comments:: Tech reports there is a small clot noted in the posterior tibial vein below the knee. This is a very short segment. Test results are discussed with the patient. We discussed pros and cons of anticoagulation. She does report frequent falls which would potentially make anticoagulation a bad choice at this time. Because the lesion is in a small segment below the knee it is reasonable to repeat her ultrasound in 3 days. I will speak with PCP or whoever is covering tonight to help make those arrangements. Discharge Plan Triage Chief Complaint: Edema ED Provider: Xenia Hooker Dx/Rx/DC Orders Clinical Impression: DVT (deep venous thrombosis) Instructions: ED Deep Vein Thrombosis (DVT) Prescriptions: No Action metoprolol succinate 100 mg tablet extended release 24 hr 100 mg PO DAILY RF: 0 tizanidine 4 mg capsule 4 mg PO Q8H PRN (Reason: Pain Or Fever) RF: 0 pregabalin 50 mg capsule 50 mg PO DAILY RF: 0 furosemide 20 mg tablet 20 mg PO RF: 0 insulin lispro 100 unit/mL insulin pen 12 unit subcut RF: 0 naproxen sodium [Aleve] 220 mg capsule 220 mg PO BID PRNRF: 0 potassium chloride 20 mEq tablet,ER particles/crystals 20 meq PO RF: 0 pravastatin 40 MG tablet 80 mg PO DAILY RF: 0 insulin glargine 100 UNITS/ML insulin pen 30 units SQ QHS RF: 0 metformin 500 MG tablet 1,000 mg PO BID RF: 0 pramipexole 0.5 MG tablet 1 mg PO QHS RF: 0 duloxetine 60 MG capsule,delayed release(DR/EC) 60 mg PO DAILY RF: 0 losartan 50 MG tablet 50 mg PO DAILY RF: 0 amlodipine 5 MG tablet 5 mg PO DAILY RF: 0 aspirin 81 MG tablet,delayed release (DR/EC) 81 mg PO DAILY RF: 0 esomeprazole magnesium 40 MG capsule,delayed release(DR/EC) 40 mg PO DAILY PRN (Reason: Indigestion) RF: 0 donepezil 5 MG tablet 5 mg PO QHS RF: 0 isosorbide mononitrate 30 mg tablet extended release 24 hr 30 mg PO DAILY RF: 0 risperidone 0.25 MG tablet 0.25 mg PO BID RF: 0 amoxicillin-pot clavulanate [Augmentin] 875-125 mg tablet 1 tab PO BID Qty: 10 RF: 0 Primary Care Provider: Cecil Carey Referrals: Brayan Taylor DO [NON-STAFF] - Cecil Carey MD [Primary Care Provider] - 2 Days (Follow-up on Sunday for repeat ultrasound of your leg as discussed.) Disposition Disposition: Home, Self Care
== END 2020-10-29 17:40 | disposition home or self-care (01) ==
PROVIDERS: Emergency Provider Emergency Medicine; PCP Family Medicine
DX: I82.4Z2 Acute embolism and thrombosis of unspecified deep veins of left distal lower extremity (principal)
CPT/HCPCS: 93971; 99282

== ENCOUNTER → 2020-11-01 15:03 | Outpatient (CLI) | payer MEDICARE, MEDICAID, SELFPAY ==
[2020-10-29 15:30] VITALS: BMI 33.6
--- NOTE | 2020-11-01 15:06 | VDLE_ITS ---
Reason For Study: Acute embolism and thrombosis RIGHT LEFT CFV is compressible, spontaneous, phasic, GSV is normal. competent and demonstrates normal CFV is compressible, spontaneous, phasic, augmentation. competent, and demonstrates normal Procedure augmentation. This is a venous duplex using B-mode, color FV is compressible, spontaneous, phasic, flow and spectral Doppler. competent and demonstrates normal Exam performed in department. augmentation. A preliminary report was called and/or faxed POP V is compressible, spontaneous, phasic, to Elis BONILLA. competent and demonstrates normal augmentation. T/P Trunk is compressible. LT PerV is compressible. Lt PTV at mid calf is dilated and non compressible consistent with acute DVT, no change from previous study done on 10/29/2020. VL/Venous Duplex US, Unilateral Interpretation Summary Deep venous thrombosis left posterior tibial vein mid calf. No evidence for proximal progression Patent and compressible left great saphenous vein Normal flow patterns right common femoral vein No change from the previous examination of October 29, 2020 Ordering Physician: Cecil Carey Referring Physician: Cecil Carey Performed By: Celestina Álvarez, TRACE, RVT
== END ==
PROVIDERS: PCP Family Medicine; Referring Provider Family Medicine; Visit Provider Family Medicine
DX: I82.4Z2 Acute embolism and thrombosis of unspecified deep veins of left distal lower extremity (principal)
CPT/HCPCS: 93971

== ENCOUNTER → 2020-11-12 12:27 | Outpatient (CLI) | payer MEDICARE, MEDICAID, SELFPAY ==
[2020-10-29 15:30] VITALS: BMI 33.6
--- NOTE | 2020-11-12 12:30 | VDLE_ITS ---
Reason For Study: Acute embolism and thombosis RIGHT LEFT CFV is compressible, spontaneous, phasic, GSV is normal. competent and demonstrates normal CFV is compressible, spontaneous, phasic, augmentation. competent, and demonstrates normal Procedure augmentation. This is a venous duplex using B-mode, color FV is compressible, spontaneous, phasic, flow and spectral Doppler. competent and demonstrates normal Exam performed in department. augmentation. A preliminary report was called and/or faxed POP V is compressible, spontaneous, phasic, to Aurelio. competent and demonstrates normal augmentation. T/P Trunk is compressible. LT PerV is compressible. Lt PTV at mid calf is partially non compressible with minimal venous flow noted. Compared to 11/01/2020. VL/Venous Duplex US, Unilateral Interpretation Summary The venous thrombosis left posterior tibial vein mid calf. No evidence for prox imal compression. Patent and compressible left great saphenous vein. Normal flow patterns right common femoral vein. Slight improvement from the previous examination of November 01, 2020 Ordering Physician: Cecil Carey Referring Physician: Cecil Carey Performed By: Rossy Toledo RVT
== END ==
PROVIDERS: PCP Family Medicine; Referring Provider Family Medicine; Visit Provider Family Medicine
DX: I82.4Z2 Acute embolism and thrombosis of unspecified deep veins of left distal lower extremity (principal)
CPT/HCPCS: 93971

== ENCOUNTER 2021-01-28 12:39 | Emergency (ER) | payer MEDICARE, MEDICAID, SELFPAY ==
[2021-01-28 12:41] VITALS: PULSE 61; RESP 17; TEMP 36.8; O2SAT 90; BMI 34.2
[2021-01-28 12:45] VITALS: PULSE 60; RESP 19; O2SAT 91
--- NOTE | 2021-01-28 13:02 | EKG12_ITS ---
Test Reason : SOB Blood Pressure : / mmHG Vent. Rate : 060 BPM Atrial Rate : 060 BPM P-R Int : 138 ms QRS Dur : 096 ms QT Int : 462 ms P-R-T Axes : 016 -20 030 degrees QTc Int : 462 ms Normal sinus rhythm Septal infarct , age undetermined Abnormal ECG Confirmed by MYKE ERICKSON, ROSANNA ([id number]), editorial cartoonist YEHUDA CRAIG ([id number]) on 01/31/2021 11:01:39 AM Referred By: JOSSELIN Confirmed By:ROSANNA STRINGER MD
--- NOTE | 2021-01-28 13:05 | EX.ED.DYSGE1 ---
HPI History of Present Illness Chief Complaint: Diarrhea Informant: patient Onset/Context/Timing Onset: Days Context: Gradual Onset Narrative Narrative: Patient presents secondary to positive Covid status with weakness, diarrhea, cough. She tells me that she believes her symptoms started about a week ago when she was tested at [facility] earlier this week. I did review her records in clinic sink. She was seen at the [facility] on January 25 and had a positive test on that date. Chest x-ray was clear. She had told him at that time her symptoms had started 2 days prior and that she had been vaccinated against Covid. When I asked her if she had been vaccinated she told me she does not remember. Patient reports with increasing weakness, diarrhea, cough with mild shortness of breath. She has had some intermittent fever. She has poor appetite and decreased p.o. intake. [facility] Medical History Abdominal pain Adenocarcinoma of colon Anemia Anxiety Cancer of ascending colon metastatic to intra-abdominal lymph node Cerebral arteriosclerosis Chronic calculous cholecystitis Dehydration Dementia Diarrhea Diverticulitis of colon Diverticulosis Dizziness DM2 (diabetes mellitus, type 2) Dysphagia GERD (gastroesophageal reflux disease) GERD with stricture Hematuria Hemorrhoids History of colon cancer History of CVA (cerebrovascular accident) HTN (hypertension) Hyperlipidemia Hypokalemia Intervertebral disc disorder with radiculopathy of lumbar region Nausea & vomiting Overactive bladder Risk for falls Suspected sleep apnea Venous insufficiency, peripheral Home Medications pravastatin 80 mg PO DAILY 04/19/14 [History Last Taken 12/18/19] metoprolol succinate 100 mg tablet,extended release 24 hr 100 mg PO DAILY tab 03/29/17 [History Last Taken 12/19/19] insulin glargine 30 units SQ QHS 08/21/17 [History Last Taken 12/18/19] metformin 1,000 mg PO BID 04/03/18 [History Last Taken 12/19/19] duloxetine 60 mg PO DAILY 01/06/19 [History Last Taken 12/19/19] pramipexole 1 mg PO QHS 01/06/19 [History Last Taken 03/30/19] amlodipine 5 mg PO DAILY 03/31/19 [History Last Taken 12/19/19] aspirin 81 mg PO DAILY 03/31/19 [History Last Taken 12/19/19] esomeprazole magnesium 40 mg PO DAILY PRN 03/31/19 [History Last Taken 12/19/19] losartan 50 mg PO DAILY 03/31/19 [History Last Taken 12/19/19] tizanidine 4 mg capsule 4 mg PO Q8H PRN 09/18/19 [History Last Taken Unknown] donepezil 5 mg PO QHS 12/19/19 [History Last Taken 12/18/19] isosorbide mononitrate 30 mg PO DAILY 12/19/19 [History Last Taken 12/19/19] pregabalin 50 mg capsule 50 mg PO DAILY 01/28/20 [History Last Taken Unknown] risperidone 0.25 mg PO BID 05/17/20 [History Last Taken Unknown] furosemide 20 mg tablet 20 mg PO tab 09/06/20 [History Last Taken Unknown] insulin lispro 100 unit/mL subcutaneous pen 12 unit SUBCUT ml 09/06/20 [History Last Taken Unknown] naproxen sodium 220 mg capsule 220 mg PO BID PRN 09/06/20 [History Last Taken Unknown] potassium chloride 20 mEq tablet,extended release(part/cryst) 20 meq PO tab 09/06/20 [History Last Taken Unknown] amoxicillin-pot clavulanate [Augmentin] 1 tab PO BID #10 tab 09/07/20 [Rx Last Taken Unknown] Allergy/AdvReac Type Severity Reaction Status Date / Time citalopram hydrobromide Allergy Upset Verified 01/28/21 12:40 [From Celexa] Stomach gabapentin [From Neurontin] Allergy Unknown Verified 01/28/21 12:40 hydrocodone bitartrate Allergy drove her Verified 01/28/21 12:40 [From Vicodin] crazy lisinopril Allergy Unknown Verified 01/28/21 12:40 tramadol AdvReac Severe Extreme Verified 01/28/21 12:40 agitation, suicidal, distraught, fleeing morphine AdvReac Other Verified 01/28/21 12:40 oxycodone [From OxyContin] AdvReac Vomiting Verified 01/28/21 12:40 Family History Son Diabetes Cancer of kidney Lung cancer Bone cancer Surgical History History of esophagogastroduodenoscopy (EGD) Hx of colonoscopy Hx of heart surgery S/P cholecystectomy S/P colectomy S/P hysterectomy Status post corneal transplant Status post total knee replacement, right Social History Smoking Status: Never smoker second hand exposure: No alcohol intake: never substance use type: does not use caffeine: Yes what type of physical activity do you participate in: none frequency: does not exercise seatbelt use: always ROS ROS ED Constitutional Constitutional ED: Reports fever(s); Denies chills Eyes Eyes: Denies change in vision ENT ENT ED: Denies sore throat Cardiovascular Cardiovascular: Reports chest pain Respiratory/Chest Respiratory/Chest: Reports cough, dyspnea and sputum Gastrointestinal Gastrointestinal: Reports abdominal pain, diarrhea and nausea Genitourinary Genitourinary ED: Denies dysuria Musculoskeletal Musculoskeletal: Reports myalgias; Denies back pain Integumentary Denies rash Neurologic Neurologic: Reports weakness; Denies headache(s) Allergic/Immunologic Allergic/Immunologic ED: Denies urticaria EXAM Physical Exam Const Vital Signs: 01/28/21 12:41 Temperature 98.3 F Temperature Source Oral Pulse Rate 61 Respiratory Rate 17 Pulse Ox 90 Oxygen Delivery Method Room Air Positive well nourished and well developed General Appearance ED: well developed HEENT Reports normocephalic and head/scalp atraumatic Eyes PERRL and EOMs intact bilaterally Neck supple Chest Wall inspection of chest normal and palpation of chest normal Resp normal respiratory effort and clear to auscultation bilaterally Cardio regular rate and regular rhythm GI Auscultation: hyperactive bowel sounds Palpation: soft and tender other (Mild diffuse tenderness to palpation.) Back/Spine Negative for no CVA tenderness Extremity normal to inspection Neuro oriented x3 Neuro Narrative: No focal neurologic deficits. Sensorium / Orientation: alert Psych mental status grossly normal Skin no rashes or lesions noted MDM MDM MDM Narrative Medical decision making narrative: Lab work obtained. Chest x-ray ordered. I did review the patient's note from her visit to [facility] on January 25. She tested positive for Covid on that date. Lab Data Attestation: I reviewed the patient's lab results. Labs: Laboratory Results - last 24 hr 01/28/21 01/28/21 01/28/21 12:45 12:45 13:20 WBC 4.3 L RBC 4.75 Hgb 13.3 Hct 41.2 MCV 86.7 MCH 28.0 MCHC 32.3 RDW Std Deviation 43.8 RDW Coeff of Terry 13.7 Plt Count 178 MPV 10.1 Immature Gran % (Auto) 0.200 Neut % (Auto) 55.6 Lymph % (Auto) 29.3 [place] % (Auto) 8.6 Eos % (Auto) 5.8 H Baso % (Auto) 0.5 Absolute Neuts (auto) 2.4 Absolute Lymphs (auto) 1.26 Nucleated RBC % 0 D-Dimer Quant (PE/DVT) 1.35 H* Sodium 138 Potassium 3.1 L Chloride 99 Carbon Dioxide 31.0 Anion Gap 8 BUN 18 Creatinine 1.13 H Estim Creat Clear Calc 35.04 Est GFR (MDRD) Af Amer 60 Est GFR (MDRD) Non-Af 50 L BUN/Creatinine Ratio 15.9 Glucose 90 Lactic Acid Calcium 8.7 Total Bilirubin 0.50 AST 63 H ALT 40 Alkaline Phosphatase 30 L Total Protein 7.3 Albumin 3.0 L Globulin 4.3 H Albumin/Globulin Ratio 0.7 L 01/28/21 13:20 WBC RBC Hgb Hct MCV MCH MCHC RDW Std Deviation RDW Coeff of Terry Plt Count MPV Immature Gran % (Auto) Neut % (Auto) Lymph % (Auto) [place] % (Auto) Eos % (Auto) Baso % (Auto) Absolute Neuts (auto) Absolute Lymphs (auto) Nucleated RBC % D-Dimer Quant (PE/DVT) Sodium Potassium Chloride Carbon Dioxide Anion Gap BUN Creatinine Estim Creat Clear Calc Est GFR (MDRD) Af Amer Est GFR (MDRD) Non-Af BUN/Creatinine Ratio Glucose Lactic Acid 1.2 Calcium Total Bilirubin AST ALT Alkaline Phosphatase Total Protein Albumin Globulin Albumin/Globulin Ratio Radiography Chest X-Ray - ED: 1 View, Read by ED Physician and Chronic Changes Diagnostic Testing: Clinical Impression(s) from Imaging Studies Chest X-Ray 01/28/21 13:20 IMPRESSION: Findings suggestive of minimal linear atelectasis in the lingular segment of the left upper lobe. Electronically Signed: Mickey Funk MD at 13:37 EDT , Service support , Chest CTA 01/28/21 13:59 IMPRESSION: No evidence of a pulmonary embolism. No acute abnormality is seen. Electronically Signed: Mickey Funk MD at 15:28 EDT , Service support , EKG Initial EKG: Attestation: I personally reviewed and interpreted this EKG as follows: Interpretation: Sinus Rhythm (Sinus at 60 with no acute ischemia.) Treatment and Re-Evaluation Comments:: Patient's lab work is reviewed. White count is normal. D-dimer elevated at 1.35. Potassium is low at 3.1. Remainder of labs unremarkable. CTA of the chest obtained which reveals no evidence of PE or infiltrate. Patient is ordered 40 mill equivalents of IV potassium. I discussed with the patient home with close follow-up versus staying in the hospital. She would prefer to try to go home. She would qualify for monoclonal antibody treatment. I will refer her for this. She states that they would need to call her guardian to discuss this. Patient would written for discharge and will be followed up by oncoming physician. Anticipate discharge once IV potassium has been infused. Discharge Plan Triage Chief Complaint: Diarrhea ED Provider: Xenia Hooker Dx/Rx/DC Orders Clinical Impression: COVID-19, Diarrhea, Hypokalemia Instructions: Coronavirus Disease 2019 (COVID-19): Overview, Coronavirus Disease 2019 (COVID-19): Caring for Yourself or Others, ED Diarrhea, Viral (Adult) Prescriptions: No Action metoprolol succinate 100 mg tablet extended release 24 hr 100 mg PO DAILY RF: 0 tizanidine 4 mg capsule 4 mg PO Q8H PRN (Reason: Pain Or Fever) RF: 0 pregabalin 50 mg capsule 50 mg PO DAILY RF: 0 furosemide 20 mg tablet 20 mg PO RF: 0 insulin lispro 100 unit/mL insulin pen 12 unit subcut RF: 0 naproxen sodium [Aleve] 220 mg capsule 220 mg PO BID PRNRF: 0 potassium chloride 20 mEq tablet,ER particles/crystals 20 meq PO RF: 0 pravastatin 40 MG tablet 80 mg PO DAILY RF: 0 insulin glargine 100 UNITS/ML insulin pen 30 units SQ QHS RF: 0 metformin 500 MG tablet 1,000 mg PO BID RF: 0 pramipexole 0.5 MG tablet 1 mg PO QHS RF: 0 duloxetine 60 MG capsule,delayed release(DR/EC) 60 mg PO DAILY RF: 0 losartan 50 MG tablet 50 mg PO DAILY RF: 0 amlodipine 5 MG tablet 5 mg PO DAILY RF: 0 aspirin 81 MG tablet,delayed release (DR/EC) 81 mg PO DAILY RF: 0 esomeprazole magnesium 40 MG capsule,delayed release(DR/EC) 40 mg PO DAILY PRN (Reason: Indigestion) RF: 0 donepezil 5 MG tablet 5 mg PO QHS RF: 0 isosorbide mononitrate 30 mg tablet extended release 24 hr 30 mg PO DAILY RF: 0 risperidone 0.25 MG tablet 0.25 mg PO BID RF: 0 amoxicillin-pot clavulanate [Augmentin] 875-125 mg tablet 1 tab PO BID Qty: 10 RF: 0 Other Ambulatory Orders: COVID Outpatient Monoclonal Antibody Referral (Routine) Timeframe: 1 Day Facility: [facility] - Location: [facility] Ordered By: Dr. Xenia Hooker Primary Care Provider: Cecil Carey Referrals: Cecil Carey MD [Primary Care Provider] - Disposition Disposition: Home, Self Care
--- NOTE | 2021-01-28 13:20 | RAD_ITS ---
STUDY: X-RAY CHEST REASON FOR EXAM: Female, 76 years old. Cough TECHNIQUE: Single AP portable view of the chest. COMPARISON: Comparison is made with prior study dated 05/16/2020 and 12/19/2019. FINDINGS: EKG electrodes are seen. Mild increased linear markings in the left midlung peripherally suggestive of linear atelectasis. There is no demonstrated pleural abnormality. Normal size heart. Normal mediastinum and marti. Normal visualized pulmonary arteries. There is atherosclerotic calcification of the aortic arch with tortuosity. There are degenerative changes of the visualized thoracic spine. There is degenerative osteoarthritis of the bilateral shoulders. There is no demonstrated abnormality of the visualized soft tissue structures of the upper abdomen. RAD/Chest 1 View (Portable) IMPRESSION: Findings suggestive of minimal linear atelectasis in the lingular segment of the left upper lobe. Electronically Signed: Mickey Funk MD at 13:37 EDT , Service support ,
[2021-01-28 13:21] LABS: Absolute Lymphocyte Count 1.26 X10^3/uL (0.83-4.51); Absolute Neutrophil Count 2.4 X10^3/uL (2.0-7.7); Basophil# 0.02 X10^3/uL; Basophil% 0.5 % (0-1); Eosinophil# 0.25 X10^3/uL; Eosinophils% 5.8 % (0-5); Hematocrit 41.2 % (37-47); Hemoglobin 13.3 g/dL (12.0-15.0); Lymphocyte # 1.26 X10^3/ul (0.83-4.51); Lymphocyte % 29.3 % (19-41); Mean Corp Hgb Conc 32.3 g/dL (32-36); Mean Corpuscular Volume 86.7 fL (81-99); Mean Platelet Vol. 10.1 fl (6.2-12.0); Monocyte# 0.37 X10^3/uL; Monocyte% 8.6 % (0-10); NRBC Flagged by Analyzer 0 % (0-5); Neutrophil # 2.39 X10^3/uL (2.7-7.7); Neutrophil % 55.6 % (47-70); Platelet Count 178 K/mm3 (150-450); RBC Distribution Width CV 13.7 % (11.6-14.6); RBC Distribution Width SD 43.8 fl (35.1-43.9); Red Blood Count 4.75 M/mm3 (4.2-5.4); White Blood Count 4.3 K/mm3 (4.4-11.0)
[2021-01-28 13:31] LABS: ALB/GLOB Ratio 0.7 RATIO (0.9-2.4); AST(SGOT) 63 U/L (15-37); Alanine Aminotransfer ALT/SGPT 40 U/L (13-56); Alkaline Phosphatase 30 U/L (45-117); Anion Gap 8 (5-15); BUN 18 mg/dL (7-18); BUN/Creat Ratio 15.9 RATIO (10-20); Calcium,Total 8.7 mg/dL (8.5-10.1); Chloride 99 mmol/L (98-107); Creatinine, Serum 1.13 mg/dL (0.55-1.02); EST Glomerular Filtration Rate 50 mL/min (>60); Est Glom Filt Rate - Afr Amer 60 mL/min (>60); Estimated Creatinine Clearance 35.04 ml/min; Globulin 4.3 g/dL (2.2-4.2); Glucose 90 mg/dL (74-106); Potassium 3.1 mmol/L (3.5-5.1); Protein, Total 7.3 g/dL (6.4-8.2); Sodium Level 138 mmol/L (136-145)
[2021-01-28 13:52] LABS: D-Dimer Quantitative (DVT/PE) 1.35 FEU/ug/m (0.27-0.49)
--- NOTE | 2021-01-28 13:59 | CT_ITS ---
STUDY: CTA CHEST REASON FOR EXAM: Female, 76 years old. PE RADIATION DOSAGE (If Supplied By Facility): CTDIvol = ( 12.21 ) mGy, DLP = ( 443.30 ) mGycm TECHNIQUE: The examination was performed with the intravenous administration of ISOVUE-300. Post-processing of the angiographic images was performed, with multiplanar reformation and 3D reconstruction. Individualized dose optimization techniques were used for this CT. COMPARISON: Comparison is made with prior examination dated 09/04/2019. FINDINGS: Normal enhancement of the main pulmonary artery and right and left pulmonary arteries. Normal enhancement of the bilateral peripheral pulmonary arteries. There is no demonstrated pulmonary embolism. Normal thoracic aorta and visualized great vessels. There is no demonstrated aortic dissection. There are calcifications of the coronary arteries. There is borderline cardiac cardiomegaly. Normal mediastinum. Normal hilar regions. Normal visualized trachea and bronchi. The lungs are well expanded. Minimal bibasilar atelectasis. Normal pleura. Normal chest wall structures. There are degenerative changes of thoracic spine. The patient is status post cholecystectomy. Moderate-sized hiatal hernia. Calcified splenic granulomas. CT/CTA Chest W/WO Contrast IMPRESSION: No evidence of a pulmonary embolism. No acute abnormality is seen. Electronically Signed: Mickey Funk MD at 15:28 EDT , Service support ,
[2021-01-28 14:02] LABS: Lactic Acid 1.2 mmol/L (0.4-1.9)
[2021-01-28] MEDS: Potassium Chloride 10mEq/100mL 10 MEQ/100 ML IV.SOLN. 100 MEQ IV BOLUS ×4 (14:32→19:11)
[2021-01-28 16:59] VITALS: PULSE 60; RESP 15; O2SAT 100
[2021-01-28 18:07] VITALS: BP 100/67; PULSE 80; RESP 18; O2SAT 98
[2021-01-28 19:18] VITALS: BP 158/76; PULSE 66; RESP 16; O2SAT 100
[2021-01-28 20:38] VITALS: O2SAT 95
== END 2021-01-28 20:39 | disposition home or self-care (01) ==
PROVIDERS: Emergency Provider Emergency Medicine; PCP Family Medicine
DX: U07.1 COVID-19 (principal); R19.7 Diarrhea, unspecified; E87.6 Hypokalemia; Z86.73 Personal history of transient ischemic attack (TIA), and cerebral infarction without residual deficits; Z85.038 Personal history of other malignant neoplasm of large intestine
CPT/HCPCS: 71045; 71275; 80053; 83605; 85025; 85379; 87040; 87077; 87149; 87186; 93005; 96365; 96366; 99285; J7030; J7050; Q9967; A4216

== ENCOUNTER → 2021-11-22 | Outpatient (REF) | payer MEDICARE, MEDICAID, SELFPAY ==
[2021-11-22 08:18] LABS: Absolute Lymphocyte Count 1.88 X10^3/uL (0.83-4.51); Basophil# 0.04 X10^3/uL; Basophil% 0.6 % (0-1); Eosinophil# 0.36 X10^3/uL; Eosinophils% 5.3 % (0-5); Hematocrit 34.6 % (37-47); Hemoglobin 11.5 g/dL (12.0-15.0); Lymphocyte # 1.88 X10^3/ul (0.83-4.51); Lymphocyte % 27.8 % (19-41); Mean Corp Hgb Conc 33.2 g/dL (32-36); Mean Corpuscular Hgb 29.1 pg (27.0-32.0); Mean Corpuscular Volume 87.6 fL (81-99); Mean Platelet Vol. 11.3 fl (6.2-12.0); Monocyte# 0.51 X10^3/uL; Monocyte% 7.5 % (0-10); NRBC Flagged by Analyzer 0 % (0-5); Neutrophil # 3.96 X10^3/uL (2.7-7.7); Neutrophil % 58.7 % (47-70); Platelet Count 157 K/mm3 (150-450); RBC Distribution Width CV 13.9 % (11.6-14.6); RBC Distribution Width SD 44.6 fl (35.1-43.9); Red Blood Count 3.95 M/mm3 (4.2-5.4); White Blood Count 6.8 K/mm3 (4.4-11.0)
[2021-11-22 08:45] LABS: AST(SGOT) 19 U/L (15-37); Alanine Aminotransfer ALT/SGPT 16 U/L (13-56); Albumin, Serum 2.9 g/dL (3.2-5.0); Alkaline Phosphatase 21 U/L (45-117); Anion Gap 8 (5-15); BUN 10 mg/dL (7-18); BUN/Creat Ratio 14.4 RATIO (10-20); Calcium,Total 8.7 mg/dL (8.5-10.1); Chloride 104 mmol/L (98-107); EST Glomerular Filtration Rate 87 mL/min (>60); Est Glom Filt Rate - Afr Amer 105 mL/min (>60); Globulin 2.9 g/dL (2.2-4.2); Glucose 115 mg/dL (74-106); Protein, Total 5.8 g/dL (6.4-8.2); Sodium Level 143 mmol/L (136-145)
[2021-11-23 09:34] LABS: Vitamin D,25 Hydroxy 14.6 ng/mL
== END ==
LOC: OLS.SW300 05:00
PROVIDERS: PCP Family Medicine; Visit Provider Internal Medicine
DX: E11.9 Type 2 diabetes mellitus without complications (principal); E66.9 Obesity, unspecified; Z68.34 Body mass index [BMI] 34.0-34.9, adult
CPT/HCPCS: 36415; 80053; 82306; 83036; 85025

== ENCOUNTER → 2021-11-29 | Outpatient (REF) | payer MEDICARE, MEDICAID, SELFPAY ==
[2021-11-29 09:28] LABS: Absolute Lymphocyte Count 2.09 X10^3/uL (0.83-4.51); Absolute Neutrophil Count 5.3 X10^3/uL (2.0-7.7); Basophil# 0.06 X10^3/uL; Basophil% 0.7 % (0-1); Eosinophil# 0.44 X10^3/uL; Eosinophils% 5.2 % (0-5); Hematocrit 38.9 % (37-47); Hemoglobin 12.7 g/dL (12.0-15.0); Lymphocyte # 2.09 X10^3/ul (0.83-4.51); Lymphocyte % 24.6 % (19-41); Mean Corp Hgb Conc 32.6 g/dL (32-36); Mean Corpuscular Hgb 28.5 pg (27.0-32.0); Mean Corpuscular Volume 87.4 fL (81-99); Mean Platelet Vol. 10.5 fl (6.2-12.0); Monocyte# 0.61 X10^3/uL; Monocyte% 7.2 % (0-10); NRBC Flagged by Analyzer 0 % (0-5); Neutrophil # 5.27 X10^3/uL (2.7-7.7); Neutrophil % 62.1 % (47-70); Platelet Count 232 K/mm3 (150-450); RBC Distribution Width CV 13.7 % (11.6-14.6); RBC Distribution Width SD 43.6 fl (35.1-43.9); Red Blood Count 4.45 M/mm3 (4.2-5.4); White Blood Count 8.5 K/mm3 (4.4-11.0)
[2021-11-29 09:37] LABS: Anion Gap 7 (5-15); BUN 9 mg/dL (7-18); BUN/Creat Ratio 12.2 RATIO (10-20); Calcium,Total 9.3 mg/dL (8.5-10.1); Chloride 105 mmol/L (98-107); Creatinine, Serum 0.74 mg/dL (0.55-1.02); EST Glomerular Filtration Rate 81 mL/min (>60); Est Glom Filt Rate - Afr Amer 98 mL/min (>60); Glucose 147 mg/dL (74-106); Magnesium 1.8 mg/dL (1.6-2.6); Potassium 3.7 mmol/L (3.5-5.1); Sodium Level 142 mmol/L (136-145)
== END ==
LOC: OLS.SW300 05:00
PROVIDERS: PCP Family Medicine; Visit Provider Internal Medicine
DX: I10 Essential (primary) hypertension (principal); E11.9 Type 2 diabetes mellitus without complications; D64.9 Anemia, unspecified
CPT/HCPCS: 36415; 80048; 83735; 85025

== ENCOUNTER → 2021-12-06 | Outpatient (REF) | payer MEDICARE, MEDICAID, SELFPAY ==
[2021-12-06 08:34] LABS: Absolute Lymphocyte Count 2.02 X10^3/uL (0.83-4.51); Absolute Neutrophil Count 3.8 X10^3/uL (2.0-7.7); Basophil# 0.05 X10^3/uL; Basophil% 0.7 % (0-1); Eosinophil# 0.31 X10^3/uL; Eosinophils% 4.6 % (0-5); Hematocrit 37.7 % (37-47); Hemoglobin 12.3 g/dL (12.0-15.0); Lymphocyte # 2.02 X10^3/ul (0.83-4.51); Lymphocyte % 30.1 % (19-41); Mean Corp Hgb Conc 32.6 g/dL (32-36); Mean Corpuscular Hgb 29.3 pg (27.0-32.0); Mean Corpuscular Volume 89.8 fL (81-99); Monocyte# 0.56 X10^3/uL; Monocyte% 8.3 % (0-10); NRBC Flagged by Analyzer 0 % (0-5); Neutrophil # 3.76 X10^3/uL (2.7-7.7); Platelet Count 203 K/mm3 (150-450); RBC Distribution Width CV 13.7 % (11.6-14.6); RBC Distribution Width SD 44.3 fl (35.1-43.9); White Blood Count 6.7 K/mm3 (4.4-11.0)
[2021-12-06 08:58] LABS: Anion Gap 6 (5-15); BUN 15 mg/dL (7-18); BUN/Creat Ratio 19.3 RATIO (10-20); Calcium,Total 9.6 mg/dL (8.5-10.1); Chloride 105 mmol/L (98-107); Creatinine, Serum 0.78 mg/dL (0.55-1.02); EST Glomerular Filtration Rate 77 mL/min (>60); Est Glom Filt Rate - Afr Amer 93 mL/min (>60); Glucose 80 mg/dL (74-106); Magnesium 1.9 mg/dL (1.6-2.6); Potassium 3.3 mmol/L (3.5-5.1); Sodium Level 142 mmol/L (136-145)
== END ==
LOC: OLS.SW300 05:00
PROVIDERS: PCP Family Medicine; Visit Provider Internal Medicine
DX: I10 Essential (primary) hypertension (principal); D64.9 Anemia, unspecified
CPT/HCPCS: 36415; 80048; 83735; 85025

== ENCOUNTER → 2021-12-24 | Outpatient (REF) | payer MEDICARE, MEDICAID, SELFPAY ==
[2021-12-24 12:18] LABS: Bacteria 0 SEEN /hpf (None Seen); Mucous, Urine 0 SEEN /hpf (<or=2+); Red Blood Cells-Urine 0 SEEN /hpf (0-5)
[2021-12-24 12:43] LABS: Absolute Lymphocyte Count 1.84 X10^3/uL (0.83-4.51); Absolute Neutrophil Count 3.8 X10^3/uL (2.0-7.7); Basophil# 0.04 X10^3/uL; Basophil% 0.6 % (0-1); Eosinophil# 0.25 X10^3/uL; Eosinophils% 3.9 % (0-5); Hematocrit 37.2 % (37-47); Hemoglobin 11.6 g/dL (12.0-15.0); Lymphocyte # 1.84 X10^3/ul (0.83-4.51); Lymphocyte % 28.8 % (19-41); Mean Corp Hgb Conc 31.2 g/dL (32-36); Mean Corpuscular Hgb 28.2 pg (27.0-32.0); Mean Corpuscular Volume 90.5 fL (81-99); Mean Platelet Vol. 11.4 fl (6.2-12.0); Monocyte# 0.45 X10^3/uL; NRBC Flagged by Analyzer 0 % (0-5); Neutrophil % 59.5 % (47-70); Platelet Count 191 K/mm3 (150-450); RBC Distribution Width CV 13.5 % (11.6-14.6); RBC Distribution Width SD 44.7 fl (35.1-43.9); Red Blood Count 4.11 M/mm3 (4.2-5.4); White Blood Count 6.4 K/mm3 (4.4-11.0)
[2021-12-24 12:46] LABS: Color, Urine Yellow (Yellow); Glucose, Dipstick Normal (Normal); Ketone-Dipstick Negative (Negative); Leukocyte Esterase-Dipstick 25 /ul (Negative); Nitrite-Dipstick Negative (Negative); Occult Blood-Urine Negative /ul (Negative); Protein-Dipstick Negative (Negative); Specific Gravity, Urine 1.015 (1.002-1.030); Urine Bilirubin Dipstick Negative (Negative); Urine Clarity Clear (Clear); Urine Urobilinogen Normal (Normal)
[2021-12-24 12:56] LABS: Anion Gap 6 (5-15); BUN 17 mg/dL (7-18); BUN/Creat Ratio 19.5 RATIO (10-20); Calcium,Total 9.1 mg/dL (8.5-10.1); Chloride 104 mmol/L (98-107); Creatinine, Serum 0.87 mg/dL (0.55-1.02); EST Glomerular Filtration Rate 67 mL/min (>60); Est Glom Filt Rate - Afr Amer 81 mL/min (>60); Glucose 153 mg/dL (74-106); Potassium 4.3 mmol/L (3.5-5.1); Sodium Level 138 mmol/L (136-145)
[2021-12-24 13:22] LABS: Squamous Epithelial Cells - UA 0-5 SEEN /hpf (5-10); White Blood Cells 5-10 SEEN /hpf (0-5)
== END ==
LOC: OLS.SW300 10:11
PROVIDERS: PCP Family Medicine; Visit Provider Internal Medicine
DX: R41.0 Disorientation, unspecified (principal); R44.3 Hallucinations, unspecified
CPT/HCPCS: 36415; 80048; 81001; 85025; 87086; 87088

== ENCOUNTER 2021-12-29 15:50 | Emergency (ER) | payer MEDICARE, MEDICAID, OTHER, SELFPAY ==
[2021-12-29 15:51] VITALS: BP 117/60; PULSE 61; RESP 18; TEMP 37.1; O2SAT 95; BMI 32.1
--- NOTE | 2021-12-29 16:39 | CT_ITS ---
STUDY: CT BRAIN WITHOUT CONTRAST ADMINISTRATION 1741 HOURS ON 12/29/2021 REASON FOR EXAM: 76-year-old female with head injury. RADIATION DOSAGE (If Supplied By Facility): CTDIvol = ( 44.99 ) mGy, DLP = ( 745.49 ) mGycm. TECHNIQUE: Transaxial CT imaging of the brain was performed without administration of intravenous contrast material. Individualized dose optimization techniques were used for this CT. Sagittal and coronal reconstructions were obtained and all were demonstrated in osseous and soft tissue algorithms. COMPARISON: 01/06/2019. FINDINGS: Moderately large area of encephalomalacia in the left lateral frontal region, unchanged in size or appearance since the previous study of 01/06/2019. No subdural, epidural, or intracerebral hematoma, hemorrhage or contusion. No ischemic hemorrhagic infarcts. No intracranial neoplasms or metastatic disease. Normal sella pituitary. Normal brainstem and posterior fossa. Normal calvarium without linear or depressed skull fractures. Normal paranasal sinuses. CT/Brain/Head without Contrast IMPRESSION: 1. No significant interval change since the previous study of 01/06/2019. There is a moderately large area of encephalomalacia in the left lateral frontal region, unchanged in size or appearance since the previous study. 2. No subdural, epidural, or intracerebral hemorrhage, hematomas or contusions. 3. No infarction mass lesions. 4. Normal calvarium without fractures. 5. Normal paranasal sinuses. Electronically Signed: Mango Jimenez MD at 17:58 EDT ,
--- NOTE | 2021-12-29 16:45 | ED.VIS.FALL ---
HPI HPI - Fall History of Present Illness Chief Complaint: Fall Narrative Narrative: Patient states has been feeling generally weak for the last few days. He states that today she slipped while trying to transfer into bed. She fell on her left hip. They told her to lie still and she has not tried to walk. She states she also hit her head. She did not lose consciousness. She denies being on any blood thinners. She states she does feel kind of out of it now. He complains of pain in the left hip and a mild headache. He is not had any fevers or chills. PFSH [facility] Medical History Abdominal pain Adenocarcinoma of colon Anemia Anxiety Cancer of ascending colon metastatic to intra-abdominal lymph node Cerebral arteriosclerosis Chronic calculous cholecystitis Dehydration Dementia Diarrhea Diverticulitis of colon Diverticulosis Dizziness DM2 (diabetes mellitus, type 2) Dysphagia GERD (gastroesophageal reflux disease) GERD with stricture Hematuria Hemorrhoids History of colon cancer History of CVA (cerebrovascular accident) HTN (hypertension) Hyperlipidemia Hypokalemia Intervertebral disc disorder with radiculopathy of lumbar region Nausea & vomiting Overactive bladder Risk for falls Suspected sleep apnea Venous insufficiency, peripheral Home Medications pravastatin 40 mg tablet 80 mg PO DAILY cholesterol 04/19/14 [History Last Taken 12/18/19] metoprolol succinate 100 mg tablet,extended release 24 hr 100 mg PO DAILY BP 03/29/17 [History Last Taken 12/19/19] insulin glargine 100 unit/mL (3 mL) subcutaneous pen 30 units SQ QHS diabetes 08/21/17 [History Last Taken 12/18/19] metformin 500 mg tablet,extended release 24 hr 1,000 mg PO BID diabetes 04/03/18 [History Last Taken 12/19/19] duloxetine 60 mg capsule,delayed release 60 mg PO DAILY depression 01/06/19 [History Last Taken 12/19/19] pramipexole 0.5 mg tablet 1 mg PO QHS restless legs 01/06/19 [History Last Taken 03/30/19] amlodipine 5 mg tablet 5 mg PO DAILY bp 03/31/19 [History Last Taken 12/19/19] aspirin 81 mg tablet,delayed release 81 mg PO DAILY heart health 03/31/19 [History Last Taken 12/19/19] esomeprazole magnesium 40 mg capsule,delayed release 40 mg PO DAILY PRN Indigestion 03/31/19 [History Last Taken 12/19/19] losartan 50 mg tablet 50 mg PO DAILY BP 03/31/19 [History Last Taken 12/19/19] tizanidine 4 mg capsule 4 mg PO Q8H PRN Pain Or Fever 09/18/19 [History Last Taken Unknown] donepezil 5 mg tablet 5 mg PO QHS memory 12/19/19 [History Last Taken 12/18/19] isosorbide mononitrate 30 mg tablet,extended release 24 hr 30 mg PO DAILY blood pressure 12/19/19 [History Last Taken 12/19/19] pregabalin 50 mg capsule 50 mg PO DAILY 01/28/20 [History Last Taken Unknown] risperidone 0.25 mg tablet 0.25 mg PO BID 05/17/20 [History Last Taken Unknown] furosemide 20 mg tablet 20 mg PO 09/06/20 [History Last Taken Unknown] insulin lispro 100 unit/mL subcutaneous pen 12 unit subcut 09/06/20 [History Last Taken Unknown] naproxen sodium 220 mg capsule (Aleve) 220 mg PO BID PRN 09/06/20 [History Last Taken Unknown] potassium chloride 20 mEq tablet,extended release(part/cryst) 20 meq PO 09/06/20 [History Last Taken Unknown] amoxicillin 875 mg-potassium clavulanate 125 mg tablet (Augmentin) 1 tab PO BID #10 tabs 09/07/20 [Rx Last Taken Unknown] Allergy/AdvReac Type Severity Reaction Status Date / Time citalopram hydrobromide Allergy Upset Verified 01/28/21 12:40 [From Celexa] Stomach gabapentin [From Neurontin] Allergy Unknown Verified 01/28/21 12:40 hydrocodone bitartrate Allergy drove her Verified 01/28/21 12:40 [From Vicodin] crazy lisinopril Allergy Unknown Verified 01/28/21 12:40 tramadol AdvReac Severe Extreme Verified 01/28/21 12:40 agitation, suicidal, distraught, fleeing morphine AdvReac Other Verified 01/28/21 12:40 oxycodone [From OxyContin] AdvReac Vomiting Verified 01/28/21 12:40 Family History Son Diabetes Cancer of kidney Lung cancer Bone cancer Surgical History History of esophagogastroduodenoscopy (EGD) Hx of colonoscopy Hx of heart surgery S/P cholecystectomy S/P colectomy S/P hysterectomy Status post corneal transplant Status post total knee replacement, right Social History Smoking Status: Never smoker second hand exposure: No alcohol intake: never substance use type: does not use caffeine: Yes what type of physical activity do you participate in: none frequency: does not exercise seatbelt use: always ROS ROS ED Constitutional Constitutional ED: Reports other Details: Fatigue and generalized weakness ; Denies chills or fever(s) Eyes Eyes: Denies blurry vision or change in vision ENT ENT ED: Denies rhinorrhea or sore throat Cardiovascular Cardiovascular: Denies chest pain Respiratory/Chest Respiratory/Chest: Denies cough or dyspnea Gastrointestinal Gastrointestinal: Denies abdominal pain, constipation, nausea or vomiting Genitourinary Genitourinary ED: Denies dysuria or hematuria Musculoskeletal Musculoskeletal: Reports other Details: Left hip pain Integumentary Denies abscess or Abrasions Neurologic Neurologic: Reports headache(s); Denies paresthesias Psychiatric Psychiatric: Denies anxiety or depression EXAM Physical Exam Const Vital Signs: 12/29/21 15:51 12/29/21 15:56 12/29/21 20:20 Temperature 98.7 F Temperature Source Temporal Pulse Rate 61 63 Respiratory Rate 18 18 Respiratory Effort Normal Respiratory Depth Normal Respiratory Pattern Normal Blood Pressure 117/60 139/53 H Blood Pressure Mean 79 81 Pulse Ox 95 93 Oxygen Delivery Method Room Air Room Air Room Air Positive well nourished General Appearance ED: NAD HEENT Reports normocephalic atraumatic Eyes PERRL and EOMs intact bilaterally General Eye ED: Negative for pale conjunctiva or scleral icterus Neck full ROM General: Negative for tenderness Chest Wall inspection of chest normal and palpation of chest normal Resp normal respiratory effort Auscultation: Negative for rales, rhonchi or wheezes Cardio regular rate and regular rhythm GI non-tender Extremity Extremity Narrative: Tenderness palpation over the left greater trochanter. Left leg is not shortened or externally rotated. Patient unable to lift this off the bed secondary to pain. Neuro oriented x3 and CN's II-XII intact bilaterally Sensorium / Orientation: alert Motor Exam: strength 5/5 throughout Psych Psych Narrative: Patient appears to be a little confused but she is answering questions appropriately. She does stare off at times. MDM MDM MDM Narrative Medical decision making narrative: Presenting with left hip pain. On exam she is having difficulty moving this for me although she is not shortened or externally rotated. There is some tenderness of the left greater trochanter. No obvious deformity. CBC within normal limits. CMP shows a slight increase in her creatinine at 1.46. Electrolytes unremarkable. LFTs are all normal. Urinalysis not consistent with infection. CT brain was obtained because the patient hit her head and was acting a little bit confused. This is interpreted as normal without any acute abnormalities. Left hip x-ray on my interpretation shows no acute fracture or subluxation. Patient initially treated with Zofran, fentanyl, IV fluids. After x-ray she was able to get up and ambulate with a walker and was stable. At this point I feel she stable to be discharged home. Patient counseled on all findings. Return precautions discussed. Impression: 1. Mechanical fall 2. Closed head injury 3. Left hip contusion 4. Dehydration Lab Data Attestation: I reviewed the patient's lab results. Labs: Laboratory Results - last 24 hr 12/29/21 12/29/21 12/29/21 16:55 16:55 18:10 WBC 8.4 RBC 4.53 Hgb 13.0 Hct 40.7 MCV 89.8 MCH 28.7 MCHC 31.9 L RDW Std Deviation 45.1 H RDW Coeff of Terry 14.2 Plt Count 204 MPV 10.8 Immature Gran % (Auto) 0.200 Neut % (Auto) 59.7 Lymph % (Auto) 28.7 [place] % (Auto) 7.6 Eos % (Auto) 3.1 Baso % (Auto) 0.7 Absolute Neuts (auto) 5.0 Absolute Lymphs (auto) 2.42 Nucleated RBC % 0 Sodium Cancelled 144 Potassium Cancelled 4.6 Chloride Cancelled 110 H Carbon Dioxide Cancelled 28.0 Anion Gap Cancelled 6 BUN Cancelled 29 H Creatinine Cancelled 1.46 H Estim Creat Clear Calc Cancelled 27.12 Est GFR (MDRD) Af Amer Cancelled 45 L Est GFR (MDRD) Non-Af Cancelled 37 L BUN/Creatinine Ratio Cancelled 19.9 Glucose Cancelled 91 Calcium Cancelled 9.2 Total Bilirubin Cancelled 0.60 AST Cancelled 14 L ALT Cancelled 19 Alkaline Phosphatase Cancelled 26 L Total Protein Cancelled 6.1 L Albumin Cancelled 3.0 L Globulin Cancelled 3.1 Albumin/Globulin Ratio Cancelled 1.0 Urine Color Urine Clarity Urine pH Ur Specific [place] Urine Protein Urine Glucose (UA) Urine Ketones Urine Occult Blood Urine Nitrite Urine Bilirubin Urine Urobilinogen Ur Leukocyte Esterase Urine RBC Urine WBC Ur Squamous Epith Cells Urine Bacteria Urine Mucus 12/29/21 20:05 WBC RBC Hgb Hct MCV MCH MCHC RDW Std Deviation RDW Coeff of [place] Plt Count MPV Immature Gran % (Auto) Neut % (Auto) Lymph % (Auto) [place] % (Auto) Eos % (Auto) Baso % (Auto) Absolute Neuts (auto) Absolute Lymphs (auto) Nucleated RBC % Sodium Potassium Chloride Carbon Dioxide Anion Gap BUN Creatinine Estim Creat Clear Calc Est GFR (MDRD) Af Amer Est GFR (MDRD) Non-Af BUN/Creatinine Ratio Glucose Calcium Total Bilirubin AST ALT Alkaline Phosphatase Total Protein Albumin Globulin Albumin/Globulin Ratio Urine Color Yellow Urine Clarity Sl. Cloudy Urine pH 5.0 Ur Specific [place] 1.015 Urine Protein 15 H Urine Glucose (UA) Normal Urine Ketones 5 H Urine Occult Blood 10 H Urine Nitrite Negative Urine Bilirubin Negative Urine Urobilinogen Normal Ur Leukocyte Esterase 500 H Urine RBC 0-5 SEEN Urine WBC 25-50 SEEN Ur Squamous Epith Cells 0-5 SEEN Urine Bacteria 1+ Urine Mucus 0 SEEN Radiography Diagnostic Testing: Clinical Impression(s) from Imaging Studies Brain CT 12/29/21 16:39 IMPRESSION: 1. No significant interval change since the previous study of 01/06/2019. There is a moderately large area of encephalomalacia in the left lateral frontal region, unchanged in size or appearance since the previous study. 2. No subdural, epidural, or intracerebral hemorrhage, hematomas or contusions. 3. No infarction mass lesions. 4. Normal calvarium without fractures. 5. Normal paranasal sinuses. Electronically Signed: Mango Jimenez MD at 17:58 EDT , Hip/Pelvis X-Ray 12/29/21 17:50 IMPRESSION: 1. No fractures or dislocations. 2. Mild osteoarthritic changes of both hip joints, unchanged since previous study of 01/06/2019. 3. No lytic, sclerotic, or mass lesions. 4. Prominent arterial vascular calcification bilaterally. Electronically Signed: Mango Jimenez MD at 19:22 EDT , Discharge Plan Triage Chief Complaint: Fall ED Provider: Jean Claude Corrales Dx/Rx/DC Orders Instructions: ED Hip Contusion, ED Fall Prevention Prescriptions: No Action metoprolol succinate 100 mg tablet extended release 24 hr 100 mg PO DAILY tizanidine 4 mg capsule 4 mg PO Q8H PRN (Reason: Pain Or Fever) pregabalin 50 mg capsule 50 mg PO DAILY furosemide 20 mg tablet 20 mg PO Label Comments: TAKE 3 TABLETS BY MOUTH ONCE DAILY insulin lispro 100 unit/mL insulin pen 12 unit subcut Label Comments: Inject 12 Units subcutaneously WITH MEALS naproxen sodium [Aleve] 220 mg capsule 220 mg PO BID PRN potassium chloride 20 mEq tablet,ER particles/crystals 20 meq PO Label Comments: TAKE 1 TABLET BY MOUTH TWICE DAILY pravastatin 40 MG tablet 80 mg PO DAILY insulin glargine 100 UNITS/ML insulin pen 30 units SQ QHS Label Comments: Inject 28 Units subcutaneously daily at bedtime. metformin 500 MG tablet 1,000 mg PO BID pramipexole 0.5 MG tablet 1 mg PO QHS Label Comments: Take 1 tablet by mouth daily at bedtime. duloxetine 60 MG capsule,delayed release(DR/EC) 60 mg PO DAILY losartan 50 MG tablet 50 mg PO DAILY amlodipine 5 MG tablet 5 mg PO DAILY aspirin 81 MG tablet,delayed release (DR/EC) 81 mg PO DAILY esomeprazole magnesium 40 MG capsule,delayed release(DR/EC) 40 mg PO DAILY PRN (Reason: Indigestion) donepezil 5 MG tablet 5 mg PO QHS isosorbide mononitrate 30 mg tablet extended release 24 hr 30 mg PO DAILY risperidone 0.25 MG tablet 0.25 mg PO BID amoxicillin-pot clavulanate [Augmentin] 875-125 mg tablet 1 tab PO BID Qty: 10 0RF Primary Care Provider: Cecil Carey Referrals: Cecil Carey MD [Primary Care Provider] - Disposition Disposition: Home, Self Care
[2021-12-29 17:06] LABS: Absolute Lymphocyte Count 2.42 X10^3/uL (0.83-4.51); Basophil# 0.06 X10^3/uL; Basophil% 0.7 % (0-1); Eosinophil# 0.26 X10^3/uL; Eosinophils% 3.1 % (0-5); Hematocrit 40.7 % (37-47); Lymphocyte # 2.42 X10^3/ul (0.83-4.51); Lymphocyte % 28.7 % (19-41); Mean Corp Hgb Conc 31.9 g/dL (32-36); Mean Corpuscular Hgb 28.7 pg (27.0-32.0); Mean Corpuscular Volume 89.8 fL (81-99); Mean Platelet Vol. 10.8 fl (6.2-12.0); Monocyte# 0.64 X10^3/uL; Monocyte% 7.6 % (0-10); NRBC Flagged by Analyzer 0 % (0-5); Neutrophil # 5.02 X10^3/uL (2.7-7.7); Neutrophil % 59.7 % (47-70); Platelet Count 204 K/mm3 (150-450); RBC Distribution Width CV 14.2 % (11.6-14.6); RBC Distribution Width SD 45.1 fl (35.1-43.9); Red Blood Count 4.53 M/mm3 (4.2-5.4); White Blood Count 8.4 K/mm3 (4.4-11.0)
[2021-12-29] MEDS: Ondansetron 4 MG/2 ML Vial IV (17:08)
--- NOTE | 2021-12-29 17:50 | RAD_ITS ---
STUDY: AP PELVIS AND LEFT HIP X-RAY SERIES OF 1755 HOURS ON 12/29/2021 REASON FOR EXAM: 76-year-old female with left hip pain. TECHNIQUE: This examination consists of an AP view of the pelvis and AP and cross-table lateral views of the left hip. COMPARISON: AP pelvis and right hip of 01/06/2019. FINDINGS: There is no evidence of fractures or dislocations. No osseous lytic, sclerotic, or mass lesions are evident. There are mild osteoarthritic changes of both hip joints, unchanged since the previous study of 01/06/2019. There is prominent arterial vascular calcification bilaterally. RAD/HIP, UNI W/ Pelvis 2-3 Views IMPRESSION: 1. No fractures or dislocations. 2. Mild osteoarthritic changes of both hip joints, unchanged since previous study of 01/06/2019. 3. No lytic, sclerotic, or mass lesions. 4. Prominent arterial vascular calcification bilaterally. Electronically Signed: Mango Jimenez MD at 19:22 EDT ,
[2021-12-29 18:37] LABS: AST(SGOT) 14 U/L (15-37); Alanine Aminotransfer ALT/SGPT 19 U/L (13-56); Alkaline Phosphatase 26 U/L (45-117); Anion Gap 6 (5-15); BUN 29 mg/dL (7-18); BUN/Creat Ratio 19.9 RATIO (10-20); Calcium,Total 9.2 mg/dL (8.5-10.1); Chloride 110 mmol/L (98-107); Creatinine, Serum 1.46 mg/dL (0.55-1.02); EST Glomerular Filtration Rate 37 mL/min (>60); Est Glom Filt Rate - Afr Amer 45 mL/min (>60); Estimated Creatinine Clearance 27.12 ml/min; Globulin 3.1 g/dL (2.2-4.2); Glucose 91 mg/dL (74-106); Potassium 4.6 mmol/L (3.5-5.1); Protein, Total 6.1 g/dL (6.4-8.2); Sodium Level 144 mmol/L (136-145)
[2021-12-29 20:09] LABS: Mucous, Urine 0 SEEN /hpf (<or=2+)
[2021-12-29 20:11] LABS: Color, Urine Yellow (Yellow); Glucose, Dipstick Normal (Normal); Ketone-Dipstick 5 mg/dl (Negative); Leukocyte Esterase-Dipstick 500 /ul (Negative); Nitrite-Dipstick Negative (Negative); Occult Blood-Urine 10 /ul (Negative); Protein-Dipstick 15 mg/dl (Negative); Specific Gravity, Urine 1.015 (1.002-1.030); Urine Bilirubin Dipstick Negative (Negative); Urine Clarity Sl. Cloudy (Clear); Urine Urobilinogen Normal (Normal)
[2021-12-29 20:18] LABS: Bacteria 1+ /hpf (None Seen); Red Blood Cells-Urine 0-5 SEEN /hpf (0-5); Squamous Epithelial Cells - UA 0-5 SEEN /hpf (5-10); White Blood Cells 25-50 SEEN /hpf (0-5)
[2021-12-29 20:20] VITALS: BP 139/53; PULSE 63; RESP 18; O2SAT 93
[2021-12-29 21:34] VITALS: BP 115/54; PULSE 69; RESP 16; O2SAT 94
== END 2021-12-29 21:53 | disposition home or self-care (01) ==
PROVIDERS: Emergency Provider Student in an Organized Health Care Education/Training Program; PCP Family Medicine; Visit Provider Student in an Organized Health Care Education/Training Program
DX: S09.90XA Unspecified injury of head, initial encounter (principal); S70.02XA Contusion of left hip, initial encounter; E86.0 Dehydration; Z86.73 Personal history of transient ischemic attack (TIA), and cerebral infarction without residual deficits; W19.XXXA Unspecified fall, initial encounter
CPT/HCPCS: 70450; 73502; 80053; 81001; 85025; 96374; 99285; J7040; A4216; J2405

== ENCOUNTER → 2022-02-14 | Outpatient (REF) | payer MEDICARE, MEDICAID, SELFPAY ==
[2022-02-14 09:03] LABS: Anion Gap 9 (5-15); BUN 27 mg/dL (7-18); Calcium,Total 9.1 mg/dL (8.5-10.1); Chloride 107 mmol/L (98-107); Creatinine, Serum 0.96 mg/dL (0.55-1.02); EST Glomerular Filtration Rate 60 mL/min (>60); Est Glom Filt Rate - Afr Amer 72 mL/min (>60); Glucose 111 mg/dL (74-106); Potassium 3.8 mmol/L (3.5-5.1); Sodium Level 138 mmol/L (136-145)
[2022-02-14 09:10] LABS: Absolute Lymphocyte Count 2.16 X10^3/uL (0.83-4.51); Basophil# 0.05 X10^3/uL; Basophil% 0.7 % (0-1); Eosinophil# 0.26 X10^3/uL; Eosinophils% 3.6 % (0-5); Hematocrit 35.2 % (37-47); Hemoglobin 11.3 g/dL (12.0-15.0); Lymphocyte # 2.16 X10^3/ul (0.83-4.51); Lymphocyte % 30.3 % (19-41); Mean Corp Hgb Conc 32.1 g/dL (32-36); Mean Corpuscular Hgb 28.4 pg (27.0-32.0); Mean Corpuscular Volume 88.4 fL (81-99); Mean Platelet Vol. 11.3 fl (6.2-12.0); Monocyte# 0.63 X10^3/uL; Monocyte% 8.8 % (0-10); NRBC Flagged by Analyzer 0 % (0-5); Neutrophil # 4.01 X10^3/uL (2.7-7.7); Neutrophil % 56.2 % (47-70); Platelet Count 209 K/mm3 (150-450); RBC Distribution Width CV 14.8 % (11.6-14.6); RBC Distribution Width SD 47.5 fl (35.1-43.9); Red Blood Count 3.98 M/mm3 (4.2-5.4); White Blood Count 7.1 K/mm3 (4.4-11.0)
== END ==
LOC: OLS.SW 06:50
PROVIDERS: PCP Family Medicine; Visit Provider Internal Medicine
DX: E11.9 Type 2 diabetes mellitus without complications (principal)
CPT/HCPCS: 36415; 80048; 85025

== ENCOUNTER 2022-02-16 16:11 | Emergency (ER) | payer MEDICARE, MEDICAID, OTHER, SELFPAY ==
[2022-02-16 16:13] VITALS: BP 148/64; PULSE 72; RESP 16; TEMP 35.9; O2SAT 95; BMI 33.2
--- NOTE | 2022-02-16 16:17 | CT_ITS ---
EXAM: CT SPINE - CERVICAL WITHOUT IV REASON FOR EXAM: Female, 77 years old. NECK PAIN Pain/fall HISTORY: NECK PAIN Pain/fall Individualized dose optimization techniques were used for this CT. TECHNIQUE: Multiplanar images were obtained of the cervical spine. IV contrast was not utilized. COMPARISON: None. FINDINGS: The vertebral bodies do maintain their height. The odontoid process is intact. C4-5: Loss of intervertebral disc height. There is endplate spondylosis of the vertebral body. Posterior disc bulge osteophyte complex. Severe spinal stenosis. There is bilateral facet arthropathy. C5-6: Loss of intervertebral disc height. There is endplate spondylosis of the vertebral body. Posterior disc bulge osteophyte complex. Severe spinal stenosis. There is bilateral facet arthropathy. No pre-vertebral soft tissue swelling is seen. The intravertebral disc height is lost. There are scattered lymph nodes in the neck. There are degenerative changes of the osseous structures. There is bilateral facet arthropathy. There are scattered levels of foraminal stenosis. There are vascular calcifications. CT/Spine Cervical without Contras IMPRESSION: Degenerative changes of the cervical spine. C4 to C6: Severe spinal stenosis. Electronically Signed: Benson Barrett MD at 17:00 EST ,
--- NOTE | 2022-02-16 16:17 | RAD_ITS ---
STUDY: X-RAY - PELVIS AND RIGHT HIP REASON FOR EXAM: Female, 77 years old. Fall,Pain TECHNIQUE: XR Hip Unilateral with Pelvis when performed; 2-3 Views COMPARISON: 12.29.21 FINDINGS: There is a non-specific bowel gas pattern. There are atherosclerotic vascular calcifications of the pelvic arteries. There are degenerative changes of the lumbar spine. Normal bilateral iliac wings, sacroiliac joints and visualized sacrum. Normal bilateral superior and inferior pubic rami. Normal pubic symphysis. Normal bilateral ischial tuberosities. There are osteoarthritic changes of the femoral head with marginal osteophyte formation. There is osteoarthritic spur formation of the acetabular rim. There is mild articular joint space narrowing of the hip. RAD/HIP, UNI W/ Pelvis 2-3 Views IMPRESSION: Degenerative findings of the hips. Electronically Signed: Benson Barrett MD at 17:01 EST ,
--- NOTE | 2022-02-16 16:17 | CT_ITS ---
STUDY: CT BRAIN WITHOUT CONTRAST REASON FOR EXAM: Female, 77 years old. HEADACHE trauma/fall TECHNIQUE: Transaxial CT imaging of the brain was performed without administration of intravenous contrast material. Individualized dose optimization techniques were used for this CT. COMPARISON: 22 FINDINGS: Normal calvarium. Normal soft tissues. There is an old infarct of the basal ganglia. There is mild cerebral atrophy with widening of the extra-axial spaces and ventricular dilatation. There are areas of decreased attenuation within the white matter tracts of the supratentorial brain, consistent with microvascular disease changes. Old left MCA infarct. Normal brainstem. Normal cerebellum. There is no intracranial hemorrhage. There are no findings of an acute ischemic infarction. There are calcifications noted in the distal vertebral arteries. There are calcifications noted in the cavernous carotid arteries. This is consistent for atherosclerotic disease. Normal visualized paranasal sinuses. ASPECTS 10 CT/Brain/Head without Contrast IMPRESSION: There are no acute intracranial findings. Electronically Signed: Benson Barrett MD at 16:58 EST ,
--- NOTE | 2022-02-16 16:19 | ED.VIS.FALL ---
HPI HPI - Fall History of Present Illness Chief Complaint: Fall Narrative Narrative: 77-year-old female past medical history of dementia [facility] status post [facility]. She states she denies any prodromal symptoms, but was trying to get up and walk and fell. She states she hurts all over. Per EMS, they are unsure if she had a loss of consciousness. She states she cannot remember if she passed out. She denies any neck pain. She has right hip pain mainly from her fall. History and physical is limited secondary to dementia. [facility] Medical History Abdominal pain Adenocarcinoma of colon Anemia Anxiety Cancer of ascending colon metastatic to intra-abdominal lymph node Cerebral arteriosclerosis Chronic calculous cholecystitis Dehydration Dementia Diarrhea Diverticulitis of colon Diverticulosis Dizziness DM2 (diabetes mellitus, type 2) Dysphagia GERD (gastroesophageal reflux disease) GERD with stricture Hematuria Hemorrhoids History of colon cancer History of CVA (cerebrovascular accident) HTN (hypertension) Hyperlipidemia Hypokalemia Intervertebral disc disorder with radiculopathy of lumbar region Nausea & vomiting Overactive bladder Risk for falls Suspected sleep apnea Venous insufficiency, peripheral Home Medications pravastatin 40 mg tablet 80 mg PO DAILY cholesterol 04/19/14 [History Last Taken 12/18/19] metoprolol succinate 100 mg tablet,extended release 24 hr 100 mg PO DAILY BP 03/29/17 [History Last Taken 12/19/19] insulin glargine 100 unit/mL (3 mL) subcutaneous pen 30 units SQ QHS diabetes 08/21/17 [History Last Taken 12/18/19] metformin 500 mg tablet,extended release 24 hr 1,000 mg PO BID diabetes 04/03/18 [History Last Taken 12/19/19] duloxetine 60 mg capsule,delayed release 60 mg PO DAILY depression 01/06/19 [History Last Taken 12/19/19] pramipexole 0.5 mg tablet 1 mg PO QHS restless legs 01/06/19 [History Last Taken 03/30/19] amlodipine 5 mg tablet 5 mg PO DAILY bp 03/31/19 [History Last Taken 12/19/19] aspirin 81 mg tablet,delayed release 81 mg PO DAILY heart health 03/31/19 [History Last Taken 12/19/19] esomeprazole magnesium 40 mg capsule,delayed release 40 mg PO DAILY PRN Indigestion 03/31/19 [History Last Taken 12/19/19] losartan 50 mg tablet 50 mg PO DAILY BP 03/31/19 [History Last Taken 12/19/19] tizanidine 4 mg capsule 4 mg PO Q8H PRN Pain Or Fever 09/18/19 [History Last Taken Unknown] donepezil 5 mg tablet 5 mg PO QHS memory 12/19/19 [History Last Taken 12/18/19] isosorbide mononitrate 30 mg tablet,extended release 24 hr 30 mg PO DAILY blood pressure 12/19/19 [History Last Taken 12/19/19] pregabalin 50 mg capsule 50 mg PO DAILY 01/28/20 [History Last Taken Unknown] risperidone 0.25 mg tablet 0.25 mg PO BID 05/17/20 [History Last Taken Unknown] furosemide 20 mg tablet 20 mg PO 09/06/20 [History Last Taken Unknown] insulin lispro 100 unit/mL subcutaneous pen 12 unit subcut 09/06/20 [History Last Taken Unknown] naproxen sodium 220 mg capsule (Aleve) 220 mg PO BID PRN 09/06/20 [History Last Taken Unknown] potassium chloride 20 mEq tablet,extended release(part/cryst) 20 meq PO 09/06/20 [History Last Taken Unknown] amoxicillin 875 mg-potassium clavulanate 125 mg tablet (Augmentin) 1 tab PO BID #10 tabs 09/07/20 [Rx Last Taken Unknown] Allergy/AdvReac Type Severity Reaction Status Date / Time citalopram hydrobromide Allergy Upset Verified 01/28/21 12:40 [From Celexa] Stomach gabapentin [From Neurontin] Allergy Unknown Verified 01/28/21 12:40 hydrocodone bitartrate Allergy drove her Verified 01/28/21 12:40 [From Vicodin] crazy lisinopril Allergy Unknown Verified 01/28/21 12:40 tramadol AdvReac Severe Extreme Verified 01/28/21 12:40 agitation, suicidal, distraught, fleeing morphine AdvReac Other Verified 01/28/21 12:40 oxycodone [From OxyContin] AdvReac Vomiting Verified 01/28/21 12:40 Family History Son Diabetes Cancer of kidney Lung cancer Bone cancer Surgical History History of esophagogastroduodenoscopy (EGD) Hx of colonoscopy Hx of heart surgery S/P cholecystectomy S/P colectomy S/P hysterectomy Status post corneal transplant Status post total knee replacement, right Social History Smoking Status: Never smoker second hand exposure: No alcohol intake: never substance use type: does not use caffeine: Yes what type of physical activity do you participate in: none frequency: does not exercise seatbelt use: always ROS ROS ED ROS Narrative Constitutional: No fever, no chills. HEENT: No sore throat. No neck pain. No loss of vision. No rhinorrhea. Pain on right side of forehead. Cardiovascular: No chest pain. No palpitations. No pedal edema. Respiratory: No cough, no shortness of breath. Abdominal: No abdominal pain. No nausea. No vomiting. Genitourinary: No dysuria. No hematuria. Musculoskeletal: No myalgias. Right hip pain on examination. Neurologic: Right-sided headaches. No dizziness. No lightheadedness. Skin: No rash. No change in color. Psychiatric: No depression. No anxiety. EXAM Physical Exam Narrative Exam Narrative: Afebrile. Vital signs noted. HEENT: Normocephalic. Atraumatic. PERRL, EOMI. Neck soft and supple. No point tenderness or step off. Cardiovascular: Regular rate and rhythm. No murmurs, rubs, or gallops appreciated. Respiratory: No tachypnea. Lungs clear to auscultation bilaterally. Gastrointestinal: Abdomen soft, nontender, with normoactive bowel sounds. No rebound or guarding. Neurological: Awake. Alert. Nonfocal, nonlateralizing. Skin: No rash. Normal color. No pallor. Musculoskeletal: No pedal edema. Full range of motion extremities. Pelvis stable. Tenderness to palpation right greater trochanter of hip/femur. No pain with logrolling of femur bilaterally. Neurovascular intact bilateral lower extremities with palpable dorsalis pedis pulses bilaterally. Generalized weakness bilateral legs. Const Vital Signs: 02/16/22 16:13 02/16/22 16:22 Temperature 96.7 F L Temperature Source Temporal Pulse Rate 72 Respiratory Rate 16 Respiratory Effort Normal Non-Labored Blood Pressure 148/64 H Blood Pressure Mean 92 Pulse Ox 95 Oxygen Delivery Method Room Air MDM MDM MDM Narrative Medical decision making narrative: As she complained of right-sided headache and hitting the right side of her head on the floor CT of the brain was obtained along with CT of the C-spine. Additionally, I will obtain an x-ray of the pelvis and right hip. CT of the brain shows no acute intracranial findings. CT of the cervical spine shows degenerative changes of the cervical spine but no evidence of fracture, there is severe spinal stenosis of C4-C6. My interpretation of her hip and pelvis x-rays shows no evidence of fracture, there are degenerative changes noted within the bilateral hips. At this point in time, she was given Tylenol for analgesia. I do feel that she can be discharged back to [facility]. She will use her walker when ambulating and assistance should be provided. Return instructions to the emergency department were reviewed. Disposition is discharged in stable condition. Radiography Diagnostic Testing: Clinical Impression(s) from Imaging Studies Brain CT 02/16/22 16:17 IMPRESSION: There are no acute intracranial findings. Electronically Signed: Benson Barrett MD at 16:58 EST , Cervical Spine CT 02/16/22 16:17 IMPRESSION: Degenerative changes of the cervical spine. C4 to C6: Severe spinal stenosis. Electronically Signed: Benson Barrett MD at 17:00 EST , Hip/Pelvis X-Ray 02/16/22 16:17 IMPRESSION: Degenerative findings of the hips. Electronically Signed: Benson Barrett MD at 17:01 EST , Discharge Plan Triage Chief Complaint: Fall ED Provider: Darrell Talavera Dx/Rx/DC Orders Clinical Impression: Fall, Hip pain, right, Closed head injury Instructions: ED Fall with Uncertain Cause, ED Head Injury (Adult), ED Hip Contusion Prescriptions: No Action metoprolol succinate 100 mg tablet extended release 24 hr 100 mg PO DAILY tizanidine 4 mg capsule 4 mg PO Q8H PRN (Reason: Pain Or Fever) pregabalin 50 mg capsule 50 mg PO DAILY furosemide 20 mg tablet 20 mg PO Label Comments: TAKE 3 TABLETS BY MOUTH ONCE DAILY insulin lispro 100 unit/mL insulin pen 12 unit subcut Label Comments: Inject 12 Units subcutaneously WITH MEALS naproxen sodium [Aleve] 220 mg capsule 220 mg PO BID PRN potassium chloride 20 mEq tablet,ER particles/crystals 20 meq PO Label Comments: TAKE 1 TABLET BY MOUTH TWICE DAILY pravastatin 40 MG tablet 80 mg PO DAILY insulin glargine 100 UNITS/ML insulin pen 30 units SQ QHS Label Comments: Inject 28 Units subcutaneously daily at bedtime. metformin 500 MG tablet 1,000 mg PO BID pramipexole 0.5 MG tablet 1 mg PO QHS Label Comments: Take 1 tablet by mouth daily at bedtime. duloxetine 60 MG capsule,delayed release(DR/EC) 60 mg PO DAILY losartan 50 MG tablet 50 mg PO DAILY amlodipine 5 MG tablet 5 mg PO DAILY aspirin 81 MG tablet,delayed release (DR/EC) 81 mg PO DAILY esomeprazole magnesium 40 MG capsule,delayed release(DR/EC) 40 mg PO DAILY PRN (Reason: Indigestion) donepezil 5 MG tablet 5 mg PO QHS isosorbide mononitrate 30 mg tablet extended release 24 hr 30 mg PO DAILY risperidone 0.25 MG tablet 0.25 mg PO BID amoxicillin-pot clavulanate [Augmentin] 875-125 mg tablet 1 tab PO BID Qty: 10 0RF Primary Care Provider: Cecil Carey Referrals: Cecil Carey MD [Primary Care Provider] - Disposition Disposition: Detention Facility Discharge Location: [facility]
[2022-02-16 17:15] VITALS: BP 109/75; PULSE 71; RESP 16; O2SAT 94
[2022-02-16] MEDS: Acetaminophen 500 MG Tablet PO (17:15)
--- NOTE | 2022-02-16 17:29 | ED.RN ---
[facility] ETA IS [phone]
== END 2022-02-16 18:50 | disposition skilled nursing facility (03) ==
PROVIDERS: Emergency Provider Emergency Medicine; PCP Family Medicine; Visit Provider Emergency Medicine
DX: S09.90XA Unspecified injury of head, initial encounter (principal); M25.551 Pain in right hip; W19.XXXA Unspecified fall, initial encounter; Z86.73 Personal history of transient ischemic attack (TIA), and cerebral infarction without residual deficits
CPT/HCPCS: 70450; 72125; 73502; 99284

== ENCOUNTER 2022-03-07 15:59 | Emergency (ER) | payer MEDICARE, MEDICAID, OTHER, SELFPAY ==
[2022-03-07 16:01] VITALS: BP 150/80; PULSE 76; RESP 15; TEMP 36.2; O2SAT 98; BMI 28.8
--- NOTE | 2022-03-07 16:34 | CT_ITS ---
INDICATION: Trauma, fall EXAMINATION: CT BRAIN - CT Head or Brain W/O Contrast Injection TECHNIQUE: Multiple axial images were obtained of the head without intravenous contrast. A radiation dose optimization technique was used for this scan. IV Contrast dosage and agent: None. COMPARISON: 02/16/2022 FINDINGS: BRAIN PARENCHYMA: No intra- or extra-axial hemorrhage. No acute territorial infarction. Stable chronic left MCA distribution CVA and right basal ganglial lacunar infarction. No intracranial mass or mass effect. Posterior fossa structures are unremarkable. Volume loss with low attenuation of the periventricular white matter typical of chronic small vessel disease. CSF SPACES: Stable. No hydrocephalus. Basal cisterns are patent. CALVARIUM, SKULL BASE, PARANASAL SINUSES AND MASTOID AIR CELLS: Clear. No acute fracture. CT/Brain/Head without Contrast IMPRESSION: Volume loss with chronic white matter changes. No acute intracranial findings. Electronically Signed: Sergey Castro MD at 17:17 EST ,
--- NOTE | 2022-03-07 16:34 | RAD_ITS ---
INDICATION: Trauma, fall EXAMINATION/TECHNIQUE: X-RAY - LEFT XR Hip Unilateral with Pelvis when performed; 2-3 Views 3 VIEWS COMPARISON: 12/29/2021 FINDINGS: SOFT TISSUES: No soft tissue swelling or gas. No radiopaque foreign body. BONES/JOINTS: No acute fracture. Hip joint spaces well-maintained.. No sclerotic or destructive changes observed. RAD/HIP, UNI W/ Pelvis 2-3 Views IMPRESSION: No acute bony abnormality. Electronically Signed: Sergey Castro MD at 17:28 EST ,
--- NOTE | 2022-03-07 16:34 | CT_ITS ---
INDICATION: Trauma, fall EXAMINATION: CT CERVICAL SPINE - CT Spine Cervical W/O Contrast Injection TECHNIQUE: Helically acquired images were obtained of the cervical spine. 2D reformatted images were reviewed. A radiation dose optimization technique was used for this scan. IV Contrast dosage and agent: None. COMPARISON: 02/16/2022 FINDINGS: VERTEBRAE: No acute fracture of the cervical spine. Anatomic alignment. DISCS and SPINAL CANAL: Degenerative discogenic changes. No critical stenosis. NECK SOFT TISSUES: No prevertebral soft tissue swelling. LUNG APICES: No acute pulmonary findings. CT/Spine Cervical without Contras IMPRESSION: Degenerative changes. No acute fracture of the cervical spine. Electronically Signed: Sergey Castro MD at 17:13 EST ,
--- NOTE | 2022-03-07 16:34 | RAD_ITS ---
INDICATION: Trauma, fall EXAMINATION/TECHNIQUE: X-RAY - XR Spine Lumbar Min 4 Views COMPARISON: CT abdomen and pelvis 09/14/2020 FINDINGS: VERTEBRAE: Preserved vertebral body height. No acute fracture. No spondylolisthesis. Preservation of the normal lumbar lordosis. DISCS: Disc spaces are maintained. INCLUDED ABDOMEN: Included bowel gas pattern is non-obstructive. RAD/L/S Spine Min 4 Views IMPRESSION: No acute bony abnormality. Electronically Signed: Sergey Castro MD at 17:25 EST ,
--- NOTE | 2022-03-07 16:51 | EDS_ITS ---
HPI <JUAN Shearer - Last Filed: 03/07/22 20:15> HPI - Fall History of Present Illness Chief Complaint: Fall Narrative Narrative: Patient presents today from the skilled nursing in which she resides after falling forward out of her wheelchair and hitting the ground. She is unsure if she hit her head or not but thinks she might have. She is able to tell me her name and that she is in the hospital but not what month or year it is. She is stating she is having lower back and right leg and R hip pain. She denies chest pain, shortness of breath, and abdominal pain. [facility] <JUAN Shearer - Last Filed: 03/07/22 20:15> [facility] Medical History Abdominal pain Adenocarcinoma of colon Anemia Anxiety Cancer of ascending colon metastatic to intra-abdominal lymph node Cerebral arteriosclerosis Chronic calculous cholecystitis Dehydration Dementia Diarrhea Diverticulitis of colon Diverticulosis Dizziness DM2 (diabetes mellitus, type 2) Dysphagia GERD (gastroesophageal reflux disease) GERD with stricture Hematuria Hemorrhoids History of colon cancer History of CVA (cerebrovascular accident) HTN (hypertension) Hyperlipidemia Hypokalemia Intervertebral disc disorder with radiculopathy of lumbar region Nausea & vomiting Overactive bladder Risk for falls Suspected sleep apnea Venous insufficiency, peripheral Home Medications metoprolol succinate 100 mg tablet,extended release 24 hr 100 mg PO DAILY BLOOD PRESSURE 03/29/17 [History Last Taken 03/07/22] insulin glargine 100 unit/mL (3 mL) subcutaneous pen (Lantus Solostar U-100 Insulin) 10 units SQ QHS diabetes 08/21/17 [History Last Taken 03/06/22] duloxetine 60 mg capsule,delayed release 60 mg PO BID depression 01/06/19 [History Last Taken 03/07/22] isosorbide mononitrate 30 mg tablet,extended release 24 hr 30 mg PO DAILY blood pressure 12/19/19 [History Last Taken 03/07/22] pregabalin 50 mg capsule 50 mg PO DAILY PAIN 01/28/20 [History Last Taken 03/07/22] furosemide 20 mg tablet 60 mg PO DAILY EDEMA 09/06/20 [History Last Taken 03/07/22] naproxen sodium 220 mg capsule (Aleve) 220 mg PO BID PAIN 09/06/20 [History Last Taken 03/07/22] potassium chloride 20 mEq tablet,extended release(part/cryst) 20 meq PO DAILY SUPPLEMENT 09/06/20 [History Last Taken 03/07/22] acetaminophen 325 mg tablet 650 mg PO Q4H PRN Pain 03/07/22 [History Last Taken 02/28/22] donepezil 10 mg tablet 10 mg PO QHS 03/07/22 [History Last Taken 03/06/22] hydroxyzine HCl 10 mg/5 mL oral solution See Rx Instructions .Route .COMPLEX 03/07/22 [History Last Taken 02/28/22] metformin 500 mg tablet,extended release 24 hr 1,000 mg PO BID DIABETES 03/07/22 [History Last Taken 03/07/22] mirtazapine 7.5 mg tablet 7.5 mg PO QHS DEPRESSION 03/07/22 [History Last Taken 03/06/22] omeprazole 40 mg capsule,delayed release 40 mg PO DAILY GERD 03/07/22 [History Last Taken 03/07/22] pravastatin 80 mg tablet 80 mg PO QHS CHOLESTEROL 03/07/22 [History Last Taken 03/06/22] risperidone 0.5 mg tablet 0.5 mg PO BID 03/07/22 [History Last Taken 03/07/22] sertraline 100 mg tablet 100 mg PO DAILY DEPRESSION 03/07/22 [History Last Taken 03/07/22] Allergy/AdvReac Type Severity Reaction Status Date / Time citalopram hydrobromide Allergy Upset Verified 03/07/22 16:05 [From Celexa] Stomach gabapentin [From Neurontin] Allergy Unknown Verified 03/07/22 16:05 hydrocodone bitartrate Allergy drove her Verified 03/07/22 16:05 [From Vicodin] crazy lisinopril Allergy Unknown Verified 03/07/22 16:05 tramadol AdvReac Severe Extreme Verified 03/07/22 16:05 agitation, suicidal, distraught, fleeing morphine AdvReac Other Verified 03/07/22 16:05 oxycodone [From OxyContin] AdvReac Vomiting Verified 03/07/22 16:05 Family History Son Diabetes Cancer of kidney Lung cancer Bone cancer Surgical History History of esophagogastroduodenoscopy (EGD) Hx of colonoscopy Hx of heart surgery S/P cholecystectomy S/P colectomy S/P hysterectomy Status post corneal transplant Status post total knee replacement, right Social History Smoking Status: Never smoker second hand exposure: No alcohol intake: never substance use type: does not use caffeine: Yes what type of physical activity do you participate in: none frequency: does not exercise seatbelt use: always ROS <JUAN Shearer - Last Filed: 03/07/22 20:15> ROS ED Constitutional Constitutional ED: Denies chills, fever(s) or sweats Eyes Eyes: Denies blurry vision or change in vision ENT ENT ED: Denies rhinorrhea or sore throat Cardiovascular Cardiovascular: Denies chest pain, palpitations or racing heartbeat Respiratory/Chest Respiratory/Chest: Denies cough, dyspnea or dyspnea on exertion Gastrointestinal Gastrointestinal: Denies abdominal pain, diarrhea, nausea or vomiting Genitourinary Genitourinary ED: Denies dysuria or hematuria Musculoskeletal Musculoskeletal: Reports back pain and extremity pain; Denies neck pain Integumentary Denies abscess, Abrasions or rash Neurologic Neurologic: Denies headache(s), paresthesias or weakness Psychiatric Psychiatric: Denies anxiety or depression Hematologic/Lymphatic Hematologic/Lymphatic: Denies easy bleeding EXAM <JUAN Shearer - Last Filed: 03/07/22 20:15> Physical Exam Const Vital Signs: 03/07/22 16:01 03/07/22 16:14 03/07/22 17:49 Temperature 97.1 F L Temperature Source Temporal Pulse Rate 76 Respiratory Rate 15 16 Respiratory Effort Normal Non-Labored Respiratory Depth Normal Respiratory Pattern Normal Blood Pressure 150/80 H 180/51 H Blood Pressure Mean 103 94 Pulse Ox 98 Oxygen Delivery Method Room Air Room Air Positive well nourished and well developed General Appearance ED: well developed and NAD HEENT Reports normocephalic atraumatic; Negative for tenderness Eyes PERRL and EOMs intact bilaterally Neck full ROM, no lymphadenopathy and supple Chest Wall inspection of chest normal and palpation of chest normal Resp normal respiratory effort, no retractions and clear to auscultation bilaterally Cardio regular rate, regular rhythm and no murmurs GI non-tender, non-distended and no masses Palpation: soft Back/Spine Cervical Spine: cervical ROM normal Thoracic Spine / Upper Back: normal to inspection Lumbar Spine / Lower Back: normal to inspection and lumbar spinal tenderness Extremity Extremity Narrative: Full range of motion extremities.? Pelvis stable.? Some tenderness to palpation right greater trochanter of hip/femur.? dorsalis pedis pulses 2+ bilaterally.? Sensation intact in lower extremities bilaterally. Neuro CN's II-XII intact bilaterally, moves all extremities, no focal motor deficits and no sensory deficits noted Sensorium / Orientation: alert Motor Exam: strength 5/5 throughout Psych mental status grossly normal and thought process normal <Dr. Chidi Graham DO - Last Filed: 03/07/22 20:00> Physical Exam Const Vital Signs: 03/07/22 16:01 03/07/22 16:14 03/07/22 17:49 Temperature 97.1 F L Temperature Source Temporal Pulse Rate 76 Respiratory Rate 15 16 Respiratory Effort Normal Non-Labored Respiratory Depth Normal Respiratory Pattern Normal Blood Pressure 150/80 H 180/51 H Blood Pressure Mean 103 94 Pulse Ox 98 Oxygen Delivery Method Room Air Room Air MDM <JUAN Shearer - Last Filed: 03/07/22 20:15> [facility] MDM Narrative Medical decision making narrative: Brain CT shows no acute findings. C-spine CT shows no acute fracture. No acute fracture in hips bilaterally or pelvis. No acute fracture in the lumbar spine. no acute fracture in right femur. Patient was given Toradol for pain and she states this really helped her pain. Patient states she ambulates with a walker and wheelchair at the skilled nursing. She was able to ambulate with a walker here and use the restroom without any difficulty. Patient did seem a little bit confused here, however, she was able to tell me that she normally uses a walker at the skilled nursing and wheelchair. She does have a history of dementia. I am comfortable with patient discharging back to the skilled nursing. Patient is comfortable with plan. Radiography Diagnostic Testing: Clinical Impression(s) from Imaging Studies Brain CT 03/07/22 16:34 IMPRESSION: Volume loss with chronic white matter changes. No acute intracranial findings. Electronically Signed: Sergey Castro MD at 17:17 EST , Cervical Spine CT 03/07/22 16:34 IMPRESSION: Degenerative changes. No acute fracture of the cervical spine. Electronically Signed: Sergey Castro MD at 17:13 EST , Hip/Pelvis X-Ray 03/07/22 16:34 IMPRESSION: No acute bony abnormality. Electronically Signed: Sergey Castro MD at 17:28 EST , Lumbar Spine X-Ray 03/07/22 16:34 IMPRESSION: No acute bony abnormality. Electronically Signed: Sergey Castro MD at 17:25 EST , Femur X-Ray 03/07/22 16:55 IMPRESSION: No acute findings. Electronically Signed: Lynn Rosado MD at 17:29 EST Reading Location ID and State: [id number] / Tel , Service support , CTs and x-rays have been reviewed and I agree with radiologist impressions. These have also been reviewed by attending ED physician. <Dr. Chidi Graham, DO - Last Filed: 03/07/22 20:00> [facility] Lab Data Attestation: I reviewed the patient's lab results. Radiography Diagnostic Testing: Clinical Impression(s) from Imaging Studies Brain CT 03/07/22 16:34 IMPRESSION: Volume loss with chronic white matter changes. No acute intracranial findings. Electronically Signed: Sergey Castro MD at 17:17 EST , Cervical Spine CT 03/07/22 16:34 IMPRESSION: Degenerative changes. No acute fracture of the cervical spine. Electronically Signed: Sergey Castro MD at 17:13 EST , Hip/Pelvis X-Ray 03/07/22 16:34 IMPRESSION: No acute bony abnormality. Electronically Signed: Sergey Castro MD at 17:28 EST , Lumbar Spine X-Ray 03/07/22 16:34 IMPRESSION: No acute bony abnormality. Electronically Signed: Sergey Castro MD at 17:25 EST , Femur X-Ray 03/07/22 16:55 IMPRESSION: No acute findings. Electronically Signed: Lynn Rosado MD at 17:29 EST Reading Location ID and State: [id number] / Tel , Service support , Treatment and Re-Evaluation Narrative: I performed a history and physical examination of the patient and discussed management plan with the physician assistant press operator offset. I reviewed the physician assistant press operator offset's note and agree with the documented findings and plan of care. My interpretation of the plain films of the hip and pelvis is no acute fracture. Lumbar spine x-rays my interpretation is no acute fracture. Femur x-ray is no acute fractures. CT of the brain and cervical spine is negative patient be discharged home Chidi Graham DO, MS Discharge Plan Triage Chief Complaint: Fall ED Midlevel Provider: Soni Perry ED Provider: Chidi Graham Dx/Rx/DC Orders Clinical Impression: Fall, Acute pain of right hip, Low back pain Instructions: Prevent Falls Make Health Priority Prescriptions: No Action metoprolol succinate 100 mg tablet extended release 24 hr 100 mg PO DAILY pregabalin 50 mg capsule 50 mg PO DAILY furosemide 20 mg tablet 60 mg PO DAILY naproxen sodium [Aleve] 220 mg capsule 220 mg PO BID potassium chloride 20 mEq tablet,ER particles/crystals 20 meq PO DAILY insulin glargine [Lantus Solostar U-100 Insulin] 100 UNITS/ML insulin pen 10 units SQ QHS duloxetine 60 MG capsule,delayed release(DR/EC) 60 mg PO BID isosorbide mononitrate 30 mg tablet extended release 24 hr 30 mg PO DAILY acetaminophen 325 mg Tablet 650 mg PO Q4H PRN (Reason: Pain) donepezil 10 mg tablet 10 mg PO QHS sertraline 100 mg Tablet 100 mg PO DAILY omeprazole 40 mg Capsule,Delayed Release(Dr/Ec) 40 mg PO DAILY hydroxyzine HCl 10 mg/5 mL Solution See Rx Instructions .ROUTE .COMPLEX Rx Instructions: TAKE 12.5 ML BY MOUTH EVERY 8 HOURS NEEDED FOR ANXIETY pravastatin 80 mg tablet 80 mg PO QHS metformin 500 mg tablet extended release 24 hr 1,000 mg PO BID risperidone 0.5 mg tablet 0.5 mg PO BID mirtazapine 7.5 mg Tablet 7.5 mg PO QHS Primary Care Provider: Cecil Carey Referrals: Cecil Carye MD [Primary Care Provider] - 3-5 Days Activity Restrictions/Additional Instructions: You can ice your right hip and lower back for 10 to 15 minutes 3-4 times a day for the next few days. You can take ibuprofen or Tylenol for pain. Disposition Disposition: Senior Care Acute Care Discharge Location: [facility] Discharge Date/Time: 03/07/22 19:58
--- NOTE | 2022-03-07 16:55 | RAD_ITS ---
INDICATION: fall EXAMINATION/TECHNIQUE: X-RAY - RIGHT XR Femur Min 2 Views 4 VIEWS COMPARISON: None. FINDINGS: No acute fracture or dislocation. No destructive bone changes. Mild lateral acetabular spurring. The hip joint is otherwise well maintained. [id number] fixed spurring of the greater trochanter. Total knee replacement. No periprosthetic fracture Normal alignment. Atherosclerotic vascular calcification. No radiopaque foreign body or soft tissue gas. RAD/Femur Min 2 Views IMPRESSION: No acute findings. Electronically Signed: Lynn Rosado MD at 17:29 EST Reading Location ID and State: [id number] / Tel , Service support ,
[2022-03-07] MEDS: Ketorolac 15 MG/ML Vial IM (17:47)
[2022-03-07 17:49] VITALS: BP 180/51; RESP 16
== END 2022-03-07 19:58 ==
PROVIDERS: Emergency Provider Emergency Medicine; PCP Family Medicine; Visit Provider Emergency Medicine
DX: M25.551 Pain in right hip (principal); E11.9 Type 2 diabetes mellitus without complications; M54.50 Low back pain, unspecified; I10 Essential (primary) hypertension; E78.5 Hyperlipidemia, unspecified
CPT/HCPCS: 70450; 72110; 72125; 73502; 73552; 96372; 99284